=== PATIENT | male | born 1965 | race Caucasian/White ===

== ENCOUNTER 2018-11-15 14:32 | Emergency (ER) | payer SELFPAY ==
[2018-11-15 14:33] VITALS: BP 211/122; PULSE 80; RESP 16; TEMP 37.2; O2SAT 98; BMI 36.5
--- NOTE | 2018-11-15 14:44 | CT_ITS ---
STUDY: CT BRAIN WITHOUT CONTRAST REASON FOR EXAM: Male, 53 years old. Hypertension and confusion. RADIATION DOSAGE (If Supplied By Facility): CTDIvol = ( 44.99 ) mGy, DLP = ( 745.49 ) mGycm TECHNIQUE: Transaxial CT imaging of the brain was performed without administration of intravenous contrast material. Individualized dose optimization techniques were used for this CT. COMPARISON: None. FINDINGS: Normal soft tissue structures. Normal calvarium. Normal size ventricles and extra-axial spaces for the patient's age. Normal white matter tracts of the cerebral hemispheres. Normal basal ganglia and thalami. Normal brainstem. Normal cerebellum. There is no intracranial hemorrhage. There are no findings of an acute ischemic infarction. Normal visualized paranasal sinuses. CT/Brain/Head without Contrast IMPRESSION: Normal unenhanced CT scan of the brain. Electronically Signed: Puneet Alaniz MD at 15:21 EST Tel , Service support ,
--- NOTE | 2018-11-15 14:44 | RAD_ITS ---
STUDY: X-RAY CHEST REASON FOR EXAM: Male, 53 years old. Chest pain high blood pressure TECHNIQUE: Single AP portable view of the chest. COMPARISON: None. FINDINGS: The lungs are clear and expanded. There is no demonstrated pleural abnormality. There is mild cardiac enlargement. Normal mediastinum and hortencia. Normal visualized pulmonary arteries. Normal visualized aortic arch and descending thoracic aorta. Normal visualized thoracic spine. Normal visualized ribs, clavicles, and shoulders. There is no demonstrated abnormality of the visualized soft tissue structures of the upper abdomen. RAD/Chest 1 View (Portable) IMPRESSION: Mild cardiomegaly, no evidence of acute focal infiltrate. Electronically Signed: Lucy Andersen MD at 15:42 EST Tel , Service support ,
--- NOTE | 2018-11-15 14:44 | EKG12_ITS ---
Test Reason : HYPERTENSION Blood Pressure : / mmHG Vent. Rate : 079 BPM Atrial Rate : 079 BPM P-R Int : 168 ms QRS Dur : 088 ms QT Int : 378 ms P-R-T Axes : 026 003 -31 degrees QTc Int : 433 ms Normal sinus rhythm Moderate voltage criteria for LVH, may be normal variant Nonspecific T wave abnormality Abnormal ECG Confirmed by IVANNA WOODRUFF, RDAAMES ([id number]), make up editor CHAYO HOLLAND ([id number]) on 11/17/2018 8:58:28 AM Referred By: NEELA Confirmed By:RADAMES GONCALVES MD
--- NOTE | 2018-11-15 14:49 | ED.VISSUMM ---
- ER Visit Summary Date of Service: 11/15/18 Chief Complaint: Hypertension History of Present Illness: The patient is a 53 M who presents for elevated blood pressure. Yesterday he had a headache and had some mild confusion. His blood pressure was checked last evening and was noted to be elevated to approximately 200/100. Elevated blood pressure is persisted today, but he denies any current headache or confusion. He states his blood pressure was last checked approximately 6-12 months ago. Physical Examination: Blood pressure is 211/122, temperature 98.9, heart rate 80, respiratory rate 16, pulse ox 98% on room air. The time of my examination his blood pressure is 205/126. Patient is in no acute distress and is nontoxic appearing. Head and neck examination is normal. Heart is regular rate and rhythm. Palpable pulses are noted throughout. Lungs are clear with good air movement throughout. Abdomen is soft and nontender. Bowel sounds are noted. Extremity examination is unremarkable with full range of motion. Neurologic examination reveals no focal deficits. Test Results: EKG is sinus at 79 with no acute ischemia. Voltage criteria for LVH is present. Portable chest x-ray shows mild cardiomegaly. No focal infiltrate. Head CT is normal. CBC and chemistry studies are normal. Urinalysis is normal with no sign of proteinuria. Emergency Department Course and Treatment: Patient was given 10 mg of IV labetalol. Repeat blood pressures are 178/109 followed by 168/106. At this time patient be started on lisinopril 10 mg. He is to keep track of his blood pressures and follow-up with his primary care physician. He was advised that the medication would likely need to be titrated. Treatment Plan: [] Disposition: Discharge Impression: Hypertension This note was generated with [employer] dictation software. It may contain incorrect words, spelling, and punctuation that were not noted in review of the chart prior to signing ED Disposition - Plan for ED Patient: Chief Complaint: Hypertension Referrals: Zaki Noe MD [Primary Care Provider] -
--- NOTE | 2018-11-15 14:54 | ED.DCSUM_ITS ---
- ER Visit Summary Date of Service: 11/15/18 Chief Complaint: Hypertension History of Present Illness: The patient is a 53 M who presents for elevated blood pressure. Yesterday he had a headache and had some mild confusion. His blood pressure was checked last evening and was noted to be elevated to approx imately 200/100. Elevated blood pressure is persisted today, but he denies any current headache or confusion. He states his blood pressure was last checked approximately 6-12 months ago. Physical Examination: Blood pressure is 211/122, temperature 98.9, heart rate 80, respiratory rate 16, pulse ox 98% on room air. The time of my examination his blood pressure is 205/126. Patient is in no acute distress and is nontoxic appearing. Head and neck examination is normal. Heart is regular rate and rhythm. Palpable pulses are noted throughout. Lungs are clear with good air movement throughout. Abdomen is soft and nontender. Bowel sounds are noted. Extremity examination is unremarkable with full range of motion. Neurologic examination reveals no focal deficits. Test Results: EKG is sinus at 79 with no acute ischemia. Voltage criteria for LVH is present. Portable chest x-ray shows mild cardiomegaly. No focal infiltrate. Head CT is normal. CBC and chemistry studies are normal. Urinalysis is normal with no sign of proteinuria. Emergency Department Course and Treatment: Patient was given 10 mg of IV labetalol. Repeat blood pressures are 178/109 followed by 168/106. At this time patient be started on lisinopril 10 mg. He is to keep track of his blood pressures and follow-up with his primary care physician. He was advised that the medication would likely need to be titrated. Treatment Plan: [] Disposition: Discharge Impression: Hypertension This note was generated with [employer] dictation software. It may contain incorrect words, spelling, and punctuation that were not noted in review of the chart prior to signing ED Disposition - Plan for ED Patient: Chief Complaint: Hypertension Referrals: Zaki Noe MD [Primary Care Provider] -
[2018-11-15 15:00] LABS: Absolute Lymphocyte Count 1.45 X10^3/ul (0.83-4.51); Absolute Neutrophil Count 4.2 X10^3/uL (2.0-7.7); Basophil# 0.01 X10^3/uL; Basophil% 0.2 % (0-1); Eosinophil# 0.08 X10^3/uL; Eosinophils% 1.3 % (0-5); Hematocrit 41.1 % (40-54); Hemoglobin 13.8 g/dl (13.0-16.5); Lymphocyte # 1.45 X10^3/ul (4.0); Lymphocyte % 23.7 % (19-41); Mean Corp Hgb Conc 33.6 g/gl (32-36); Mean Corpuscular Hgb 30.4 pg (27.0-32.0); Mean Corpuscular Volume 90.5 fL (80-94); Mean Platelet Vol. 10.2 fl (6.2-12.0); Monocyte# 0.36 X10^3/uL; Monocyte% 5.9 % (0-10); Neutrophil % 68.6 % (47-70); Platelet Count 196 K/mm3 (150-450); RBC Distribution Width CV 13.6 % (11.6-14.6); RBC Distribution Width SD 44.5 fl (35.1-43.9); Red Blood Count 4.54 M/mm3 (4.6-6.2); White Blood Count 6.1 K/mm3 (4.4-11.0)
[2018-11-15 15:03] LABS: POSITIVE COUNT NO; POSITIVE DIFFERENTIAL NO; POSITIVE MORPHOLOGY NO
[2018-11-15 15:12] LABS: Anion Gap 10 (5-15); BUN 12 mg/dL (7-18); BUN/Creat Ratio 9.7 RATIO (10-20); Calcium,Total 8.5 mg/dL (8.5-10.1); Chloride 106 mmol/L (98-107); Creatinine, Serum 1.24 mg/dL (0.70-1.30); EST Glomerular Filtration Rate 65 mL/min (>60); Est Glom Filt Rate - Afr Amer 79 mL/min (>60); Estimated Creatinine Clearance 67.42 ml/min; Glucose 118 mg/dL (74-106); Potassium 3.6 mmol/L (3.5-5.1); Sodium Level 138 mmol/L (136-145)
[2018-11-15] MEDS: Labetalol 20 MG/4 ML Vial 10 MG IV (15:23)
[2018-11-15 15:37] VITALS: BP 178/109; PULSE 75
[2018-11-15 15:39] LABS: Bacteria 0 SEEN /hpf (None Seen); Mucous, Urine 0 SEEN /hpf (<or=2+); Red Blood Cells-Urine 0 SEEN /hpf (0-5); Squamous Epithelial Cells - UA 0 SEEN /hpf (0-5); White Blood Cells 0 SEEN /hpf (0-5)
[2018-11-15 15:46] LABS: Color, Urine Yellow (Yellow); Glucose, Dipstick Normal (Normal); Ketone-Dipstick Negative (Negative); Leukocyte Esterase-Dipstick Negative /ul (Negative); Nitrite-Dipstick Negative (Negative); Occult Blood-Urine Negative /ul (Negative); Protein-Dipstick Negative (Negative); Urine Bilirubin Dipstick Negative (Negative); Urine Clarity Clear (Clear); Urine Urobilinogen Normal (Normal)
--- NOTE | 2018-11-15 16:02 | ED.DEP ---
ED Disposition - Plan for ED Patient: Disposition: Home or Assisted Living Chief Complaint: Hypertension Instructions: ED Hypertension New Begin Tx Prescriptions: Lisinopril [Zestril] 10 mg PO DAILY #30 tablet Referrals: Zaki Noe MD [Primary Care Provider] - 1 Week
[2018-11-15 16:08] VITALS: BP 168/106; PULSE 79; RESP 18; O2SAT 95
[2018-11-15] MEDS: Lisinopril 10 MG Tablet PO (16:08)
--- OUTSIDE RECORDS SUMMARY | 2019-01-19 10:28 | XMS RPT_ITS ---
:1965 Author Organization [facility] Care Team Providers Name Role Phone Zaki Neo Primary Care Unavailable Alka Woo Attending Unavailable PROBLEMS PROBLEMS No Problem Records FoundPROCEDURES PROCEDURES No Procedure Records FoundRESULTS RESULTS 12 LEAD ELECTROCARDIOGRAM Observed: 11/17/2018 Status: F Source: [place] 8:58 AM [facility] REPOSITORY [facility] Cardiovascular Services [address] [place] [address] 12 Lead EKG 11/15/18 1455 MR#: [id number] Acct: [id number] Name: JONATHAN BARNETT Rep #: [id number] : 1965 53 From: Les Goncalves MD Attending Dr: Status: DEP ER Ordering Dr: Alka Woo MD Date: 11/15/18 Location: ED Sex: M C Admitted: Test Reason : HYPERTENSION Blood Pressure : / mmHG Vent. Rate : 079 BPM Atrial Rate : 079 BPM P-R Int : 168 ms QRS Dur : 088 ms QT Int : 378 ms P-R-T Axes : 026 003 -31 degrees QTc Int : 433 ms Normal sinus rhythm Moderate voltage criteria for LVH, may be normal variant Nonspecific T wave abnormality Abnormal ECG Confirmed by LES GONCALVES MD ([id number]), non linear editor CHAYO HOLLAND ([id number]) on 11/17/2018 8:58:28 AM Referred By: NEELA Confirmed By:LES GONCALVES MD 11/17/18 0858 Date Les Goncalves MD CC: Alka Woo MD; Zaki Noe MD Signed EMERGENCY DEPARTMENT Observed: 11/15/2018 Status: F Source: [place] SUMMARY 6:28 PM [facility] REPOSITORY [facility] Medical Records Department [address] [place] [address] Emergency Department Summary 11/15/18 1449 MR#: [id number] Acct: [id number] Name: JONATHAN BARNETT Rep #: [id number] : 1965 53 From: Alka Woo MD PCP: Zaki Noe MD Status: DEP ER - ER Visit Summary Date of Service: 11/15/18 Chief Complaint: Hypertension History of Present Illness: The patient is a 53 M who presents for elevated blood pressure. Yesterday he had a headache and had some mild confusion. His blood pressure was checked last evening and was noted to be elevated to approximately 200/100. Elevated blood pressure is persisted today, but he denies any current headache or confusion. He states his blood pressure was last checked approximately 6-12 months ago. Physical Examination: Blood pressure is 211/122, temperature 98.9, heart rate 80, respiratory rate 16, pulse ox 98% on room air. The time of my examination his blood pressure is 205/126. Patient is in no acute distress and is nontoxic appearing. Head and neck examination is normal. Heart is regular rate and rhythm. Palpable pulses are noted throughout. Lungs are clear with good air movement throughout. Abdomen is soft and nontender. Bowel sounds are noted. Extremity examination is unremarkable with full range of motion. Neurologic examination reveals no focal deficits. Test Results: EKG is sinus at 79 with no acute ischemia. Voltage criteria for LVH is present. Portable chest x-ray shows mild cardiomegaly. No focal infiltrate. Head CT is normal. CBC and chemistry studies are normal. Urinalysis is normal with no sign of proteinuria. Emergency Department Course and Treatment: Patient was given 10 mg of IV labetalol. Repeat blood pressures are 178/109 followed by 168/106. At this time patient be started on lisinopril 10 mg. He is to keep track of his blood pressures and follow- up with his primary care physician. He was advised that the medication would likely need to be titrated. Treatment Plan: [] Disposition: Discharge Impression: Hypertension This note was generated with [employer] software. It may contain incorrect words, spelling, and punctuation that were not noted in review of the chart prior to signing ED Disposition - Plan for ED Patient: Chief Complaint: Hypertension Referrals: Zaki Noe MD [Primary Care Provider] - What to do if you have Problems For any increased pain, shortness of breath, bleeding, nausea or vomiting, chest pain, or any unexpected problems, contact your Primary Care Provider. Call [facility] ([phone]) or report to the closest Emergency Room. Call 911 if necessary. 11/15/18 1828 <Electronically signed by Alka Woo MD> Date Alka Woo MD Cosigner Signature (If Indicated): Date CC: Zaki Noe MD DISCHARGE INSTRUCTION Observed: 11/15/2018 Status: F Source: [place] 4:03 PM [facility] REPOSITORY [facility] Medical Records Department [address] [place] [address] Discharge Instruction 11/15/18 160 MR#: [id number] Acct: [id number] Name: JONATHAN BARNETT Rep #: [id number] : 1965 53 From: Alka Woo MD PCP: Zaki Noe MD Status: REG ER ED Disposition - Plan for ED Patient: Disposition: Home or Assisted Living Chief Complaint: Hypertension Instructions: ED Hypertension New Begin Tx Prescriptions: Lisinopril [Zestril] 10 mg PO DAILY #30 tablet Referrals: Zaki Noe MD [Primary Care Provider] - 1 Week What to do if you have Problems For any increased pain, shortness of breath, bleeding, nausea or vomiting, chest pain, or any unexpected problems, contact your Primary Care Provider. Call [facility] ([phone]) or report to the closest Emergency Room. Call 911 if necessary. 11/15/18 1603 <Electronically signed by Alka Woo MD> Date Alka Woo MD Cosignbraden Signature (If Indicated): Date CC: Zaki Noe MD URINALYSIS, COMPLETE Collected: 11/15/2018 Status: F Source: [place] 3:30 PM [facility] REPOSITORY Order Comment: How was Urine Obtained? TRANSFORMER MOLDER TO SPECIFY TYPE CODE TESTS RESULT OUT OF RANGE REFERENCE UNITS LAB L400.3000 Yellow COLOR Normal Yellow LAB L400.3050 Clear Normal CLARITY Clear LAB L400.3200 Normal mg/dl Normal GLUCOSE, UR Normal LAB L400.3300 Negative mg/dL Normal BILIRUBIN URINE Negative LAB L400.3400 Negative mg/dl Normal KETONE UR Negative LAB L400.3465 1.002-1.030 Normal SP.GR. DIPSTX 1.010 LAB L400.3550 5.0 - 8.0 pH UR Normal 6.0 LAB L400.3600 Negative mg/dl PROT Normal DIPSTX Negative LAB L400.3700 Normal mg/dl Normal UROBILI Normal LAB L400.3750 Negative Normal NITRITE UR Negative LAB L400.3780 Negative /ul Normal OCCULT BLOOD-UR Negative LAB L400.3800 Negative /ul LEUK Normal ESTERASE Negative LAB L400.4050 0-5 /hpf WBC 0 Normal SEEN LAB L400.4100 0-5 /hpf 0 Normal RBC-UA SEEN LAB L400.4150 0-5 /hpf SQUAM 0 Normal EPI SEEN LAB L400.4300 None Seen /hpf 0 Normal BACTERIA SEEN LAB L400.4350 <or=2+ /hpf 0 Normal MUCUS, URINE SEEN Performed By: #### L400.0001 #### [facility] [address] [place], [address] CBC W/DIFF, AUTOMATED Collected: 11/15/2018 Status: F Source: [place] 2:50 PM [facility] REPOSITORY TYPE CODE TESTS RESULT OUT OF RANGE REFERENCE UNITS LAB L100.1000 4.4-11.0 K/mm3 Normal WBC 6.1 LAB L100.1200 4.6-6.2 M/mm3 Low RBC 4.54 LAB L100.1300 13.0-16.5 g/dl Normal HGB 13.8 LAB L100.1400 40-54 % Normal HCT 41.1 LAB L100.1500 80-94 fL Normal MCV 90.5 LAB L100.1600 27.0-32.0 pg Normal MCH 30.4 LAB L100.1700 32-36 g/gl Normal MCHC 33.6 LAB L100.1810 11.6-14.6 % Normal RDW CV 13.6 LAB L100.1820 35.1-43.9 fl High RDW SD 44.5 LAB L100.1900 150-450 K/mm3 Normal PLT 196 LAB L100.2000 6.2-12.0 fl Normal MPV 10.2 LAB L100.2100 47-70 % Normal NEUT% 68.6 LAB L100.2200 19-41 % Normal LY% 23.7 LAB L100.2300 0-10 % Normal MONO% 5.9 LAB L100.2400 0-5 % Normal EO% 1.3 LAB L100.2500 0-1 % Normal BASO% 0.2 LAB L100.2550 0.0-0.9 % Normal IM GRAN % 0.300 Result Comment: IG% - Immature Granulocytes (promyelocytes, myelocytes and metamyelocytes) > 1% indicates that a LEFT SHIFT is Present. LAB L100.2620 2.0-7.7 X10 3/uL Normal Absolute Neut 4.2 LAB L100.2720 0.83-4.51 X10 3/ul Normal Absolute Lymph 1.45 Performed By: #### L100.0100 #### [facility] [address] [place], [address] BASIC METABOLIC Collected: 11/15/2018 Status: F Source: [place] PROFILE (BMP) 2:50 PM [facility] REPOSITORY TYPE CODE TESTS RESULT OUT OF RANGE REFERENCE UNITS LAB L501.0100 74-106 mg/dL High GLU 118 Result Comment: Fasting Glucose result from 100 to 125 mg/dL suggests IMPAIRED HOMEOSTASIS per A.D.A. criteria. Please note revised GLUCOSE reference range effective 2017. LAB L501.1000 7-18 mg/dL Normal BUN 12 LAB L501.1100 0.70-1.30 mg/dL Normal CREAT,SERUM 1.24 Result Comment: The validity of the calculated GFR AND GFRAA in patients over 70 years has not been determined. Clinical correlation is essential. LAB L501.1110 >60 mL/min Normal EST GFR 65 Result Comment: Non- GFR Calc LAB L501.1115 >60 mL/min Normal EST GFR - AA 79 Result Comment: GFR Calc LAB L501.1255 ml/min Normal Estimated CRCL 67.42 LAB L501.1300 10-20 RATIO Low BUN/CRE 9.7 LAB L501.2200 8.5-10 mg/dL Normal .1 CA 8.5 LAB L501.5300 136-14 mmol/L Normal 5 NA 138 LAB L501.5600 3.5-5. mmol/L Normal 1 K 3.6 LAB L501.5900 98-107 mmol/L Normal CL 106 LAB L501.6100 21.0-3 mmol/L Normal 2.0 CO2 22.0 LAB L501.6200 5-15 Normal GAP 10 Performed By: #### L500.2500 #### [facility] [address] [facility] [place], [address] BRAIN/HEAD WITHOUT Observed: 11/15/2018 Status: F Source: [place] CONTRAST 2:45 PM [facility] REPOSITORY [facility] Imaging Services [address] [place] [address] Brain/Head without Contrast MR#: [id number] Acct: [id number] Name: JETJONATHAN Corbett Pat Rep #: [id number] : 1965 M 53 From: Puneet Alaniz MD PCP: Zaki Noe MD Status: REG ER Study: Brain/Head without Contrast Date of Exam: 11/15/18 Exam# [id number] Ordering Dr: Alka Woo MD STUDY: CT BRAIN WITHOUT CONTRAST REASON FOR EXAM: Male, 53 years old. Hypertension and confusion. RADIATION DOSAGE (If Supplied By Facility): CTDIvol = ( 44.99 ) mGy, DLP = ( 745.49 ) mGycm TECHNIQUE: Transaxial CT imaging of the brain was performed without administration of intravenous contrast material. Individualized dose optimization techniques were used for this CT. COMPARISON: None. FINDINGS: Normal soft tissue structures. Normal calvarium. Normal size ventricles and extra-axial spaces for the patient's age. Normal white matter tracts of the cerebral hemispheres. Normal basal ganglia and thalami. Normal brainstem. Normal cerebellum. There is no intracranial hemorrhage. There are no findings of an acute ischemic infarction. Normal visualized paranasal sinuses. CT/Brain/Head without Contrast IMPRESSION: Normal unenhanced CT scan of the brain. Electronically Signed: Puneet Alaniz MD at 15:21 EST Tel , Service support , CC: Alka Woo MD; Zaki Noe MD Dental Patient Coordinator: Signed CHEST 1 VIEW Observed: 11/15/2018 Status: F Source: [place] (PORTABLE) 2:45 PM [facility] REPOSITORY [facility] Imaging Services [address] [place] [id number] Chest 1 View (Portable) MR#: [id number] Acct: [id number] Name: JONATHAN BARNETT Rep #: [id number] : 1965 53 From: Lucy Andersen MD PCP: Zaki Noe MD Status: REG ER Study: Chest 1 View (Portable) Date of Exam: 11/15/18 Exam# [id number] Ordering Dr: Alka Woo MD STUDY: X-RAY CHEST REASON FOR EXAM: Male, 53 years old. Chest pain high blood pressure TECHNIQUE: Single AP portable view of the chest. COMPARISON: None. FINDINGS: The lungs are clear and expanded. There is no demonstrated pleural abnormality. There is mild cardiac enlargement. Normal mediastinum and hortencia. Normal visualized pulmonary arteries. Normal visualized aortic arch and descending thoracic aorta. Normal visualized thoracic spine. Normal visualized ribs, clavicles, and shoulders. There is no demonstrated abnormality of the visualized soft tissue structures of the upper abdomen. RAD/Chest 1 View (Portable) IMPRESSION: Mild cardiomegaly, no evidence of acute focal infiltrate. Electronically Signed: Lucy Andersen MD at 15:42 EST Tel , Service support , CC: Alka Woo MD; Zaki Noe MD Dental Patient Coordinator: Signed ALLERGIES ALLERGIES DATE TYPE / CODE NAME / CODE REACTION SEVERITY SOURCE 11/15/2018 Drug No Known Unknown [facility] Allergy/4160 Allergies/F00 Hospital 79622(SNOMED [id number](RXNOR Repository CT) M) ENCOUNTERS ENCOUNTERS ADMIT/DISCHARGE ACCOUNT ADMITTING ENCOUNTER LOCATION SOURCE NUMBER CLASS 11/15/2018/ [id number] Emergency Josh Josh 9 [facility] ing:ED Repository PAYERS PAYERS ENCOUNTER GUARANTOR PAYER SUBSCRIBER SOURCE 11/15/2018 JONATHAN Stewart Primary NOT GIVENUNK Josh [id number] HERI Insurance:SELF PAY [facility] [address]Ngc: (330) Number: Effective Repository [phone] () Date:2018-11-15
== END 2018-11-15 16:14 | disposition home or self-care (01) ==
PROVIDERS: Emergency Provider Emergency Medicine; Family Provider Family Medicine; PCP Family Medicine
DX: I10 Essential (primary) hypertension (principal)
CPT/HCPCS: 70450; 71045; 80048; 81001; 85025; 93005; 96374; 99285; A4216

== ENCOUNTER 2022-01-17 10:26 | Outpatient (CLI) | payer OTHER, SELFPAY ==
[2022-01-17 13:12] LABS: Anion Gap 9 (5-15); BUN 15 mg/dL (7-18); BUN/Creat Ratio 13.9 RATIO (10-20); Calcium,Total 8.5 mg/dL (8.5-10.1); Chloride 104 mmol/L (98-107); Cholesterol 195 mg/dL (200); Creatinine, Serum 1.08 mg/dL (0.70-1.30); EST Glomerular Filtration Rate 75 mL/min (>60); Est Glom Filt Rate - Afr Amer 91 mL/min (>60); Glucose 102 mg/dL (74-106); High Density Lipoprotein 40 mg/dL; Potassium 4.2 mmol/L (3.5-5.1); Sodium Level 137 mmol/L (136-145); Triglycerides 203 mg/dL; Very Low Density Lipoprotein 41 mg/dL (5-40)
== END 2022-01-17 23:59 | disposition home or self-care (01) ==
LOC: MFPLAB 10:29
PROVIDERS: PCP Family Medicine; Referring Provider Family Medicine; Visit Provider Family Medicine
DX: I10 Essential (primary) hypertension (principal)
CPT/HCPCS: 36415; 80048; 80061

== ENCOUNTER → 2023-08-26 | Outpatient (CLI) | payer OTHER, SELFPAY ==
[2023-08-26 13:05] LABS: Anion Gap 6 (5-15); BUN 16 mg/dL (7-18); Calcium,Total 9.1 mg/dL (8.5-10.1); Chloride 106 mmol/L (98-107); Cholesterol 189 mg/dL (200); Creatinine, Serum 1.14 mg/dL (0.70-1.30); EST Glomerular Filtration Rate 70 mL/min (>60); Est Glom Filt Rate - Afr Amer 85 mL/min (>60); Glucose 96 mg/dL (74-106); High Density Lipoprotein 41 mg/dL; Potassium 3.6 mmol/L (3.5-5.1); Sodium Level 135 mmol/L (136-145); Triglycerides 289 mg/dL; Very Low Density Lipoprotein 58 mg/dL (5-40)
== END | disposition home or self-care (01) ==
LOC: MFPLAB 10:40
PROVIDERS: PCP Family Medicine; Visit Provider Family Medicine
DX: I10 Essential (primary) hypertension (principal)
CPT/HCPCS: 36415; 80048; 80061

== ENCOUNTER 2024-01-12 23:22 | Inpatient (IN) | payer OTHER, SELFPAY ==
--- NOTE | 2024-01-12 00:30 | RAD_ITS ---
EXAM: XR CHEST, 1 VIEW CLINICAL INDICATION: Intubation TECHNIQUE: Frontal view of the chest performed at 00:41. COMPARISON: Portable exam from same date FINDINGS: LUNGS AND PLEURAL SPACES: Small right pneumothorax, less than 10%. Left basilar consolidation. No effusion. HEART: Unremarkable. Cardiac silhouette not enlarged. MEDIASTINUM: Pneumomediastinum. BONES/JOINTS: Unremarkable. No acute fracture. SOFT TISSUES: Unremarkable. TUBES, LINES AND DEVICES: Endotracheal tube with tip in the right mainstem bronchus. RAD/Chest 1 View (Portable) IMPRESSION: 1. Endotracheal tube with tip in the right mainstem bronchus. A follow-up examination has already been performed. 2. Pneumomediastinum. 3. Small right pneumothorax, less than 10%. Electronically Signed: Pedro Delgadillo MD at 4:07 EDT ,
--- NOTE | 2024-01-12 23:23 | EKG12_ITS ---
Test Reason : edema Blood Pressure : / mmHG Vent. Rate : 107 BPM Atrial Rate : 107 BPM P-R Int : 182 ms QRS Dur : 082 ms QT Int : 336 ms P-R-T Axes : 056 018 139 degrees QTc Int : 448 ms Sinus tachycardia Nonspecific ST and T wave abnormality Abnormal ECG Confirmed by IVANNA WOODRUFF, RADAMES ([id number]), legal editor KIM WALLER ([id number]) on 01/14/2024 10:45:02 AM Referred By: Adiel Confirmed By:RADAMES GONCALVES MD
[2024-01-12 23:24] VITALS: BP 188/165; PULSE 108; RESP 22; TEMP 36.2; O2SAT 96; BMI 43.9
[2024-01-12] MEDS: Etomidate 20 MG/10 ML Vial IV (23:30)
[2024-01-12] MEDS: 0.9% Normal Saline (1000mL) 1,000 ML 150 ML IV (23:30)
[2024-01-12] MEDS: Rocuronium Bromide 50 MG/5 ML Vial 75 MG IV (23:31)
--- NOTE | 2024-01-12 23:40 | ED.RN ---
2330 dr crowder attempted to intubated pt with much difficulty. 7.5 ett inserted and not in the right palce,pulse ox in the 60's. 2331 placed a LMA, bagging up to [address] Crowder open the pt's neck--not in right place. Continue to bagged the pt with ambu bag,pulse ox in the 90's. Dr Crowder attempting to insert trach. 2340 unsuccessful trach. continue to bag pt vi ambu bag and LMA in place.
--- NOTE | 2024-01-12 23:51 | ED.RN ---
2346 using the glidescope and bronch tube to attempt to place ETT with Dr Jean-Baptiste and Dr Kurtz. Ambu bagging with great difficulty. 2355 ETT tested negative by capnograph via the neck,contine to ambu bag pt via LMA. 2356 ETT size 5 inserted in neck, positive color changed via cric.pulse ox starting to drop into the teens.Ambu bagging LMA, pulse ox now trending up to 80's. 2400 ETT 6.5 placed,positive capnography. pulse ox now [address] Kurtz at the bedside attempting to suture the ETT in place in the neck.
[2024-01-12 23:53] VITALS: BP 261/127; PULSE 108; O2SAT 91
[2024-01-13] VITALS (51 sets, daily range): BP systolic 82–237; BP diastolic 58–144; PULSE 67–114; RESP 12–25; TEMP 35.9–37.2; O2SAT 85–100; BMI 43.8; BMI 43.9
--- NOTE | 2024-01-13 00:17 | EDS_ITS ---
HPI History of Present Illness Chief Complaint: Edema Detail of Chief Complaint: Angioedema Informant: patient and spouse/S.O. Onset/Context/Timing Onset: Hours (1 hour prior to presentation) Context: Sudden Onset Timing: Continuous Quality: Trouble speaking and trouble swallowing Location: Oropharynx Current Severity: Severe Maximum Severity: Severe Worsened by: Lisinopril Relieved by: Nothing Narrative Narrative: Patient is a 58-year-old male who presents with swelling of his tongue that started 1 hour prior to presentation. Upon arrival he has garbled speech and difficulty swallowing. He has expiratory stridor noted. There is significant swelling in the submental and larynx region. There is no trismus. Patient has a Mallampati score of 4. Prior similar symptoms: No Recent Illness/Hospitalization: No PFSH PFSH Medical History unable to obtain unable to obtain Home Medications lisinopril 10 mg tablet 10 mg PO DAILY #30 tabs 11/15/18 [Rx Last Taken Unknown] Allergy/AdvReac Type Severity Reaction Status Date / Time HAO Inhibitors AdvReac Severe Angioedema Verified 01/13/24 00:37 Surgical History unable to obtain unable to obtain Social History household members: spouse Smoking Status: Never smoker ROS ROS ED Review of Systems ROS Unobtainable: due to mental status EXAM Physical Exam Const Vital Signs: 01/12/24 23:24 01/12/24 23:53 01/13/24 00:23 Temperature 97.1 F L Temperature Source Temporal Pulse Rate 108 H 108 H 110 H Respiratory Rate 22 H 15 Blood Pressure 188/165 H 261/127 H 213/122 H Blood Pressure Mean 172 171 152 Pulse Ox 96 91 90 Oxygen Delivery Method Ambu-Bag Ambu-Bag Oxygen Flow Rate (L/min) 15 15 01/13/24 00:07 01/13/24 00:10 01/13/24 00:15 Temperature Temperature Source Pulse Rate 108 H 114 H 100 Respiratory Rate 12 20 H 24 H Blood Pressure 237/144 H Blood Pressure Mean 171 Pulse Ox 96 87 92 Oxygen Delivery Method Oxygen Flow Rate (L/min) 01/13/24 00:20 01/13/24 00:26 01/13/24 00:30 Temperature Temperature Source Pulse Rate 109 H 108 H 111 H Respiratory Rate 12 24 H 19 H Blood Pressure 213/122 H 173/112 H Blood Pressure Mean 147 128 Pulse Ox 94 85 86 Oxygen Delivery Method Oxygen Flow Rate (L/min) 01/13/24 00:40 01/13/24 00:45 01/13/24 00:50 Temperature Temperature Source Pulse Rate 107 H 112 H 114 H Respiratory Rate 25 H 18 24 H Blood Pressure 174/127 H 166/110 H Blood Pressure Mean 136 125 Pulse Ox 86 85 98 Oxygen Delivery Method Oxygen Flow Rate (L/min) 01/13/24 00:58 01/13/24 01:00 Temperature Temperature Source Pulse Rate 110 H 110 H Respiratory Rate 19 H 17 Blood Pressure 218/123 H Blood Pressure Mean 148 Pulse Ox 91 94 Oxygen Delivery Method Oxygen Flow Rate (L/min) Positive well nourished, well developed and obese General Appearance ED: well developed; Negative for pallor Nutritional Appearance: obese HEENT HEENT Narrative: Angioedema with significant submental swelling dysphonia and difficulty swallowing normocephalic and atraumatic Eyes PERRL and EOMs intact bilaterally Neck full ROM, no lymphadenopathy, supple and no JVD Neck Narrative: Trachea is at midline. There is stridor. Resp Resp Narrative: He is in no respiratory distress. Lungs are clear to auscultation with symmetric breath sounds. Cardio regular rate, regular rhythm, S1 normal heart sound, S2 normal heart sound and no murmurs GI non-tender, non-distended and no masses Back/Spine no CVA tenderness Thoracic Spine / Upper Back: Negative for thoracic spinal tenderness Lumbar Spine / Lower Back: Negative for lumbar spinal tenderness Neuro oriented x3, CN's II-XII intact bilaterally and no sensory deficits noted Sensorium / Orientation: alert Psych mental status grossly normal Skin General Skin Exam: Negative for jaundice or pallor MDM MDM MDM Narrative Medical decision making narrative: Patient was seen immediately per request of charge nurse. Respiratory was called stat since patient has airway compromise due to angioedema. Patient was placed on high percent nonrebreather. Once everyone in the room was ready. Patient received etomidate 20 mg. His teeth were clenched and unable to open his mouth to intubate. In light of this he received 75 mg of rocuronium. Attempt to orotracheally but was unsuccessful because of the amount of swelling and difficulty passing the tube past the back of his tongue. LMA was placed. Patient was ventilated/oxygenated with the LMA. Cricothyrotomy was undertaken by me. Initial attempt at placing the tracheostomy tube was unsuccessful. With assistance by Dr. Kurtz a 6.5 [place] endotracheal tube was placed because we were unable to pass the tracheostomy tube because of swelling and angle. The endotracheal tube position was confirmed using bronchoscopy. Patient was medicated with bolus of propofol and propofol drip as well as bolus of fentanyl and fentanyl drip. Since we were unable to place a tracheostomy tube will have c-collar placed to prevent any movement of the endotracheal tube. Dr. Miguel Kurtz is presently suturing the incision closed and attempt to sick cure the airway/endotracheal tube. Patient desaturates when he attempts to breathe. He received additional propofol. He is present on a propofol fentanyl drip. He did receive a dose of rocuronium so that he would not move when we move him to obtain chest x-rays to confirm endotracheal tube placement. It apparently moved when sutured in place by Dr. Kurtz. Patient has desaturated. Concerned he aspirated. He was treated with 3.0 g of Unasyn since he has no allergies to antibiotics. History & Record Review Discussion w/independent historian: Patient, Family and Significant other Lab Data Attestation: I reviewed the patient's lab results. Lab results narrative: CBC is unremarkable. Comprehensive metabolic panel reveals elevated AST and ALT of 62 and 126 respectively. CPK is elevated 510. Glucose is 147 with normal CO2 anion gap. Labs: Laboratory Results - last 24 hr 01/12/24 01/12/24 23:29 23:55 WBC 6.9 RBC 4.60 Hgb 14.0 Hct 42.5 MCV 92.4 MCH 30.4 MCHC 32.9 RDW Std Deviation 48.0 H RDW Coeff of Ya 14.2 Plt Count 231 MPV 10.5 Immature Gran % (Auto) 1.000 H Neut % (Auto) 51.1 Lymph % (Auto) 34.3 [place] % (Auto) 11.2 H Eos % (Auto) 2.0 Baso % (Auto) 0.4 Absolute Neuts (auto) 3.5 Absolute Lymphs (auto) 2.35 Nucleated RBC % 0 PT 13.0 INR 1.0 APTT 27.0 Sodium 138 Potassium 3.4 L Chloride 103 Carbon Dioxide 27.0 Anion Gap 8 BUN 17 Creatinine 1.15 Estim Creat Clear Calc 93.75 Est GFR (MDRD) Af Amer 84 Est GFR (MDRD) Non-Af 70 BUN/Creatinine Ratio 14.8 Glucose 147 H Calcium 9.1 Total Bilirubin 0.40 AST 62 H ALT 126 H Alkaline Phosphatase 88 Total Creatine Kinase 510 H Total Protein 7.6 Albumin 3.9 Globulin 3.7 Albumin/Globulin Ratio 1.1 Triglycerides 385 H POC Glucose 182 H Radiography Chest X-Ray - ED: Read by ED Physician (Chest x-ray #1 reveals the endotracheal tube to be in the right main bronchus. Will need to be pulled back approximately 3 cm. Chest x-ray #2 reveals it to be just right of the [place]. Chest x-ray #3 reveals the endotracheal tube above the [place]. This would explain his white out on the left. T) Rhythm Strip Rhythm Strip: Sinus Tach Rate: 102 Management Discussion w/another healthcare provider: Hospitalist and Field Service Technician Critical Care Time Critical Care Time: Yes Critical care time (excluding procedures): 30-74 minutes (37), Including time spent: (History, physical, documentation,), Discussing w/Patient &/or Family/Contract Administration Manager ( was told need of an emergent airway. She was told that an oral airway was unsuccessful and he required a surgical airway.), Discussing w/Consultants (Dr. 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
[2024-01-13] MEDS: Propofol 200 MG/20 ML Vial 60 MG IV BOLUS ×3 (00:18→00:43)
[2024-01-13] MEDS: Propofol 10MG/Ml 1,000 MG/100 ML Bottle 7.9 MG CONT INF (00:18)
--- NOTE | 2024-01-13 00:18 | ED.RN ---
Dr Kurtz remains at bedside suturing the ETT in the neck. Diprivan 60mg IVP given.
[2024-01-13 00:23] LABS: CPK Total, Creatine Kinase 510 U/L (39-308); Triglycerides 385 mg/dL
--- NOTE | 2024-01-13 00:29 | PCM.HP.STD ---
[facility] - General General Date of Admission: 01/13/24 Date of Service: 01/13/24 Chief Complaint: Angioedema. HPI Narrative JONATHAN OROZCO, is a 58 M with a past medical history of essential hypertension; on Lisinopril and morbid obesity; with BMI of 44 this admission who presents to [facility] complaining of angioedema. Mr. Orozco is underwent emergent bedside cricothyrotomy in the ER therefore he cannot give a history so information was gathered from chart, medical staff and computer. According to the records his symptoms began approximately 1 hour prior to arrival with the abrupt onset of tongue swelling that quickly worsened causing him to have garbled speech and difficulty swallowing. Unfortunately, then he was noted to have expiratory stridor which devolved into respiratory distress. In the ER he could not be intubated due to severe swelling of his submental and laryngeal regions in addition to patient clenching his teeth and unable to completely open his mouth so a bedside cricothyrotomy was performed by the ER physician with subsequent placement of a 6.5 [place] endotracheal tube after the tracheostomy tube could not be passed due to swelling and severity of angle. He was also noted to have a hypertensive emergency with a blood pressure of 261/127 mmHg shortly after admission. He was then admitted to the ICU for ongoing care for stay that is expected to be greater than 48 hours. [facility] Medical History unable to obtain Home Medications lisinopril 10 mg tablet 10 mg PO DAILY #30 tabs 11/15/18 [Rx Last Taken Unknown] Allergy/AdvReac Type Severity Reaction Status Date / Time HAO Inhibitors AdvReac Severe Angioedema Verified 01/13/24 00:37 Surgical History unable to obtain Social History household members: spouse Smoking Status: Never smoker ROS ROS Narrative Review of systems cannot be completed due to patient having underwent emergent bedside cricothyrotomy with patient on ventilator and sedation in place. Review of Systems ROS Unobtainable: due to encephalopathy Vital Signs Vital Signs Vital Signs: 01/12/24 23:24 01/12/24 23:53 Temperature 97.1 F L Temperature Source Temporal Pulse Rate 108 H 108 H Respiratory Rate 22 H Blood Pressure 188/165 H 261/127 H Blood Pressure Mean 172 171 Pulse Ox 96 91 Oxygen Delivery Method Ambu-Bag Oxygen Flow Rate (L/min) 15 Weight Weight: 289 lb 3.944 oz Body Mass Index (BMI) 43.9 Physical Exam Const Constitutional Narrative: Patient is sedated on ventilator with evidence of recent bedside cricothyrotomy. HEENT normocephalic and head/scalp atraumatic Eyes PERRL Neck Neck Narrative: Patient has evidence of recent bedside cricothyrotomy with endotracheal tube in place. Resp normal respiratory effort, no retractions, no use of accessory muscles and clear to auscultation bilaterally Cardio regular rate and regular rhythm GI normal to inspection, nondistended, normoactive bowel sounds, soft to palpation, non-tender and non-distended GI Narrative: Morbidly obese. Extremity normal to inspection and full ROM Skin Skin Narrative: Patient has no evidence of rash at this time. Neuro Neuro Narrative: Patient is sedated after bedside cricothyrotomy with endotracheal tube in place on ventilator. Results Medical Records Data Attestation: I reviewed the patient's medical records Lab / Micro Data Attestation: I reviewed the patient's lab results. 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 Angioedema causing acute respiratory failure requiring bedside cricothyrotomy - Admit to ICU. Wean ventilator support as tolerated. Treat with IV steroids, IV antihistamines and epinephrine. Finally, patient was treated with empiric IV Unasyn after bedside procedure and propofol will be used to maintain sedation. 2. Adverse drug reaction to lisinopril causing #1 - Lisinopril has been added to patient's list of allergies. 3. Morbid obesity; with BMI of 44 this admission - Weight loss will eventually recommended. Check TSH. 4. DVT prophylaxis - Lovenox 40 mg SQ twice daily. Total time: Approximately 55 minutes. Charges/Coding Visit Charges Inpatient E&M: 60588 Init Hosp L2
--- NOTE | 2024-01-13 00:30 | RAD_ITS ---
We are attempting to reach an attending provider to discuss findings. An addendum with communication details will be sent when the communication is complete. EXAM: XR CHEST, 1 VIEW CLINICAL INDICATION: Respiratory failure TECHNIQUE: Frontal view of the chest performed at 0048. COMPARISON: Portable chest exams from same date FINDINGS: LUNGS AND PLEURAL SPACES: Small right pneumothorax, less than 10%. Left nasal air atelectasis/consolidation. No effusion. HEART: Unremarkable. Cardiac silhouette not enlarged. MEDIASTINUM: Significant pneumomediastinum and pneumopericardium. BONES/JOINTS: Unremarkable. No acute fracture. SOFT TISSUES: Unremarkable. TUBES, LINES AND DEVICES: Endotracheal tube with tip 1.7 cm above the [place]. RAD/Chest 1 View (Portable) IMPRESSION: 1. Significant pneumomediastinum and pneumopericardium. 2. Small right pneumothorax, less than 10%. 3. Endotracheal tube with tip 1.7 cm above the d[place]. Electronically Signed: Pedro Delgadillo MD at 2:10 EDT ,
--- NOTE | 2024-01-13 00:30 | RAD_ITS ---
EXAM: XR CHEST, 1 VIEW CLINICAL INDICATION: Respiratory failure TECHNIQUE: Frontal view of the chest performed at 00:43. COMPARISON: Single view chest from same date FINDINGS: LUNGS AND PLEURAL SPACES: Small right pneumothorax, less than 5%. Left basilar consolidation. No effusion. HEART: Unremarkable. Cardiac silhouette not enlarged. MEDIASTINUM: Pneumomediastinum. BONES/JOINTS: Unremarkable. No acute fracture. SOFT TISSUES: Unremarkable. TUBES, LINES AND DEVICES: Endotracheal tube with tip in the right mainstem bronchus. RAD/Chest 1 View (Portable) IMPRESSION: 1. Endotracheal tube with tip in the right mainstem bronchus. A follow-up examination has already been performed after repositioning. 2. Pneumomediastinum. 3. Small right pneumothorax, less than 5%. 4. Left basilar consolidation. Electronically Signed: Pedro Delgadillo MD at 4:05 EDT ,
[2024-01-13] MEDS: fentaNYL drip 100 ML 2.5 MCG CONT INF (00:35)
[2024-01-13 00:36] LABS: Absolute Lymphocyte Count 2.35 X10^3/uL (0.83-4.51); Absolute Neutrophil Count 3.5 X10^3/uL (2.0-7.7); Basophil# 0.03 X10^3/uL; Basophil% 0.4 % (0-1); Eosinophil# 0.14 X10^3/uL; Hematocrit 42.5 % (40-54); Lymphocyte # 2.35 X10^3/ul (0.83-4.51); Lymphocyte % 34.3 % (19-41); Mean Corp Hgb Conc 32.9 g/dL (32-36); Mean Corpuscular Hgb 30.4 pg (27.0-32.0); Mean Corpuscular Volume 92.4 fL (80-94); Mean Platelet Vol. 10.5 fl (6.2-12.0); Monocyte# 0.77 X10^3/uL; Monocyte% 11.2 % (0-10); NRBC Flagged by Analyzer 0 % (0-5); Neutrophil # 3.49 X10^3/uL (2.7-7.7); Neutrophil % 51.1 % (47-70); Platelet Count 231 K/mm3 (150-450); RBC Distribution Width CV 14.2 % (11.6-14.6); White Blood Count 6.9 K/mm3 (4.4-11.0)
[2024-01-13 00:41] LABS: ALB/GLOB Ratio 1.1 RATIO (0.9-2.4); AST(SGOT) 62 U/L (15-37); Alanine Aminotransfer ALT/SGPT 126 U/L (16-61); Albumin, Serum 3.9 g/dL (3.2-5.0); Alkaline Phosphatase 88 U/L (45-117); Anion Gap 8 (5-15); BUN 17 mg/dL (7-18); BUN/Creat Ratio 14.8 RATIO (10-20); Calcium,Total 9.1 mg/dL (8.5-10.1); Chloride 103 mmol/L (98-107); Creatinine, Serum 1.15 mg/dL (0.70-1.30); EST Glomerular Filtration Rate 70 mL/min (>60); Est Glom Filt Rate - Afr Amer 84 mL/min (>60); Estimated Creatinine Clearance 93.75 ml/min; Globulin 3.7 g/dL (2.2-4.2); Glucose 147 mg/dL (74-106); Potassium 3.4 mmol/L (3.5-5.1); Protein, Total 7.6 g/dL (6.4-8.2); Sodium Level 138 mmol/L (136-145)
[2024-01-13] MEDS: Rocuronium Bromide 50 MG/5 ML Vial IV (00:42)
[2024-01-13] MEDS: Ampicillin/Sulbactam 3 GM in 0.9% Normal Saline (100mL MB+) 100 ML IV ×4 (00:53→20:04)
[2024-01-13 01:04] LABS: Bedside Glucose 182 mg/dL (74-106)
--- NOTE | 2024-01-13 01:08 | PCM.PN.BLA ---
Progress Note I was caring for another patient in the emergency room when a NOLAN MERINO was called overhead and I presented at bedside to see if I could be of assistance to Dr. Jean-Baptiste who had just proceeded with cricothyroidotomy for a patient with angioedema and failed endotracheal intubation. Upon arriving to the room there was uncertainty as to whether or not he was able to intubate the trachea with his tracheostomy appliance. Upon my suggestion we obtained a bedside bronchoscope and attempted to confirm visually, however, this exam was precluded by bloody drainage and we removed this airway and attempt to seat it properly. In the interim respiratory therapy was called upon to back the patient via an LMA. I then suggested that we extend the incision longitudinally and inferiorly to provide better exposure. We initially tried to place a 5 endotracheal tube via patient's cricothyroidotomy, however respiratory therapy reported that they had difficulty ventilating and it did not appear that the tube cuff was occlusive enough to ventilate the patient. It was roughly at this time that the patient experienced an acute desaturation and was unable to be ventilated through bagging at his previously placed LMA. Thus I cut the end off of a Cook catheter, withdrew the #5 endotracheal tube, intubated the trachea and then passed a 6-1/2 endotracheal tube over the Cook catheter into the trachea. Upon doing so we confirmed endotracheal placement with color change capnography and the patient was reported by respiratory therapy has easier to ventilate. Indeed his SpO2 responded appropriately and we were able to achieve saturations of the high 80s low 90s. I then secured the airway bilaterally using 0 silk suture in a Nicholas sandal fashion. The skin incision was packed with Surgicel and gauze to obtain hemostasis. A chest x-ray was then obtained to confirm to positioning. This found that we had extended the tip of the endotracheal tube into the right mainstem bronchus by 2-1/2 cm. Thus I then withdrew the endotracheal tube until it sat just above the [place]. This did translate into improved ventilation and we were able to achieve normal oxygen saturations. In the meantime I made phone calls to ENT and left a message with the ENT on-call to the hospital and an interest of trying to update them on the situation and potentially arrange for a conversion of the cricothyroidotomy to a formal tracheostomy given the tenuous position of the airway at present and my concerns about losing the airway overnight.
[2024-01-13] MEDS: Propofol 200 MG/20 ML Vial 50 MG IV BOLUS (01:34)
--- NOTE | 2024-01-13 01:35 | ED.RN ---
report was called to Radha CHARLES
[2024-01-13] MEDS: 0.9% Normal Saline (1000mL) 1,000 ML 150 ML IV ×3 (01:50→16:29)
--- NOTE | 2024-01-13 02:00 | NURSING ---
pt transferred from ed to room icu 4, d/t how positional the trach/ cric is the pt was not moved from ed stretcher this was discussed with dr mclaughlin and resp, who are at bedside, pt has LMA in place, tongue swollen, pupils equal and reactive to light, pt moving head and legs, dr mclaughlin want sedation increased and then pt paralized to make sure trach stays in place. trach is sutured in place. 0230 dr rivera at bedside to place rt chest tube, xray called to bedside to verify placement of ct and verify et placement, dr rivera repositioned tube. dr rivera also said to hold off on FFP and talk to ICU doc when they get here in the am 0350 tele icu doc called stating he thought et tube needed to be pulled back a couple cm, dr rivera notified and he wants to leave tube in place because pt is oxygenating well. [address] Barrett at bedside, told him about et tube placement and he said to leave it, he also took LMA out
[2024-01-13] MEDS: DiphenhydrAMINE 50 MG/ML Syringe IV (02:14)
[2024-01-13] MEDS: MethylPREDNISolone 125 MG/2 ML Vial IV (02:14)
--- NOTE | 2024-01-13 02:14 | CPS ---
Several attempts made with intubation by doc. Stat airway team called. Once airway was officially established, patient had size 6.5 EET at tracheostomy site. Tube placement confirmed with ez cap, breath sounds, and chest x ray. I gel in as well and left in patient's mouth, per Dr. Jean-Baptiste. EET secured with tape and sutures applied by Dr. Kurtz. EET size 6.5 at 17 right at base of neck.
[2024-01-13 02:26] LABS: Allen Test Positive; Base Excess -2 mmol/L (-2 to +2); Bicarbonate 25.2 mmol/L (22-26); Blood Gas Specimen Type ART; Mode AC; O2 Delivery Device Adult Vent; PEEP 5; PO2 66 mmHG (75-100); RR 14; SITE L Radial; SO2 89 % (95-99); Total Carbon Dioxide 27 mmol/L; pCO2 56.7 mmHg (35-45); pH 7.26 (7.35-7.45)
[2024-01-13] MEDS: dexMEDEtomidine 400 MCG in 0.9% Normal Saline (100mL Bag) 96 ML 49.2 MCG CONT INF ×2 (02:30→03:30)
[2024-01-13] MEDS: Cisatracurium *PARALYTIC 100 MG in 0.9% Normal Saline (250mL Bag) 200 ML 39.4 MG CONT INF ×4 (02:50→22:00)
[2024-01-13] MEDS: Propofol 10MG/Ml 1,000 MG/100 ML Bottle 39.4 MG CONT INF (03:00)
--- NOTE | 2024-01-13 03:08 | PCMCONS.TICU ---
HPI Consult Data Date of Consult: 01/13/24 HPI Narrative Reason for Consultation: Angioedema, Difficult airway, Acute respiratory failure, Rt Pneumothorax HPI Narrative: JONATHAN BARNETT, is a 58 M with HTN on lisinopril, Morbid obesity who presented for tongue swelling. Swelling started 1hr prior to arrival to ER. Patient currently intubated and sedated and no family member at bedside therefore most of the history was obtained from patient's nurse at bedside and reviewing patient's chart. Patient's swelling quickly progressed requiring emergent airway. Initially tried to place ET tube but was unsuccessfull therefore Cricothyroidotomy was attempted by Dr. Jean-Baptiste, subsequently Dr. Kurtz, Surgeon successfully placed ET tube through Cricothyroidotomy. Subsequent CXR revealed Rt pneumothorax and pneumomediastinum, chest tube placement is planned. ENT will need to convert to Tracheostomy. PFSH Medical History unable to obtain Home Medications lisinopril 10 mg tablet 10 mg PO DAILY #30 tabs 11/15/18 [Rx Last Taken Unknown] Allergy/AdvReac Type Severity Reaction Status Date / Time HAO Inhibitors AdvReac Severe Angioedema Verified 01/13/24 00:37 Surgical History unable to obtain Social History household members: spouse Smoking Status: Never smoker ROS Review of Systems ROS Unobtainable: due to endotracheal tube Objective Data Objective Data Vital Signs: Vital Signs Last response Temperature 36.6 C 01/13/24 01:24 Temperature Source Temporal 01/12/24 23:24 Pulse Rate 114 H 01/13/24 02:15 Respiratory Rate 14 01/13/24 02:15 Respiratory Pattern Normal 01/13/24 02:15 Blood Pressure 202/116 H 01/13/24 01:30 Blood Pressure Mean 144 01/13/24 01:30 Pulse Ox 96 01/13/24 02:15 Oxygen Delivery Method Mechanical Ventilator 01/13/24 01:30 Oxygen Flow Rate (L/min) 100 01/13/24 01:30 Fraction of Inspired Oxygen (FIO2) 100 01/13/24 02:15 I&O: I&O Last 24 Hours 01/12/24 01/12/24 01/13/24 11:59 23:59 11:59 Intake Total 116.45 / 116.45 Balance 116.45 / 116.45 I&O: Total Stay 01/12/24 23:22 thru 01/13/24 01:27 Intake Total 116.45 Balance 116.45 Current Meds Ordered / Administered: Current meds ordered / Administered Generic Name Dose Route Start Last Admin Trade Name Freq PRN Reason Stop Dose Admin Diphenhydramine HCl 25 mg 01/13/24 01:57 Diphenhydramine 50 Mg/Ml Syringe IV Q4H PRN PRN ALLERGIES Enoxaparin Sodium 40 mg 01/13/24 10:00 Enoxaparin 40 Mg/0.4 Ml Syringe SC BID MARIA ESTHER Sodium Chloride 1,000 mls @ 150 mls/hr 01/12/24 23:25 01/12/24 23:30 IV 150 mls/hr .Q6H40M MARIA ESTHER Administration Fentanyl 100 mls @ 2.5 mls/hr 01/12/24 23:25 01/13/24 00:35 CONT INF 25 mcg/hr UD MARIA ESTHER 2.5 mls/hr Administration Protocol 25 MCG/HR Propofol 1,000 mg in 100 mls @ 7.872 mls/hr 01/12/24 23:25 01/13/24 00:39 Diprivan CONT INF 30 mcg/kg/min .Q12H MARIA ESTHER 23.6 mls/hr Titration Protocol 10 MCG/KG/MIN Famotidine 20 mg/ Sodium 10 mls @ 300 mls/hr 01/13/24 10:00 Chloride IV Q12 MARIA ESTHER Dexmedetomidine HCl 400 mcg/ 100 mls @ 16.4 mls/hr 01/13/24 02:15 Sodium Chloride CONT INF .Q6H6M MARIA ESTHER Protocol 0.5 MCG/KG/HR Cisatracurium Besylate 100 mg/ 250 mls @ 39.36 mls/hr 01/13/24 02:30 Sodium Chloride CONT INF .Q6H22M MARIA ESTHER Protocol 2 MCG/KG/MIN Methylprednisolone 40 mg 01/13/24 14:00 Methylprednisolone 40 Mg/Ml Vial IV Q8 MARIA ESTHER Ondansetron HCl 4 mg 01/13/24 01:57 Ondansetron 4 Mg/2 Ml Vial IV Q8H PRN PRN NAUSEA/VOMITING Physical Exam Narrative General: Intubated and sedated HEENT: Anicteric Sclera; No thyromegaly, JVD, Lymphadenopathy Cardiovascular: Regular Rate and Rhythm; No murmurs, rubs, gallops; no displaced PMI Respiratory: Decreased breath sounds bilaterally, no crackles, wheezes, or rhonchi Abdominal: Morbidly obese, Non-tender; Non-distended; Active BS x 4; No Hepatosplenomegaly Extremities: Warm, well perfused; No clubbing, cyanosis, edema; capillary refill < 2sec Neurological: Unable to perform Lab / Micro Data 01/12/24 23:55 01/12/24 23:55 Labs: Laboratory Results - last 24 hr 01/12/24 23:29: POC Glucose 182 H 01/12/24 23:55: WBC 6.9, RBC 4.60, Hgb 14.0, Hct 42.5, MCV 92.4, MCH 30.4, MCHC 32.9, RDW Std Deviation 48.0 H, RDW Coeff of Ya 14.2, Plt Count 231, MPV 10.5, Immature Gran % (Auto) 1.000 H, Neut % (Auto) 51.1, Lymph % (Auto) 34.3, Wil[place]ger % (Auto) 11.2 H, Eos % (Auto) 2.0, Baso % (Auto) 0.4, Absolute Neuts (auto) 3.5, Absolute Lymphs (auto) 2.35, Nucleated RBC % 0, PT 13.0, INR 1.0, APTT 27.0, Sodium 138, Potassium 3.4 L, Chloride 103, Carbon Dioxide 27.0, Anion Gap 8, BUN 17, Creatinine 1.15, Estim Creat Clear Calc 93.75, Est GFR (MDRD) Af Amer 84, Est GFR (MDRD) Non-Af 70, BUN/Creatinine Ratio 14.8, Glucose 147 H, Calcium 9.1, Total Bilirubin 0.40, AST 62 H, ALT 126 H, Alkaline Phosphatase 88, Total Creatine Kinase 510 H, Total Protein 7.6, Albumin 3.9, Globulin 3.7, Albumin/Globulin Ratio 1.1, Triglycerides 385 H ABG Data ABG results: ABG 01/13/24 02:22 Specimen Type ART Sample Site L Radial pH 7.26 L Bicarbonate Actual 25.2 Total CO2 27 Base Excess -2 O2 Saturation 89 L O2 % 100.0 ABG pCO2 56.7 H ABG pO2 66 L Oh Test Positive Respiration Rate 14 O2 Delivery Device Adult Vent Vent Mode AC Tidal Volume 500.0 POC PEEP 5 Rhythm Strip Rhythm Strip: Sinus Tach Rate: 102 Imaging Radiology Impression Chest X-Ray 01/13/24 00:30 IMPRESSION: 1. Significant pneumomediastinum and pneumopericardium. 2. Small right pneumothorax, less than 10%. 3. Endotracheal tube with tip 1.7 cm above the [place]. Electronically Signed: Pedro Delgadillo MD at 2:10 EDT , ADDENDUM: 01/13/24 0227 IMPRESSION: 1. Significant pneumomediastinum and pneumopericardium. 2. Small right pneumothorax, less than 10%. 3. Endotracheal tube with tip 1.7 cm above the [place]. N.B. : The above Results were Read Back by Pedro Delgadillo MD to Pravin Jean-Baptiste MD, and understanding confirmed on 01/13/2024 02:20:23 (ET). Electronically Signed: Pedro Delgadillo MD at 2:10 EDT , Assessment and Plan . Assessment and plan: #Angioedema #Difficult airway S/P Cricothyroidotomy #Acute respiratory failure #Rt Pneumothorax #Pneumomediastinum #HTN #Morbid obesity Plan -Continue Mechanical ventilation -Lung protective ventilation. Focus will be to keep the tidal volume at 6 mL/kg ideal body weight. Attempt will be made to keep the driving pressure less than 15 and the PEEP will be adjusted accordingly. -Plateau pressures, auto peeping will be monitored. -Keep plat pressure 30 and less -Target plateau < 30 and driving pressure < 15 if able to -Tidal volume at 6-8 mL/kg ideal body weight -Currently patient on VT of 500, PEEP of 5, RR of 14, and 100%. Advised to change VT to 450 and increase RR to 25. Repeat ABG in 1 hr. -Daily ABG and CXR -Ventilatory changes depending on ABG and Ventilatory pressures -Will target RASS of -2 sedation -Wean FiO2 first to 60% then wean PEEP as applicable -SAT and SBT when applicable -Duonebs q6hrs -Check C4 levels -Check C1 esterase and inhibitor levels -Start on steroids, Benadryl, Pepcid -2 units FFP's, may repeat if no improvement -If no response consider C1 inhibitor or bradykinin receptor antagonist -Discontinue HAO inhibitor's and marked them as allergies -Monitor blood sugars -Monitor electrolytes and replace and recheck -Continue home medications except for HAO inhibitor's/ARB -DVT prophylaxis with Lovenox -Surgery consulted for Chest tube placement -ENT was consulted for Tracheostomy -Consider Abx for pneumomediastinum Critical Care Time:75mins The entirety of this encounter was done via Telemedicine
--- NOTE | 2024-01-13 03:45 | PCM.OP.PRO ---
Procedure Report Date of Procedure: 01/13/24 Procedure name: Insertion of right tube thoracostomy (20 Fr) Procedure in detail : After obtaining consent from patient's family, the procedure was begun following a brief timeout confirming both the patient and the procedure. The insertion site was selected by identifying the intercostal space in the midaxillary line along the inframammary crease. The chest wall was then locally anesthetized with 10 mL Xylocaine. A scalpel was used to incise the skin with an approximately 3 cm transverse incision. Blunt dissection was used to spread the subcutaneous tissue and underlying intercostal muscle fibers. Then through controlled pressure a Maggie clamp was used to access the pleural cavity. This tract was bluntly spread open and the clamp was exchanged for the chest tube. Chest tube was inserted to a depth of 10 centimeters on the chest tube marking at the skin. There was immediate return of air and some thin bloody fluid after the tube was connected to the Pleur-evac collection device. The Pleur-evac was connected to wall suction with a chest tube suction of -20 cmH2O. There [was/was no] air leak. Chest tube was then tied in with 0 silk suture. The site was dressed with petroleum gauze and regular gauze to pad the skin against the chest tube and this dressing was taped in place with a mesentery at the distal portion of the chest tube to allow for limited movement. A post-procedure chest x-ray was obtained to confirm tube position. Complications: None EBL: 5 mL Procedures Cardiovascular CF Procedures [id number]: [id number] Insertion of chest tube
[2024-01-13] MEDS: TITRATION PARAMETER CHANGE 1 EACH IV (03:56)
[2024-01-13] MEDS: 0.9% Saline Lock 10 ML Syringe IV ×3 (03:56→20:03)
[2024-01-13 04:06] LABS: Absolute Neutrophil Count 8.1 X10^3/uL (2.0-7.7); Basophil# 0.02 X10^3/uL; Basophil% 0.2 % (0-1); Eosinophil# 0.03 X10^3/uL; Eosinophils% 0.3 % (0-5); Hematocrit 38.6 % (40-54); Hemoglobin 12.6 g/dL (13.0-16.5); Lymphocyte % 6.6 % (19-41); Mean Corp Hgb Conc 32.6 g/dL (32-36); Mean Corpuscular Hgb 30.2 pg (27.0-32.0); Mean Corpuscular Volume 92.6 fL (80-94); Mean Platelet Vol. 10.4 fl (6.2-12.0); Monocyte# 0.32 X10^3/uL; Monocyte% 3.5 % (0-10); NRBC Flagged by Analyzer 0 % (0-5); Neutrophil # 8.12 X10^3/uL (2.7-7.7); POSITIVE DIFFERENTIAL YES; Platelet Count 192 K/mm3 (150-450); RBC Distribution Width CV 14.1 % (11.6-14.6); RBC Distribution Width SD 47.8 fl (35.1-43.9); Red Blood Count 4.17 M/mm3 (4.6-6.2); White Blood Count 9.1 K/mm3 (4.4-11.0)
--- NOTE | 2024-01-13 04:07 | RAD_ITS ---
EXAM: XR CHEST, 1 VIEW CLINICAL INDICATION: chest tube/ETT TECHNIQUE: Frontal view of the chest performed at 03:30. COMPARISON: Portable exam from same date. FINDINGS: LUNGS AND PLEURAL SPACES: Previous right pneumothorax no longer identified. Left basilar airspace disease which may indicate atelectasis or infection. No effusion. HEART: Unremarkable. Cardiac silhouette not enlarged. MEDIASTINUM: Pneumomediastinum again noted. BONES/JOINTS: Unremarkable. No acute fracture. SOFT TISSUES: Unremarkable. TUBES, LINES AND DEVICES: Tracheostomy tube with tip extending into the right mainstem bronchus. Right chest tube in place. RAD/Chest 1 View (Portable) IMPRESSION: 1. Tracheostomy tube with tip extending into the right mainstem bronchus. 2. Previous right pneumothorax no longer identified. 3. Pneumomediastinum again noted. 4. Left basilar airspace disease which may indicate atelectasis or infection. 5. Right chest tube in place. Electronically Signed: Pedro Delgadillo MD at 4:36 EDT ,
--- NOTE | 2024-01-13 04:07 | RAD_ITS ---
EXAM: XR CHEST, 1 VIEW CLINICAL INDICATION: chest tube/ETT TECHNIQUE: Frontal view of the chest performed at 03:24. COMPARISON: Portable exam from same date. FINDINGS: LUNGS AND PLEURAL SPACES: Previous right pneumothorax no longer identified. Left basilar airspace disease which may indicate atelectasis or infection. No effusion. HEART: Unremarkable. Cardiac silhouette not enlarged. MEDIASTINUM: Pneumomediastinum again noted. BONES/JOINTS: Unremarkable. No acute fracture. SOFT TISSUES: Unremarkable. TUBES, LINES AND DEVICES: Tracheostomy tube with tip extending into the right mainstem bronchus. Right chest tube in place. RAD/Chest 1 View (Portable) IMPRESSION: 1. Tracheostomy tube with tip extending into the right mainstem bronchus. 2. Previous right pneumothorax no longer identified. 3. Pneumomediastinum again noted. 4. Left basilar airspace disease which may indicate atelectasis or infection. 5. Right chest tube in place. Electronically Signed: Pedro Delgadillo MD at 4:33 EDT ,
--- NOTE | 2024-01-13 04:07 | RAD_ITS ---
EXAM: XR CHEST, 1 VIEW CLINICAL INDICATION: chest tube/ETT TECHNIQUE: Frontal view of the chest performed at 03:37. COMPARISON: Portable exam from same date. FINDINGS: LUNGS AND PLEURAL SPACES: Previous right pneumothorax no longer identified. Left basilar airspace disease which may indicate atelectasis or infection. No effusion. HEART: Unremarkable. Cardiac silhouette not enlarged. MEDIASTINUM: Pneumomediastinum again noted. BONES/JOINTS: Unremarkable. No acute fracture. SOFT TISSUES: Unremarkable. TUBES, LINES AND DEVICES: Tracheostomy tube with tip at the level of the dak[place], extending towards the right mainstem bronchus. Right chest tube in place. RAD/Chest 1 View (Portable) IMPRESSION: 1. Tracheostomy tube with tip at the level of the [place], extending towards the right mainstem bronchus. 2. Previous right pneumothorax no longer identified. 3. Pneumomediastinum again noted. 4. Left basilar airspace disease which may indicate atelectasis or infection. 5. Right chest tube in place. Electronically Signed: Pedro Delgadillo MD at 4:35 EDT ,
--- NOTE | 2024-01-13 04:07 | RAD_ITS ---
EXAM: XR CHEST, 1 VIEW CLINICAL INDICATION: chest tube/ETT TECHNIQUE: Frontal view of the chest performed at 03:21. COMPARISON: Portable exam from same date. FINDINGS: LUNGS AND PLEURAL SPACES: Previous right pneumothorax no longer identified. Left basilar airspace disease which may indicate atelectasis or infection. No effusion. HEART: Unremarkable. Cardiac silhouette not enlarged. MEDIASTINUM: Pneumomediastinum again noted. BONES/JOINTS: Unremarkable. No acute fracture. SOFT TISSUES: Unremarkable. TUBES, LINES AND DEVICES: Tracheostomy tube with tip extending into the right mainstem bronchus. Right chest tube in place. RAD/Chest 1 View (Portable) IMPRESSION: 1. Tracheostomy tube with tip extending into the right mainstem bronchus. 2. Previous right pneumothorax no longer identified. 3. Pneumomediastinum again noted. 4. Left basilar airspace disease which may indicate atelectasis or infection. 5. Right chest tube in place. Electronically Signed: Pedro Delgadillo MD at 4:33 EDT ,
--- NOTE | 2024-01-13 04:07 | RAD_ITS ---
EXAM: XR CHEST, 1 VIEW CLINICAL INDICATION: chest tube/ETT TECHNIQUE: Frontal view of the chest performed at 03:38. COMPARISON: Portable exam from same date. FINDINGS: LUNGS AND PLEURAL SPACES: Previous right pneumothorax no longer identified. Left basilar airspace disease which may indicate atelectasis or infection. No effusion. HEART: Unremarkable. Cardiac silhouette not enlarged. MEDIASTINUM: Pneumomediastinum again noted. BONES/JOINTS: Unremarkable. No acute fracture. SOFT TISSUES: Unremarkable. TUBES, LINES AND DEVICES: Tracheostomy tube with tip extending into the right mainstem bronchus. Right chest tube in place. RAD/Chest 1 View (Portable) IMPRESSION: 1. Tracheostomy tube with tip extending into the right mainstem bronchus. 2. Previous right pneumothorax no longer identified. 3. Pneumomediastinum again noted. 4. Left basilar airspace disease which may indicate atelectasis or infection. 5. Right chest tube in place. Electronically Signed: Pedro Delgadillo MD at 4:34 EDT ,
--- NOTE | 2024-01-13 04:07 | RAD_ITS ---
EXAM: XR CHEST, 1 VIEW CLINICAL INDICATION: chest tube/ETT TECHNIQUE: Frontal view of the chest performed at 03:28. COMPARISON: Portable exam from same date. FINDINGS: LUNGS AND PLEURAL SPACES: Previous right pneumothorax no longer identified. Left basilar airspace disease which may indicate atelectasis or infection. No effusion. HEART: Unremarkable. Cardiac silhouette not enlarged. MEDIASTINUM: Pneumomediastinum again noted. BONES/JOINTS: Unremarkable. No acute fracture. SOFT TISSUES: Unremarkable. TUBES, LINES AND DEVICES: Tracheostomy tube with tip extending into the right mainstem bronchus. Right chest tube in place. RAD/Chest 1 View (Portable) IMPRESSION: 1. Tracheostomy tube with tip extending into the right mainstem bronchus. 2. Previous right pneumothorax no longer identified. 3. Pneumomediastinum again noted. 4. Left basilar airspace disease which may indicate atelectasis or infection. 5. Right chest tube in place. Electronically Signed: Pedro Delgadillo MD at 4:37 EDT ,
--- NOTE | 2024-01-13 04:07 | RAD_ITS ---
EXAM: XR CHEST, 1 VIEW CLINICAL INDICATION: chest tube/ETT TECHNIQUE: Frontal view of the chest performed at 03:21. COMPARISON: Portable exam from same date. FINDINGS: LUNGS AND PLEURAL SPACES: Previous right pneumothorax no longer identified. Left basilar airspace disease which may indicate atelectasis or infection. No effusion. HEART: Unremarkable. Cardiac silhouette not enlarged. MEDIASTINUM: Pneumomediastinum again noted. BONES/JOINTS: Unremarkable. No acute fracture. SOFT TISSUES: Unremarkable. TUBES, LINES AND DEVICES: Tracheostomy tube with tip extending into the right mainstem bronchus. Right chest tube in place. RAD/Chest 1 View (Portable) IMPRESSION: 1. Tracheostomy tube with tip extending into the right mainstem bronchus. 2. Previous right pneumothorax no longer identified. 3. Pneumomediastinum again noted. 4. Left basilar airspace disease which may indicate atelectasis or infection. 5. Right chest tube in place. Electronically Signed: Pedro Delgadillo MD at 4:38 EDT ,
[2024-01-13] MEDS: Dexmedetomidine 1,000 mcg in 0.9% NS 240 mL 49.2 MCG CONT INF ×4 (04:33→18:59)
[2024-01-13 04:49] LABS: Allen Test Positive; Base Excess -3 mmol/L (-2 to +2); Bicarbonate 22.4 mmol/L (22-26); Blood Gas Specimen Type ART; Mode AC; O2 Delivery Device Adult Vent; PEEP 5; PO2 114 mmHG (75-100); RR 25; SITE L Radial; SO2 98 % (95-99); Total Carbon Dioxide 24 mmol/L; pCO2 40.4 mmHg (35-45); pH 7.35 (7.35-7.45)
[2024-01-13 05:00] LABS: AST(SGOT) 53 U/L (15-37); Alanine Aminotransfer ALT/SGPT 109 U/L (16-61); Albumin, Serum 3.2 g/dL (3.2-5.0); Alkaline Phosphatase 69 U/L (45-117); Anion Gap 8 (5-15); BUN 18 mg/dL (7-18); BUN/Creat Ratio 14.5 RATIO (10-20); Calcium,Total 7.9 mg/dL (8.5-10.1); Chloride 105 mmol/L (98-107); Creatinine, Serum 1.24 mg/dL (0.70-1.30); EST Glomerular Filtration Rate 64 mL/min (>60); Est Glom Filt Rate - Afr Amer 77 mL/min (>60); Estimated Creatinine Clearance 86.94 ml/min; Globulin 3.3 g/dL (2.2-4.2); Glucose 188 mg/dL (74-106); Magnesium 1.5 mg/dL (1.6-2.6); Phosphorus 4.1 mg/dL (2.5-4.9); Potassium 4.5 mmol/L (3.5-5.1); Protein, Total 6.5 g/dL (6.4-8.2); Sodium Level 138 mmol/L (136-145); Thyroid Stim Hormone (TSH) 2.99 uIU/mL (0.358-3.74)
--- NOTE | 2024-01-13 05:08 | CON.PCM_ITS ---
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 stable with ETT in place, pharmacologically paralyzed. no recent desaturations or cardiac events. given habitus, conversion to formal tracheostomy will have to be carefully planned. HPI Consult Data Date of Consult: 01/13/24 HPI Narrative Reason for Consultation: angioedema HPI Narrative: JONATHAN BARNETT, is a 58 M who presents with acute angioedema. Per record, presented with airway edema, voice changes to the ED. endotracheal intubation / LMA ventilation was attempted and ultimately a cricothyrotomy was performed with a 6.5 endotracheal tube. he is currently stable in the ICU under sedation / paralysis. [facility] Medical History unable to obtain Home Medications lisinopril 10 mg tablet 10 mg PO DAILY #30 tabs 11/15/18 [Rx Last Taken Unknown] Allergy/AdvReac Type Severity Reaction Status Date / Time HAO Inhibitors AdvReac Severe Angioedema Verified 01/13/24 00:37 Surgical History unable to obtain Social History household members: spouse Smoking Status: Never smoker ROS ROS Narrative intubated/sedated Physical Exam Const Constitutional Narrative: sedated HEENT HEENT Narrative: 6.5 endotracheal tube sutured into place Lab / Micro Data 01/13/24 03:55 01/13/24 03:55 Labs: Laboratory Results - last 24 hr 01/12/24 23:29: POC Glucose 182 H 01/12/24 23:55: WBC 6.9, RBC 4.60, Hgb 14.0, Hct 42.5, MCV 92.4, MCH 30.4, MCHC 32.9, RDW Std Deviation 48.0 H, RDW Coeff of Ya 14.2, Plt Count 231, MPV 10.5, Immature Gran % (Auto) 1.000 H, Neut % (Auto) 51.1, Lymph % (Auto) 34.3, [place] % (Auto) 11.2 H, Eos % (Auto) 2.0, Baso % (Auto) 0.4, Absolute Neuts (auto) 3.5, Absolute Lymphs (auto) 2.35, Nucleated RBC % 0, PT 13.0, INR 1.0, APTT 27.0, Sodium 138, Potassium 3.4 L, Chloride 103, Carbon Dioxide 27.0, Anion Gap 8, BUN 17, Creatinine 1.15, Estim Creat Clear Calc 93.75, Est GFR (MDRD) Af Amer 84, Est GFR (MDRD) Non-Af 70, BUN/Creatinine Ratio 14.8, Glucose 147 H, Calcium 9.1, Total Bilirubin 0.40, AST 62 H, ALT 126 H, Alkaline Phosphatase 88, Total Creatine Kinase 510 H, Total Protein 7.6, Albumin 3.9, Globulin 3.7, Albumin/Globulin Ratio 1.1, Triglycerides 385 H 01/13/24 03:55: WBC 9.1, RBC 4.17 L, Hgb 12.6 L, Hct 38.6 L, MCV 92.6, MCH 30.2, MCHC 32.6, RDW Std Deviation 47.8 H, RDW Coeff of Ya 14.1, Plt Count 192, MPV 10.4, Immature Gran % (Auto) 0.400, Neut % (Auto) 89.0 H, Lymph % (Auto) 6.6 L, [place] % (Auto) 3.5, Eos % (Auto) 0.3, Baso % (Auto) 0.2, Absolute Neuts (auto) 8.1 H, Absolute Lymphs (auto) 0.60 L, Nucleated RBC % 0, Sodium 138, Potassium 4.5, Chloride 105, Carbon Dioxide 25.0, Anion Gap 8, BUN 18, Creatinine 1.24, Estim Creat Clear Calc 86.94, Est GFR (MDRD) Af Amer 77, Est GFR (MDRD) Non-Af 64, BUN/Creatinine Ratio 14.5, Glucose 188 H, Calcium 7.9 L, Phosphorus 4.1, Magnesium 1.5 L, Total Bilirubin 0.50, AST 53 H, ALT 109 H, Alkaline Phosphatase 69, Total Protein 6.5, Albumin 3.2, Globulin 3.3, Albumin/Globulin Ratio 1.0, TSH 2.99 ABG Data ABG results: ABG 01/13/24 01/13/24 02:22 04:44 Specimen Type ART ART Sample Site L Radial L Radial pH 7.26 L 7.35 Bicarbonate Actual 25.2 22.4 Total CO2 27 24 Base Excess -2 -3 L O2 Saturation 89 L 98 O2 % 100.0 100.0 ABG pCO2 56.7 H 40.4 ABG pO2 66 L 114 H Oh Test Positive Positive Respiration Rate 14 25 O2 Delivery Device Adult Vent Adult Vent Vent Mode AC AC Tidal Volume 500.0 450.0 POC PEEP 5 5 Rhythm Strip Rhythm Strip: Sinus Tach Rate: 102 Imaging Radiology Impression Chest X-Ray 01/12/24 00:30 IMPRESSION: 1. Endotracheal tube with tip in the right mainstem bronchus. A follow-up examination has already been performed. 2. Pneumomediastinum. 3. Small right pneumothorax, less than 10%. Electronically Signed: Pedro Delgadillo MD at 4:07 EDT , Chest X-Ray 01/13/24 00:30 IMPRESSION: 1. Endotracheal tube with tip in the right mainstem bronchus. A follow-up examination has already been performed after repositioning. 2. Pneumomediastinum. 3. Small right pneumothorax, less than 5%. 4. Left basilar consolidation. Electronically Signed: Pedro Delgadillo MD at 4:05 EDT Reading Location ID and State: [facility] / [place] Tel , Service support , Chest X-Ray 01/13/24 00:30 IMPRESSION: 1. Significant pneumomediastinum and pneumopericardium. 2. Small right pneumothorax, less than 10%. 3. Endotracheal tube with tip 1.7 cm above the [place]. Electronically Signed: Pedro Delgadillo MD at 2:10 EDT , ADDENDUM: 01/13/24226 IMPRESSION: 1. Significant pneumomediastinum and pneumopericardium. 2. Small right pneumothorax, less than 10%. 3. Endotracheal tube with tip 1.7 cm above the dakota. N.B. : The above Results were Read Back by Pedro Delgadillo MD to Pravin Jean-Baptiste MD, and understanding confirmed on 01/13/2024 02:20:23 (ET). Electronically Signed: Pedro Delgadillo MD at 2:10 EDT Reading Location ID and State: [facility] / [place] Tel , Service support , Chest X-Ray 01/13/24 04:07 IMPRESSION: 1. Tracheostomy tube with tip extending into the right mainstem bronchus. 2. Previous right pneumothorax no longer identified. 3. Pneumomediastinum again noted. 4. Left basilar airspace disease which may indicate atelectasis or infection. 5. Right chest tube in place. Electronically Signed: Pedro Delgadillo MD at 4:38 EDT Reading Location ID and State: [facility] / [place] Tel , Service support , Chest X-Ray 01/13/24 04:07 IMPRESSION: 1. Tracheostomy tube with tip extending into the right mainstem bronchus. 2. Previous right pneumothorax no longer identified. 3. Pneumomediastinum again noted. 4. Left basilar airspace disease which may indicate atelectasis or infection. 5. Right chest tube in place. Electronically Signed: Pedro Delgadillo MD at 4:33 EDT , Chest X-Ray 01/13/24 04:07 IMPRESSION: 1. Tracheostomy tube with tip extending into the right mainstem bronchus. 2. Previous right pneumothorax no longer identified. 3. Pneumomediastinum again noted. 4. Left basilar airspace disease which may indicate atelectasis or infection. 5. Right chest tube in place. Electronically Signed: Pedro Delgadillo MD at 4:33 EDT Reading Location ID and State: [facility] / [place] Tel , Service support , Chest X-Ray 01/13/24 04:07 IMPRESSION: 1. Tracheostomy tube with tip extending into the right mainstem bronchus. 2. Previous right pneumothorax no longer identified. 3. Pneumomediastinum again noted. 4. Left basilar airspace disease which may indicate atelectasis or infection. 5. Right chest tube in place. Electronically Signed: Pedro Delgadillo MD at 4:37 EDT Reading Location ID and State: [facility] / [place] Tel , Service support , Chest X-Ray 01/13/24 04:07 IMPRESSION: 1. Tracheostomy tube with tip extending into the right mainstem bronchus. 2. Previous right pneumothorax no longer identified. 3. Pneumomediastinum again noted. 4. Left basilar airspace disease which may indicate atelectasis or infection. 5. Right chest tube in place. Electronically Signed: Pedro Delgadillo MD at 4:36 EDT Reading Location ID and State: [facility] / [place] Tel , Service support , Chest X-Ray 01/13/24 04:07 IMPRESSION: 1. Tracheostomy tube with tip at the level of the dak[place], extending towards the right mainstem bronchus. 2. Previous right pneumothorax no longer identified. 3. Pneumomediastinum again noted. 4. Left basilar airspace disease which may indicate atelectasis or infection. 5. Right chest tube in place. Electronically Signed: Pedro Delgadillo MD at 4:35 EDT Reading Location ID and State: [facility] / [place] Tel , Service support , Chest X-Ray 01/13/24 04:07 IMPRESSION: 1. Tracheostomy tube with tip extending into the right mainstem bronchus. 2. Previous right pneumothorax no longer identified. 3. Pneumomediastinum again noted. 4. Left basilar airspace disease which may indicate atelectasis or infection. 5. Right chest tube in place. Electronically Signed: Pedro Delgadillo MD at 4:34 EDT ,
--- NOTE | 2024-01-13 06:27 | NURSING ---
talked to dr lincoln about pros and cons about leaving pt in the ed stretcher, dr lincoln concerned about fresh ct tube placement and instability of trach tube, he does not want to move him off the cot, he is ok with removing cut off pants and attempting to remove soiled sheets. family at bedside and dr talked to them about surgery plans.
[2024-01-13] MEDS: fentaNYL drip 100 ML 20 MCG CONT INF ×4 (06:48→22:00)
--- NOTE | 2024-01-13 07:11 | PCM.PN.INT ---
Assessment & Plan Assessment/Plan (1) Pneumothorax on right: (2) 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): PLAN: Plan RECOMMENDATIONS: 1. Continue assist-control mode mechanical ventilation. 2. Okay to wean FiO2 to maintain saturations at or above 90%. 3. Continue current sedation regimen along with cis atracurium. 4. Await definitive tracheostomy per ENT. 5. Continue antimicrobials and steroids. 6. Continue chest tube to wall suction. 7. Continue appropriate ICU prophylaxis. IMPRESSIONS: 1. Acute hypoxemic and hypercapnic respiratory failure Appears to be secondary to angioedema in the setting of HAO inhibitor exposure. The patient's airway was compromised upon arrival to the emergency department. An emergent cricothyroidotomy was performed. Ultimately, the patient required placement of a small bore endotracheal tube through the cricothyroidotomy to achieve appropriate ventilatory support. ENT is currently following with tentative plans for conversion to tracheostomy tomorrow. In the interim, we will continue supportive measures including antimicrobials, steroids, paralytics and sedatives. 2. Pneumothorax Potentially related to barotrauma in the setting of the patient's airway compromise. The patient underwent tube thoracotomy with resolution of the pneumothorax. At this time, given the patient's tenuous clinical status, I recommend that we continue the chest tube to wall suction until more definitive airway can be established and the patient weaned from invasive mechanical ventilatory support. 3. Angioedema related to lisinopril Supportive measures as noted above. 4. Morbid obesity/history of hypertension Complicates care, management, recovery and prognosis. HAO inhibitor's have been added to the patient's medication allergy list. The patient will require an alternative antihypertensive in the future. TIME: 34 minutes of critical care time, independent of procedures, was spent addressing the patient's acute hypoxemic and hypercapnic respiratory failure, HAO inhibitor induced angioedema, pneumothorax, review of all data and collaboration with the care team. Subjective Subjective The patient was seen and examined at the bedside this morning. Events from the last 24 hours have been reviewed. The patient is currently afebrile, hemodynamically stable and maintaining appropriate oxygen saturations on assist-control mode mechanical ventilation with an FiO2 requirement of 70%. The patient remains paralyzed on Nimbex with Precedex and fentanyl for sedation. The patient remains on antimicrobials and corticosteroids. There are tentative plans for tracheostomy tomorrow. Objective Data Objective Data The patient's most recent lab work, culture data and imaging studies have all been personally reviewed. Vital Signs: Vital Signs Temp Pulse Resp BP Pulse Ox O2 Del Method O2 Flow Rate 96.8 F L 77 25 H 145/92 H 100 Mechanical Ventilator 100 01/13/24 05:30 01/13/24 07:00 01/13/24 07:00 01/13/24 07:00 01/13/24 07:00 01/13/24 07:00 01/13/24 01:30 FiO2 70 01/13/24 07:00 Oxygen Flow Rate (L/min) 100 Oxygen Delivery Method Mechanical Ventilator Weight: 289 lb 3.944 oz Body Mass Index (BMI) 43.9 Intake & Output: Intake and Output for Last 24 Hours 01/11/24 01/12/24 01/13/24 23:59 23:59 23:59 Intake Total 1039.77 / 1039.77 Output Total 650 / 650 Balance 389.77 / 389.77 Lab / Micro Data Attestation: I reviewed the patient's lab results. 01/13/24 03:55 01/13/24 03:55 Labs: Laboratory Results - last 24 hr 01/12/24 23:29: POC Glucose 182 H 01/12/24 23:55: WBC 6.9, RBC 4.60, Hgb 14.0, Hct 42.5, MCV 92.4, MCH 30.4, MCHC 32.9, RDW Std Deviation 48.0 H, RDW Coeff of Ya 14.2, Plt Count 231, MPV 10.5, Immature Gran % (Auto) 1.000 H, Neut % (Auto) 51.1, Lymph % (Auto) 34.3, [place] % (Auto) 11.2 H, Eos % (Auto) 2.0, Baso % (Auto) 0.4, Absolute Neuts (auto) 3.5, Absolute Lymphs (auto) 2.35, Nucleated RBC % 0, PT 13.0, INR 1.0, APTT 27.0, Sodium 138, Potassium 3.4 L, Chloride 103, Carbon Dioxide 27.0, Anion Gap 8, BUN 17, Creatinine 1.15, Estim Creat Clear Calc 93.75, Est GFR (MDRD) Af Amer 84, Est GFR (MDRD) Non-Af 70, BUN/Creatinine Ratio 14.8, Glucose 147 H, Calcium 9.1, Total Bilirubin 0.40, AST 62 H, ALT 126 H, Alkaline Phosphatase 88, Total Creatine Kinase 510 H, Total Protein 7.6, Albumin 3.9, Globulin 3.7, Albumin/Globulin Ratio 1.1, Triglycerides 385 H 01/13/24 03:55: WBC 9.1, RBC 4.17 L, Hgb 12.6 L, Hct 38.6 L, MCV 92.6, MCH 30.2, MCHC 32.6, RDW Std Deviation 47.8 H, RDW Coeff of Ya 14.1, Plt Count 192, MPV 10.4, Immature Gran % (Auto) 0.400, Neut % (Auto) 89.0 H, Lymph % (Auto) 6.6 L, [place] % (Auto) 3.5, Eos % (Auto) 0.3, Baso % (Auto) 0.2, Absolute Neuts (auto) 8.1 H, Absolute Lymphs (auto) 0.60 L, Nucleated RBC % 0, Sodium 138, Potassium 4.5, Chloride 105, Carbon Dioxide 25.0, Anion Gap 8, BUN 18, Creatinine 1.24, Estim Creat Clear Calc 86.94, Est GFR (MDRD) Af Amer 77, Est GFR (MDRD) Non-Af 64, BUN/Creatinine Ratio 14.5, Glucose 188 H, Calcium 7.9 L, Phosphorus 4.1, Magnesium 1.5 L, Total Bilirubin 0.50, AST 53 H, ALT 109 H, Alkaline Phosphatase 69, Total Protein 6.5, Albumin 3.2, Globulin 3.3, Albumin/Globulin Ratio 1.0, TSH 2.99, Blood Type Cancelled, A1 Antigen Typing Cancelled, Rho(D) Type Cancelled 01/13/24 04:02: Blood Type O POSITIVE, Antibody Screen NEGATIVE ABG Data ABG results: ABG 01/13/24 01/13/24 02:22 04:44 Specimen Type ART ART Sample Site L Radial L Radial pH 7.26 L 7.35 Bicarbonate Actual 25.2 22.4 Total CO2 27 24 Base Excess -2 -3 L O2 Saturation 89 L 98 O2 % 100.0 100.0 ABG pCO2 56.7 H 40.4 ABG pO2 66 L 114 H Oh Test Positive Positive Respiration Rate 14 25 O2 Delivery Device Adult Vent Adult Vent Vent Mode AC AC Tidal Volume 500.0 450.0 POC PEEP 5 5 Radiography Diagnostic Testing: Radiology Impression Chest X-Ray 01/12/24 00:30 IMPRESSION: 1. Endotracheal tube with tip in the right mainstem bronchus. A follow-up examination has already been performed. 2. Pneumomediastinum. 3. Small right pneumothorax, less than 10%. Electronically Signed: Pedro Delgadillo MD at 4:07 EDT Reading Location ID and State: [facility] / [place] Tel , Service support , Chest X-Ray 01/13/24 00:30 IMPRESSION: 1. Endotracheal tube with tip in the right mainstem bronchus. A follow-up examination has already been performed after repositioning. 2. Pneumomediastinum. 3. Small right pneumothorax, less than 5%. 4. Left basilar consolidation. Electronically Signed: Pedro Delgadillo MD at 4:05 EDT Reading Location ID and State: [facility] / [place] Tel , Service support , Chest X-Ray 01/13/24 00:30 IMPRESSION: 1. Significant pneumomediastinum and pneumopericardium. 2. Small right pneumothorax, less than 10%. 3. Endotracheal tube with tip 1.7 cm above the [place]. Electronically Signed: Pedro Delgadillo MD at 2:10 EDT Reading Location ID and State: [facility] / [place] Tel , Service support , ADDENDUM: 01/13/24226 IMPRESSION: 1. Significant pneumomediastinum and pneumopericardium. 2. Small right pneumothorax, less than 10%. 3. Endotracheal tube with tip 1.7 cm above the [place]. N.B. : The above Results were Read Back by Pedro Delgadillo MD to Pravin Jean-Baptiste MD, and understanding confirmed on 01/13/2024 02:20:23 (ET). Electronically Signed: Pedro Delgadillo MD at 2:10 EDT Reading Location ID and State: [facility] / [place] Tel , Service support , Chest X-Ray 01/13/24 04:07 IMPRESSION: 1. Tracheostomy tube with tip extending into the right mainstem bronchus. 2. Previous right pneumothorax no longer identified. 3. Pneumomediastinum again noted. 4. Left basilar airspace disease which may indicate atelectasis or infection. 5. Right chest tube in place. Electronically Signed: Pedro Delgadillo MD at 4:38 EDT Reading Location ID and State: [address] [place] [address] Tel , Service support , Chest X-Ray 01/13/24 04:07 IMPRESSION: 1. Tracheostomy tube with tip extending into the right mainstem bronchus. 2. Previous right pneumothorax no longer identified. 3. Pneumomediastinum again noted. 4. Left basilar airspace disease which may indicate atelectasis or infection. 5. Right chest tube in place. Electronically Signed: Pedro Delgadillo MD at 4:33 EDT Reading Location ID and State: [address] [place] [address] Tel , Service support , Chest X-Ray 01/13/24 04:07 IMPRESSION: 1. Tracheostomy tube with tip extending into the right mainstem bronchus. 2. Previous right pneumothorax no longer identified. 3. Pneumomediastinum again noted. 4. Left basilar airspace disease which may indicate atelectasis or infection. 5. Right chest tube in place. Electronically Signed: Pedro Delgadillo MD at 4:33 EDT Reading Location ID and State: [facility] / [place] Tel , Service support , Chest X-Ray 01/13/24 04:07 IMPRESSION: 1. Tracheostomy tube with tip extending into the right mainstem bronchus. 2. Previous right pneumothorax no longer identified. 3. Pneumomediastinum again noted. 4. Left basilar airspace disease which may indicate atelectasis or infection. 5. Right chest tube in place. Electronically Signed: Pedro Delgadillo MD at 4:37 EDT Reading Location ID and State: [facility] / [place] Tel , Service support , Chest X-Ray 01/13/24 04:07 IMPRESSION: 1. Tracheostomy tube with tip extending into the right mainstem bronchus. 2. Previous right pneumothorax no longer identified. 3. Pneumomediastinum again noted. 4. Left basilar airspace disease which may indicate atelectasis or infection. 5. Right chest tube in place. Electronically Signed: Pedro Delgadillo MD at 4:36 EDT Reading Location ID and State: [facility] / [place] Tel , Service support , Chest X-Ray 01/13/24 04:07 IMPRESSION: 1. Tracheostomy tube with tip at the level of the [place], extending towards the right mainstem bronchus. 2. Previous right pneumothorax no longer identified. 3. Pneumomediastinum again noted. 4. Left basilar airspace disease which may indicate atelectasis or infection. 5. Right chest tube in place. Electronically Signed: Pedro Delgadillo MD at 4:35 EDT , Chest X-Ray 01/13/24 04:07 IMPRESSION: 1. Tracheostomy tube with tip extending into the right mainstem bronchus. 2. Previous right pneumothorax no longer identified. 3. Pneumomediastinum again noted. 4. Left basilar airspace disease which may indicate atelectasis or infection. 5. Right chest tube in place. Electronically Signed: Pedro Delgadillo MD at 4:34 EDT , Rhythm Strip Rhythm Strip: Sinus Tach Rate: 102 Physical Exam Const Constitutional Narrative: Stable appearing 6.5 endotracheal tube via cricothyroidotomy. The patient remains appropriately sedated and paralyzed. HEENT normocephalic and moist oral mucous membranes Eyes conjunctivae normal and no scleral icterus Neck supple Chest inspection of chest normal Resp Resp Narrative: Mechanical breath sounds. Stable right-sided chest tube without discernible air leak. Cardio regular rate and regular rhythm GI soft to palpation Extremity no clubbing, cyanosis or edema Skin no rashes or lesions noted Neuro Sensorium / Orientation: sedated on vent Charges/Coding Procedures Hospitalists Procedures: [id number] Critical Care 1st Hr
--- NOTE | 2024-01-13 08:07 | NURSING ---
In regards to fall: mental status nursing interventions to prevent falls, patient remains on ED cott, both side rails up, no bed exit on cotts, pt on paralytic medication. Unable to perform CAM d/t paralytic medication also.
--- NOTE | 2024-01-13 08:41 | PN.SURG_ITS ---
Subjective Subjective Patient seen on a.m. rounds. He remains intubated, sedated, and paralyzed. Nursing reports that he has been clinically stable. ENT reportedly visited earlier this morning and plans to formalize patient's cricothyroidotomy to a tracheostomy tomorrow to allow for swelling to decrease. Objective Data Objective Data Vital Signs: Vital Signs Temp Pulse Resp BP Pulse Ox O2 Del Method O2 Flow Rate 96.8 F L 77 25 H 145/92 H 100 Mechanical Ventilator 100 01/13/24 05:30 01/13/24 07:00 01/13/24 07:00 01/13/24 07:00 01/13/24 07:00 01/13/24 07:00 01/13/24 01:30 FiO2 70 01/13/24 07:00 Oxygen Flow Rate (L/min) 100 Oxygen Delivery Method Mechanical Ventilator Weight: 289 lb 3.944 oz Body Mass Index (BMI) 43.9 Intake & Output: Intake and Output for Last 24 Hours 01/11/24 01/12/24 01/13/24 23:59 23:59 23:59 Intake Total 2159.08 / 2159.08 Output Total 650 / 650 Balance 1509.08 / 1509.08 Lab / Micro Data 01/13/24 03:55 01/13/24 03:55 Labs: Laboratory Results - last 24 hr 01/12/24 23:29: POC Glucose 182 H 01/12/24 23:55: WBC 6.9, RBC 4.60, Hgb 14.0, Hct 42.5, MCV 92.4, MCH 30.4, MCHC 32.9, RDW Std Deviation 48.0 H, RDW Coeff of Ya 14.2, Plt Count 231, MPV 10.5, Immature Gran % (Auto) 1.000 H, Neut % (Auto) 51.1, Lymph % (Auto) 34.3, [place] % (Auto) 11.2 H, Eos % (Auto) 2.0, Baso % (Auto) 0.4, Absolute Neuts (auto) 3.5, Absolute Lymphs (auto) 2.35, Nucleated RBC % 0, PT 13.0, INR 1.0, APTT 27.0, Sodium 138, Potassium 3.4 L, Chloride 103, Carbon Dioxide 27.0, Anion Gap 8, BUN 17, Creatinine 1.15, Estim Creat Clear Calc 93.75, Est GFR (MDRD) Af Amer 84, Est GFR (MDRD) Non-Af 70, BUN/Creatinine Ratio 14.8, Glucose 147 H, Calcium 9.1, Total Bilirubin 0.40, AST 62 H, ALT 126 H, Alkaline Phosphatase 88, Total Creatine Kinase 510 H, Total Protein 7.6, Albumin 3.9, Globulin 3.7, Albumin/Globulin Ratio 1.1, Triglycerides 385 H 01/13/24 03:55: WBC 9.1, RBC 4.17 L, Hgb 12.6 L, Hct 38.6 L, MCV 92.6, MCH 30.2, MCHC 32.6, RDW Std Deviation 47.8 H, RDW Coeff of Ya 14.1, Plt Count 192, MPV 10.4, Immature Gran % (Auto) 0.400, Neut % (Auto) 89.0 H, Lymph % (Auto) 6.6 L, [place] % (Auto) 3.5, Eos % (Auto) 0.3, Baso % (Auto) 0.2, Absolute Neuts (auto) 8.1 H, Absolute Lymphs (auto) 0.60 L, Nucleated RBC % 0, Sodium 138, Potassium 4.5, Chloride 105, Carbon Dioxide 25.0, Anion Gap 8, BUN 18, Creatinine 1.24, Estim Creat Clear Calc 86.94, Est GFR (MDRD) Af Amer 77, Est GFR (MDRD) Non-Af 64, BUN/Creatinine Ratio 14.5, Glucose 188 H, Calcium 7.9 L, Phosphorus 4.1, Magnesium 1.5 L, Total Bilirubin 0.50, AST 53 H, ALT 109 H, Alkaline Phosphatase 69, Total Protein 6.5, Albumin 3.2, Globulin 3.3, Albumin/Globulin Ratio 1.0, TSH 2.99, Blood Type Cancelled, A1 Antigen Typing Cancelled, Rho(D) Type Cancelled 01/13/24 04:02: Blood Type O POSITIVE, Antibody Screen NEGATIVE ABG Data ABG results: ABG 01/13/24 01/13/24 02:22 04:44 Specimen Type ART ART Sample Site L Radial L Radial pH 7.26 L 7.35 Bicarbonate Actual 25.2 22.4 Total CO2 27 24 Base Excess -2 -3 L O2 Saturation 89 L 98 O2 % 100.0 100.0 ABG pCO2 56.7 H 40.4 ABG pO2 66 L 114 H Oh Test Positive Positive Respiration Rate 14 25 O2 Delivery Device Adult Vent Adult Vent Vent Mode AC AC Tidal Volume 500.0 450.0 POC PEEP 5 5 Radiography Diagnostic Testing: Radiology Impression Chest X-Ray 01/12/24 00:30 IMPRESSION: 1. Endotracheal tube with tip in the right mainstem bronchus. A follow-up examination has already been performed. 2. Pneumomediastinum. 3. Small right pneumothorax, less than 10%. Electronically Signed: Pedro Delgadillo MD at 4:07 EDT , Chest X-Ray 01/13/24 00:30 IMPRESSION: 1. Endotracheal tube with tip in the right mainstem bronchus. A follow-up examination has already been performed after repositioning. 2. Pneumomediastinum. 3. Small right pneumothorax, less than 5%. 4. Left basilar consolidation. Electronically Signed: Pedro Delgadillo MD at 4:05 EDT , Chest X-Ray 01/13/24 00:30 IMPRESSION: 1. Significant pneumomediastinum and pneumopericardium. 2. Small right pneumothorax, less than 10%. 3. Endotracheal tube with tip 1.7 cm above the dakota. Electronically Signed: Pedro Delgadillo MD at 2:10 EDT , ADDENDUM: 01/13/24226 IMPRESSION: 1. Significant pneumomediastinum and pneumopericardium. 2. Small right pneumothorax, less than 10%. 3. Endotracheal tube with tip 1.7 cm above the dakota. N.B. : The above Results were Read Back by Pedro Delgadillo MD to Pravin Jean-Baptiste MD, and understanding confirmed on 01/13/2024 02:20:23 (ET). Electronically Signed: Pedro Delgadillo MD at 2:10 EDT Reading Location ID and State: [facility] / [place] Tel , Service support , Chest X-Ray 01/13/24 04:07 IMPRESSION: 1. Tracheostomy tube with tip extending into the right mainstem bronchus. 2. Previous right pneumothorax no longer identified. 3. Pneumomediastinum again noted. 4. Left basilar airspace disease which may indicate atelectasis or infection. 5. Right chest tube in place. Electronically Signed: Pedro Delgadillo MD at 4:38 EDT Reading Location ID and State: [facility] / [place] Tel , Service support , Chest X-Ray 01/13/24 04:07 IMPRESSION: 1. Tracheostomy tube with tip extending into the right mainstem bronchus. 2. Previous right pneumothorax no longer identified. 3. Pneumomediastinum again noted. 4. Left basilar airspace disease which may indicate atelectasis or infection. 5. Right chest tube in place. Electronically Signed: Pedro Delgadillo MD at 4:33 EDT Reading Location ID and State: [facility] / [place] Tel , Service support , Chest X-Ray 01/13/24 04:07 IMPRESSION: 1. Tracheostomy tube with tip extending into the right mainstem bronchus. 2. Previous right pneumothorax no longer identified. 3. Pneumomediastinum again noted. 4. Left basilar airspace disease which may indicate atelectasis or infection. 5. Right chest tube in place. Electronically Signed: Pedro Delgadillo MD at 4:33 EDT Reading Location ID and State: [facility] / [place] Tel , Service support , Chest X-Ray 01/13/24 04:07 IMPRESSION: 1. Tracheostomy tube with tip extending into the right mainstem bronchus. 2. Previous right pneumothorax no longer identified. 3. Pneumomediastinum again noted. 4. Left basilar airspace disease which may indicate atelectasis or infection. 5. Right chest tube in place. Electronically Signed: Pedro Delgadillo MD at 4:37 EDT Reading Location ID and State: [address] [place] [address] Tel , Service support , Chest X-Ray 01/13/24 04:07 IMPRESSION: 1. Tracheostomy tube with tip extending into the right mainstem bronchus. 2. Previous right pneumothorax no longer identified. 3. Pneumomediastinum again noted. 4. Left basilar airspace disease which may indicate atelectasis or infection. 5. Right chest tube in place. Electronically Signed: Pedro Delgadillo MD at 4:36 EDT Reading Location ID and State: [address] [place] [address] Tel , Service support , Chest X-Ray 01/13/24 04:07 IMPRESSION: 1. Tracheostomy tube with tip at the level of the dakota, extending towards the right mainstem bronchus. 2. Previous right pneumothorax no longer identified. 3. Pneumomediastinum again noted. 4. Left basilar airspace disease which may indicate atelectasis or infection. 5. Right chest tube in place. Electronically Signed: Pedro Delgadillo MD at 4:35 EDT Reading Location ID and State: [facility] / [place] Tel , Service support , Chest X-Ray 01/13/24 04:07 IMPRESSION: 1. Tracheostomy tube with tip extending into the right mainstem bronchus. 2. Previous right pneumothorax no longer identified. 3. Pneumomediastinum again noted. 4. Left basilar airspace disease which may indicate atelectasis or infection. 5. Right chest tube in place. Electronically Signed: Pedro Delgadillo MD at 4:34 EDT , Rhythm Strip Rhythm Strip: Sinus Tach Rate: 102 Physical Exam Const Constitutional Narrative: Patient is sedated Resp Resp Narrative: No airleak noted on patient's chest tube Pleur-evac system. All connections are intact. There is scant serosanguineous drainage. There is no crepitus at the chest wall. Assessment & Plan Assessment/Plan (1) Pneumothorax on right: PLAN: Patient is a 58-year-old male who is status post right thoracostomy tube placement for iatrogenic pneumothorax on the right likely secondary to barotrauma. There does not appear to be any ongoing air leak and patient's chest x-ray shows resolution of the pneumothorax. Still, I have recommended maintaining chest tube as long as patient is facing positive pressure ventilation and according to ENT they are planning to hold off on converting patient's airway to a formal tracheostomy until tomorrow. Thus, recommend continue to monitor chest tube for any kinking and continue the chest tube on suction at -20 cm water, continuously. Charges/Coding Visit Charges Inpatient E&M: 45339 Subs Hosp L2
--- NOTE | 2024-01-13 08:54 | EX.PCM.CON.S ---
Assessment & Plan Assessment/Plan (1) Pneumothorax on right: PLAN: Patient is a 58-year-old male with iatrogenic pneumothorax likely secondary to barotrauma. I presented emergently to bedside and consented patient's spouse for emergency thoracostomy. This was undertaken in uncomplicated fashion and full details are recapitulated in my procedures note. There is minimal egress of air and no ongoing air leak per interrogation of the Pleur-evac system. There is also only scant drainage of serosanguineous fluid. Postprocedure chest x-ray showed the chest tube to be within the right hemithorax and there was no sign of residual pneumothorax. Chest tube was left to -20 cm water. Will continue to follow for management. HPI Consult Data Date of Consult: 01/13/24 HPI Narrative Reason for Consultation: Right pneumothorax HPI Narrative: JONATHAN BARNETT, is a 58 M who presented to [facility] on 01/12/2024 in respiratory distress with evidence of angioedema. Emergency medicine attempted intubation, however, this was unsuccessful and they proceeded with performing a cricothyroidotomy. Unfortunately they were unable to clearly establish an airway through this opening and I presented to bedside to assist. Together we were ultimately successful in placing a 6-1/2 Sinhala endotracheal tube via patient's cricothyroidotomy. This was secured and patient was ventilated via this access. At 1 point it was evident that patient had migration of the tube below the level of the dakota into the right mainstem bronchus and the tube was withdrawn to a position above the dakota and resecured. I then left patient's bedside, but shortly after leaving the hospital was notified by emergent telephone call that patient had evidence of a small pneumothorax on the right. Given the patient was now undergoing positive pressure ventilation emergent thoracostomy was deemed necessary. [facility] Medical History unable to obtain Home Medications lisinopril 10 mg tablet 10 mg PO DAILY #30 tabs 11/15/18 [Rx Last Taken Unknown] Allergy/AdvReac Type Severity Reaction Status Date / Time HAO Inhibitors Allergy Severe Angioedema Verified 01/13/24 06:36 Surgical History unable to obtain Social History household members: spouse Smoking Status: Never smoker Physical Exam Const Constitutional Narrative: Patient is sedated and moving minimally initially but then later paralyzed Chest Chest Narrative: Thick chest wall without evidence of crepitus Resp Resp Narrative: In synchrony with the ventilator Lab / Micro Data 01/13/24 03:55 01/13/24 03:55 Labs: Laboratory Results - last 24 hr 01/12/24 23:29: POC Glucose 182 H 01/12/24 23:55: WBC 6.9, RBC 4.60, Hgb 14.0, Hct 42.5, MCV 92.4, MCH 30.4, MCHC 32.9, RDW Std Deviation 48.0 H, RDW Coeff of Ya 14.2, Plt Count 231, MPV 10.5, Immature Gran % (Auto) 1.000 H, Neut % (Auto) 51.1, Lymph % (Auto) 34.3, [place] % (Auto) 11.2 H, Eos % (Auto) 2.0, Baso % (Auto) 0.4, Absolute Neuts (auto) 3.5, Absolute Lymphs (auto) 2.35, Nucleated RBC % 0, PT 13.0, INR 1.0, APTT 27.0, Sodium 138, Potassium 3.4 L, Chloride 103, Carbon Dioxide 27.0, Anion Gap 8, BUN 17, Creatinine 1.15, Estim Creat Clear Calc 93.75, Est GFR (MDRD) Af Amer 84, Est GFR (MDRD) Non-Af 70, BUN/Creatinine Ratio 14.8, Glucose 147 H, Calcium 9.1, Total Bilirubin 0.40, AST 62 H, ALT 126 H, Alkaline Phosphatase 88, Total Creatine Kinase 510 H, Total Protein 7.6, Albumin 3.9, Globulin 3.7, Albumin/Globulin Ratio 1.1, Triglycerides 385 H 01/13/24 03:55: WBC 9.1, RBC 4.17 L, Hgb 12.6 L, Hct 38.6 L, MCV 92.6, MCH 30.2, MCHC 32.6, RDW Std Deviation 47.8 H, RDW Coeff of Ay 14.1, Plt Count 192, MPV 10.4, Immature Gran % (Auto) 0.400, Neut % (Auto) 89.0 H, Lymph % (Auto) 6.6 L, [place] % (Auto) 3.5, Eos % (Auto) 0.3, Baso % (Auto) 0.2, Absolute Neuts (auto) 8.1 H, Absolute Lymphs (auto) 0.60 L, Nucleated RBC % 0, Sodium 138, Potassium 4.5, Chloride 105, Carbon Dioxide 25.0, Anion Gap 8, BUN 18, Creatinine 1.24, Estim Creat Clear Calc 86.94, Est GFR (MDRD) Af Amer 77, Est GFR (MDRD) Non-Af 64, BUN/Creatinine Ratio 14.5, Glucose 188 H, Calcium 7.9 L, Phosphorus 4.1, Magnesium 1.5 L, Total Bilirubin 0.50, AST 53 H, ALT 109 H, Alkaline Phosphatase 69, Total Protein 6.5, Albumin 3.2, Globulin 3.3, Albumin/Globulin Ratio 1.0, TSH 2.99, Blood Type Cancelled, A1 Antigen Typing Cancelled, Rho(D) Type Cancelled 01/13/24 04:02: Blood Type O POSITIVE, Antibody Screen NEGATIVE ABG Data ABG results: ABG 01/13/24 01/13/24 02:22 04:44 Specimen Type ART ART Sample Site L Radial L Radial pH 7.26 L 7.35 Bicarbonate Actual 25.2 22.4 Total CO2 27 24 Base Excess -2 -3 L O2 Saturation 89 L 98 O2 % 100.0 100.0 ABG pCO2 56.7 H 40.4 ABG pO2 66 L 114 H Oh Test Positive Positive Respiration Rate 14 25 O2 Delivery Device Adult Vent Adult Vent Vent Mode AC AC Tidal Volume 500.0 450.0 POC PEEP 5 5 Rhythm Strip Rhythm Strip: Sinus Tach Rate: 102 Imaging Radiology Impression Chest X-Ray 01/12/24 00:30 IMPRESSION: 1. Endotracheal tube with tip in the right mainstem bronchus. A follow-up examination has already been performed. 2. Pneumomediastinum. 3. Small right pneumothorax, less than 10%. Electronically Signed: Pedro Delgadillo MD at 4:07 EDT , Chest X-Ray 01/13/24 00:30 IMPRESSION: 1. Endotracheal tube with tip in the right mainstem bronchus. A follow-up examination has already been performed after repositioning. 2. Pneumomediastinum. 3. Small right pneumothorax, less than 5%. 4. Left basilar consolidation. Electronically Signed: Pedro Delgadillo MD at 4:05 EDT Reading Location ID and State: [facility] / [place] Tel , Service support , Chest X-Ray 01/13/24 00:30 IMPRESSION: 1. Significant pneumomediastinum and pneumopericardium. 2. Small right pneumothorax, less than 10%. 3. Endotracheal tube with tip 1.7 cm above the dakota. Electronically Signed: Pedro Delgadillo MD at 2:10 EDT Reading Location ID and State: [facility] / [place] Tel , Service support , ADDENDUM: 01/13/24 0227 IMPRESSION: 1. Significant pneumomediastinum and pneumopericardium. 2. Small right pneumothorax, less than 10%. 3. Endotracheal tube with tip 1.7 cm above the dakota. N.B. : The above Results were Read Back by Pedro Delgadillo MD to Pravin Jean-Baptiste MD, and understanding confirmed on 01/13/2024 02:20:23 (ET). Electronically Signed: Pedro Delgadillo MD at 2:10 EDT Reading Location ID and State: [facility] / [place] Tel , Service support , Chest X-Ray 01/13/24 04:07 IMPRESSION: 1. Tracheostomy tube with tip extending into the right mainstem bronchus. 2. Previous right pneumothorax no longer identified. 3. Pneumomediastinum again noted. 4. Left basilar airspace disease which may indicate atelectasis or infection. 5. Right chest tube in place. Electronically Signed: Pedro Delgadillo MD at 4:38 EDT Reading Location ID and State: [facility] / [place] Tel , Service support , Chest X-Ray 01/13/24 04:07 IMPRESSION: 1. Tracheostomy tube with tip extending into the right mainstem bronchus. 2. Previous right pneumothorax no longer identified. 3. Pneumomediastinum again noted. 4. Left basilar airspace disease which may indicate atelectasis or infection. 5. Right chest tube in place. Electronically Signed: Pedro Delgadillo MD at 4:33 EDT , Chest X-Ray 01/13/24 04:07 IMPRESSION: 1. Tracheostomy tube with tip extending into the right mainstem bronchus. 2. Previous right pneumothorax no longer identified. 3. Pneumomediastinum again noted. 4. Left basilar airspace disease which may indicate atelectasis or infection. 5. Right chest tube in place. Electronically Signed: Pedro Delgadillo MD at 4:33 EDT , Chest X-Ray 01/13/24 04:07 IMPRESSION: 1. Tracheostomy tube with tip extending into the right mainstem bronchus. 2. Previous right pneumothorax no longer identified. 3. Pneumomediastinum again noted. 4. Left basilar airspace disease which may indicate atelectasis or infection. 5. Right chest tube in place. Electronically Signed: Pedro Delgadillo MD at 4:37 EDT , Chest X-Ray 01/13/24 04:07 IMPRESSION: 1. Tracheostomy tube with tip extending into the right mainstem bronchus. 2. Previous right pneumothorax no longer identified. 3. Pneumomediastinum again noted. 4. Left basilar airspace disease which may indicate atelectasis or infection. 5. Right chest tube in place. Electronically Signed: Pedro Delgadillo MD at 4:36 EDT , Chest X-Ray 01/13/24 04:07 IMPRESSION: 1. Tracheostomy tube with tip at the level of the dakota, extending towards the right mainstem bronchus. 2. Previous right pneumothorax no longer identified. 3. Pneumomediastinum again noted. 4. Left basilar airspace disease which may indicate atelectasis or infection. 5. Right chest tube in place. Electronically Signed: Pedro Delgadillo MD at 4:35 EDT , Chest X-Ray 01/13/24 04:07 IMPRESSION: 1. Tracheostomy tube with tip extending into the right mainstem bronchus. 2. Previous right pneumothorax no longer identified. 3. Pneumomediastinum again noted. 4. Left basilar airspace disease which may indicate atelectasis or infection. 5. Right chest tube in place. Electronically Signed: Pedro Delgadillo MD at 4:34 EDT , Charges/Coding Visit Charges Inpatient E&M: 44695 Init Hosp L2
[2024-01-13] MEDS: Famotidine 200 MG/20 ML MDV 20 MG in 0.9% Normal Saline (Pres. free 8 ML 300 MG IV ×2 (09:16→20:04)
--- NOTE | 2024-01-13 09:16 | CASEMGMT ---
ARACELI LANDRY Assessment Face to Face with patient for initial transition planning/care coordination assessment. Pt is currently sedated and is unable to answer this ARACELI LANDRY questions now. Pt father is the next of kin on file. TC to the pt father (Paul Orozco) at this time. ARACELI LANDRY introduced self and role at [facility]. Paul states that he is agreeable to answering this ARACELI LANDRY questions. Care providers, pharmacy, and demographics verified. Admitting dx: Angioedema requiring Bedside Cricothyrotomy LACE Strata: 1 PCP: [facility] Specialists: Denies Preferred Pharmacy: [facility] During this stay Insurance: MMO Prescription Benefit: Yes LNOK: Paul Orozco (Father) Living Arrangements: Pt lives with a SO and the SO 19 y/o son in a 2 story home with a BM with HR throughout with a flat entrance. ADLs/IADLs: Pt father states the pt is normally ind Transportation: Pt, pt father, pt SO DME: Pt father states that he has a cane, walker, and crutches for the pt if the pt needs. Pt father states that the pt wears a CPAP at night with no additional oxygen. Pt is currently on the mechanical ventilator. Follow for potential home O2 needs. HHC/SNF: Denies history Plan: TBD. During rounds, Dr. Knott states that the plan is to keep the pt stable today and plan for OR tomorrow. CM/SW to follow pt progression in the hospital and therapy to see what the pt qualifies for in regards to safe DC from [facility]. Adela Serna RN, CM
[2024-01-13] MEDS: Chlorhexidine 15 ML PO ×2 (09:40→20:03)
[2024-01-13] MEDS: CHLORHEXIDINE GLUC 2% CLOTH 1 EACH TOWELETTE TOPICAL (09:41)
--- NOTE | 2024-01-13 11:32 | NURSING ---
Notified blood bank of cancelling FFP
--- NOTE | 2024-01-13 17:00 | RAD_ITS ---
INDICATION: ETT placement EXAMINATION/TECHNIQUE: X-RAY - XR Chest 1 View COMPARISON: Chest radiograph same date. FINDINGS: Slight improvement in aeration of the lungs. The cardiomediastinal silhouette is stable. Unchanged position of tracheostomy tube with tip in the right mainstem bronchus. Stable small left pleural effusion. Stable pneumomediastinum. No pneumothorax. Unchanged position of right-sided chest tube. The osseous structures are unchanged. RAD/Chest 1 View (Portable) IMPRESSION: Slight improvement in aeration of the lungs. Unchanged position of tracheostomy tube with tip in the right mainstem bronchus. Otherwise, no change from prior study. Electronically Signed: Rolan Rainey MD at 18:33 EDT ,
--- NOTE | 2024-01-13 17:54 | PCM.HOSP.N ---
Hospitalist Note Patient was seen and examined today, he is sedated, paralyzed, and he remains on the ventilator. I had a long conversation with his family members in the room at the time my examination today, they had many questions to ask concerning his angioedema, I answered several questions for them to the best of my ability, I told them that they needed to talk with ENT if they had any additional questions, I also told them that critical care was participating in his care.
[2024-01-13] MEDS: Propofol 10MG/Ml 1,000 MG/100 ML Bottle 3.9 MG CONT INF (20:00)
[2024-01-14] VITALS (32 sets, daily range): BP systolic 145–181; BP diastolic 78–104; PULSE 61–92; RESP 14–29; TEMP 36.8–37.5; O2SAT 90–99; BMI 46.4
[2024-01-14] MEDS: Dexmedetomidine 1,000 mcg in 0.9% NS 240 mL 49.2 MCG CONT INF ×2 (00:21→06:00)
[2024-01-14] MEDS: 0.9% Normal Saline (1000mL) 1,000 ML 150 ML IV ×4 (00:23→22:20)
[2024-01-14 03:33] LABS: Absolute Lymphocyte Count 0.64 X10^3/uL (0.83-4.51); Absolute Neutrophil Count 7.7 X10^3/uL (2.0-7.7); Basophil# 0.01 X10^3/uL; Basophil% 0.1 % (0-1); Hematocrit 36.3 % (40-54); Hemoglobin 12.1 g/dL (13.0-16.5); Lymphocyte # 0.64 X10^3/ul (0.83-4.51); Lymphocyte % 7.3 % (19-41); Mean Corp Hgb Conc 33.3 g/dL (32-36); Mean Corpuscular Hgb 30.3 pg (27.0-32.0); Mean Corpuscular Volume 90.8 fL (80-94); Mean Platelet Vol. 10.3 fl (6.2-12.0); Monocyte# 0.36 X10^3/uL; Monocyte% 4.1 % (0-10); NRBC Flagged by Analyzer 0 % (0-5); Neutrophil # 7.68 X10^3/uL (2.7-7.7); Neutrophil % 88.2 % (47-70); Platelet Count 167 K/mm3 (150-450); RBC Distribution Width CV 13.9 % (11.6-14.6); RBC Distribution Width SD 46.5 fl (35.1-43.9); White Blood Count 8.7 K/mm3 (4.4-11.0)
[2024-01-14] MEDS: fentaNYL drip 100 ML 20 MCG CONT INF ×2 (03:44→10:01)
[2024-01-14] MEDS: Cisatracurium *PARALYTIC 100 MG in 0.9% Normal Saline (250mL Bag) 200 ML 39.4 MG CONT INF (03:44)
[2024-01-14 04:06] LABS: ALB/GLOB Ratio 0.9 RATIO (0.9-2.4); AST(SGOT) 24 U/L (15-37); Alanine Aminotransfer ALT/SGPT 79 U/L (16-61); Albumin, Serum 2.9 g/dL (3.2-5.0); Alkaline Phosphatase 54 U/L (45-117); Anion Gap 8 (5-15); BUN 26 mg/dL (7-18); BUN/Creat Ratio 21.3 RATIO (10-20); Calcium,Total 7.9 mg/dL (8.5-10.1); Chloride 109 mmol/L (98-107); Creatinine, Serum 1.22 mg/dL (0.70-1.30); EST Glomerular Filtration Rate 65 mL/min (>60); Est Glom Filt Rate - Afr Amer 79 mL/min (>60); Estimated Creatinine Clearance 88.37 ml/min; Globulin 3.4 g/dL (2.2-4.2); Glucose 192 mg/dL (74-106); Potassium 4.1 mmol/L (3.5-5.1); Protein, Total 6.3 g/dL (6.4-8.2); Sodium Level 140 mmol/L (136-145)
[2024-01-14] MEDS: Ampicillin/Sulbactam 3 GM in 0.9% Normal Saline (100mL MB+) 100 ML IV ×3 (05:22→20:50)
[2024-01-14] MEDS: TITRATION PARAMETER CHANGE 1 EACH IV (06:34)
--- NOTE | 2024-01-14 07:07 | PN.CC_ITS ---
Assessment & Plan Assessment/Plan (1) Pneumothorax on right: (2) Angioedema: PLAN: Plan RECOMMENDATIONS: 1. Continue assist-control mode mechanical ventilation. 2. Plan for more aggressive weaning from mechanical ventilation once tracheostomy placed. 3. Continue current sedation regimen. 4. Continue antimicrobials and steroids. 5. Continue chest tube to wall suction. 6. Continue appropriate ICU prophylaxis. IMPRESSIONS: 1. Acute hypoxemic and hypercapnic respiratory failure The exact etiology for the patient's angioedema is not entirely clear. According to the patient's PCP, he was not prescribed an HAO inhibitor, but was rather on Cozaar. The patient's airway was compromised upon arrival to the emergency department. An emergent cricothyroidotomy was performed. Ultimately, the patient required placement of a small bore endotracheal tube through the cricothyroidotomy to achieve appropriate ventilatory support. ENT is planning to take the patient to the OR this morning for conversion to tracheostomy. Supp ortive measures will be continued in the interim. Aggressive weaning from mechanical ventilation will be undertaken once tracheostomy is in place. 2. Pneumothorax Potentially related to barotrauma in the setting of the patient's airway compromise. The patient underwent tube thoracotomy with resolution of the pneumothorax. At this time, plan to continue chest tube to wall suction. Once the patient has been weaned from invasive mechanical ventilatory support, more a ggressive means to remove the chest tube will be undertaken. 3. Morbid obesity/history of hypertension Complicates care, management, recovery and prognosis. Continue supportive measures as noted above. TIME: 31 minutes of critical care time, independent of procedures, was spent addressing the patient's acute hypoxemic and hypercapnic respiratory failure, angioedema, pneumothorax, review of all data and collaboration with the care team. Subjective Subjective The patient was seen and examined at the bedside this morning. Events from the last 24 hours have been reviewed. The patient is currently afebrile, hemodynamically stable and maintaining appropriate oxygen saturations on assist- control mode of mechanical ventilation. The patient is being prepared to be taken to the OR this morning for formal tracheostomy. I did speak personally with the patient's PCP this morning, who confirmed that the patient was not on lisinopril, but rather Cozaar as an outpatient. Morning laboratory values are stable. Objective Data Objective Data The patient's most recent lab work, culture data and imaging studies have all been personally reviewed. Sputum culture is pending. Vital Signs: Vital Signs Temp Pulse Resp BP Pulse Ox O2 Del Method O2 Flow Rate 99.2 F H 64 25 H 181/104 H 94 Mechanical Ventilator 100 01/14/24 05:00 01/14/24 07:00 01/14/24 07:00 01/14/24 07:00 01/14/24 07:00 01/14/24 07:00 01/13/24 01:30 FiO2 70 01/14/24 07:00 Oxygen Flow Rate (L/min) 100 Oxygen Delivery Method Mechanical Ventilator Weight: 305 lb 5.443 oz Body Mass Index (BMI) 46.4 Intake & Output: Intake and Output for Last 24 Hours 01/12/24 01/13/24 01/14/24 23:59 23:59 23:59 Intake Total 5088.73 / 5201.23 2810.83 / 2810.83 Output Total 1400 / 1850 900 / 900 Balance 3688.73 / 3351.23 1910.83 / 1910.83 Lab / Micro Data Attestation: I reviewed the patient's lab results. 01/14/24 03:25 01/14/24 03:25 Labs: Laboratory Results - last 24 hr 01/14/24 03:25: WBC 8.7, RBC 4.00 L, Hgb 12.1 L, Hct 36.3 L, MCV 90.8, MCH 30.3, MCHC 33.3, RDW Std Deviation 46.5 H, RDW Coeff of Ya 13.9, Plt Count 167, MPV 10.3, Immature Gran % (Auto) 0.300, Neut % (Auto) 88.2 H, Lymph % (Auto) 7.3 L, [place] % (Auto) 4.1, Eos % (Auto) 0.0, Baso % (Auto) 0.1, Absolute Neuts (auto) 7.7, Absolute Lymphs (auto) 0.64 L, Nucleated RBC % 0, Sodium 140, Potassium 4.1, Chloride 109 H, Carbon Dioxide 23.0, Anion Gap 8, BUN 26 H, Creatinine 1.22, Estim Creat Clear Calc 88.37, Est GFR (MDRD) Af Amer 79, Est GFR (MDRD) Non-Af 65, BUN/Creatinine Ratio 21.3 H, Glucose 192 H, Calcium 7.9 L, Total Bilirubin 0.50, AST 24, ALT 79 H, Alkaline Phosphatase 54, Total Protein 6.3 L, Albumin 2.9 L, Globulin 3.4, Albumin/Globulin Ratio 0.9 Micro: Microbiology 01/13/24 04:35 Sputum, Induced/Lukens Gram Stain - Final Radiography Diagnostic Testing: Radiology Impression Chest X-Ray 01/13/24 17:00 IMPRESSION: Slight improvement in aeration of the lungs. Unchanged position of tracheostomy tube with tip in the right mainstem bronchus. Otherwise, no change from prior study. Electronically Signed: Rolan Rainey MD at 18:33 EDT , Rhythm Strip Rhythm Strip: Sinus Tach Rate: 102 Physical Exam Const Constitutional Narrative: Stable appearing 6.5 endotracheal tube via cricothyroidotomy. The patient remains appropriately sedated and paralyzed. Family is present at the bedside. HEENT normocephalic and moist oral mucous membranes Eyes conjunctivae normal and no scleral icterus Neck supple Chest inspection of chest normal Resp Resp Narrative: Mechanical breath sounds. Stable right-sided chest tube without discernible air leak. Cardio regular rate and regular rhythm GI soft to palpation Extremity no clubbing, cyanosis or edema Skin no rashes or lesions noted Neuro Sensorium / Orientation: sedated on vent Charges/Coding Procedures Hospitalists Procedures: 22366 Critical Care 1st Hr
--- NOTE | 2024-01-14 07:37 | PCM.PN.SRG ---
Subjective Subjective Patient seen and examined during AM rounds. Nursing notes no overnight events. Yesterday afternoon I had obtained a chest x-ray due to suspicion that patient's endotracheal tube tip had migrated in the right mainstem bronchus and this was confirmed by radiology, however, they state that due to the precarious tethering of the tube no other intervention was undertaken. Patient due for OR with ENT later this morning to formalize tracheostomy. Objective Data Objective Data Vital Signs: Vital Signs Temp Pulse Resp BP Pulse Ox O2 Del Method O2 Flow Rate 99.2 F H 64 25 H 181/104 H 94 Mechanical Ventilator 100 01/14/24 05:00 01/14/24 07:00 01/14/24 07:00 01/14/24 07:00 01/14/24 07:00 01/14/24 07:00 01/13/24 01:30 FiO2 70 01/14/24 07:00 Oxygen Flow Rate (L/min) 100 Oxygen Delivery Method Mechanical Ventilator Weight: 305 lb 5.443 oz Body Mass Index (BMI) 46.4 Intake & Output: Intake and Output for Last 24 Hours 01/12/24 01/13/24 01/14/24 23:59 23:59 23:59 Intake Total 5088.73 / 5201.23 2810.83 / 2810.83 Output Total 1400 / 1850 900 / 900 Balance 3688.73 / 3351.23 1910.83 / 1910.83 Lab / Micro Data 01/14/24 03:25 01/14/24 03:25 Labs: Laboratory Results - last 24 hr 01/14/24 03:25: WBC 8.7, RBC 4.00 L, Hgb 12.1 L, Hct 36.3 L, MCV 90.8, MCH 30.3, MCHC 33.3, RDW Std Deviation 46.5 H, RDW Coeff of Ya 13.9, Plt Count 167, MPV 10.3, Immature Gran % (Auto) 0.300, Neut % (Auto) 88.2 H, Lymph % (Auto) 7.3 L, [place] % (Auto) 4.1, Eos % (Auto) 0.0, Baso % (Auto) 0.1, Absolute Neuts (auto) 7.7, Absolute Lymphs (auto) 0.64 L, Nucleated RBC % 0, Sodium 140, Potassium 4.1, Chloride 109 H, Carbon Dioxide 23.0, Anion Gap 8, BUN 26 H, Creatinine 1.22, Estim Creat Clear Calc 88.37, Est GFR (MDRD) Af Amer 79, Est GFR (MDRD) Non-Af 65, BUN/Creatinine Ratio 21.3 H, Glucose 192 H, Calcium 7.9 L, Total Bilirubin 0.50, AST 24, ALT 79 H, Alkaline Phosphatase 54, Total Protein 6.3 L, Albumin 2.9 L, Globulin 3.4, Albumin/Globulin Ratio 0.9 Micro: Microbiology 01/13/24 04:35 Sputum, Induced/Lukens Gram Stain - Final Radiography Diagnostic Testing: Radiology Impression Chest X-Ray 01/13/24 17:00 IMPRESSION: Slight improvement in aeration of the lungs. Unchanged position of tracheostomy tube with tip in the right mainstem bronchus. Otherwise, no change from prior study. Electronically Signed: Rolan aRiney MD at 18:33 EDT , Rhythm Strip Rhythm Strip: Sinus Tach Rate: 102 Physical Exam Const Constitutional Narrative: Sedated and paralyzed Resp Resp Narrative: Once again no airleak noted on patient's chest tube Pleur-evac system. All connections are intact. Chest tube remains at -20 cmH2O suction. There is scant serosanguineous drainage. There is no crepitus at the chest wall. Assessment & Plan Assessment/Plan (1) Pneumothorax on right: PLAN: Patient is a 58-year-old male who is status post right thoracostomy tube placement for iatrogenic pneumothorax on the right likely secondary to barotrauma. Repeat chest x-ray yesterday did not show any evidence of a pneumothorax and once again I do not see an air leak on patient's Pleur-evac system. Patient is pending OR with ENT and I recommend maintaining chest tube as long as patient is facing positive pressure ventilation. Will consider converting to waterseal once patient is more stable postoperatively. Charges/Coding Visit Charges Inpatient E&M: 36099 Subs Hosp L2
[2024-01-14] MEDS: Lidocaine 1% /Epi 1:100 (20ml) 20 ML Vial (07:58)
[2024-01-14 09:06] LABS: Erythrocyte Sedimentation Rate 16 mm/hr (0-20)
--- NOTE | 2024-01-14 09:32 | OP.PCM_ITS ---
Problems Associated Problem List Diagnoses (1) Respiratory failure: Report of Operation Date of Procedure: 01/14/24 Pre-Operative Diagnosis: respiratory failure Post-Operative Diagnosis: respiratory failure Surgery/Procedure Performed:: tracheostomy with melia flap Surgeon: Rolan Barrett poly area supervisor: Ady Ortiz Type of Anesthesia: General Description of Procedure: on the day of the procedure, after appropriate informed consent was obtained, the patient was brought to the operating room and placed in supine position on the operating table. he arrived with an endotracheal tube through a cricothyrotomy. his neck was prepped and draped in sterile fashion; a transverse incision line was injected with lidocaine/epinephrine. a 3cm incision was made inferior to the existing superior incision, and the existing 6.5 endotracheal tube was left in place. a lipectomy was performed with the bovie. the midline strap muscles were found along the midline raphe and divided laterally. it was discovered that the tube entered the neck through a high incision, traversed subcutaneously inferior to the cricoid and entered the trachea. the trachea was exposed and a melia flap was created around the existing tube. a 2-0 ethibond was used to suture the melia flap to the overlying skin, bringing the trachea to the surface. the two incisions were connected with a 15 blade. the existing endotracheal tube was removed and 60XLT tracheostomy tube was placed. the trachea was suctioned and end tidal CO2 was s een. the trach was sutured at 6 points with 3-0 silk and secured with an umbilical tie. the superior incision was closed with 3-0 vicryl and 5-0 fast gut. he was transferred to the ICU with 600ml tidal volumes and 93% O2 sat. ady ortiz was scrubbed for the entirety of the case and was essential to its completion.
--- NOTE | 2024-01-14 09:50 | NURSING ---
Patient arrived from OR with propofol running at 50 mcg/kg/min
--- NOTE | 2024-01-14 10:20 | NURSING ---
Restraints applied at 1000 for safety, paralytic off at 1015, will wean sedation for RASS -2
[2024-01-14] MEDS: CHLORHEXIDINE GLUC 2% CLOTH 1 EACH TOWELETTE TOPICAL (10:21)
[2024-01-14] MEDS: Chlorhexidine 15 ML PO ×2 (10:21→20:40)
[2024-01-14] MEDS: Propofol 10MG/Ml 1,000 MG/100 ML Bottle 41.6 MG CONT INF (10:44)
[2024-01-14] MEDS: Dexmedetomidine 1,000 mcg in 0.9% NS 240 mL 51.9 MCG CONT INF ×2 (10:45→20:49)
[2024-01-14] MEDS: Famotidine 200 MG/20 ML MDV 20 MG in 0.9% Normal Saline (Pres. free 8 ML 300 MG IV (10:46)
--- NOTE | 2024-01-14 12:05 | RAD_ITS ---
STUDY: X-RAY CHEST REASON FOR EXAM: Male, 58 years old. Trach placed TECHNIQUE: Single AP portable view of the chest. COMPARISON: Comparison is made with prior study dated January 13, 2024. FINDINGS: A tracheostomy tube is seen and is unchanged. EKG electrodes are present. Poor inspiratory effort. Vascular congestion and mild degree of CHF with bibasilar atelectasis. Blunting of both costophrenic angles. There is mild cardiac enlargement. Normal mediastinum and hortencia. Normal visualized pulmonary arteries. Normal visualized aortic arch and descending thoracic aorta. Normal visualized thoracic spine. Normal visualized ribs, clavicles, and shoulders. There is no demonstrated abnormality of the visualized soft tissue structures of the upper abdomen. RAD/Chest 1 View (Portable) IMPRESSION: Essentially stable examination with evidence of vascular congestion and mild degree of CHF. A tracheostomy tube is seen with the tip at 4.6 cm proximal to the [place]. Electronically Signed: Zackary Moody MD at 13:55 EDT ,
[2024-01-14] MEDS: Propofol 10MG/Ml 1,000 MG/100 ML Bottle 20.8 MG CONT INF (13:15)
[2024-01-14] MEDS: Dexmedetomidine 1,000 mcg in 0.9% NS 240 mL 48.5 MCG CONT INF (15:38)
[2024-01-14] MEDS: fentaNYL drip 100 ML 15 MCG CONT INF ×2 (15:38→22:19)
--- NOTE | 2024-01-14 16:46 | PN.HOSP_ITS ---
Reason for Visit Reason for Visit: Diagnoses Essential (primary) hypertension (01/13/24) Pneumothorax, unspecified (01/13/24) Respiratory failure, unspecified, unspecified whether with hypoxia or hypercapnia (01/13/24) Adverse effect of rhjwhpyznqh-nmnkdchcqe-kswmkx inhibitors, initial encounter (01/13/24) Angioneurotic edema, initial encounter (01/13/24) Subjective Subjective Patient was seen and examined today, the time my examination he was still sedated and paralyzed, the plan was to reverse the paralysis today according to nursing. Patient had a tracheostomy performed today that went well without complications Objective Data Objective Data Vital Signs: Vital Signs Temp Pulse Resp BP Pulse Ox O2 Del Method O2 Flow Rate 98.7 F 64 14 153/86 H 97 Mechanical Ventilator 100 01/14/24 12:00 01/14/24 15:00 01/14/24 15:00 01/14/24 15:00 01/14/24 15:00 01/14/24 15:00 01/13/24 01:30 FiO2 60 01/14/24 15:00 Oxygen Flow Rate (L/min) 100 Oxygen Delivery Method Mechanical Ventilator Weight: 138.5 kg Body Mass Index (BMI) 46.4 Intake & Output: Intake and Output for Last 24 Hours 01/12/24 01/13/24 01/14/24 23:59 23:59 23:59 Intake Total 5088.73 / 5201.23 4798.88 / 4798.88 Output Total 1400 / 1850 2250 / 2250 Balance 3688.73 / 3351.23 2548.88 / 2548.88 Lab / Micro Data 01/14/24 03:25 01/14/24 03:25 Labs: Laboratory Results - last 24 hr 01/14/24 03:25: WBC 8.7, RBC 4.00 L, Hgb 12.1 L, Hct 36.3 L, MCV 90.8, MCH 30.3, MCHC 33.3, RDW Std Deviation 46.5 H, RDW Coeff of Ya 13.9, Plt Count 167, MPV 10.3, Immature Gran % (Auto) 0.300, Neut % (Auto) 88.2 H, Lymph % (Auto) 7.3 L, [place] % (Auto) 4.1, Eos % (Auto) 0.0, Baso % (Auto) 0.1, Absolute Neuts (auto) 7.7, Absolute Lymphs (auto) 0.64 L, Nucleated RBC % 0, Sodium 140, Potassium 4.1, Chloride 109 H, Carbon Dioxide 23.0, Anion Gap 8, BUN 26 H, Creatinine 1. 22, Estim Creat Clear Calc 88.37, Est GFR (MDRD) Af Amer 79, Est GFR (MDRD) Non- Af 65, BUN/Creatinine Ratio 21.3 H, Glucose 192 H, Calcium 7.9 L, Total Bilirubin 0.50, AST 24, ALT 79 H, Alkaline Phosphatase 54, Total Protein 6.3 L, Albumin 2.9 L, Globulin 3.4, Albumin/Globulin Ratio 0.9 01/14/24 06:25: ESR 16, C-React Prot Ext Range 68.30 H Micro: Microbiology 01/13/24 04:35 Sputum, Induced/Lukens Gram Stain - Final 01/13/24 04:35 Sputum, Induced/Lukens Respiratory Culture - Preliminary Appears to be normal respiratory madyson. Further studies to follow. Radiography Diagnostic Testing: Radiology Impression Chest X-Ray 01/13/24 17:00 IMPRESSION: Slight improvement in aeration of the lungs. Unchanged position of tracheostomy tube with tip in the right mainstem bronchus. Otherwise, no change from prior study. Electronically Signed: Rolan Rainey MD at 18:33 EDT , Chest X-Ray 01/14/24 12:05 IMPRESSION: Essentially stable examination with evidence of vascular congestion and mild degree of CHF. A tracheostomy tube is seen with the tip at 4.6 cm proximal to the [place]. Electronically Signed: Zackary Moody MD at 13:55 EDT , Rhythm Strip Rhythm Strip: Sinus Tach Rate: 102 Physical Exam Const Constitutional Narrative: Patient is sedated and paralyzed and on the ventilator General Appearance: well developed HEENT normocephalic, head/scalp atraumatic and moist oral mucous membranes Eyes PERRL, EOMs intact bilaterally and conjunctivae normal Neck supple, no JVD, thyroid normal and no carotid bruits General: trachea midline Resp clear to auscultation bilaterally Resp Narrative: Patient is currently on the ventilator Auscultation: Negative for rales, rhonchi or wheezes Cardio regular rate, regular rhythm, S1 normal heart sound, S2 normal heart sound, no murmurs, no rub and no gallops GI normal to inspection, nondistended, normoactive bowel sounds, soft to palpation and non-distended Extremity no clubbing, cyanosis or edema Skin no rashes or lesions noted General Skin Exam: no breakdown Neuro Neuro Narrative: Patient is paralyzed on the ventilator at this time Psych Psych Narrative: Patient is paralyzed on ventilator at this time Assessment & Plan Assessment/Plan (1) Respiratory failure: PLAN: Plan 1. Acute combined respiratory failure secondary to angioedema with upper airway embarrassment-patient is now trached, he remains on the vent, again paralysis will be stopped today. #2 hypertension-patient's blood pressure will be monitored, patient may require IV hypertensive medications Total clinical time spent by myself addressing the patient's medical issues, reviewing all of the data, and collaborating with patient's care team: 25- minutes Charges/Coding Visit Charges Inpatient E&M: 06133 [facility] Hosp L1
[2024-01-14] MEDS: hydrALAZINE 20 MG/ML Vial 10 MG IV (18:19)
[2024-01-14] MEDS: Propofol 10MG/Ml 1,000 MG/100 ML Bottle 16.6 MG CONT INF (18:19)
[2024-01-14] MEDS: 0.9% Saline Lock 10 ML Syringe IV ×2 (18:20→20:52)
[2024-01-14] MEDS: Famotidine 200 MG/20 ML MDV 20 MG in 0.9% Normal Saline (Pres. free 8 ML 330 MG IV (20:52)
[2024-01-14] MEDS: Propofol 10MG/Ml 1,000 MG/100 ML Bottle 33.2 MG CONT INF (22:00)
[2024-01-15] VITALS (30 sets, daily range): BP systolic 140–174; BP diastolic 80–109; PULSE 75–104; RESP 12–21; TEMP 36.1–37.6; O2SAT 94–100; BMI 45.5
[2024-01-15] MEDS: Propofol 10MG/Ml 1,000 MG/100 ML Bottle 33.2 MG CONT INF ×2 (00:53→04:00)
[2024-01-15] MEDS: Dexmedetomidine 1,000 mcg in 0.9% NS 240 mL 51.9 MCG CONT INF ×2 (02:00→06:50)
[2024-01-15 03:19] LABS: Absolute Lymphocyte Count 0.67 X10^3/uL (0.83-4.51); Absolute Neutrophil Count 8.6 X10^3/uL (2.0-7.7); Basophil# 0.01 X10^3/uL; Basophil% 0.1 % (0-1); Eosinophil# 0.01 X10^3/uL; Eosinophils% 0.1 % (0-5); Hematocrit 34.8 % (40-54); Hemoglobin 11.2 g/dL (13.0-16.5); Lymphocyte # 0.67 X10^3/ul (0.83-4.51); Lymphocyte % 6.6 % (19-41); Mean Corp Hgb Conc 32.2 g/dL (32-36); Mean Corpuscular Hgb 30.3 pg (27.0-32.0); Mean Corpuscular Volume 94.1 fL (80-94); Mean Platelet Vol. 10.6 fl (6.2-12.0); Monocyte# 0.73 X10^3/uL; Monocyte% 7.2 % (0-10); NRBC Flagged by Analyzer 0 % (0-5); Neutrophil # 8.61 X10^3/uL (2.7-7.7); Neutrophil % 84.9 % (47-70); Platelet Count 157 K/mm3 (150-450); RBC Distribution Width CV 14.6 % (11.6-14.6); RBC Distribution Width SD 49.9 fl (35.1-43.9); White Blood Count 10.1 K/mm3 (4.4-11.0)
[2024-01-15 03:36] LABS: ALB/GLOB Ratio 0.8 RATIO (0.9-2.4); AST(SGOT) 17 U/L (15-37); Alanine Aminotransfer ALT/SGPT 59 U/L (16-61); Albumin, Serum 2.7 g/dL (3.2-5.0); Alkaline Phosphatase 50 U/L (45-117); Anion Gap 9 (5-15); BUN 21 mg/dL (7-18); BUN/Creat Ratio 18.9 RATIO (10-20); Calcium,Total 7.4 mg/dL (8.5-10.1); Chloride 109 mmol/L (98-107); Creatinine, Serum 1.11 mg/dL (0.70-1.30); EST Glomerular Filtration Rate 72 mL/min (>60); Est Glom Filt Rate - Afr Amer 88 mL/min (>60); Estimated Creatinine Clearance 100.16 ml/min; Globulin 3.5 g/dL (2.2-4.2); Glucose 171 mg/dL (74-106); Potassium 4.4 mmol/L (3.5-5.1); Protein, Total 6.2 g/dL (6.4-8.2); Sodium Level 142 mmol/L (136-145)
[2024-01-15] MEDS: fentaNYL drip 100 ML 5 MCG CONT INF (04:26)
[2024-01-15] MEDS: 0.9% Saline Lock 10 ML Syringe IV ×4 (05:12→23:33)
[2024-01-15] MEDS: Ampicillin/Sulbactam 3 GM in 0.9% Normal Saline (100mL MB+) 100 ML IV (05:12)
--- NOTE | 2024-01-15 05:55 | RAD_ITS ---
EXAM: XR CHEST, 1 VIEW CLINICAL INDICATION: chest tube TECHNIQUE: Frontal view of the chest. COMPARISON: No relevant prior studies available. FINDINGS: LUNGS AND PLEURAL SPACES: Small right apical pneumothorax that is new compared with the previous exam. The superior aspect of the right lung is about 1.2 cm below the superior sulcus and air is seen with in the pleural space laterally down to the level of the right fifth rib laterally. No effusion. HEART: Unremarkable. Cardiac silhouette not enlarged. MEDIASTINUM: Central airways and mediastinal contour are unremarkable. BONES/JOINTS: Unremarkable. No acute fracture. SOFT TISSUES: Unremarkable. TUBES, LINES AND DEVICES: Tracheostomy tube remains in good position. Small caliber right-sided chest tube overlying the right upper lobe unchanged. RAD/Chest 1 View (Portable) IMPRESSION: 1. Small right apical pneumothorax that is new compared with the previous exam. The superior aspect of the right lung is about 1.2 cm below the superior sulcus and air is seen with in the pleural space laterally down to the level of the right fifth rib laterally. 2. Tracheostomy tube remains in good position. 3. Small caliber right-sided chest tube overlying the right upper lobe unchanged. N.B. : The above Results were Read Back by Miguel Ballesteros MD to PALACIOS MD, and understanding confirmed on 01/15/2024 06:05:41 (ET). Electronically Signed: Miguel Ballesteros MD at 5:51 EDT ,
--- NOTE | 2024-01-15 07:30 | PCM.PN.INT ---
Assessment & Plan Assessment/Plan (1) Pneumothorax on right: (2) Angioedema: PLAN: Plan RECOMMENDATIONS: 1. Transition from CPAP trial to trach collar supplemental O2. Wean FiO2 to maintain oxygen saturations at or above 90%. 2. Speech therapy evaluation. 3. Resume chest tube to wall suction. 4. Discontinue sedating medications. 5. Decrease methylprednisone to 40 mg daily. 6. PT/OT evaluations. 7. Given negative culture results, will discontinue antimicrobials. IMPRESSIONS: 1. Acute hypoxemic and hypercapnic respiratory failure The exact etiology for the patient's angioedema is not entirely clear. According to the patient's PCP, he was not prescribed an HAO inhibitor, but was rather on Cozaar. The patient's airway was compromised upon arrival to the emergency department. An emergent cricothyroidotomy was performed. Ultimately, the patient required placement of a small bore endotracheal tube through the cricothyroidotomy to achieve appropriate ventilatory support. The patient was evaluated by ENT and then taken for formal tracheostomy on January 13. The patient is doing well from a respiratory perspective. He can be transition to trach collar supplemental O2 this morning. Speech therapy consultation will be obtained. The patient's IV steroid dosing will be decreased to once daily. 2. Pneumothorax Potentially related to barotrauma in the setting of the patient's airway compromise. The patient underwent tube thoracotomy with resolution of the pneumothorax. Unfortunately, the patient developed a new right apical pneumothorax this morning on chest imaging with a 2-3 chamber air leak noted in the Pleur-evac. Accordingly, he was transitioned back to wall suction from waterseal. 3. Morbid obesity/history of hypertension Complicates care, management, recovery and prognosis. Continue supportive measures as noted above. PT/OT to work with the patient. TIME: 34 minutes of critical care time, independent of procedures, was spent addressing the patient's acute hypoxemic and hypercapnic respiratory failure, angioedema, pneumothorax, review of all data and collaboration with the care team. Subjective Subjective The patient was seen and examined at the bedside this morning. Events from the last 24 hours have been reviewed. The patient is currently afebrile, hemodynamically stable and maintaining appropriate oxygen saturations on spontaneous mode of mechanical ventilation. The patient has done well this morning on his CPAP trial. He is alert and appropriately interactive. Following my initial evaluation of the patient, he was transition from mechanical ventilation to trach collar supplemental O2. In addition, the patient was noted to have a 2-3 chamber air leak in his Pleur-evac. Chest imaging demonstrated a new right apical pneumothorax. Therefore, the patient was transitioned from waterseal back to wall suction. The patient is currently documented to be overall net +8.8 L for the hospitalization. Morning laboratory values are stable. The patient did confirm to me this morning that he does have a history of obstructive sleep apnea. Objective Data Objective Data The patient's most recent lab work, culture data and imaging studies have all been personally reviewed. Sputum culture has not demonstrated any growth to date. Vital Signs: Vital Signs Temp Pulse Resp BP Pulse Ox O2 Del Method O2 Flow Rate 99.6 F H 84 15 156/92 H 95 Mechanical Ventilator 100 01/15/24 05:00 01/15/24 07:00 01/15/24 07:00 01/15/24 07:00 01/15/24 07:00 01/15/24 07:00 01/13/24 01:30 FiO2 40 01/15/24 07:00 Oxygen Flow Rate (L/min) 100 Oxygen Delivery Method Mechanical Ventilator Weight: 300 lb 4.313 oz Body Mass Index (BMI) 45.5 Intake & Output: Intake and Output for Last 24 Hours 01/13/24 01/14/24 01/15/24 23:59 23:59 23:59 Intake Total 5088.73 / 5201.23 6556.00 / 6656.10 1760.42 / 1760.42 Output Total 1400 / 1850 2600 / 3050 550 / 550 Balance 3688.73 / 3351.23 3956.00 / 3606.10 1210.42 / 1210.42 Lab / Micro Data Attestation: I reviewed the patient's lab results. 01/15/24 03:10 01/15/24 03:10 Labs: Laboratory Results - last 24 hr 01/14/24 06:25: ESR 16, C-React Prot Ext Range 68.30 H 01/15/24 03:10: WBC 10.1, RBC 3.70 L, Hgb 11.2 L, Hct 34.8 L, MCV 94.1 H, MCH 30.3, MCHC 32.2, RDW Std Deviation 49.9 H, RDW Coeff of Ya 14.6, Plt Count 157, MPV 10.6, Immature Gran % (Auto) 1.100 H, Neut % (Auto) 84.9 H, Lymph % (Auto) 6.6 L, [place] % (Auto) 7.2, Eos % (Auto) 0.1, Baso % (Auto) 0.1, Absolute Neuts (auto) 8.6 H, Absolute Lymphs (auto) 0.67 L, Nucleated RBC % 0, Sodium 142, Potassium 4.4, Chloride 109 H, Carbon Dioxide 24.0, Anion Gap 9, BUN 21 H, Creatinine 1.11, Estim Creat Clear Calc 100.16, Est GFR (MDRD) Af Amer 88, Est GFR (MDRD) Non-Af 72, BUN/Creatinine Ratio 18.9, Glucose 171 H, Calcium 7.4 L, Total Bilirubin 0.40, AST 17, ALT 59, Alkaline Phosphatase 50, Total Protein 6.2 L, Albumin 2.7 L, Globulin 3.5, Albumin/Globulin Ratio 0.8 L Micro: Microbiology 01/13/24 04:35 Sputum, Induced/Lukens Gram Stain - Final 01/13/24 04:35 Sputum, Induced/Lukens Respiratory Culture - Preliminary Appears to be normal respiratory madyson. Further studies to follow. Radiography Diagnostic Testing: Radiology Impression Chest X-Ray 01/14/24 12:05 IMPRESSION: Essentially stable examination with evidence of vascular congestion and mild degree of CHF. A tracheostomy tube is seen with the tip at 4.6 cm proximal to the dakota. Electronically Signed: Zackary Moody MD at 13:55 EDT , Chest X-Ray 01/15/24 05:55 IMPRESSION: 1. Small right apical pneumothorax that is new compared with the previous exam. The superior aspect of the right lung is about 1.2 cm below the superior sulcus and air is seen with in the pleural space laterally down to the level of the right fifth rib laterally. 2. Tracheostomy tube remains in good position. 3. Small caliber right-sided chest tube overlying the right upper lobe unchanged. N.B. : The above Results were Read Back by Miguel Ballesteros MD to PALACIOS MD, and understanding confirmed on 01/15/2024 06:05:41 (ET). Electronically Signed: Miguel Ballesteros MD at 5:51 EDT , Rhythm Strip Rhythm Strip: Sinus Tach Rate: 102 Physical Exam Const alert and no apparent distress General Appearance: cooperative HEENT normocephalic, head/scalp atraumatic and moist oral mucous membranes Eyes PERRL, conjunctivae normal and no scleral icterus Neck supple Neck Narrative: Stable appearing XLT tracheostomy tube in place. General: trachea midline Chest inspection of chest normal Resp normal respiratory effort and no use of accessory muscles Resp Narrative: Chest tube in place with 2-3 chamber air leak present Auscultation: diminished lung sounds Cardio regular rate and regular rhythm GI normal to inspection, nondistended, normoactive bowel sounds Extremity no clubbing, cyanosis or edema Skin no rashes or lesions noted Neuro CN's II-XII intact bilaterally and no focal motor deficits Neuro Narrative: Alert and appropriately interactive. Psych cooperative Charges/Coding Procedures Hospitalists Procedures: 21600 Critical Care 1st Hr
--- NOTE | 2024-01-15 08:15 | CPS ---
Per Dr Knott, pt is placed on ATC at this time, trach cuff is deflated
--- NOTE | 2024-01-15 08:18 | CPS ---
Pt placed on ATC, vent is turned off at this time
--- NOTE | 2024-01-15 08:49 | PCM.PN.SRG ---
Subjective Subjective Patient seen and examined during AM rounds. He is presently on trach collar. He is now attempting to communicate despite his tracheostomy limitations. Objective Data Objective Data Vital Signs: Vital Signs Temp Pulse Resp BP Pulse Ox O2 Del Method O2 Flow Rate 99.6 F H 84 15 156/92 H 95 Trach Collar 12 01/15/24 05:00 01/15/24 07:00 01/15/24 07:00 01/15/24 07:00 01/15/24 07:08 01/15/24 07:08 01/15/24 07:08 FiO2 40 01/15/24 07:08 Oxygen Flow Rate (L/min) 12 Oxygen Delivery Method Trach Collar Weight: 300 lb 4.313 oz Body Mass Index (BMI) 45.5 Intake & Output: Intake and Output for Last 24 Hours 01/13/24 01/14/24 01/15/24 23:59 23:59 23:59 Intake Total 5088.73 / 5201.23 6556.00 / 6656.10 1760.42 / 1760.42 Output Total 1400 / 1850 2600 / 3050 550 / 550 Balance 3688.73 / 3351.23 3956.00 / 3606.10 1210.42 / 1210.42 Lab / Micro Data 01/15/24 03:10 01/15/24 03:10 Labs: Laboratory Results - last 24 hr 01/14/24 06:25: ESR 16 01/15/24 03:10: WBC 10.1, RBC 3.70 L, Hgb 11.2 L, Hct 34.8 L, MCV 94.1 H, MCH 30.3, MCHC 32.2, RDW Std Deviation 49.9 H, RDW Coeff of Ya 14.6, Plt Count 157, MPV 10.6, Immature Gran % (Auto) 1.100 H, Neut % (Auto) 84.9 H, Lymph % (Auto) 6.6 L, [place] % (Auto) 7.2, Eos % (Auto) 0.1, Baso % (Auto) 0.1, Absolute Neuts (auto) 8.6 H, Absolute Lymphs (auto) 0.67 L, Nucleated RBC % 0, Sodium 142, Potassium 4.4, Chloride 109 H, Carbon Dioxide 24.0, Anion Gap 9, BUN 21 H, Creatinine 1.11, Estim Creat Clear Calc 100.16, Est GFR (MDRD) Af Amer 88, Est GFR (MDRD) Non-Af 72, BUN/Creatinine Ratio 18.9, Glucose 171 H, Calcium 7.4 L, Total Bilirubin 0.40, AST 17, ALT 59, Alkaline Phosphatase 50, Total Protein 6.2 L, Albumin 2.7 L, Globulin 3.5, Albumin/Globulin Ratio 0.8 L Micro: Microbiology 01/13/24 04:35 Sputum, Induced/Lukens Gram Stain - Final 01/13/24 04:35 Sputum, Induced/Lukens Respiratory Culture - Preliminary Appears to be normal respiratory madyson. Further studies to follow. Radiography Diagnostic Testing: Radiology Impression Chest X-Ray 01/14/24 12:05 IMPRESSION: Essentially stable examination with evidence of vascular congestion and mild degree of CHF. A tracheostomy tube is seen with the tip at 4.6 cm proximal to the dakota. Electronically Signed: Zackary Moody MD at 13:55 EDT , Chest X-Ray 01/15/24 05:55 IMPRESSION: 1. Small right apical pneumothorax that is new compared with the previous exam. The superior aspect of the right lung is about 1.2 cm below the superior sulcus and air is seen with in the pleural space laterally down to the level of the right fifth rib laterally. 2. Tracheostomy tube remains in good position. 3. Small caliber right-sided chest tube overlying the right upper lobe unchanged. N.B. : The above Results were Read Back by Miguel Ballesteros MD to PALACIOS MD, and understanding confirmed on 01/15/2024 06:05:41 (ET). Electronically Signed: Miguel Ballesteros MD at 5:51 EDT , Rhythm Strip Rhythm Strip: Sinus Tach Rate: 102 Physical Exam Const Constitutional Narrative: Patient is alert and communicates nonverbally/appropriately Resp Resp Narrative: Patient exhibiting a normal respiratory rate. Today and intermittent airleak is noted on patient's chest tube Pleur-evac system. All connections are intact. Chest tube was early return to -20 cmH2O suction. There is scant serosanguineous drainage that does not appear to have accumulated from yesterday. There is no crepitus at the chest wall. Assessment & Plan Assessment/Plan (1) Pneumothorax on right: PLAN: Patient is a 58-year-old male who is status post right thoracostomy tube placement for iatrogenic pneumothorax on the right likely secondary to barotrauma. Repeat chest x-ray today showed development of a apical pneumothorax and patient is now showing evidence of a intermittent air leak on his Pleur-evac system. 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 Patient is currently otherwise comfortable from respiratory standpoint on trach collar. He is pending a speech evaluation. Given patient's concurrent pneumomediastinum a contrast esophagram may be reasonable to assure no injury occurred to the deeper anatomy. Will continue to follow for chest tube. Please obtain a.m. chest x-ray. Miguel Kurtz MD General Surgery Endocrine Surgery Pager: [facility] [address] [place] [address], [facility], [address] [place] [address] Office: [phone] Charges/Coding Visit Charges Inpatient E&M: 17538 Subs Hosp L2
[2024-01-15] MEDS: Famotidine 200 MG/20 ML MDV 20 MG in 0.9% Normal Saline (Pres. free 8 ML 330 MG IV ×2 (09:53→20:04)
[2024-01-15] MEDS: Enoxaparin 40 MG/0.4 ML Syringe SC ×2 (09:54→20:04)
[2024-01-15] MEDS: CHLORHEXIDINE GLUC 2% CLOTH 1 EACH TOWELETTE TOPICAL (11:11)
[2024-01-15 16:10] LABS: C1 Esterase Inhibitor, Quant 35 mg/dL (21-39)
--- NOTE | 2024-01-15 16:30 | PCM.PN.HOSP ---
Reason for Visit Reason for Visit: Diagnoses Essential (primary) hypertension (01/13/24) Pneumothorax, unspecified (01/13/24) Respiratory failure, unspecified, unspecified whether with hypoxia or hypercapnia (01/13/24) Adverse effect of phtdvwojmid-wnigmpiznj-tpwlkx inhibitors, initial encounter (01/13/24) Angioneurotic edema, initial encounter (01/13/24) Subjective Subjective Patient was seen and examined today, he is sitting up in a chair he is able to talk, he is alert and oriented x 3 and appears in no distress. Patient is on trach collar Objective Data Objective Data Vital Signs: Vital Signs Temp Pulse Resp BP Pulse Ox O2 Del Method O2 Flow Rate 98.9 F 95 20 H 167/88 H 94 Trach Collar 12 01/15/24 12:00 01/15/24 15:00 01/15/24 15:00 01/15/24 15:00 01/15/24 15:32 01/15/24 15:00 01/15/24 07:08 FiO2 35 01/15/24 15:00 Oxygen Flow Rate (L/min) 12 Oxygen Delivery Method Trach Collar Weight: 136.2 kg Body Mass Index (BMI) 45.5 Intake & Output: Intake and Output for Last 24 Hours 01/13/24 01/14/24 01/15/24 23:59 23:59 23:59 Intake Total 5088.73 / 5201.23 6556.00 / 6656.10 1770.42 / 1770.42 Output Total 1400 / 1850 2600 / 3050 1999 / 1999 Balance 3688.73 / 3351.23 3956.00 / 3606.10 -229.58 / -229.58 Lab / Micro Data 01/15/24 03:10 01/15/24 03:10 Labs: Laboratory Results - last 24 hr 01/13/24 04:15: C1 Esterase Inhibitor 35, Complement C4 27 01/15/24 03:10: WBC 10.1, RBC 3.70 L, Hgb 11.2 L, Hct 34.8 L, MCV 94.1 H, MCH 30.3, MCHC 32.2, RDW Std Deviation 49.9 H, RDW Coeff of Ya 14.6, Plt Count 157, MPV 10.6, Immature Gran % (Auto) 1.100 H, Neut % (Auto) 84.9 H, Lymph % (Auto) 6.6 L, [place] % (Auto) 7.2, Eos % (Auto) 0.1, Baso % (Auto) 0.1, Absolute Neuts (auto) 8.6 H, Absolute Lymphs (auto) 0.67 L, Nucleated RBC % 0, Sodium 142, Potassium 4.4, Chloride 109 H, Carbon Dioxide 24.0, Anion Gap 9, BUN 21 H, Creatinine 1.11, Estim Creat Clear Calc 100.16, Est GFR (MDRD) Af Amer 88, Est GFR (MDRD) Non-Af 72, BUN/Creatinine Ratio 18.9, Glucose 171 H, Calcium 7.4 L, Total Bilirubin 0.40, AST 17, ALT 59, Alkaline Phosphatase 50, Total Protein 6.2 L, Albumin 2.7 L, Globulin 3.5, Albumin/Globulin Ratio 0.8 L Micro: Microbiology 01/13/24 04:35 Sputum, Induced/Lukens Gram Stain - Final 01/13/24 04:35 Sputum, Induced/Lukens Respiratory Culture - Preliminary Beta streptococcus Radiography Diagnostic Testing: Radiology Impression Chest X-Ray 01/15/24 05:55 IMPRESSION: 1. Small right apical pneumothorax that is new compared with the previous exam. The superior aspect of the right lung is about 1.2 cm below the superior sulcus and air is seen with in the pleural space laterally down to the level of the right fifth rib laterally. 2. Tracheostomy tube remains in good position. 3. Small caliber right-sided chest tube overlying the right upper lobe unchanged. N.B. : The above Results were Read Back by Miguel Ballesteros MD to PALACIOS MD, and understanding confirmed on 01/15/2024 06:05:41 (ET). Electronically Signed: Miguel Ballesteros MD at 5:51 EDT , Rhythm Strip Rhythm Strip: Sinus Tach Rate: 102 Physical Exam Const alert, oriented x3 and no apparent distress Constitutional Narrative: Paper patient is morbidly obese General Appearance: cooperative, well kempt and well developed Orientation / Consciousness: awake, oriented to person, oriented to place and oriented to time HEENT normocephalic and moist oral mucous membranes HEENT Narrative: Patient has a tracheostomy in place Eyes PERRL, EOMs intact bilaterally and conjunctivae normal Neck supple, no JVD, thyroid normal and no carotid bruits General: trachea midline Resp normal respiratory effort, no retractions, no use of accessory muscles and clear to auscultation bilaterally Auscultation: Negative for rales, rhonchi or wheezes Cardio regular rate, regular rhythm, S1 normal heart sound, S2 normal heart sound, no murmurs, no rub and no gallops GI normal to inspection, nondistended, normoactive bowel sounds, soft to palpation, non-tender and non-distended Extremity no clubbing, cyanosis or edema Skin no rashes or lesions noted General Skin Exam: no breakdown Neuro oriented x3, CN's II-XII intact bilaterally, moves all extremities, no focal motor deficits and no sensory deficits noted Sensorium / Orientation: awake and alert Speech: speech normal Psych affect normal Assessment & Plan Assessment/Plan (1) Respiratory failure: PLAN: Plan 1. Acute combined respiratory failure secondary to angioedema with upper airway embarrassment-patient is now trached, he remains on the vent, again paralysis will be stopped today. #2 hypertension-patient's blood pressure will be monitored, patient may require IV hypertensive medications Total clinical time spent by myself addressing the patient's medical issues, reviewing all of the data, and collaborating with patient's care team: 25-minutes Charges/Coding Visit Charges Inpatient E&M: 49424 [facility] L1
[2024-01-15] MEDS: Chlorhexidine 15 ML PO (20:04)
--- NOTE | 2024-01-15 21:09 | CPS ---
Pt. requested to go back on ventilator because he was starting to tire out and was afraid he was going to stop breathing. Placed on CPAP/PS for the night. Will attempt to place patient back on CATM in the AM.
[2024-01-15] MEDS: Ondansetron 4 MG/2 ML Vial IV (23:33)
[2024-01-16] VITALS (34 sets, daily range): BP systolic 133–196; BP diastolic 71–100; PULSE 60–115; RESP 12–21; TEMP 36.1–37.5; O2SAT 95–100; BMI 44.1
[2024-01-16 03:25] LABS: Absolute Lymphocyte Count 1.47 X10^3/uL (0.83-4.51); Basophil# 0.01 X10^3/uL; Basophil% 0.1 % (0-1); Eosinophil# 0.02 X10^3/uL; Eosinophils% 0.2 % (0-5); Hematocrit 34.8 % (40-54); Hemoglobin 11.7 g/dL (13.0-16.5); Lymphocyte # 1.47 X10^3/ul (0.83-4.51); Lymphocyte % 17.4 % (19-41); Mean Corp Hgb Conc 33.6 g/dL (32-36); Mean Corpuscular Hgb 30.8 pg (27.0-32.0); Mean Corpuscular Volume 91.6 fL (80-94); Mean Platelet Vol. 10.3 fl (6.2-12.0); Monocyte# 0.91 X10^3/uL; Monocyte% 10.8 % (0-10); NRBC Flagged by Analyzer 0 % (0-5); Neutrophil # 5.97 X10^3/uL (2.7-7.7); Neutrophil % 70.8 % (47-70); Platelet Count 150 K/mm3 (150-450); RBC Distribution Width SD 49.9 fl (35.1-43.9); White Blood Count 8.4 K/mm3 (4.4-11.0)
[2024-01-16 03:45] LABS: Anion Gap 6 (5-15); BUN 24 mg/dL (7-18); BUN/Creat Ratio 26.5 RATIO (10-20); Calcium,Total 7.9 mg/dL (8.5-10.1); Chloride 108 mmol/L (98-107); EST Glomerular Filtration Rate 92 mL/min (>60); Est Glom Filt Rate - Afr Amer 111 mL/min (>60); Estimated Creatinine Clearance 122.35 ml/min; Glucose 131 mg/dL (74-106); Magnesium 2.3 mg/dL (1.6-2.6); Phosphorus 2.5 mg/dL (2.5-4.9); Potassium 3.3 mmol/L (3.5-5.1); Sodium Level 142 mmol/L (136-145)
[2024-01-16] MEDS: proCHLORPERazine 10 MG/2 ML Vial IM ×2 (05:17→10:49)
[2024-01-16] MEDS: 0.9% Saline Lock 10 ML Syringe IV ×5 (05:17→15:37)
--- NOTE | 2024-01-16 07:31 | PCM.PN.INT ---
Assessment & Plan Assessment/Plan (1) Pneumothorax on right: (2) Angioedema: PLAN: Plan RECOMMENDATIONS: 1. Continue PAP therapy nightly with trach collar supplemental O2 throughout the day. 2. Perform esophagram and FEES study tomorrow. 3. Continue methylprednisone 40 mg daily for now. 4. PT/OT to work with the patient. 5. Maintain chest tube to wall suction for now. IMPRESSIONS: 1. Acute hypoxemic and hypercapnic respiratory failure The exact etiology for the patient's angioedema is not entirely clear. According to the patient's PCP, he was not prescribed an HAO inhibitor, but was rather on Cozaar. The patient's airway was compromised upon arrival to the emergency department. An emergent cricothyroidotomy was performed. Ultimately, the patient required placement of a small bore endotracheal tube through the cricothyroidotomy to achieve appropriate ventilatory support. The patient was evaluated by ENT and then taken for formal tracheostomy on January 13. The patient is doing well from a respiratory perspective. The patient will be continued on PAP therapy nightly and trach collar supplemental O2 throughout the day. Speech therapy is currently following with tentative plans for a FEES examination. Continue IV steroids 40 mg daily for now as ordered. 2. Pneumothorax/pneumomediastinum Potentially related to barotrauma in the setting of the patient's airway compromise. The patient underwent tube thoracotomy with resolution of the pneumothorax. In light of the patient's presenting symptoms, traumatic airway and pneumomediastinum noted on initial chest imaging, plan to obtain esophagram tomorrow. 3. Morbid obesity/history of hypertension Complicates care, management, recovery and prognosis. Continue supportive measures as noted above. PT/OT to work with the patient. This note was generated with [employer] dictation software. It may contain incorrect words, spelling, and punctuation that were not noted in checking the note before signing. Subjective Subjective The patient was seen and examined at the bedside this morning. Events from the last 24 hours have been reviewed. The patient did well yesterday on trach collar supplemental O2 and was then transition back to CPAP for overnight support. He was evaluated by speech therapy and tolerated approximately 5 minutes of a Passy-Gabi valve trial. The patient is currently documented to be overall net +6 L for the hospitalization. Morning chest x-ray is pending. The patient is comfortable this morning without any specific complaints. Objective Data Objective Data The patient's most recent lab work, culture data and imaging studies have all been personally reviewed. Sputum culture has not demonstrated any growth to date. Vital Signs: Vital Signs Temp Pulse Resp BP Pulse Ox O2 Del Method O2 Flow Rate 99.4 F H 90 15 162/76 H 96 Mechanical Ventilator 12 01/16/24 05:00 01/16/24 07:00 01/16/24 07:00 01/16/24 07:00 01/16/24 07:00 01/16/24 07:00 01/15/24 07:08 FiO2 40 01/16/24 07:00 Oxygen Flow Rate (L/min) 12 Oxygen Delivery Method Mechanical Ventilator Weight: 290 lb 2.053 oz Body Mass Index (BMI) 44.1 Intake & Output: Intake and Output for Last 24 Hours 01/14/24 01/15/24 01/16/24 23:59 23:59 23:59 Intake Total 6556.00 / 6656.10 1780.42 / 1780.42 Output Total 2600 / 3050 2905 / 2905 450 / 450 Balance 3956.00 / 3606.10 -1124.58 / -1124.58 -450 / -450 Lab / Micro Data Attestation: I reviewed the patient's lab results. 01/16/24 03:13 01/16/24 03:13 Labs: Laboratory Results - last 24 hr 01/13/24 04:15: C1 Esterase Inhibitor 35, Complement C4 27 01/16/24 03:13: WBC 8.4, RBC 3.80 L, Hgb 11.7 L, Hct 34.8 L, MCV 91.6, MCH 30.8, MCHC 33.6, RDW Std Deviation 49.9 H, RDW Coeff of Ya 15.0 H, Plt Count 150, MPV 10.3, Immature Gran % (Auto) 0.700, Neut % (Auto) 70.8 H, Lymph % (Auto) 17.4 L, [place] % (Auto) 10.8 H, Eos % (Auto) 0.2, Baso % (Auto) 0.1, Absolute Neuts (auto) 6.0, Absolute Lymphs (auto) 1.47, Nucleated RBC % 0, Sodium 142, Potassium 3.3 L, Chloride 108 H, Carbon Dioxide 28.0, Anion Gap 6, BUN 24 H, Creatinine 0.90, Estim Creat Clear Calc 122.35, Est GFR (MDRD) Af Amer 111, Est GFR (MDRD) Non-Af 92, BUN/Creatinine Ratio 26.5 H, Glucose 131 H, Calcium 7.9 L, Phosphorus 2.5, Magnesium 2.3 Micro: Microbiology 01/13/24 04:35 Sputum, Induced/Lukens Gram Stain - Final 01/13/24 04:35 Sputum, Induced/Lukens Respiratory Culture - Preliminary Beta streptococcus Radiography Diagnostic Testing: Radiology Impression Chest X-Ray 01/14/24 12:05 IMPRESSION: Essentially stable examination with evidence of vascular congestion and mild degree of CHF. A tracheostomy tube is seen with the tip at 4.6 cm proximal to the dakota. Electronically Signed: Zackary Moody MD at 13:55 EDT , Chest X-Ray 01/15/24 05:55 IMPRESSION: 1. Small right apical pneumothorax that is new compared with the previous exam. The superior aspect of the right lung is about 1.2 cm below the superior sulcus and air is seen with in the pleural space laterally down to the level of the right fifth rib laterally. 2. Tracheostomy tube remains in good position. 3. Small caliber right-sided chest tube overlying the right upper lobe unchanged. N.B. : The above Results were Read Back by Miguel Ballesteros MD to PALACIOS MD, and understanding confirmed on 01/15/2024 06:05:41 (ET). Electronically Signed: Miguel Ballesteros MD at 5:51 EDT , Rhythm Strip Rhythm Strip: Sinus Tach Rate: 102 Physical Exam Const alert and no apparent distress General Appearance: cooperative HEENT normocephalic, head/scalp atraumatic and moist oral mucous membranes Eyes PERRL, conjunctivae normal and no scleral icterus Neck supple Neck Narrative: Stable appearing XLT tracheostomy tube in place. General: trachea midline Chest inspection of chest normal Resp normal respiratory effort and no use of accessory muscles Resp Narrative: No airleak noted in the Pleur-evac this morning. Auscultation: diminished lung sounds Cardio regular rate and regular rhythm GI normal to inspection, nondistended, normoactive bowel sounds Extremity no clubbing, cyanosis or edema Skin no rashes or lesions noted Neuro CN's II-XII intact bilaterally, moves all extremities and no focal motor deficits Psych cooperative and affect normal Charges/Coding Visit Charges Inpatient E&M: 74676 Subs Hosp L3
--- NOTE | 2024-01-16 07:35 | RAD_ITS ---
INDICATION: Follow-up pneumothorax EXAMINATION/TECHNIQUE: X-RAY - XR Chest 1 View COMPARISON: January 15, 2024 FINDINGS: LINES/DEVICES: There is stable tracheostomy tube in place. There is a chest tube with its tip projecting over the right upper/midlung. LUNGS: There is a small right-sided pneumothorax that is less apparent than the prior examination and barely appreciable. There are ill-defined opacities within the right mid and left lower lung that are less pronounced than the prior examination as well. MEDIASTINUM AND CARDIOVASCULAR STRUCTURES: There is stable cardiomegaly. Central airways and mediastinal contour are unremarkable. BONES AND SOFT TISSUES: Unremarkable. RAD/Chest 1 View (Portable) IMPRESSION: Interval decrease in size of right pneumothorax. Partial resolution of bilateral nonspecific opacities may reflect edema, pneumonia and/or atelectasis. Stable cardiomegaly. Electronically Signed: Elvira Almaraz MD at 8:20 EDT ,
--- NOTE | 2024-01-16 08:14 | PCM.PN.SRG ---
Subjective Subjective Patient seen and examined during AM rounds. He is found resting in bed. He remains on trach collar. Objective Data Objective Data Vital Signs: Vital Signs Temp Pulse Resp BP Pulse Ox O2 Del Method O2 Flow Rate 97.5 F L 60 20 H 133/73 H 95 Room Air 12 01/16/24 08:00 01/16/24 08:00 01/16/24 08:00 01/16/24 08:00 01/16/24 08:00 01/16/24 08:00 01/15/24 07:08 FiO2 40 01/16/24 07:00 Oxygen Flow Rate (L/min) 12 Oxygen Delivery Method Room Air Weight: 290 lb 2.053 oz Body Mass Index (BMI) 44.1 Intake & Output: Intake and Output for Last 24 Hours 01/14/24 01/15/24 01/16/24 23:59 23:59 23:59 Intake Total 6556.00 / 6656.10 1780.42 / 1780.42 Output Total 2600 / 3050 2905 / 2905 625 / 625 Balance 3956.00 / 3606.10 -1124.58 / -1124.58 -625 / -625 Lab / Micro Data 01/16/24 03:13 01/16/24 03:13 Labs: Laboratory Results - last 24 hr 01/13/24 04:15: C1 Esterase Inhibitor 35, Complement C4 27 01/16/24 03:13: WBC 8.4, RBC 3.80 L, Hgb 11.7 L, Hct 34.8 L, MCV 91.6, MCH 30.8, MCHC 33.6, RDW Std Deviation 49.9 H, RDW Coeff of Ya 15.0 H, Plt Count 150, MPV 10.3, Immature Gran % (Auto) 0.700, Neut % (Auto) 70.8 H, Lymph % (Auto) 17.4 L, [place] % (Auto) 10.8 H, Eos % (Auto) 0.2, Baso % (Auto) 0.1, Absolute Neuts (auto) 6.0, Absolute Lymphs (auto) 1.47, Nucleated RBC % 0, Sodium 142, Potassium 3.3 L, Chloride 108 H, Carbon Dioxide 28.0, Anion Gap 6, BUN 24 H, Creatinine 0.90, Estim Creat Clear Calc 122.35, Est GFR (MDRD) Af Amer 111, Est GFR (MDRD) Non-Af 92, BUN/Creatinine Ratio 26.5 H, Glucose 131 H, Calcium 7.9 L, Phosphorus 2.5, Magnesium 2.3 Micro: Microbiology 01/13/24 04:35 Sputum, Induced/Lukens Gram Stain - Final 01/13/24 04:35 Sputum, Induced/Lukens Respiratory Culture - Preliminary Beta streptococcus Rhythm Strip Rhythm Strip: Sinus Tach Rate: 102 Physical Exam Const Constitutional Narrative: Patient is alert and communicates nonverbally/appropriately Resp Resp Narrative: Patient exhibiting a normal respiratory rate. No airleak is noted on patient's chest tube Pleur-evac system. All connections are intact. Chest tube remains -20 cmH2O suction. There is scant serosanguineous drainage that does not appear to have accumulated from yesterday. There is no crepitus at the chest wall. Assessment & Plan Assessment/Plan (1) Pneumothorax on right: PLAN: Patient is a 58-year-old male who is status post right thoracostomy tube placement for iatrogenic pneumothorax on the right likely secondary to barotrauma. Repeat chest x-ray today showed a trace pneumothorax per radiology (I am unable to see this on my review of patient's x-ray) and patient no longer exhibits an air leak on his Pleur-evac system. Patient remains comfortable from respiratory standpoint on trach collar. Will tentatively plan to waterseal tomorrow if patient shows resolution of this minuscule pneumothorax on repeat x-ray tomorrow. He is pending a speech evaluation. Given patient's concurrent pneumomediastinum a contrast esophagram is planned for tomorrow prior to the speech evaluation. If both of these are negative would recommend initiating a diet. Miguel Kurtz MD General Surgery Endocrine Surgery Pager: [facility] [address] [place] [address], [facility], [address] [place] [address] Office: [phone] Charges/Coding Visit Charges Inpatient E&M: 85164 Subs Hosp L2
--- NOTE | 2024-01-16 08:40 | HP.SPFEES ---
FEES Patient Information Staff Providing this Care/Treatment:: MWELCH Penetration-Aspiration Scale Penetration-Aspiration Scale Swallowing Trials: Swallowing Trials Results Below:
[2024-01-16] MEDS: CHLORHEXIDINE GLUC 2% CLOTH 1 EACH TOWELETTE TOPICAL (08:41)
[2024-01-16] MEDS: Chlorhexidine 15 ML PO ×2 (08:43→21:06)
[2024-01-16] MEDS: Enoxaparin 40 MG/0.4 ML Syringe SC ×2 (08:43→21:06)
[2024-01-16] MEDS: hydrALAZINE 20 MG/ML Vial 10 MG IV (09:39)
[2024-01-16] MEDS: Famotidine 200 MG/20 ML MDV 20 MG in 0.9% Normal Saline (Pres. free 8 ML 300 MG IV ×2 (10:30→21:06)
[2024-01-16] MEDS: Potassium Chloride IVPB 40 MEQ 100 MEQ IV BOLUS ×4 (10:30→14:01)
--- NOTE | 2024-01-16 11:52 | CASEMGMT ---
ARACELI LANDRY to pt room at this time in regard to DC planning. Pt SO at bedside. Per PT, PT anticipates the pt being independent by time of DC. Pt questioned on what he would like to do at time of DC and the pt responds with it being too early to tell. Pt did not deny SNF or HHC at this time. Pt and pt SO educated on the options the pt has at time of DC. This may include home with HHC or transfer to a skilled facility short term. Pt educated that HH may not accept but we can try to get an accepting agency. This would include SN and ST. Possibly add PT, OT as well (TBD). Pt educated about short term SNF placement and about the TCU here and the potentiality of TCU accepting this pt. RICHIE Velasquez updated and will start a conversation with Carlotta about this case. Pt and pt display understanding of the situation. CM/SW to follow pt progression during stay here for safe DC from [facility]. Pt also educated that if the pt goes home he may require additional oxygen through his trach and also additional supplies for cleaning/maintenance. A verbal list of local in-network DME companies provided to the pt and the pt SO. Pt chooses [employer] for potential home going DME needs. TC to Alivia from [employer] at this time. Alivia states that [employer] would be able to deliver a Face mask, Suction machine, and Yankauer to pt room prior to DC. Alivia states that they could also deliver a nebulizer or 50 PSI kit to pt home. Alivia states that she does not know further details about a cleaning kit. TC to Radha from [employer] at this time in regard to cleaning supplies and Radha states that she does not know much about this either and that she will get this ARACELI LANDRY connected with someone who can help with this. Awaiting email/ TC back.
[2024-01-16] MEDS: hydrALAZINE 20 MG/ML Vial IV (14:21)
[2024-01-16] MEDS: LORazepam 2 MG/ML Syringe 1 MG IV ×2 (15:37→20:14)
--- NOTE | 2024-01-16 17:16 | PN.HOSP_ITS ---
Reason for Visit Reason for Visit: Diagnoses Essential (primary) hypertension (01/13/24) Pneumothorax, unspecified (01/13/24) Respiratory failure, unspecified, unspecified whether with hypoxia or hypercapnia (01/13/24) Adverse effect of zizastzdgvh-cdrjwhhjrs-hrjepb inhibitors, initial encounter (01/13/24) Angioneurotic edema, initial encounter (01/13/24) Subjective Subjective Patient was seen and examined today, he is alert and appropriate, I talked briefly with his family members. Patient's blood pressure was little bit elevated this afternoon but nursing felt that it was related to nervousness and anxiety, I wrote for Trandate to be used in case his Apresoline did not work. Objective Data Objective Data Vital Signs: Vital Signs Temp Pulse Resp BP Pulse Ox O2 Del Method O2 Flow Rate 97.5 F L 109 H 18 149/82 H 96 Trach Collar 12 01/16/24 17:00 01/16/24 17:00 01/16/24 17:00 01/16/24 17:00 01/16/24 17:00 01/16/24 17:00 01/15/24 07:08 FiO2 40 01/16/24 17:00 Oxygen Flow Rate (L/min) 12 Oxygen Delivery Method Trach Collar Weight: 131.6 kg Body Mass Index (BMI) 44.1 Intake & Output: Intake and Output for Last 24 Hours 01/14/24 01/15/24 01/16/24 23:59 23:59 23:59 Intake Total 6556.00 / 6656.10 1780.42 / 1780.42 410 / 410 Output Total 2600 / 3050 2905 / 2905 1105 / 1105 Balance 3956.00 / 3606.10 -1124.58 / -1124.58 -695 / -695 Lab / Micro Data 01/16/24 03:13 01/16/24 03:13 Labs: Laboratory Results - last 24 hr 01/16/24 03:13: WBC 8.4, RBC 3.80 L, Hgb 11.7 L, Hct 34.8 L, MCV 91.6, MCH 30.8, MCHC 33.6, RDW Std Deviation 49.9 H, RDW Coeff of Ya 15.0 H, Plt Count 150, MPV 10.3, Immature Gran % (Auto) 0.700, Neut % (Auto) 70.8 H, Lymph % (Auto) 17.4 L, [place] % (Auto) 10.8 H, Eos % (Auto) 0.2, Baso % (Auto) 0.1, Absolute Neuts (auto) 6.0, Absolute Lymphs (auto) 1.47, Nucleated RBC % 0, Sodium 142, Potassium 3.3 L , Chloride 108 H, Carbon Dioxide 28.0, Anion Gap 6, BUN 24 H, Creatinine 0.90, Estim Creat Clear Calc 122.35, Est GFR (MDRD) Af Amer 111, Est GFR (MDRD) Non-Af 92, BUN/Creatinine Ratio 26.5 H, Glucose 131 H, Calcium 7.9 L, Phosphorus 2.5, Magnesium 2.3 Micro: Microbiology 01/13/24 04:35 Sputum, Induced/Lukens Gram Stain - Final 01/13/24 04:35 Sputum, Induced/Lukens Respiratory Culture - Preliminary Beta streptococcus Radiography Diagnostic Testing: Radiology Impression Chest X-Ray 01/16/24 07:35 IMPRESSION: Interval decrease in size of right pneumothorax. Partial resolution of bilateral nonspecific opacities may reflect edema, pneumonia and/or atelectasis. Stable cardiomegaly. Electronically Signed: Elvira Almaraz MD at 8:20 EDT , Rhythm Strip Rhythm Strip: Sinus Tach Rate: 102 Physical Exam Narrative alert, oriented x3 and no apparent distress Constitutional Narrative: Paper patient is morbidly obese General Appearance: cooperative, well kempt and well developed Orientation / Consciousness: awake, oriented to person, oriented to place and oriented to time HEENT normocephalic and moist oral mucous membranes HEENT Narrative: Patient has a tracheostomy in place Eyes PERRL, EOMs intact bilaterally and conjunctivae normal Neck supple, no JVD, thyroid normal and no carotid bruits General: trachea midline Resp normal respiratory effort, no retractions, no use of accessory muscles and clear to auscultation bilaterally Auscultation: Negative for rales, rhonchi or wheezes Cardio regular rate, regular rhythm, S1 normal heart sound, S2 normal heart sound, no murmurs, no rub and no gallops GI normal to inspection, nondistended, normoactive bowel sounds, soft to palpation, non-tender and non-distended Extremity no clubbing, cyanosis or edema Skin no rashes or lesions noted General Skin Exam: no breakdown Neuro oriented x3, CN's II-XII intact bilaterally, moves all extremities, no focal motor deficits and no sensory deficits noted Sensorium / Orientation: awake and alert Speech: speech normal Psych affect normal Assessment & Plan Assessment/Plan (1) Angioedema: (2) Respiratory failure: PLAN: Plan 1. Acute combined respiratory failure secondary to angioedema with upper airway embarrassment-patient is now trached, he remains on the vent, again paralysis will be stopped today. #2 Essential hypertension-patient's blood pressure will be monitored, patient patient is on Trandate and Apresoline Total clinical time spent by myself addressing the patient's medical issues, reviewing all of the data, and collaborating with patient's care team: 25- minutes Charges/Coding Visit Charges Inpatient E&M: 74602 Subs Hosp L1
[2024-01-17] VITALS (30 sets, daily range): BP systolic 125–197; BP diastolic 72–104; PULSE 85–112; RESP 13–24; TEMP 36.2–36.7; O2SAT 92–100; BMI 43.5
[2024-01-17] MEDS: LORazepam 2 MG/ML Syringe 1 MG IV ×4 (02:32→23:05)
--- NOTE | 2024-01-17 07:33 | PN.CC_ITS ---
Assessment & Plan Assessment/Plan (1) Pneumothorax on right: (2) Angioedema: PLAN: Plan RECOMMENDATIONS: 1. Continue PAP therapy nightly with trach collar supplemental O2 throughout the day. 2. Swallow evaluation today. 3. Continue methylprednisone 40 mg daily for now. 4. PT/OT to work with the patient. 5. Okay to transition from wall suction to waterseal on Pleur-evac. Obtain follow-up chest x-ray in the morning. 6. Gentle diuresis as tolerated by hemodynamics and renal function. IMPRESSIONS: 1. Acute hypoxemic and hypercapnic respiratory failure The exact etiology for the patient's angioedema is not entirely clear. According to the patient's PCP, he was not prescribed an HAO inhibitor, but was rather on Cozaar. The patient's airway was compromised upon arrival to the emergency department. An emergent cricothyroidotomy was performed. Ultimately, the patient required placement of a small bore endotracheal tube through the cricothyroidotomy to achieve appropriate ventilatory support. The patient was evaluated by ENT and then taken for formal tracheostomy on January 13. The patient is doing well from a respiratory perspective. The patient will be continued on PAP therapy nightly and trach collar supplemental O2 throughout the day. Speech therapy is currently following with tentative plans for a swallow evaluation today. Continue IV steroids 40 mg daily for now as ordered. 2. Pneumothorax/pneumomediastinum Potentially related to barotrauma in the setting of the patient's airway compromise. The patient underwent tube thoracotomy with resolution of the pneumothorax. Plan to transition the patient from wall suction to water seal this morning. 3. Morbid obesity/history of hypertension Complicates care, management, recovery and prognosis. Continue supportive measures as noted above. PT/OT to work with the patient. This note was generated with [employer] dictation software. It may contain incorrect words, spelling, and punctuation that were not noted in checking the note before signing. Subjective Subjective The patient was seen and examined at the bedside this morning. Events from the last 24 hours have been reviewed. The patient is currently afebrile, hemodynamically stable and maintaining appropriate oxygen saturations on CPAP. The patient was tolerant of hematologic collar supplemental O2 yesterday. There are tentative plans for formal swallow evaluation this morning. The patient is currently documented to be overall net +4.7 L for the hospitalization. I did speak with ENT yesterday, who indicated that they have plans to leave his current tracheostomy tube in place, without plans to downsize while admitted to the hospital. The patient did experience some anxiety yesterday, which was medically managed with Ativan. The patient's repeat chest x-ray from this morning showed no discernible pneumothorax. The chest x-ray was of poor inspiratory quality with what appeared to be basilar atelectasis as well. Objective Data Objective Data The patient's most recent lab work, culture data and imaging studies have all been personally reviewed. Sputum culture has not demonstrated any growth to date. Vital Signs: Vital Signs Temp Pulse Resp BP Pulse Ox O2 Del Method O2 Flow Rate 98.0 F 91 14 153/84 H 95 Mechanical Ventilator 12 01/17/24 07:00 01/17/24 07:00 01/17/24 07:00 01/17/24 07:00 01/17/24 07:00 01/17/24 07:00 01/16/24 19:10 FiO2 40 01/17/24 07:00 Oxygen Flow Rate (L/min) 12 Oxygen Delivery Method Mechanical Ventilator Weight: 286 lb 9.615 oz Body Mass Index (BMI) 43.5 Intake & Output: Intake and Output for Last 24 Hours 01/15/24 01/16/24 01/17/24 23:59 23:59 23:59 Intake Total 1780.42 / 1780.42 420 / 420 Output Total 2905 / 2905 1905 / 1905 250 / 250 Balance -1124.58 / -1124.58 -1485 / -1485 -250 / -250 Lab / Micro Data Attestation: I reviewed the patient's lab results. 01/16/24 03:13 01/17/24 08:20 Labs: Laboratory Results - last 24 hr 01/13/24 04:15: C1 Esterase Inhibitor 35, Complement C4 27 01/16/24 03:13: WBC 8.4, RBC 3.80 L, Hgb 11.7 L, Hct 34.8 L, MCV 91.6, MCH 30.8, MCHC 33.6, RDW Std Deviation 49.9 H, RDW Coeff of Ya 15.0 H, Plt Count 150, MPV 10.3, Immature Gran % (Auto) 0.700, Neut % (Auto) 70.8 H, Lymph % (Auto) 17.4 L, [place] % (Auto) 10.8 H, Eos % (Auto) 0.2, Baso % (Auto) 0.1, Absolute Neuts (auto) 6.0, Absolute Lymphs (auto) 1.47, Nucleated RBC % 0, Sodium 142, Potassium 3.3 L , Chloride 108 H, Carbon Dioxide 28.0, Anion Gap 6, BUN 24 H, Creatinine 0.90, Estim Creat Clear Calc 122.35, Est GFR (MDRD) Af Amer 111, Est GFR (MDRD) Non-Af 92, BUN/Creatinine Ratio 26.5 H, Glucose 131 H, Calcium 7.9 L, Phosphorus 2.5, Magnesium 2.3 Micro: Microbiology 01/13/24 04:35 Sputum, Induced/Lukens Gram Stain - Final 01/13/24 04:35 Sputum, Induced/Lukens Respiratory Culture - Preliminary Beta streptococcus Radiography Diagnostic Testing: Radiology Impression Chest X-Ray 01/16/24 07:35 IMPRESSION: Interval decrease in size of right pneumothorax. Partial resolution of bilateral nonspecific opacities may reflect edema, pneumonia and/or atelectasis. Stable cardiomegaly. Electronically Signed: Elvira Almaraz MD at 8:20 EDT , Rhythm Strip Rhythm Strip: Sinus Tach Rate: 102 Physical Exam Const alert and no apparent distress Constitutional Narrative: Currently tolerating trach collar supplemental O2. General Appearance: cooperative HEENT normocephalic, head/scalp atraumatic and moist oral mucous membranes Eyes PERRL, conjunctivae normal and no scleral icterus Neck supple Neck Narrative: Stable appearing XLT tracheostomy tube in place. General: trachea midline Chest inspection of chest normal Resp normal respiratory effort Resp Narrative: No airleak noted in the Pleur-evac this morning. Auscultation: rhonchi and diminished lung sounds Cardio regular rate and regular rhythm GI normal to inspection, nondistended, normoactive bowel sounds Extremity no clubbing, cyanosis or edema Skin no rashes or lesions noted Neuro CN's II-XII intact bilaterally, moves all extremities and no focal motor deficits Psych cooperative and affect normal Charges/Coding Visit Charges Inpatient E&M: 52231 Subs Hosp L3
--- NOTE | 2024-01-17 07:37 | PN.SURG_ITS ---
Subjective Subjective Patient seen and examined during AM rounds. He is resting in bed. Nursing denies any events overnight and further denies any observation of an air leak on patient's Pleur-evac. He is due for swallow evaluation and esophagram this morning. Objective Data Objective Data Vital Signs: Vital Signs Temp Pulse Resp BP Pulse Ox O2 Del Method O2 Flow Rate 98.0 F 91 14 153/84 H 95 Mechanical Ventilator 12 01/17/24 07:00 01/17/24 07:00 01/17/24 07:00 01/17/24 07:00 01/17/24 07:00 01/17/24 07:00 01/16/24 19:10 FiO2 40 01/17/24 07:00 Oxygen Flow Rate (L/min) 12 Oxygen Delivery Method Mechanical Ventilator Weight: 286 lb 9.615 oz Body Mass Index (BMI) 43.5 Intake & Output: Intake and Output for Last 24 Hours 01/15/24 01/16/24 01/17/24 23:59 23:59 23:59 Intake Total 1780.42 / 1780.42 420 / 420 Output Total 2905 / 2905 1905 / 1905 250 / 250 Balance -1124.58 / -1124.58 -1485 / -1485 -250 / -250 Lab / Micro Data 01/16/24 03:13 01/17/24 08:20 Micro: Microbiology 01/13/24 04:35 Sputum, Induced/Lukens Gram Stain - Final 01/13/24 04:35 Sputum, Induced/Lukens Respiratory Culture - Preliminary Beta streptococcus Radiography Diagnostic Testing: Radiology Impression Chest X-Ray 01/16/24 07:35 IMPRESSION: Interval decrease in size of right pneumothorax. Partial resolution of bilateral nonspecific opacities may reflect edema, pneumonia and/or atelectasis. Stable cardiomegaly. Electronically Signed: Elvira Almaraz MD at 8:20 EDT , Rhythm Strip Rhythm Strip: Sinus Tach Rate: 102 Physical Exam Const Constitutional Narrative: Patient appears oriented and responds appropriately but nonverbally given his trach Resp normal respiratory effort Resp Narrative: Audible secretions in airway today. Chest tube remains secure to the chest wall without crepitus. Chest tube connections are intact. Patient's chest tube remains to suction at -20 cm of water. I did not visualize any evidence of air leak in the waterseal chamber. There is been no accumulation of drainage. Assessment & Plan Assessment/Plan (1) Pneumothorax on right: PLAN: Patient is a 58-year-old male who is status post right thoracostomy tube placement for iatrogenic pneumothorax on the right likely secondary to barotrauma. Repeat chest x-ray today was of poor quality as there was not a complete inspiration and there is suggestion of perhaps some vascular congestion, however, radiology does not read any pneumothorax. Again, today I did not visualize any evidence of air leak when interrogating patient's Pleur- evac system. Patient remains comfortable from respiratory standpoint on trach collar. Will tentatively plan to waterseal later today and then follow-up chest x-ray tomorrow. Dr. Garcia will be covering over the weekend. Miguel Kurtz MD General Surgery Endocrine Surgery Pager: [facility] [address] [place] [address], [address] [place] [address] Office: [phone] Charges/Coding Visit Charges Inpatient E&M: 05020 Init Hosp L2
--- NOTE | 2024-01-17 07:40 | RAD_ITS ---
INDICATION: PTX follow up EXAMINATION/TECHNIQUE: X-RAY - XR Chest 1 View COMPARISON: Prior study dated: 01/16/2024 FINDINGS: LINES/DEVICES: Tracheostomy tube in stable position. Right-sided chest tube in stable position in the right upper chest. LUNGS: Hypoventilatory changes in the lung bases. No appreciable pneumothorax at this time. Atelectatic changes in the lung bases. No evidence of pleural effusions. MEDIASTINUM AND CARDIOVASCULAR STRUCTURES: Stable cardiomediastinal silhouette. BONES AND SOFT TISSUES: Unremarkable. RAD/Chest 1 View (Portable) IMPRESSION: 1. No definite pneumothorax. 2. Hypoventilatory and atelectatic changes in the lung bases. Electronically Signed: Puneet Alaniz MD at 8:11 EDT ,
[2024-01-17] MEDS: Chlorhexidine 15 ML PO ×2 (08:28→20:20)
[2024-01-17] MEDS: Enoxaparin 40 MG/0.4 ML Syringe SC ×2 (08:29→20:20)
[2024-01-17] MEDS: Famotidine 200 MG/20 ML MDV 20 MG in 0.9% Normal Saline (Pres. free 8 ML 300 MG IV ×2 (08:29→20:20)
[2024-01-17] MEDS: 0.9% Saline Lock 10 ML Syringe IV ×6 (08:29→18:08)
[2024-01-17 09:42] LABS: Anion Gap 8 (5-15); BUN 31 mg/dL (7-18); BUN/Creat Ratio 32.7 RATIO (10-20); Calcium,Total 8.5 mg/dL (8.5-10.1); Chloride 109 mmol/L (98-107); Creatinine, Serum 0.95 mg/dL (0.70-1.30); EST Glomerular Filtration Rate 87 mL/min (>60); Est Glom Filt Rate - Afr Amer 105 mL/min (>60); Glucose 132 mg/dL (74-106); Potassium 3.3 mmol/L (3.5-5.1); Sodium Level 143 mmol/L (136-145)
--- NOTE | 2024-01-17 09:43 | CASEMGMT ---
Social Work RICHIE and FRANTZ Benavidez met w/pt's significant other and two sons in room to educate them about discharge options. Pt is off the floor for a swallow evaluation at present. RICHIE and FRANTZ Benavidez reviewed the options of home w/home health, SNF and acute rehab. CM reviewed what going home w/hhc would look like, including the DME that would be ordered and delivered. RICHIE explained to family the SNF and rehab levels of care and that pt may or may not qualify, as pt does not need PT/OT. RICHIE did explain to family however that if pt and family would like to explore either of these options, we can still make referrals. RICHIE explained it will be also up to insurance, as to whether or not the insurance would authorize pt to go to SNF or rehab. Family states understanding. Son stating pt will want to go home but it may depend on the results of the swallow evaluation today. SW/CM will continue to follow, are available to check in again after pt completes his testing to speak w/family and pt together about plan. RICHIE did provide to significant other lists of both senior living facilities and rehab units via [employer] in network w/pt's insurance, in preferred geographic area, and complete w/quality and resource use data, in the event a higher level of care is the plan. SW/CM will continue to follow. WOLFGANG Wren
[2024-01-17] MEDS: proCHLORPERazine 10 MG/2 ML Vial IM (10:13)
--- NOTE | 2024-01-17 10:21 | ST.MBS ---
Modified Barium Swallow Patient Information Study Date: 01/17/24 Study Time: 09:00 Direct Billable Minutes: 110 Total Minutes procedure & reportin Diagnosis: Angioedema T78.3XXA, Respiratory failure J96.90 Referring Physician: Pedor Knott Reason for Referral: Objectively assess swallow function, assess risk for aspiration, and determine recommendations for least restrictive diet textures and compensatory strategies to improve safety of swallow. Medical History: Pt presented to [facility] ED 01/13/24 with angioedema requiring emergent cricothyrotomy. Pt had abrupt onset of tongue swelling ~1 hour prior to ED presentation, which quickly progressed to impacting his ability to speak, swallow, and breath. Of note, he also had hypertensive emergency. The patient required placement of a small-bore endotracheal tube through the cricothyroidotomy to achieve appropriate ventilatory support. He was sent to ICU for subsequent management. 01/15/24 He was taken off the ventilator and referred for ST consult to assess swallow function.? Dr. Knott cleared patient for trials of PMSV with MANAGER OF COMPENSATION for swallowing evaluation. With PMSV in place for 3-4 minutes, he tolerated ice chips trials with no immediate s/s of aspiration. Intermittent coughing throughout session as he cleared secretions through trach. MANAGER OF COMPENSATION recommended NPO with ice chips supervised and plan for FEES 01/16/24; however, Dr. Knott recommended ensuring the patient has had no esophageal trauma prior to proceeding with assessment of po trials. MANAGER OF COMPENSATION to complete MBSS with radiologist, Dr. Moody,? present for esophageal screens at the start of the exam to ensure the patient has sustained no esophageal trauma prior to further assessment of oropharyngeal swallow function and aspiration risk. Current Diet Ordered: NPO with ice chips Dentition: WNL Mental Status: WNL Respiratory Status: Oxygenating on 4L/M nasal cannula (6L/M) Penetration-Aspiration Scale Penetration-Aspiration Scale: OBJECTIVE ASSESSMENT OF SWALLOW FUNCTION (QUANTITATIVE ? PER TRIAL): PENETRATION / ASPIRATION SCALE (BRENNAN): 1 = does not enter airway 2 = enters airway/above vocal folds/ejected 3 = enters airway/above vocal folds/not ejected 4 = enters airway/contacts vocal folds/ejected 5 = enters airway/contacts vocal folds/not ejected 6 = enters airway/below vocal folds/ejected 7 = enters airway/below vocal folds/not ejected despite effort 8 = enters airway/below vocal folds/no effort VIDEOFLOROSCOPIC SCALE SCORE (BRENNAN): Grade I = aspiration of material that has penetrated into the laryngeal vestibule, intact cough reflex Grade II = aspiration < 10 % of the bolus, intact cough reflex Grade III = aspiration of < 10 % of the bolus, reduced cough reflex or aspiration of > 10 % of the bolus, intact cough reflex Grade IV = aspiration of > 10 % of the bolus, reduced cough reflex Penetration-Aspiration Scale Score Thin Liquid via teaspoon: Result: 1= does not enter airway Comment: Esophageal screen Thin Liquid via teaspoon Trial 2: Result: 2= enter airway/above vocal folds/ejected Comment: Esophageal screen Thin Liquid via small single sip: cup: Comment: Unable to score trial as it was a complete esophageal screen. Complete clearance of barium through the esophagus. Dr. Moody cleared MANAGER OF COMPENSATION to continue study with remaining diet textures to assess swallow function. Of note, there was a delayed cough after the trial. Thin Liquid via small single sip: cup Trial 2: Result: 2= enter airway/above vocal folds/ejected [place] Thick Liquid via small single sip: cup: Result: 2= enter airway/above vocal folds/ejected Pudding via teaspoon: Result: 1= does not enter airway 1/2 Cookie : Result: 1= does not enter airway Thin Liquid via single sip: straw: Result: 1= does not enter airway Oral Phase Labial Seal: Escape progressing to mid-chin Tongue Control During Bolus Hold: Posterior escape of less than half of bolus Bolus Preparation/Mastication: Slow prolonged chewing/mashing with complete recollection Bolus Transport/Lingual Motion: Brisk tongue motion Oral Residue: Majority of bolus remaining (piecemeal) Pharyngeal Phase Initiation of Pharyngeal Swallow: Bolus head in valleculae Soft Palate Elevation: Trace column of contrast/air between soft palate and pharyngeal wall Laryngeal Elevation: Comp. Superior move thyroid cart w/comp. apprx arytenoid cart-epig pet Anterior Hyoid Excursion: Partial anterior movement Epiglottic Movement: Complete inversion Laryngeal Vestibule Closure at Height of Swallow: Incomplete; narrow column of air/contrast in laryngeal vestibule Pharyngeal Stripping Wave: Present - complete Pharyngoesophageal Segment Opening: Parital distension and partial duration; parital obstruction of flow Tongue Base Retraction: Narrow column of contrast between tongue base & post. pharyngeal wall Pharyngeal Residue: Collection of residue within or on pharyngeal structures Esophageal Phase Esophageal Clearance: Complete clearance Diagnosis/Impression Diagnosis: Mild oropharyngeal dysphagia R13.12 Impression: C-arm required for the study due to patient's body habitus and need for esophageal screens. The oral phase is primarily marked by... -Piecemeal deglutition of large sips and of pudding and cookie requiring extended time and multiple swallows to clear the oral cavity of residues. -Slowed, but complete mastication of cookie. The pharyngeal phase is primarily marked by... -Decreased tongue base retraction and UES opening/duration resulting in mild pharyngeal residues after the swallow, which cleared with additional swallows independently initiated as needed. -Poor anterior hyoid excursion; however, the patient demonstrated appeared to demonstrate good airway closure during the swallow.? -Trace laryngeal penetration with complete ejection with thin liquids via cup. No aspiration observed; however, MANAGER OF COMPENSATION cannot definitively rule out aspiration due to patient's body habitus. No abnormal findings of esophageal phase per radiologist, Dr. Moody. Recommendations Diet: Regular Textures (Easy to Chew - IDDSI level 7) and Thin Liquids Compensatory Strategies: Small Bites, Small Sips, Slow Rate and Sitting upright Supervision: 1:1 Close Supervision (By staff - Tomer Ashley Speaking and Swallowing Valve in place) Recommend Repeat Modified Barium Swallow: TBD Need for Skilled Speech Therapy Services: Yes Comment: -Train the patient in use of strategies to decrease risk for aspiration. -Ongoing assessment of diet tolerance of recommended textures. Advance to regular textures with trials with MANAGER OF COMPENSATION as tolerated at bedside. -Train the patient oropharyngeal exercise program to improve anterior hyoid excursion and tongue base retraction (John Crowley). -Voice evaluation for continued trials of PMSV with ST. Education Completed: 1. Described result of evaluation. and 2. Pt understands evaluation & agrees with goals and treatment plan. Status Active ST Patient: Active Contact Information [facility] Speech Therapy:: Luz Mesa M.A. [facility]-MANAGER OF COMPENSATION? Speech-Language Pathologist?? [facility] [address]?? [place] [address]?? [email or web address]?? [phone]
[2024-01-17] MEDS: Potassium Chloride 10mEq/100mL 10 MEQ/100 ML IV.SOLN. 100 MEQ IV BOLUS ×4 (10:43→14:06)
[2024-01-17] MEDS: Furosemide 40 MG/4 ML Vial IV (10:43)
--- NOTE | 2024-01-17 14:43 | CASEMGMT ---
Addendum entered by Ector Serna 01/17/24 16:08: Pt and pt SO reviewed list of C Agencies. Pt and pt SO state that they do not have a preference as they just want to avoid [facility]. Pt states that he is fine with all of the other 5 options on the list. MARISA Adams dental front office assistant notified and to start making referrals to see if we can get an accepting HHC agency. Green sheet updated and placed on pt chart. Addendum entered by Ector Serna 01/17/24 15:40: [facility] (Rosa and Jaimie) return TC. Rosa states that [facility] cannot accept the pt at this time. Rosa states concern d/t the pt having a new trach and also states that her staff does not have enough experience with trach care. Rosa also states that the skilled nurses have a very busy schedule next week. MARISA Adams dental front office assistant notified and is making a list of C agencies for the pt to review. Original Note: This RN CM to pt bedside at this time to discuss DC planning. Pt SO at bedside. At this time, pt states that he is wanting to DC home once medically ready. Pt states that he would be interested in HHC. Pt denied wanting to see a list and states that he would like [facility]. TC to [facility] for referral for SN and ST. [facility] state that they will look into seeing if they can accept the pt or not. This RN CM stated that the pt projected DC date is TBD. Awaiting return call.
[2024-01-17] MEDS: hydrALAZINE 20 MG/ML Vial 10 MG IV ×2 (15:17→23:06)
--- NOTE | 2024-01-17 15:46 | PN.HOSP_ITS ---
Reason for Visit Reason for Visit: Diagnoses Essential (primary) hypertension (01/13/24) Pneumothorax, unspecified (01/13/24) Respiratory failure, unspecified, unspecified whether with hypoxia or hypercapnia (01/13/24) Adverse effect of updmviqqxhc-wqlrjhxbpb-rhhujw inhibitors, initial encounter (01/13/24) Angioneurotic edema, initial encounter (01/13/24) Subjective Subjective She was seen and examined today, he was seen by speech therapy this morning and placed on a regular diet. Elected to start him on oral blood pressure medications. Objective Data Objective Data Vital Signs: Vital Signs Temp Pulse Resp BP Pulse Ox O2 Del Method O2 Flow Rate 97.6 F L 100 24 H 161/101 H 97 Trach Collar 12 01/17/24 14:00 01/17/24 15:17 01/17/24 15:00 01/17/24 15:17 01/17/24 15:00 01/17/24 15:40 01/16/24 19:10 FiO2 40 01/17/24 15:40 Oxygen Flow Rate (L/min) 12 Oxygen Delivery Method Trach Collar Weight: 130 kg Body Mass Index (BMI) 43.5 Intake & Output: Intake and Output for Last 24 Hours 01/15/24 01/16/24 01/17/24 23:59 23:59 23:59 Intake Total 1780.42 / 1780.42 420 / 420 330 / 330 Output Total 2905 / 2905 1905 / 1905 2600 / 2600 Balance -1124.58 / -1124.58 -1485 / -1485 -2270 / -2270 Lab / Micro Data 01/16/24 03:13 01/17/24 08:20 Labs: Laboratory Results - last 24 hr 01/17/24 08:20: Sodium 143, Potassium 3.3 L, Chloride 109 H, Carbon Dioxide 26.0, Anion Gap 8, BUN 31 H, Creatinine 0.95, Estim Creat Clear Calc 112.90, Est GFR (MDRD) Af Amer 105, Est GFR (MDRD) Non-Af 87, BUN/Creatinine Ratio 32.7 H, Glucose 132 H, Calcium 8.5 Micro: Microbiology 01/13/24 04:35 Sputum, Induced/Lukens Gram Stain - Final 01/13/24 04:35 Sputum, Induced/Lukens Respiratory Culture - Final Mixed normal respiratory madyson. No Streptococcus pneumoniae, beta-hemolytic Streptococcus or Staphylococcus aureus isolated. Radiography Diagnostic Testing: Radiology Impression Chest X-Ray 01/17/24 07:40 IMPRESSION: 1. No definite pneumothorax. 2. Hypoventilatory and atelectatic changes in the lung bases. Electronically Signed: Puneet Alaniz MD at 8:11 EDT , Rhythm Strip Rhythm Strip: Sinus Tach Rate: 102 Physical Exam Narrative alert, oriented x3 and no apparent distress Constitutional Narrative: Paper patient is morbidly obese General Appearance: cooperative, well kempt and well developed Orientation / Consciousness: awake, oriented to person, oriented to place and oriented to time HEENT normocephalic and moist oral mucous membranes HEENT Narrative: Patient has a tracheostomy in place Eyes PERRL, EOMs intact bilaterally and conjunctivae normal Neck supple, no JVD, thyroid normal and no carotid bruits General: trachea midline Resp normal respiratory effort, no retractions, no use of accessory muscles and clear to auscultation bilaterally Auscultation: Negative for rales, rhonchi or wheezes Cardio regular rate, regular rhythm, S1 normal heart sound, S2 normal heart sound, no murmurs, no rub and no gallops GI normal to inspection, nondistended, normoactive bowel sounds, soft to palpation, non-tender and non-distended Extremity no clubbing, cyanosis or edema Skin no rashes or lesions noted General Skin Exam: no breakdown Neuro oriented x3, CN's II-XII intact bilaterally, moves all extremities, no focal motor deficits and no sensory deficits noted Sensorium / Orientation: awake and alert Speech: speech normal Psych affect normal Assessment & Plan Assessment/Plan (1) Angioedema: PLAN: Plan 1. Acute combined respiratory failure secondary to angioedema with upper airway embarrassment-patient is now trached, he is on a trach collar at this time, speech has cleared him for oral intake #2 Essential hypertension-patient's blood pressure will be monitored, I placed the patient on amlodipine and Maxide today, he still has IV Trandate and Apresoline ordered if necessary. Total clinical time spent by myself addressing the patient's medical issues, reviewing all of the data, and collaborating with patient's care team: 25- minutes Charges/Coding Visit Charges Inpatient E&M: 38629 [facility] Hosp L1
--- NOTE | 2024-01-17 15:47 | CASEMGMT ---
Discharge Planning A list of?HH providers including quality and resource use data and consistent with the patient's preferred geographic region, medical needs, and insurance network was created in [employer] Guide.? This list was provided to the RN FRANTZ. Angie Small, Discharge Planning Asst.
--- NOTE | 2024-01-17 16:09 | CASEMGMT ---
Discharge Planning HH referral sent to [facility], [facility], [facility], and [facility] via [facility]. Angie Small, Discharge Planning Asst.
[2024-01-17] MEDS: amLODIPine 5 MG Tablet PO (16:36)
[2024-01-17] MEDS: Triamterene 75MG/Hctz 50MG Tablet 1 TABLET PO (16:36)
[2024-01-17] MEDS: Labetalol (Prefilled) 20 MG/4 ML IV (18:07)
[2024-01-18] VITALS (32 sets, daily range): BP systolic 123–183; BP diastolic 69–106; PULSE 86–113; RESP 13–23; TEMP 36.1–37.2; O2SAT 90–96; BMI 42.0
--- NOTE | 2024-01-18 05:38 | RAD_ITS ---
INDICATION: PTX follow up EXAMINATION/TECHNIQUE: X-RAY - XR Chest 1 View COMPARISON: Prior study dated: 01/17/2024 FINDINGS: LINES/DEVICES: Tracheostomy tube in stable position. LUNGS: Atelectatic changes in lung bases unchanged. No evidence of pleural effusions. MEDIASTINUM AND CARDIOVASCULAR STRUCTURES: Stable cardiomediastinal silhouette. BONES AND SOFT TISSUES: Unchanged. RAD/Chest 1 View (Portable) IMPRESSION: No significant change. Electronically Signed: Puneet Alaniz MD at 8:19 EDT ,
[2024-01-18] MEDS: Labetalol (Prefilled) 20 MG/4 ML IV (06:14)
--- NOTE | 2024-01-18 07:31 | PN.CC_ITS ---
Objective Data Objective Data Vital Signs: Vital Signs Last response Temperature 36.6 C 01/18/24 06:00 Temperature Source Temporal 01/18/24 06:00 Pulse Rate 86 01/18/24 07:19 Pulse Strength Weak (1+) 01/17/24 21:15 Respiratory Rate 18 01/18/24 07:19 Respiratory Effort Normal, Non-Labored 01/18/24 04:00 Respiratory Depth Normal 01/18/24 04:00 Respiratory Pattern Normal 01/18/24 07:19 Blood Pressure 149/86 H 01/18/24 07:00 Blood Pressure Mean 107 01/18/24 07:00 Blood Pressure Source Monitor 01/18/24 07:00 Blood Pressure Position Semi-Fowlers 01/18/24 07:00 Blood Pressure Location Left Forearm 01/18/24 07:00 Pulse Ox 93 01/18/24 07:19 Oxygen Delivery Method Mechanical Ventilator 01/18/24 07:00 Oxygen Flow Rate (L/min) 12 01/16/24 19:10 Fraction of Inspired Oxygen (FIO2) 35 01/18/24 07:00 I&O: I&O Last 24 Hours 01/17/24 01/17/24 01/18/24 11:59 23:59 11:59 Intake Total 130 / 720 590 / 720 0 / 0 Output Total 1700 / 3800 2100 / 3800 800 / 800 Balance -1570 / -3080 -1510 / -3080 -800 / -800 I&O: Total Stay 01/12/24 23:22 thru 01/18/24 04:48 Intake Total 26391.15 Output Total 41962 Balance 1155.15 Current Meds Ordered / Administered: Current meds ordered / Administered Generic Name Dose Route Start Last Admin Trade Name Freq PRN Reason Stop Dose Admin Amlodipine Besylate 5 mg 01/18/24 10:00 Amlodipine 5 Mg Tablet PO DAILY [facility] Protocol Chlorhexidine Gluconate 1 each 01/13/24 10:00 01/17/24 08:23 Chlorhexidine Gluc 2% Cloth 1 Each [place] TOPICAL Not Given DAILY [facility] Chlorhexidine Gluconate 15 ml 01/13/24 10:00 01/17/24 20:20 Chlorhexidine 15 Ml PO 15 ml BID MARIA ESTHER Administration Diphenhydramine HCl 25 mg 01/13/24 01:57 Diphenhydramine 50 Mg/Ml Syringe IV Q4H PRN PRN ALLERGIES Enoxaparin Sodium 40 mg 01/13/24 10:00 01/17/24 20:20 Enoxaparin 40 Mg/0.4 Ml Syringe SC 40 mg BID MARIA ESTHER Administration Hydralazine HCl 10 mg 01/14/24 17:32 01/17/24 23:06 Hydralazine 20 Mg/Ml Vial IV 10 mg Q6H PRN PRN Administration BLOOD PRESSURE ELEVATION Protocol Famotidine 20 mg/ Sodium 10 mls @ 300 mls/hr 01/13/24 10:00 01/17/24 21:31 Chloride IV Infused Q12 MARIA ESTHER Infusion Sodium Chloride 250 mls @ 15 mls/hr 01/13/24 03:25 IV .[id number] PRN Additional IVPB Infusion Sodium Chloride 250 mls @ 15 mls/hr 01/13/24 03:25 IV .[id number] PRN Saline Flush Ketorolac Tromethamine 30 mg 01/15/24 14:39 Ketorolac 30 Mg/Ml Syringe IV 01/20/24 14:39 Q6H PRN PRN Pain Score 1-10 Labetalol HCl 20 mg 01/16/24 16:20 01/18/24 06:14 Labetalol (Prefilled) 20 Mg/4 Ml IV 20 mg Q6H PRN PRN Administration BLOOD PRESSURE ELEVATION Protocol Lorazepam 1 mg 01/16/24 20:06 01/17/24 23:05 Lorazepam 2 Mg/Ml Syringe IV 1 mg Q4H PRN PRN Administration Severe anxiety/agitation Methylprednisolone 40 mg 01/16/24 10:00 01/17/24 08:29 Methylprednisolone 40 Mg/Ml Vial IV 40 mg DAILY MARIA ESTHER Administration Ondansetron HCl 4 mg 01/13/24 01:57 01/15/24 23:33 Ondansetron 4 Mg/2 Ml Vial IV 4 mg Q8H PRN PRN Administration NAUSEA/VOMITING Prochlorperazine Edisylate 10 mg 01/16/24 05:05 01/17/24 10:13 Prochlorperazine 10 Mg/2 Ml Vial IM 10 mg Q4H PRN PRN Administration NAUSEA/VOMITING Sodium Chloride 10 - 40 ml 01/13/24 03:25 01/17/24 18:08 0.9% Saline Lock 10 Ml Syringe IV 10 ml UD PRN Administration SALINE FLUSH Triamterene/Hydrochlorothiazide 1 tablet 01/18/24 10:00 Triamterene 75mg/Hctz 50mg Tablet PO DAILY MARIA ESTHER Protocol Lab / Micro Data 01/16/24 03:13 01/17/24 08:20 Labs: Laboratory Results - last 24 hr 01/17/24 08:20: Sodium 143, Potassium 3.3 L, Chloride 109 H, Carbon Dioxide 26.0, Anion Gap 8, BUN 31 H, Creatinine 0.95, Estim Creat Clear Calc 112.90, Est GFR (MDRD) Af Amer 105, Est GFR (MDRD) Non-Af 87, BUN/Creatinine Ratio 32.7 H, Glucose 132 H, Calcium 8.5 Micro: Microbiology 01/13/24 04:35 Sputum, Induced/Lukens Gram Stain - Final 01/13/24 04:35 Sputum, Induced/Lukens Respiratory Culture - Final Mixed normal respiratory madyson. No Streptococcus pneumoniae, beta-hemolytic Streptococcus or Staphylococcus aureus isolated. Rhythm Strip Rhythm Strip: Sinus Tach Rate: 102 Imaging Radiology Impression Chest X-Ray 01/17/24 07:40 IMPRESSION: 1. No definite pneumothorax. 2. Hypoventilatory and atelectatic changes in the lung bases. Electronically Signed: Puneet Alaniz MD at 8:11 EDT , Assessment and Plan . Assessment and plan: Pt seen and examined. No acute events over night. Feels well with no new complaints. On NIV 5/5, 35% over night and currently up in chair on trach collar. Chest tube to water seal. PE: General: Well developed morbidly obese male in no distress HEENT: anicteric Sclera, nl nose; + trach midline to trach collar Cardiovascular: S1/S2; No rubs, gallops; no displaced PM Respiratory: diminished; no crackles, wheezes, or rhonchi; + chest tube to water seal Abdominal: Non-tender; Non distended; hypoBS x 4; No Hepatosplenomegaly Extremities: Warm, well perfused; No clubbing, cyanosis; capillary refill < 2 sec Skin: intact, no rashes Neurological: A&Ox3; no gross deficits appreciated A/P: #Acute hypoxemic and hypercapnic respiratory failure: 2* to life-threatening angioedema requiring emergent cricothyroidotomy with subsequent tracheostomy by ENT on 01/13; no on-going resp issues present and maintained on PAP therapy nightly and trach collar supplemental O2 throughout the day --> will leave on nightly PAP support over the weekend; continue IV steroids 40 mg daily for now and reasonable to complete 5-7d course; cleared for diet by ST #Angioedema: unclear etiology and per documentation pt was not Rx ACEi but was on Cozaar; send C4/CRP/ESR level to try to identify if underlying C1 inhibitory deficiency vs suggestion of other inflammatory/malignancy-related causes present #Pneumothorax/pneumomediastinum: likely related to barotrauma in the setting of the patient's airway compromise; sp chest tube with resolution and transitioned to water seal 02/16; surgery on board and managing --> discussed this AM and plan to leave chest tube in place while he remains on PAP #Morbid obesity/history of hypertension: continue supportive measures as noted above & BP meds; PT/OT PO diet LMWH, famotidine Guarded prognosis Critical Care Time: 50 min The entirety of this encounter was done via Telemedicine
[2024-01-18] MEDS: CHLORHEXIDINE GLUC 2% CLOTH 1 EACH TOWELETTE TOPICAL (08:20)
[2024-01-18] MEDS: Enoxaparin 40 MG/0.4 ML Syringe SC ×2 (08:20→21:12)
[2024-01-18] MEDS: Famotidine 200 MG/20 ML MDV 20 MG in 0.9% Normal Saline (Pres. free 8 ML 300 MG IV ×2 (08:23→21:12)
[2024-01-18] MEDS: Chlorhexidine 15 ML PO ×2 (08:25→21:12)
--- NOTE | 2024-01-18 09:06 | PCM.PN.SRG ---
Subjective Subjective Patient has been on waterseal no obvious leak in the canister, patient did have CPAP overnight still. Chest x-ray does not appear to have a pneumothorax but is not the best x-ray. Objective Data Objective Data Vital Signs: Vital Signs Temp Pulse Resp BP Pulse Ox O2 Del Method O2 Flow Rate 97.9 F 97 13 183/100 H 95 Trach Collar 12 01/18/24 06:00 01/18/24 09:00 01/18/24 09:00 01/18/24 09:00 01/18/24 09:00 01/18/24 09:00 01/16/24 19:10 FiO2 35 01/18/24 09:00 Oxygen Flow Rate (L/min) 12 Oxygen Delivery Method Trach Collar Weight: 276 lb 3.827 oz Body Mass Index (BMI) 42.0 Intake & Output: Intake and Output for Last 24 Hours 01/16/24 01/17/24 01/18/24 23:59 23:59 23:59 Intake Total 420 / 420 720 / 720 10 / 10 Output Total 1905 / 1905 3800 / 3800 1005 / 1005 Balance -1485 / -1485 -3080 / -3080 -995 / -995 Lab / Micro Data 01/16/24 03:13 01/17/24 08:20 Labs: Laboratory Results - last 24 hr 01/17/24 08:20: Sodium 143, Potassium 3.3 L, Chloride 109 H, Carbon Dioxide 26.0, Anion Gap 8, BUN 31 H, Creatinine 0.95, Estim Creat Clear Calc 112.90, Est GFR (MDRD) Af Amer 105, Est GFR (MDRD) Non-Af 87, BUN/Creatinine Ratio 32.7 H, Glucose 132 H, Calcium 8.5 Micro: Microbiology 01/13/24 04:35 Sputum, Induced/Lukens Gram Stain - Final 01/13/24 04:35 Sputum, Induced/Lukens Respiratory Culture - Final Mixed normal respiratory madyson. No Streptococcus pneumoniae, beta-hemolytic Streptococcus or Staphylococcus aureus isolated. Radiography Diagnostic Testing: Radiology Impression Chest X-Ray 01/18/24 05:38 IMPRESSION: No significant change. Electronically Signed: Puneet Alaniz MD at 8:19 EDT , Rhythm Strip Rhythm Strip: Sinus Tach Rate: 102 Physical Exam Const Constitutional Narrative: Patient appears oriented and responds appropriately but nonverbally given his trach Resp normal respiratory effort Resp Narrative: Chest tube remains secure to the chest wall without crepitus. Chest tube connections are intact. Patient's chest tube remains to suction at -20 cm of water. I did not visualize any evidence of air leak in the waterseal chamber. Assessment & Plan Assessment/Plan (1) Pneumothorax on right: PLAN: Patient is a 58-year-old male who is status post right thoracostomy tube placement for iatrogenic pneumothorax on the right likely secondary to barotrauma. Repeat chest x-ray today was of poor quality still with slightly better inspiration than yesterday. No obvious pneumothorax seen. No airleak in Pleur-evac. Due to patient still going on CPAP occasionally will keep on waterseal today. Prior to removing would like a 2 view downstairs in radiology for better quality x-ray but that may not even be tomorrow. Fide Garcia M.D. Pager: [phone] [facility] [address] [place] [address], Outpatient Pavilion, [address] [place] [address] Office: [phone] Charges/Coding Visit Charges Inpatient E&M: 12024 Subs Hosp L2
[2024-01-18] MEDS: amLODIPine 5 MG Tablet PO (09:09)
[2024-01-18] MEDS: Triamterene 75MG/Hctz 50MG Tablet 1 TABLET PO (09:09)
--- NOTE | 2024-01-18 09:51 | PN.HOSP_ITS ---
Reason for Visit Reason for Visit: Diagnoses Essential (primary) hypertension (01/13/24) Pneumothorax, unspecified (01/13/24) Respiratory failure, unspecified, unspecified whether with hypoxia or hypercapnia (01/13/24) Adverse effect of hfsfyeamnbk-whmhiwsrez-lbgjvq inhibitors, initial encounter (01/13/24) Angioneurotic edema, initial encounter (01/13/24) Subjective Subjective Patient was seen and examined today, he remains on a trach collar, he voices no complaints of talked with his who is at the bedside today also. Blood pressures running a little bit on the high side, I will reevaluate him today later on and I may increase his Norvasc to 10 mg daily. Objective Data Objective Data Vital Signs: Vital Signs Temp Pulse Resp BP Pulse Ox O2 Del Method O2 Flow Rate 97.9 F 97 13 183/100 H 90 Trach Collar 12 01/18/24 06:00 01/18/24 09:00 01/18/24 09:00 01/18/24 09:00 01/18/24 09:00 01/18/24 09:00 01/16/24 19:10 FiO2 35 01/18/24 09:00 Oxygen Flow Rate (L/min) 12 Oxygen Delivery Method Trach Collar Weight: 125.3 kg Body Mass Index (BMI) 42.0 Intake & Output: Intake and Output for Last 24 Hours 01/16/24 01/17/24 01/18/24 23:59 23:59 23:59 Intake Total 420 / 420 720 / 720 10 / 10 Output Total 1905 / 1905 3800 / 3800 1005 / 1005 Balance -1485 / -1485 -3080 / -3080 -995 / -995 Lab / Micro Data 01/16/24 03:13 01/17/24 08:20 Micro: Microbiology 01/13/24 04:35 Sputum, Induced/Lukens Gram Stain - Final 01/13/24 04:35 Sputum, Induced/Lukens Respiratory Culture - Final Mixed normal respiratory madyson. No Streptococcus pneumoniae, beta-hemolytic Streptococcus or Staphylococcus aureus isolated. Radiography Diagnostic Testing: Radiology Impression Chest X-Ray 01/18/24 05:38 IMPRESSION: No significant change. Electronically Signed: Puneet Alaniz MD at 8:19 EDT , Rhythm Strip Rhythm Strip: Sinus Tach Rate: 102 Physical Exam Narrative alert, oriented x3 and no apparent distress Constitutional Narrative: Paper patient is morbidly obese General Appearance: cooperative, well kempt and well developed Orientation / Consciousness: awake, oriented to person, oriented to place and oriented to time HEENT normocephalic and moist oral mucous membranes HEENT Narrative: Patient has a tracheostomy in place Eyes PERRL, EOMs intact bilaterally and conjunctivae normal Neck supple, no JVD, thyroid normal and no carotid bruits General: trachea midline Resp normal respiratory effort, no retractions, no use of accessory muscles and clear to auscultation bilaterally Auscultation: Negative for rales, rhonchi or wheezes Cardio regular rate, regular rhythm, S1 normal heart sound, S2 normal heart sound, no murmurs, no rub and no gallops GI normal to inspection, nondistended, normoactive bowel sounds, soft to palpation, non-tender and non-distended Extremity no clubbing, cyanosis or edema Skin no rashes or lesions noted General Skin Exam: no breakdown Neuro oriented x3, CN's II-XII intact bilaterally, moves all extremities, no focal motor deficits and no sensory deficits noted Sensorium / Orientation: awake and alert Speech: speech normal Psych affect normal Assessment & Plan Assessment/Plan (1) Respiratory failure: (2) Angioedema: PLAN: Plan 1. Acute combined respiratory failure secondary to angioedema with upper airway embarrassment-patient is now trached, he is on a trach collar at this time, speech has cleared him for oral intake yesterday, I have elected to discontinue his Pandya catheter today, I talked briefly with general surgery about his care, chest tube remains at this time. #2 Essential hypertension-patient's blood pressure will be monitored, I placed the patient on amlodipine and Maxide , he still has IV Trandate and Apresoline ordered if necessary. It may be necessary to increase the patient's amlodipine today Total clinical time spent by myself addressing the patient's medical issues, reviewing all of the data, and collaborating with patient's care team: 25- minutes Charges/Coding Visit Charges Inpatient E&M: 88649 Subs Hosp L1
[2024-01-18] MEDS: LORazepam 2 MG/ML Syringe 1 MG IV ×2 (11:28→21:12)
[2024-01-18] MEDS: 0.9% Saline Lock 10 ML Syringe IV ×3 (11:28→21:12)
[2024-01-18] MEDS: hydrALAZINE 20 MG/ML Vial 10 MG IV (14:54)
[2024-01-19] VITALS (25 sets, daily range): BP systolic 130–189; BP diastolic 76–123; PULSE 94–108; RESP 13–25; TEMP 36.6–37; O2SAT 90–97; BMI 40.8
--- NOTE | 2024-01-19 08:38 | PCM.PN.TICU ---
Objective Data Objective Data Vital Signs: Vital Signs Last response Temperature 36.9 C 01/19/24 08:00 Temperature Source Temporal 01/19/24 08:00 Pulse Rate 98 01/19/24 08:00 Pulse Strength Normal (2+) 01/19/24 08:04 Respiratory Rate 20 H 01/19/24 08:00 Respiratory Effort Normal, Non-Labored 01/19/24 04:00 Respiratory Depth Normal 01/19/24 04:00 Respiratory Pattern Normal 01/19/24 04:00 Blood Pressure 143/87 H 01/19/24 08:00 Blood Pressure Mean 105 01/19/24 08:00 Blood Pressure Source Monitor 01/19/24 08:00 Blood Pressure Position Sitting 01/19/24 08:00 Blood Pressure Location Left Arm 01/19/24 08:00 Pulse Ox 91 01/19/24 08:00 Oxygen Delivery Method Trach Collar 01/19/24 08:00 Oxygen Flow Rate (L/min) 6 01/19/24 08:00 Fraction of Inspired Oxygen (FIO2) 28 01/19/24 08:00 I&O: I&O Last 24 Hours 01/18/24 01/18/24 01/19/24 11:59 23:59 11:59 Intake Total 230 / 240 10 / 240 Output Total 1455 / 2155 700 / 2155 350 / 350 Balance -1225 / -1915 -690 / -1915 -350 / -350 I&O: Total Stay 01/12/24 23:22 thru 01/19/24 05:03 Intake Total 00420.15 Output Total 23895 Balance -309.85 Current Meds Ordered / Administered: Current meds ordered / Administered Generic Name Dose Route Start Last Admin Trade Name Freq PRN Reason Stop Dose Admin Amlodipine Besylate 5 mg 01/18/24 10:00 01/18/24 09:09 Amlodipine 5 Mg Tablet PO 5 mg DAILY MARIA ESTHER Administration Protocol Chlorhexidine Gluconate 1 each 01/13/24 10:00 01/18/24 08:20 Chlorhexidine Gluc 2% Cloth 1 Each [place]lette TOPICAL 1 each DAILY MARIA ESTHER Administration Chlorhexidine Gluconate 15 ml 01/13/24 10:00 01/18/24 21:12 Chlorhexidine 15 Ml PO 15 ml BID MARIA ESTHER Administration Diphenhydramine HCl 25 mg 01/13/24 01:57 Diphenhydramine 50 Mg/Ml Syringe IV Q4H PRN PRN ALLERGIES Enoxaparin Sodium 40 mg 01/13/24 10:00 01/18/24 21:12 Enoxaparin 40 Mg/0.4 Ml Syringe SC 40 mg BID MARIA ESTHER Administration Hydralazine HCl 10 mg 01/14/24 17:32 01/18/24 14:54 Hydralazine 20 Mg/Ml Vial IV 10 mg Q6H PRN PRN Administration BLOOD PRESSURE ELEVATION Protocol Famotidine 20 mg/ Sodium 10 mls @ 300 mls/hr 01/13/24 10:00 01/18/24 21:14 Chloride IV Infused Q12 MARIA ESTHER Infusion Sodium Chloride 250 mls @ 15 mls/hr 01/13/24 03:25 IV .[id number] PRN Additional IVPB Infusion Sodium Chloride 250 mls @ 15 mls/hr 01/13/24 03:25 IV .[id number] PRN Saline Flush Ketorolac Tromethamine 30 mg 01/15/24 14:39 Ketorolac 30 Mg/Ml Syringe IV 01/20/24 14:39 Q6H PRN PRN Pain Score 1-10 Lorazepam 1 mg 01/16/24 20:06 01/18/24 21:12 Lorazepam 2 Mg/Ml Syringe IV 1 mg Q4H PRN PRN Administration Severe anxiety/agitation Methylprednisolone 40 mg 01/16/24 10:00 01/18/24 08:20 Methylprednisolone 40 Mg/Ml Vial IV 40 mg DAILY MARIA ESTHER Administration Ondansetron HCl 4 mg 01/13/24 01:57 01/15/24 23:33 Ondansetron 4 Mg/2 Ml Vial IV 4 mg Q8H PRN PRN Administration NAUSEA/VOMITING Prochlorperazine Edisylate 10 mg 01/16/24 05:05 01/17/24 10:13 Prochlorperazine 10 Mg/2 Ml Vial IM 10 mg Q4H PRN PRN Administration NAUSEA/VOMITING Sodium Chloride 10 - 40 ml 01/13/24 03:25 01/18/24 21:12 0.9% Saline Lock 10 Ml Syringe IV 40 ml UD PRN Administration SALINE FLUSH Triamterene/Hydrochlorothiazide 1 tablet 01/18/24 10:00 01/18/24 09:09 Triamterene 75mg/Hctz 50mg Tablet PO 1 tablet DAILY MARIA ESTHER Administration Protocol Lab / Micro Data 01/19/24 09:20 01/19/24 09:20 Rhythm Strip Rhythm Strip: Sinus Tach Rate: 102 Assessment and Plan . Assessment and plan: Pt seen and examined. No acute events over night. Feels well with no new complaints. Chest tube to water seal but AM CXR shows apical PTX with CT drainage hole outside chest. PE: General: Well developed morbidly obese male in no distress HEENT: anicteric Sclera, nl nose; + trach midline to trach collar Cardiovascular: S1/S2; No rubs, gallops; no displaced PM Respiratory: diminished; no crackles, wheezes, or rhonchi; + chest tube to water seal Abdominal: Non-tender; Non distended; hypoBS x 4; No Hepatosplenomegaly Extremities: Warm, well perfused; No clubbing, cyanosis; capillary refill < 2 sec Skin: intact, no rashes Neurological: A&Ox3; no gross deficits appreciated A/P: #Acute hypoxemic and hypercapnic respiratory failure: 2* to life-threatening angioedema requiring emergent cricothyroidotomy with subsequent tracheostomy by ENT on 01/13; no on-going resp issues present and maintained on PAP therapy nightly and trach collar supplemental O2 throughout the day --> PRN PAP support; continue IV steroids 40 mg daily for now and reasonable to complete 5-7d course; cleared for diet by ST #Angioedema: unclear etiology and per documentation pt was not Rx ACEi but was on Cozaar; sent C4/CRP/ESR level to try to identify if underlying C1 inhibitory deficiency vs suggestion of other inflammatory/malignancy-related causes present #Pneumothorax/pneumomediastinum: likely related to barotrauma in the setting of the patient's airway compromise; sp chest tube with resolution and transitioned to water seal 02/16; surgery on board and managing --> chest tube became dislodged and needs replacement, surgery on board and managing #Morbid obesity/history of hypertension: continue supportive measures as noted above & BP meds; PT/OT PO diet LMWH, famotidine Guarded prognosis Critical Care Time: 50 min The entirety of this encounter was done via Telemedicine
--- NOTE | 2024-01-19 08:57 | PN.HOSP_ITS ---
Reason for Visit Reason for Visit: Diagnoses Essential (primary) hypertension (01/13/24) Pneumothorax, unspecified (01/13/24) Respiratory failure, unspecified, unspecified whether with hypoxia or hypercapnia (01/13/24) Adverse effect of fiupruvmjqu-morzzzoowl-ndwwps inhibitors, initial encounter (01/13/24) Angioneurotic edema, initial encounter (01/13/24) Subjective Subjective Patient was seen and examined today, he is still on the trach mask and is comfortable, I talked with nursing about his blood pressure, it may be necessary to increase his Norvasc today depending on how his blood pressure runs. Patient voices no specific complaints to this examiner. Objective Data Objective Data Vital Signs: Vital Signs Temp Pulse Resp BP Pulse Ox O2 Del Method O2 Flow Rate 98.4 F 98 20 H 143/87 H 91 Trach Collar 6 01/19/24 08:00 01/19/24 08:00 01/19/24 08:00 01/19/24 08:00 01/19/24 08:00 01/19/24 08:00 01/19/24 08:00 FiO2 28 01/19/24 08:00 Oxygen Flow Rate (L/min) 6 Oxygen Delivery Method Trach Collar Weight: 121.9 kg Body Mass Index (BMI) 40.8 Intake & Output: Intake and Output for Last 24 Hours 01/17/24 01/18/24 01/19/24 23:59 23:59 23:59 Intake Total 720 / 720 240 / 240 Output Total 3800 / 3800 2155 / 2155 350 / 350 Balance -3080 / -3080 -1915 / -1915 -350 / -350 Lab / Micro Data 01/16/24 03:13 01/17/24 08:20 Micro: Microbiology 01/13/24 04:35 Sputum, Induced/Lukens Gram Stain - Final 01/13/24 04:35 Sputum, Induced/Lukens Respiratory Culture - Final Mixed normal respiratory madyson. No Streptococcus pneumoniae, beta-hemolytic Streptococcus or Staphylococcus aureus isolated. Rhythm Strip Rhythm Strip: Sinus Tach Rate: 102 Physical Exam Const alert and no apparent distress Constitutional Narrative: Patient is morbidly obese General Appearance: cooperative, well kempt and well developed Orientation / Consciousness: awake, oriented to person, oriented to place and oriented to time HEENT normocephalic, head/scalp atraumatic and moist oral mucous membranes HEENT Narrative: A trach is in place Eyes PERRL, EOMs intact bilaterally and conjunctivae normal Neck supple and no JVD Neck Narrative: Trach is in place Resp normal respiratory effort, no retractions, no use of accessory muscles and clear to auscultation bilaterally Auscultation: Negative for rales, rhonchi or wheezes Cardio regular rate, regular rhythm, S1 normal heart sound, S2 normal heart sound, no murmurs, no rub and no gallops GI normal to inspection, nondistended, normoactive bowel sounds, soft to palpation, non-tender and non-distended Extremity no clubbing, cyanosis or edema Skin no rashes or lesions noted General Skin Exam: no breakdown Neuro CN's II-XII intact bilaterally, moves all extremities, no focal motor deficits and no sensory deficits noted Sensorium / Orientation: awake, alert, oriented to person and oriented to place Speech: speech normal Psych affect normal Assessment & Plan Assessment/Plan (1) Respiratory failure: (2) Angioedema: PLAN: Plan 1. Acute combined respiratory failure secondary to angioedema with upper airway embarrassment-patient is now trached, he is on a trach collar at this time, speech has cleared him for oral intake yesterday, I have elected to discontinue his Pandya catheter today, #2 Essential hypertension-patient's blood pressure will be monitored, I placed the patient on amlodipine and Maxide , he still has IV Trandate and Apresoline ordered if necessary. It may be necessary to increase the patient's amlodipine today Total clinical time spent by myself addressing the patient's medical issues, reviewing all of the data, and collaborating with patient's care team: 25- minutes Charges/Coding Visit Charges Inpatient E&M: 40531 Subs Hosp L1
--- NOTE | 2024-01-19 09:02 | PCM.PN.SRG ---
Subjective Subjective Patient did not have to go back on CPAP all night. Patient's chest tube still in place, no leak to waterseal Objective Data Objective Data Vital Signs: Vital Signs Temp Pulse Resp BP Pulse Ox O2 Del Method O2 Flow Rate 98.4 F 98 20 H 143/87 H 91 Trach Collar 6 01/19/24 08:00 01/19/24 08:00 01/19/24 08:00 01/19/24 08:00 01/19/24 08:00 01/19/24 08:00 01/19/24 08:00 FiO2 28 01/19/24 08:00 Oxygen Flow Rate (L/min) 6 Oxygen Delivery Method Trach Collar Weight: 268 lb 11.896 oz Body Mass Index (BMI) 40.8 Intake & Output: Intake and Output for Last 24 Hours 01/17/24 01/18/24 01/19/24 23:59 23:59 23:59 Intake Total 720 / 720 240 / 240 Output Total 3800 / 3800 2155 / 2155 350 / 350 Balance -3080 / -3080 -1915 / -1915 -350 / -350 Lab / Micro Data 01/19/24 09:20 01/17/24 08:20 Micro: Microbiology 01/13/24 04:35 Sputum, Induced/Lukens Gram Stain - Final 01/13/24 04:35 Sputum, Induced/Lukens Respiratory Culture - Final Mixed normal respiratory madyson. No Streptococcus pneumoniae, beta-hemolytic Streptococcus or Staphylococcus aureus isolated. Rhythm Strip Rhythm Strip: Sinus Tach Rate: 102 Physical Exam Const Constitutional Narrative: Oriented, alert Resp normal respiratory effort Resp Narrative: Chest tube remains secure to the chest wall without crepitus. Chest tube connections are intact. Patient's chest tube remains to suction at -20 cm of water. No air leak in the waterseal chamber. Assessment & Plan Assessment/Plan (1) Pneumothorax on right: PLAN: Patient is a 58-year-old male who is status post right thoracostomy tube placement for iatrogenic pneumothorax on the right likely secondary to barotrauma. Will check chest x-ray this morning?ordered. Patient does have another good night tonight?not needing CPAP?I think it be reasonable to get 2 view tomorrow morning and likely remove chest tube. Fide Garcia M.D. Pager: [phone] [facility] [address] [place] [address], [facility], [address] [place] [address] Office: [phone] Charges/Coding Visit Charges Inpatient E&M: 13909 Subs Hosp L2
--- NOTE | 2024-01-19 09:31 | RAD_ITS ---
We are attempting to reach an attending provider to discuss findings. An addendum with communication details will be sent when the communication is complete. STUDY: X-RAY CHEST REASON FOR EXAM: Male, 58 years old. Chest pain TECHNIQUE: Frontal view of the chest COMPARISON: 01/18/2024 FINDINGS: Again noted is a tracheostomy tube. There is a right-sided chest tube in place. There is a small right pneumothorax (approximately 10%) which is new when compared with the prior exam. There are stable atelectasis in the lung bases. There are no pulmonary infiltrates or pleural effusions. The heart is normal in size. The visualized osseous structures are within normal limits. RAD/Chest 1 View (Portable) IMPRESSION: Right-sided chest tube in place. Small right pneumothorax which is new when compared with the prior exam. Electronically Signed: Houston Huff MD at 11:08 EDT ,
[2024-01-19] MEDS: amLODIPine 5 MG Tablet PO (09:33)
[2024-01-19] MEDS: Famotidine 200 MG/20 ML MDV 20 MG in 0.9% Normal Saline (Pres. free 8 ML 300 MG IV ×2 (09:33→20:54)
[2024-01-19] MEDS: CHLORHEXIDINE GLUC 2% CLOTH 1 EACH TOWELETTE TOPICAL (09:33)
[2024-01-19] MEDS: Chlorhexidine 15 ML PO ×2 (09:33→20:55)
[2024-01-19] MEDS: Triamterene 75MG/Hctz 50MG Tablet 1 TABLET PO (09:34)
[2024-01-19] MEDS: 0.9% Saline Lock 10 ML Syringe IV ×2 (09:34→20:54)
[2024-01-19] MEDS: Enoxaparin 40 MG/0.4 ML Syringe SC ×2 (09:34→20:54)
[2024-01-19 09:38] LABS: Absolute Neutrophil Count 8.8 X10^3/uL (2.0-7.7); Basophil# 0.01 X10^3/uL; Basophil% 0.1 % (0-1); Eosinophils% 0.8 % (0-5); Hematocrit 39.9 % (40-54); Hemoglobin 13.8 g/dL (13.0-16.5); Lymphocyte % 16.4 % (19-41); Mean Corp Hgb Conc 34.6 g/dL (32-36); Mean Corpuscular Hgb 30.7 pg (27.0-32.0); Mean Corpuscular Volume 88.7 fL (80-94); Mean Platelet Vol. 10.1 fl (6.2-12.0); Monocyte# 1.17 X10^3/uL; Monocyte% 9.6 % (0-10); NRBC Flagged by Analyzer 0 % (0-5); Neutrophil % 72.1 % (47-70); Platelet Count 243 K/mm3 (150-450); RBC Distribution Width SD 45.8 fl (35.1-43.9); White Blood Count 12.2 K/mm3 (4.4-11.0)
[2024-01-19 09:49] LABS: Anion Gap 8 (5-15); BUN 31 mg/dL (7-18); BUN/Creat Ratio 29.8 RATIO (10-20); Calcium,Total 8.8 mg/dL (8.5-10.1); Chloride 101 mmol/L (98-107); Creatinine, Serum 1.04 mg/dL (0.70-1.30); EST Glomerular Filtration Rate 78 mL/min (>60); Est Glom Filt Rate - Afr Amer 94 mL/min (>60); Estimated Creatinine Clearance 99.54 ml/min; Glucose 148 mg/dL (74-106); Potassium 3.3 mmol/L (3.5-5.1); Sodium Level 133 mmol/L (136-145)
[2024-01-19 09:55] LABS: Erythrocyte Sedimentation Rate 42 mm/hr (0-20)
--- NOTE | 2024-01-19 11:00 | NURSING ---
Dr. Garcia at bedside for chest tube re-placement
[2024-01-19] MEDS: Morphine 2 MG/ML Syringe IV ×4 (11:09→12:32)
--- NOTE | 2024-01-19 11:48 | RAD_ITS ---
STUDY: X-RAY CHEST REASON FOR EXAM: Male, 58 years old. Chest tube placement. TECHNIQUE: Frontal view of the chest COMPARISON: 01/19/2024 FINDINGS: There is a right-sided chest tube in place. There is a small right apical pneumothorax which is decreased in size when compared with the prior exam. The remainder the examination is unchanged. RAD/Chest 1 View (Portable) IMPRESSION: Small right apical pneumothorax which is decreased in size when compared with the prior exam. Electronically Signed: Houston Huff MD at 13:55 EDT ,
[2024-01-19] MEDS: HYDROmorphone 0.5 MG/0.5 ML SYRINGE IV (12:40)
--- NOTE | 2024-01-19 12:45 | RAD_ITS ---
STUDY: X-RAY CHEST REASON FOR EXAM: Male, 58 years old. Chest tube placement. TECHNIQUE: Frontal view of the chest COMPARISON: 01/19/2024 FINDINGS: There is a right-sided chest tube in place. The previously seen right apical pneumothorax is no longer visualized. The remainder the examination is unchanged RAD/Chest 1 View (Portable) IMPRESSION: Resolution of the previously seen right apical pneumothorax. Electronically Signed: Houston Huff MD at 14:08 EDT ,
--- NOTE | 2024-01-19 13:23 | OP.PCM_ITS ---
Report of Operation Date of Procedure: 01/19/24 Pre-Operative Diagnosis: Right PTX Post-Operative Diagnosis: same Surgery/Procedure Performed:: Exchange of right chest tube?28 [place] Description of Surgical Findings:: Initially attempted to place a 20 [place] but it kept going into the patient reports 28 was able to get up to go to the apex. Surgeon: Fide Garcia Type of Anesthesia: Local and Supplemental Specimen's removed: none Estimated Blood Loss (mL): 10 cc Description of Procedure: Informed consent was obtained. Patient's right anterior axillary line was prepped draped usual sterile fashion with Betadine. Previous dislodged chest tube was removed. Local anesthesia of 1% lidocaine total 40 cc were used. Tonsils used to go over the rib into the pleura. Initially placed a 20 [place] chest tube however it continued to go into fissure and not go towards the apex. Did change to 28 [place] chest tube was able to get that directed at the apex. Got some initial air bubbles but no air leak after the initial. Chest tube placed to -20 suction. Chest tube was secured with 0 Vicryl suture as well as a vertical mattress suture at the incision site and a separate interrupted suture. Vaseline gauze and drain sponges and tape were placed. Patient tolerated procedure well. Complications none
[2024-01-19] MEDS: Potassium Chloride Oral Tablet 20 MEQ 40 MEQ PO (18:08)
[2024-01-19] MEDS: LORazepam 2 MG/ML Syringe 1 MG IV (20:54)
[2024-01-20] VITALS (30 sets, daily range): BP systolic 101–172; BP diastolic 82–103; PULSE 89–105; RESP 14–22; TEMP 36–37.1; O2SAT 91–99; BMI 40.4
[2024-01-20 03:28] LABS: Absolute Lymphocyte Count 2.33 X10^3/uL (0.83-4.51); Absolute Neutrophil Count 10.7 X10^3/uL (2.0-7.7); Basophil# 0.03 X10^3/uL; Basophil% 0.2 % (0-1); Eosinophil# 0.08 X10^3/uL; Eosinophils% 0.5 % (0-5); Hemoglobin 13.7 g/dL (13.0-16.5); Lymphocyte # 2.33 X10^3/ul (0.83-4.51); Lymphocyte % 15.8 % (19-41); Mean Corp Hgb Conc 34.3 g/dL (32-36); Mean Corpuscular Hgb 30.4 pg (27.0-32.0); Mean Corpuscular Volume 88.7 fL (80-94); Mean Platelet Vol. 10.4 fl (6.2-12.0); Monocyte# 1.48 X10^3/uL; NRBC Flagged by Analyzer 0 % (0-5); Neutrophil # 10.68 X10^3/uL (2.7-7.7); Neutrophil % 72.3 % (47-70); Platelet Count 270 K/mm3 (150-450); RBC Distribution Width CV 13.9 % (11.6-14.6); Red Blood Count 4.51 M/mm3 (4.6-6.2); White Blood Count 14.8 K/mm3 (4.4-11.0)
[2024-01-20 03:44] LABS: Anion Gap 9 (5-15); BUN 29 mg/dL (7-18); BUN/Creat Ratio 24.6 RATIO (10-20); Calcium,Total 8.7 mg/dL (8.5-10.1); Chloride 98 mmol/L (98-107); Creatinine, Serum 1.18 mg/dL (0.70-1.30); EST Glomerular Filtration Rate 67 mL/min (>60); Est Glom Filt Rate - Afr Amer 82 mL/min (>60); Estimated Creatinine Clearance 87.14 ml/min; Glucose 159 mg/dL (74-106); Potassium 3.7 mmol/L (3.5-5.1); Sodium Level 133 mmol/L (136-145)
--- NOTE | 2024-01-20 06:39 | RAD_ITS ---
EXAM: XR CHEST, 1 VIEW CLINICAL INDICATION: f/u CT and prior PTX TECHNIQUE: Frontal view of the chest. COMPARISON: 01/19/2024. FINDINGS: LUNGS AND PLEURAL SPACES: Subsegmental atelectasis in the lung bases bilaterally. HEART: Unremarkable. Cardiac silhouette not enlarged. MEDIASTINUM: Central airways and mediastinal contour are unremarkable. BONES/JOINTS: Unremarkable. No acute fracture. SOFT TISSUES: Unremarkable. TUBES, LINES AND DEVICES: Tracheostomy tube remains in good position. Right-sided chest tube is in good position. Trace residual right apical pneumothorax that is decreased compared to the previous exam. RAD/Chest 1 View (Portable) IMPRESSION: 1. Tracheostomy tube remains in good position. 2. Right-sided chest tube is in good position. Trace residual right apical pneumothorax that is decreased compared to the previous exam. 3. Subsegmental atelectasis in the lung bases bilaterally. Electronically Signed: Miguel Ballesteros MD at 7:08 EDT ,
--- NOTE | 2024-01-20 06:39 | PN.SURG_ITS ---
Subjective Subjective Patient seen and examined during AM rounds. He is found resting in bed. He arouses with light stimulation. He denies any acute events overnight. He reports that he is eating well without any choking. Objective Data Objective Data Vital Signs: Vital Signs Temp Pulse Resp BP Pulse Ox O2 Del Method O2 Flow Rate 98.1 F 97 20 H 140/92 H 92 Trach Collar 8 01/20/24 05:00 01/20/24 06:00 01/20/24 06:00 01/20/24 06:00 01/20/24 06:00 01/20/24 06:00 01/19/24 19:25 FiO2 28 01/20/24 06:00 Oxygen Flow Rate (L/min) 8 Oxygen Delivery Method Trach Collar Weight: 265 lb 6.985 oz Body Mass Index (BMI) 40.4 Intake & Output: Intake and Output for Last 24 Hours 01/18/24 01/19/24 01/20/24 23:59 23:59 23:59 Intake Total 240 / 240 260 / 260 Output Total 2155 / 2155 1315 / 1315 350 / 350 Balance -1915 / -1915 -1055 / -1055 -350 / -350 Lab / Micro Data 01/20/24 03:10 01/20/24 03:10 Labs: Laboratory Results - last 24 hr 01/19/24 09:20: WBC 12.2 H, RBC 4.50 L, Hgb 13.8, Hct 39.9 L, MCV 88.7, MCH 30.7, MCHC 34.6, RDW Std Deviation 45.8 H, RDW Coeff of Ya 14.0, Plt Count 243, MPV 10.1, Immature Gran % (Auto) 1.000 H, Neut % (Auto) 72.1 H, Lymph % (Auto) 16.4 L, Hutchinson % (Auto) 9.6, Eos % (Auto) 0.8, Baso % (Auto) 0.1, Absolute Neuts (auto) 8.8 H, Absolute Lymphs (auto) 2.00, Nucleated RBC % 0, ESR 42 H, Sodium 133 L, Potassium 3.3 L, Chloride 101, Carbon Dioxide 24.0, Anion Gap 8, BUN 31 H , Creatinine 1.04, Estim Creat Clear Calc 99.54, Est GFR (MDRD) Af Amer 94, Est GFR (MDRD) Non-Af 78, BUN/Creatinine Ratio 29.8 H, Glucose 148 H, Calcium 8.8, C-React Prot Ext Range 24.10 H 01/20/24 03:10: WBC 14.8 H, RBC 4.51 L, Hgb 13.7, Hct 40.0, MCV 88.7, MCH 30.4, MCHC 34.3, RDW Std Deviation 45.0 H, RDW Coeff of Ya 13.9, Plt Count 270, MPV 10.4, Immature Gran % (Auto) 1.200 H, Neut % (Auto) 72.3 H, Lymph % (Auto) 15.8 L, Hutchinson % (Auto) 10.0, Eos % (Auto) 0.5, Baso % (Auto) 0.2, Absolute Neuts (auto) 10.7 H, Absolute Lymphs (auto) 2.33, Nucleated RBC % 0, Sodium 133 L, Potassium 3.7, Chloride 98, Carbon Dioxide 26.0, Anion Gap 9, BUN 29 H, Creatinine 1.18, Estim Creat Clear Calc 87.14, Est GFR (MDRD) Af Amer 82, Est GFR (MDRD) Non-Af 67, BUN/Creatinine Ratio 24.6 H, Glucose 159 H, Calcium 8.7 Micro: Microbiology 01/13/24 04:35 Sputum, Induced/Lukens Gram Stain - Final 01/13/24 04:35 Sputum, Induced/Lukens Respiratory Culture - Final Mixed normal respiratory madyson. No Streptococcus pneumoniae, beta-hemolytic Streptococcus or Staphylococcus aureus isolated. Radiography Diagnostic Testing: Radiology Impression Chest X-Ray 01/19/24 09:31 IMPRESSION: Right-sided chest tube in place. Small right pneumothorax which is new when compared with the prior exam. Electronically Signed: Houston Huff MD at 11:08 EDT , ADDENDUM: 01/19/24 8625 IMPRESSION: Right-sided chest tube in place. Small right pneumothorax which is new when compared with the prior exam. N.B. : The above Results were Read Back by Houston Huff MD to Chiquis Maza RN, and understanding confirmed on 01/19/2024 11:18:44 (ET). Electronically Signed: Houston Huff MD at 11:08 EDT , Chest X-Ray 01/19/24 11:48 IMPRESSION: Small right apical pneumothorax which is decreased in size when compared with the prior exam. Electronically Signed: Houston Huff MD at 13:55 EDT , Chest X-Ray 01/19/24 12:45 IMPRESSION: Resolution of the previously seen right apical pneumothorax. Electronically Signed: Houston Huff MD at 14:08 EDT , Rhythm Strip Rhythm Strip: Sinus Tach Rate: 102 Physical Exam Const oriented x3 and no apparent distress Resp normal respiratory effort Resp Narrative: Chest tube remains intact at the chest wall with Elastoplast dressing. There is some bloody drainage in the Pleur-evac amounting to 65 mL. There is no visualized air leak in the chest tube remains to suction at -20 cm of water. Assessment & Plan Assessment/Plan (1) Pneumothorax on right: PLAN: Patient is a 58-year-old male who is status post right thoracostomy tube placement for iatrogenic pneumothorax on the right likely secondary to barotrauma. Repeat chest x-ray today showed persistence of an apical pneumothorax but significantly improved over yesterday following chest tube replacement. I did not see an air leak today. It would be most optimal to have patient radiographically resolve his pneumothorax before waterseal. Thus we will plan to keep chest tube to suction today and reassess tomorrow. Miguel Kurtz MD General Surgery Endocrine Surgery Pager: [facility] [address] [place] [address], [facility], [address] [place] [address] Office: [phone] Charges/Coding Visit Charges Inpatient E&M: 16242 Subs Hosp L2
--- NOTE | 2024-01-20 07:48 | PN.CC_ITS ---
Assessment & Plan Assessment/Plan (1) Pneumothorax on right: (2) Angioedema: PLAN: Plan RECOMMENDATIONS: 1. Continue trach mask 2. Add Mucinex to help with secretions/pulmonary toileting 3. Continue methylprednisone 40 mg daily for now. 4. PT/OT to work with the patient. 5. Okay to transition from wall suction to waterseal on Pleur-evac. Obtain follow-up chest x-ray in the morning. 6. Gentle diuresis as tolerated by hemodynamics and renal function. IMPRESSIONS: 1. Acute hypoxemic and hypercapnic respiratory failure The exact etiology for the patient's angioedema is not entirely clear. According to the patient's PCP, he was not prescribed an HAO inhibitor, but was rather on Cozaar. The patient's airway was compromised upon arrival to the emergency department. An emergent cricothyroidotomy was performed. Ultimately, the patient required placement of a small bore endotracheal tube through the cricothyroidotomy to achieve appropriate ventilatory support. The patient was evaluated by ENT and then taken for formal tracheostomy on January 13. The patient is doing well from a respiratory perspective. The patient will be continued on trach mask. Likely discontinue steroids in the next 24 to 48 ho urs. Defer to ENT on timing for removal of trach 2. Pneumothorax/pneumomediastinum Potentially related to barotrauma in the setting of the patient's airway compromise. The patient underwent tube thoracotomy with resolution of the pneumothorax. Surgery is currently following. Defer to them on removal of chest tube. 3. Morbid obesity/history of hypertension Complicates care, management, recovery and prognosis. Continue supportive measures as noted above. PT/OT to work with the patient. This note was generated with [employer] dictation software. It may contain incorrect words, spelling, and punctuation that were not noted in checking the note before signing. Subjective Subjective Patient did well overnight. Patient has been tolerating trach mask well. Nursing is reported moderate secretions with occasional need for suctioning. Patient reportedly dislodged his chest tube yesterday and required repositioning with larger chest tube to resolve pneumothorax.. Patient is reporting pain. Objective Data Objective Data Vital Signs: Vital Signs Temp Pulse Resp BP Pulse Ox O2 Del Method O2 Flow Rate 36.7 C 99 16 153/94 H 92 Trach Collar 8 01/20/24 05:00 01/20/24 07:00 01/20/24 07:00 01/20/24 07:00 01/20/24 07:00 01/20/24 07:00 01/19/24 19:25 FiO2 28 01/20/24 07:00 Oxygen Flow Rate (L/min) 8 Oxygen Delivery Method Christian Grimes Weight: 120.4 kg Body Mass Index (BMI) 40.4 Intake & Output: Intake and Output for Last 24 Hours 01/18/24 01/19/24 01/20/24 23:59 23:59 23:59 Intake Total 240 / 240 260 / 260 Output Total 2155 / 2155 1315 / 1315 350 / 350 Balance -1915 / -1915 -1055 / -1055 -350 / -350 Lab / Micro Data Attestation: I reviewed the patient's lab results. 01/20/24 03:10 01/20/24 03:10 Labs: Laboratory Results - last 24 hr 01/19/24 09:20: WBC 12.2 H, RBC 4.50 L, Hgb 13.8, Hct 39.9 L, MCV 88.7, MCH 30.7, MCHC 34.6, RDW Std Deviation 45.8 H, RDW Coeff of Ya 14.0, Plt Count 243, MPV 10.1, Immature Gran % (Auto) 1.000 H, Neut % (Auto) 72.1 H, Lymph % (Auto) 16.4 L, [place]leigh % (Auto) 9.6, Eos % (Auto) 0.8, Baso % (Auto) 0.1, Absolute Neuts (auto) 8.8 H, Absolute Lymphs (auto) 2.00, Nucleated RBC % 0, ESR 42 H, Sodium 133 L, Potassium 3.3 L, Chloride 101, Carbon Dioxide 24.0, Anion Gap 8, BUN 31 H , Creatinine 1.04, Estim Creat Clear Calc 99.54, Est GFR (MDRD) Af Amer 94, Est GFR (MDRD) Non-Af 78, BUN/Creatinine Ratio 29.8 H, Glucose 148 H, Calcium 8.8, C-React Prot Ext Range 24.10 H 01/20/24 03:10: WBC 14.8 H, RBC 4.51 L, Hgb 13.7, Hct 40.0, MCV 88.7, MCH 30.4, MCHC 34.3, RDW Std Deviation 45.0 H, RDW Coeff of Ya 13.9, Plt Count 270, MPV 10.4, Immature Gran % (Auto) 1.200 H, Neut % (Auto) 72.3 H, Lymph % (Auto) 15.8 L, [place] % (Auto) 10.0, Eos % (Auto) 0.5, Baso % (Auto) 0.2, Absolute Neuts (auto) 10.7 H, Absolute Lymphs (auto) 2.33, Nucleated RBC % 0, Sodium 133 L, Potassium 3.7, Chloride 98, Carbon Dioxide 26.0, Anion Gap 9, BUN 29 H, Creatinine 1.18, Estim Creat Clear Calc 87.14, Est GFR (MDRD) Af Amer 82, Est GFR (MDRD) Non-Af 67, BUN/Creatinine Ratio 24.6 H, Glucose 159 H, Calcium 8.7 Micro: Microbiology 01/13/24 04:35 Sputum, Induced/Lukens Gram Stain - Final 01/13/24 04:35 Sputum, Induced/Lukens Respiratory Culture - Final Mixed normal respiratory madyson. No Streptococcus pneumoniae, beta-hemolytic Streptococcus or Staphylococcus aureus isolated. Radiography Diagnostic Testing: Radiology Impression Chest X-Ray 01/19/24 09:31 IMPRESSION: Right-sided chest tube in place. Small right pneumothorax which is new when compared with the prior exam. Electronically Signed: Houston Huff MD at 11:08 EDT , ADDENDUM: 01/19/24 1125 IMPRESSION: Right-sided chest tube in place. Small right pneumothorax which is new when compared with the prior exam. N.B. : The above Results were Read Back by Houston Huff MD to Chiquis Maza RN, and understanding confirmed on 01/19/2024 11:18:44 (ET). Electronically Signed: Houston Huff MD at 11:08 EDT , Chest X-Ray 01/19/24 11:48 IMPRESSION: Small right apical pneumothorax which is decreased in size when compared with the prior exam. Electronically Signed: Houston Huff MD at 13:55 EDT , Chest X-Ray 01/19/24 12:45 IMPRESSION: Resolution of the previously seen right apical pneumothorax. Electronically Signed: Houston Huff MD at 14:08 EDT , Chest X-Ray 01/20/24 06:39 IMPRESSION: 1. Tracheostomy tube remains in good position. 2. Right-sided chest tube is in good position. Trace residual right apical pneumothorax that is decreased compared to the previous exam. 3. Subsegmental atelectasis in the lung bases bilaterally. Electronically Signed: Miguel Ballesteros MD at 7:08 EDT , Rhythm Strip Rhythm Strip: Sinus Tach Rate: 105 Physical Exam Const alert and no apparent distress Constitutional Narrative: Currently tolerating trach collar supplemental O2. General Appearance: cooperative HEENT normocephalic, head/scalp atraumatic and moist oral mucous membranes Eyes PERRL, conjunctivae normal and no scleral icterus Neck supple Neck Narrative: Stable appearing XLT tracheostomy tube in place. General: trachea midline Chest inspection of chest normal Resp normal respiratory effort and no use of accessory muscles Resp Narrative: No airleak noted in the Pleur-evac this morning. Auscultation: rhonchi throughout (improves with coughing) and diminished lung sounds Cardio regular rhythm, S1 normal heart sound and S2 normal heart sound Rate: tachycardic GI normal to inspection, nondistended, normoactive bowel sounds and soft to palpation Extremity no clubbing, cyanosis or edema Skin no rashes or lesions noted Neuro CN's II-XII intact bilaterally, moves all extremities and no focal motor deficits Neuro Narrative: Alert and appropriately interactive. Psych cooperative and affect normal Charges/Coding Visit Charges Inpatient E&M: 31337 Subs Hosp L3
[2024-01-20] MEDS: Chlorhexidine 15 ML PO (08:56)
[2024-01-20] MEDS: amLODIPine 10 MG Tablet PO (08:56)
[2024-01-20] MEDS: Metoprolol Tartrate 25 MG Tablet 12.5 MG PO (08:56)
[2024-01-20] MEDS: Enoxaparin 40 MG/0.4 ML Syringe SC ×2 (08:57→20:45)
[2024-01-20] MEDS: guaiFENesin 1,200 MG Tablet 1200 MG PO (08:57)
[2024-01-20] MEDS: Triamterene 75MG/Hctz 50MG Tablet 1 TABLET PO (08:57)
[2024-01-20] MEDS: Ketorolac 30 MG/ML Syringe IV (09:00)
[2024-01-20] MEDS: Famotidine 200 MG/20 ML MDV 20 MG in 0.9% Normal Saline (Pres. free 8 ML 300 MG IV (09:01)
[2024-01-20] MEDS: 0.9% Saline Lock 10 ML Syringe IV (09:05)
--- NOTE | 2024-01-20 09:14 | PCM.PN.HOSP ---
Reason for Visit Reason for Visit: Tongue/lip swelling Subjective Subjective Mr. Orozco is a 58-year-old white male who presented to the emergency department on 01/13/2024 due to tongue and lip swelling that started about an hour prior to presentation. It quickly worsened which caused him to have garbled speech and difficulty swallowing. He was noted to have an expiratory stridor and developed respiratory distress in the emergency department. Intubation was attempted but unsuccessful due to severe swelling of his submental and laryngeal regions in addition to the patient clenching his teeth. Cricothyrotomy was performed the emergency department by the ER physician with placement of a 6.5 Turkmen endotracheal tube after tracheostomy tube could not be passed. He had been on Cozaar at baseline and has morbid obesity. General surgery was in the emergency department and assisted with this emergent procedure. Postprocedure imaging showed subsequent right pneumothorax and pneumomediastinum. Chest tube was placed at that time. He was admitted to the ICU. ENT was consulted and he was taken to the OR on 01/14/2024 for transition to tracheostomy with Jeremiah flap. Shortly thereafter he was able to be transition to a trach collar and was attempting to interact via verbal communication. He remained on steroids and swallow evaluation was performed with recommended general diet with direct supervision of staff and Passy-Gabi valve in place during eating. By 01/18/2024 his chest tube was on waterseal with no obvious leak and he utilize CPAP at night. His chest tube became dislodged on 01/19/2024 and imaging showed recurrence of his pneumothorax so chest tube had to be replaced on that day by general surgery. Patient is able to talk around his trach which is a 6 Shiley proximal XLT. Speech is improved with Passy-Gabi valve in place and he has no respiratory distress with Passy-Gabi valve in place. Chest tube still in place but to waterseal. Patient is aware that the chest tube is his current rate limiting step to discharge. He has no significant complaints at this time. I did address with him that we are trying to better control his blood pressure because without the losartan the blood pressure has been elevated so we are adjusting his medications. He voiced understanding. Objective Data Objective Data Vital Signs: Vital Signs Temp Pulse Resp BP Pulse Ox O2 Del Method O2 Flow Rate 96.8 F L 104 H 20 H 135/88 H 97 Trach Collar 8 01/20/24 08:00 01/20/24 08:56 01/20/24 08:00 01/20/24 08:56 01/20/24 08:00 01/20/24 08:00 01/20/24 07:02 FiO2 30 01/20/24 07:02 Oxygen Flow Rate (L/min) 8 Oxygen Delivery Method Christian Grimes Weight: 120.4 kg Body Mass Index (BMI) 40.4 Intake & Output: Intake and Output for Last 24 Hours 01/18/24 01/19/24 01/20/24 23:59 23:59 23:59 Intake Total 240 / 240 260 / 260 Output Total 2155 / 2155 1315 / 1315 350 / 350 Balance -1915 / -1915 -1055 / -1055 -350 / -350 Lab / Micro Data 01/20/24 03:10 01/20/24 03:10 Labs: Laboratory Results - last 24 hr 01/19/24 09:20: WBC 12.2 H, RBC 4.50 L, Hgb 13.8, Hct 39.9 L, MCV 88.7, MCH 30.7, MCHC 34.6, RDW Std Deviation 45.8 H, RDW Coeff of Ya 14.0, Plt Count 243, MPV 10.1, Immature Gran % (Auto) 1.000 H, Neut % (Auto) 72.1 H, Lymph % (Auto) 16.4 L, [place] % (Auto) 9.6, Eos % (Auto) 0.8, Baso % (Auto) 0.1, Absolute Neuts (auto) 8.8 H, Absolute Lymphs (auto) 2.00, Nucleated RBC % 0, ESR 42 H, Sodium 133 L, Potassium 3.3 L, Chloride 101, Carbon Dioxide 24.0, Anion Gap 8, BUN 31 H, Creatinine 1.04, Estim Creat Clear Calc 99.54, Est GFR (MDRD) Af Amer 94, Est GFR (MDRD) Non-Af 78, BUN/Creatinine Ratio 29.8 H, Glucose 148 H, Calcium 8.8, C-React Prot Ext Range 24.10 H 01/20/24 03:10: WBC 14.8 H, RBC 4.51 L, Hgb 13.7, Hct 40.0, MCV 88.7, MCH 30.4, MCHC 34.3, RDW Std Deviation 45.0 H, RDW Coeff of Ya 13.9, Plt Count 270, MPV 10.4, Immature Gran % (Auto) 1.200 H, Neut % (Auto) 72.3 H, Lymph % (Auto) 15.8 L, [place] % (Auto) 10.0, Eos % (Auto) 0.5, Baso % (Auto) 0.2, Absolute Neuts (auto) 10.7 H, Absolute Lymphs (auto) 2.33, Nucleated RBC % 0, Sodium 133 L, Potassium 3.7, Chloride 98, Carbon Dioxide 26.0, Anion Gap 9, BUN 29 H, Creatinine 1.18, Estim Creat Clear Calc 87.14, Est GFR (MDRD) Af Amer 82, Est GFR (MDRD) Non-Af 67, BUN/Creatinine Ratio 24.6 H, Glucose 159 H, Calcium 8.7 Micro: Microbiology 01/13/24 04:35 Sputum, Induced/Lukens Gram Stain - Final 01/13/24 04:35 Sputum, Induced/Lukens Respiratory Culture - Final Mixed normal respiratory madyson. No Streptococcus pneumoniae, beta-hemolytic Streptococcus or Staphylococcus aureus isolated. Radiography Diagnostic Testing: Radiology Impression Chest X-Ray 01/19/24 09:31 IMPRESSION: Right-sided chest tube in place. Small right pneumothorax which is new when compared with the prior exam. Electronically Signed: Houston Huff MD at 11:08 EDT , ADDENDUM: 01/19/24 1125 IMPRESSION: Right-sided chest tube in place. Small right pneumothorax which is new when compared with the prior exam. N.B. : The above Results were Read Back by Houston Huff MD to Chiquis Maza RN, and understanding confirmed on 01/19/2024 11:18:44 (ET). Electronically Signed: Houston Huff MD at 11:08 EDT , Chest X-Ray 01/19/24 11:48 IMPRESSION: Small right apical pneumothorax which is decreased in size when compared with the prior exam. Electronically Signed: Houston Huff MD at 13:55 EDT , Chest X-Ray 01/19/24 12:45 IMPRESSION: Resolution of the previously seen right apical pneumothorax. Electronically Signed: Houston Huff MD at 14:08 EDT , Chest X-Ray 01/20/24 06:39 IMPRESSION: 1. Tracheostomy tube remains in good position. 2. Right-sided chest tube is in good position. Trace residual right apical pneumothorax that is decreased compared to the previous exam. 3. Subsegmental atelectasis in the lung bases bilaterally. Electronically Signed: Miguel Ballesteros MD at 7:08 EDT , Rhythm Strip Rhythm Strip: Sinus Tach Rate: 105 Physical Exam Const alert, oriented x3, no apparent distress and well nourished; Negative for average body habitus or healthy appearing Constitutional Narrative: Morbidly obese, white male, sitting up in bed, significant other at bedside, patient appears comfortable and nontoxic HEENT head/scalp atraumatic and moist oral mucous membranes HEENT Narrative: Mallampati is 3-4, no thrush, angioedema has resolved Head and Scalp: normocephalic Eyes PERRL, EOMs intact bilaterally and conjunctivae normal Neck no lymphadenopathy and supple Neck Narrative: Trachea midline with 6 Shiley proximal XLT in place, patient is able to phonate around his trach, no signs of infection, patient does have sputum from trach site but color is pale yellow Resp normal respiratory effort, no retractions, no use of accessory muscles and clear to auscultation bilaterally Resp Narrative: Few scattered rhonchi that seem to be upper airway Auscultation: rhonchi; Negative for rales or wheezes Cardio regular rate, regular rhythm, S1 normal heart sound, S2 normal heart sound, no murmurs, no rub, no gallops and no clicks GI normal to inspection, nondistended, normoactive bowel sounds, soft to palpation and non-tender Extremity no clubbing, cyanosis or edema Extremity Narrative: Pedal pulses are 2+ Neuro oriented x3, moves all extremities and no focal motor deficits Speech: speech normal Psych affect normal Psych Narrative: Interacts appropriately, very pleasant Assessment & Plan Assessment/Plan (1) Respiratory failure: (2) Angioedema: (3) Pneumothorax on right: (4) Hypertension: QUALIFIERS: Hypertension type: unspecified Qualified Code(s): I10 - Essential (primary) hypertension (5) Leukocytosis: (6) Hyponatremia: PLAN: Plan Acute hypoxic and hypercapnic respiratory failure secondary to angioedema -Emergent cardiac done in the emergency department which since has been converted to tracheostomy by ENT on 01/14/2024 -Trach removal as an outpatient by ENT when appropriate -Patient tolerating regular diet without difficulty -Nocturnal CPAP for ZACKARY -Continue steroids as recommended by pulmonary/critical care medicine--> with likely discontinuation in the next 24 to 48 hours -Avoid HAO inhibitors/ARB's -Mucinex added -Pulm/critical care medicine following-appreciate input Pneumothorax/pneumomediastinum -Chest tube had to be replaced on 01/19/2024 due to recurrence of pneumothorax after dislodgment of chest tube -Management per general surgery Hypertension -Avoid HAO inhibitors/ARB -Discontinue Maxide due to hyponatremia -Continue Norvasc -Add carvedilol 12.5 mg p.o. twice daily -Add hydralazine -Continue to monitor Leukocytosis -Appears to be reactive and due to demargination with steroids however will continue to monitor closely -Repeat CBC in a.m. Hyponatremia -Suspect related to thiazide diuretic -Discontinue HCTZ for now may consider restarting at lower dose as he was on 25 mg daily at admission however with Maxide he was on 50 mg daily which may have disrupted his electrolytes significantly -Repeat lab in a.m. Hyperglycemia -Acutely likely related to steroid elevation however was elevated on presentation which may be stress response reaction however will check hemoglobin A1c with body habitus and hyperglycemia Erectile dysfunction -Hold Cialis Morbid obesity with suspected sleep apnea -Continue nocturnal CPAP -Recommend outpatient pulmonary medicine follow-up for PSG evaluation DVT prophylaxis -Continue enoxaparin twice daily CODE STATUS -Full code Charges/Coding Visit Charges Inpatient E&M: 08854 Init Hosp L3
--- NOTE | 2024-01-20 09:37 | CASEMGMT ---
During pt rounds this morning, the pt and pt SO updated that all [facility] agencies have declined thus far. Pt and pt SO state that they are OK with this and the SO states that she would be willing to learn whatever I need for the pt to go home. Pt and pt SO are stating that they are still not wanting to look into going to a SNF, LTACH, etc. Dr. Davis stated during rounds that the plan is to eventually take out the pt Chest Tube and consult ENT in regard to possibly taking out the Tracheostomy. CM to follow to ensure safe DC home.
[2024-01-20 12:15] LABS: Hemoglobin A1c 5.7 % (3.8-5.6)
[2024-01-20] MEDS: hydrALAZINE 50 MG Tablet PO ×2 (13:11→20:44)
--- NOTE | 2024-01-20 14:46 | CASEMGMT ---
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 SW met with patient. Introduced self and role at [facility]. SW confirmed he would like do complete document. Patient's brother and sister in law were present. Patient wanted to do documents and he was okay with family being present. SW completed papers with patient. Copies were made and given to patient along with original. SW also placed a copy in patient's chart. Patient made his significant other Abiola his HCPOA. Ailyn DIALLO
--- NOTE | 2024-01-20 15:26 | CPS ---
This RT decreased pt to 28% and 6L ATC
[2024-01-20] MEDS: Carvedilol 12.5 MG Tablet PO (16:15)
[2024-01-20] MEDS: LORazepam 1 MG Tablet PO (20:45)
--- NOTE | 2024-01-20 20:55 | NURSING ---
Pt states that he has difficulty taking guaifenesin tablet and asked for it to be broken up; informed pt that the tablet is an extended releases and should not be broken, but will change the med to liquid form for ease of taking.
[2024-01-20] MEDS: guaiFENesin 10 ML UDC (200MG/10ML) PO (22:41)
[2024-01-21] VITALS (33 sets, daily range): BP systolic 121–157; BP diastolic 72–103; PULSE 82–106; RESP 14–28; TEMP 36.3–36.8; O2SAT 93–98; BMI 39.9
[2024-01-21] MEDS: hydrALAZINE 50 MG Tablet PO ×3 (04:47→20:57)
[2024-01-21] MEDS: guaiFENesin 10 ML UDC (200MG/10ML) PO ×4 (04:47→20:57)
[2024-01-21] MEDS: oxyCODONE 5 MG Tablet PO ×3 (04:47→17:52)
[2024-01-21] MEDS: 0.9% Saline Lock 10 ML Syringe IV ×2 (04:53→11:43)
[2024-01-21 05:02] LABS: Absolute Lymphocyte Count 2.24 X10^3/uL (0.83-4.51); Absolute Neutrophil Count 11.5 X10^3/uL (2.0-7.7); Basophil# 0.04 X10^3/uL; Basophil% 0.3 % (0-1); Eosinophil# 0.14 X10^3/uL; Eosinophils% 0.9 % (0-5); Hematocrit 36.5 % (40-54); Hemoglobin 12.5 g/dL (13.0-16.5); Lymphocyte # 2.24 X10^3/ul (0.83-4.51); Lymphocyte % 14.2 % (19-41); Mean Corp Hgb Conc 34.2 g/dL (32-36); Mean Corpuscular Volume 87.5 fL (80-94); Mean Platelet Vol. 10.7 fl (6.2-12.0); Monocyte# 1.63 X10^3/uL; Monocyte% 10.4 % (0-10); NRBC Flagged by Analyzer 0 % (0-5); Neutrophil # 11.51 X10^3/uL (2.7-7.7); Neutrophil % 73.1 % (47-70); POSITIVE DIFFERENTIAL YES; Platelet Count 240 K/mm3 (150-450); RBC Distribution Width CV 13.5 % (11.6-14.6); RBC Distribution Width SD 43.4 fl (35.1-43.9); Red Blood Count 4.17 M/mm3 (4.6-6.2); White Blood Count 15.7 K/mm3 (4.4-11.0)
[2024-01-21 05:20] LABS: Anion Gap 10 (5-15); BUN 31 mg/dL (7-18); BUN/Creat Ratio 24.6 RATIO (10-20); Calcium,Total 8.3 mg/dL (8.5-10.1); Chloride 96 mmol/L (98-107); Creatinine, Serum 1.26 mg/dL (0.70-1.30); EST Glomerular Filtration Rate 63 mL/min (>60); Est Glom Filt Rate - Afr Amer 76 mL/min (>60); Glucose 164 mg/dL (74-106); Potassium 3.2 mmol/L (3.5-5.1); Sodium Level 132 mmol/L (136-145)
[2024-01-21 05:22] LABS: Differential Indicated SCAN CRITERIA MET
--- NOTE | 2024-01-21 06:56 | PN.CC_ITS ---
Assessment & Plan Assessment/Plan (1) Pneumothorax on right: (2) Angioedema: PLAN: Plan RECOMMENDATIONS: 1. Continue trach mask 2. Continue guaifenesin to help with secretions/pulmonary toileting 3. Discontinue IV steroids 4. PT/OT to work with the patient. 5. Okay to transition from wall suction to waterseal on Pleur-evac in my opinion. Defer to surgery. 6. Potential transfer from the intensive care unit later today IMPRESSIONS: 1. Acute hypoxemic and hypercapnic respiratory failure The exact etiology for the patient's angioedema is not entirely clear. According to the patient's PCP, he was not prescribed an HAO inhibitor, but was rather on Cozaar. The patient's airway was compromised upon arrival to the emergency department. An emergent cricothyroidotomy was performed. Ultimately, the patient required placement of a small bore endotracheal tube through the cricothyroidotomy to achieve appropriate ventilatory support. The patient was evaluated by ENT and then taken for formal tracheostomy on January 13. The patient is doing well from a respiratory perspective. The patient will be continued on trach mask. Will discontinue IV steroids. Defer to ENT on timing for removal of trach 2. Pneumothorax/pneumomediastinum Potentially related to barotrauma in the setting of the patient's airway compromise. The patient underwent tube thoracotomy with resolution of the pneumothorax. Surgery is currently following. Defer to them on removal of chest tube. No leak noted. Possible waterseal later today. 3. Morbid obesity/history of hypertension new diagnosis diabetes mellitus Complicates care, management, recovery and prognosis. Continue supportive measures as noted above. PT/OT to work with the patient. Patient with elevated hemoglobin A1c, but blood sugars appear to be appropriate at this time. This note was generated with [employer] dictation software. It may contain incorrect words, spelling, and punctuation that were not noted in checking the note before signing. Subjective Subjective Patient did well overnight. No acute issues were reported. Patient has done better with pulmonary toileting following initiation of guaifenesin. Patient states his chest pain is tolerable at this time. Patient has been cleared for regular diet. Objective Data Objective Data Swallow study results were reviewed Vital Signs: Vital Signs Temp Pulse Resp BP Pulse Ox O2 Del Method O2 Flow Rate 36.8 C 90 15 143/92 H 96 Trach Collar 6 01/21/24 05:00 01/21/24 06:00 01/21/24 06:00 01/21/24 06:00 01/21/24 06:00 01/21/24 06:00 01/21/24 04:33 FiO2 28 01/21/24 06:00 Oxygen Flow Rate (L/min) 6 Oxygen Delivery Method Trach Collar Weight: 119 kg Body Mass Index (BMI) 39.9 Intake & Output: Intake and Output for Last 24 Hours 01/19/24 01/20/24 01/21/24 23:59 23:59 23:59 Intake Total 260 / 260 630 / 630 400 / 400 Output Total 1315 / 1315 1385 / 1385 500 / 500 Balance -1055 / -1055 -755 / -755 -100 / -100 Medical Nutrition Assessment Dietitian: Malnutrition Criteria Met Start: 01/20/24 10:15 Freq: Status: Active Protocol: Document 01/20/24 10:15 AG (Rec: 01/20/24 10:15 AG Desktop) Nutrition Malnutrition Evidence of Malnutrition Exists Yes Malnutrition (severe): Acute Illness/Injury Evidenced By Suboptimal Energy Intake ( Severe),Weight Loss (Severe) Intake Problem Inadequate Oral Intake Etiology related to inability to consume sufficient energy Signs/Symptoms as evidenced by NPO status x 5 days Status Resolved Problem Clinical Problem Acute Disease or Injury Related Malnutrition Etiology severe, acute malnutrition related to inadequate energy intake Signs/Symptoms as evidenced by unintentional 14.6#/5.2% wt loss < 1 week, estimated PO intake meeting < 50% of estimated energy needs x 5 days Status Active Problem Recommendation Dietitian Recommendations/Changes continue regular diet- texture /consistency per FAST FOOD SHIFT SUPERVISOR Lab / Micro Data Attestation: I reviewed the patient's lab results. 01/21/24 04:55 01/21/24 04:55 Labs: Laboratory Results - last 24 hr 01/19/24 09:20: Complement C4 38 01/20/24 03:10: Hemoglobin A1c 5.7 H 01/21/24 04:55: WBC 15.7 H, RBC 4.17 L, Hgb 12.5 L, Hct 36.5 L, MCV 87.5, MCH 30.0, MCHC 34.2, RDW Std Deviation 43.4, RDW Coeff of Ya 13.5, Plt Count 240, MPV 10.7, Immature Gran % (Auto) 1.100 H, Neut % (Auto) 73.1 H, Lymph % (Auto) 14.2 L, [place] % (Auto) 10.4 H, Eos % (Auto) 0.9, Baso % (Auto) 0.3, Absolute Neuts (auto) 11.5 H, Absolute Lymphs (auto) 2.24, Nucleated RBC % 0, Diff Path Review February, Sodium 132 L, Potassium 3.2 L, Chloride 96 L, Carbon Dioxide 26.0, Anion Gap 10, BUN 31 H, Creatinine 1.26, Estim Creat Clear Calc 81.10, Est GFR (MDRD) Af Amer 76, Est GFR (MDRD) Non-Af 63, BUN/Creatinine Ratio 24.6 H, Glucose 164 H, Calcium 8.3 L Micro: Microbiology 01/13/24 04:35 Sputum, Induced/Lukens Gram Stain - Final 01/13/24 04:35 Sputum, Induced/Lukens Respiratory Culture - Final Mixed normal respiratory madyson. No Streptococcus pneumoniae, beta-hemolytic Streptococcus or Staphylococcus aureus isolated. Radiography Diagnostic Testing: Radiology Impression Chest X-Ray 01/20/24 06:39 IMPRESSION: 1. Tracheostomy tube remains in good position. 2. Right-sided chest tube is in good position. Trace residual right apical pneumothorax that is decreased compared to the previous exam. 3. Subsegmental atelectasis in the lung bases bilaterally. Electronically Signed: Miguel Ballesteros MD at 7:08 EDT , Rhythm Strip Rhythm Strip: Sinus Rhythm Rate: 94 Physical Exam Const alert, oriented x3 and no apparent distress Constitutional Narrative: Currently tolerating trach collar supplemental O2. Some vocalization with effort. General Appearance: cooperative HEENT normocephalic, head/scalp atraumatic and moist oral mucous membranes Eyes PERRL, conjunctivae normal and no scleral icterus Neck supple Neck Narrative: Stable appearing XLT tracheostomy tube in place. General: trachea midline Chest inspection of chest normal Resp normal respiratory effort and no use of accessory muscles Resp Narrative: No airleak noted in the Pleur-evac this morning. Auscultation: diminished lung sounds; Negative for rales, rhonchi or wheezes Cardio regular rate, regular rhythm, S1 normal heart sound and S2 normal heart sound GI normal to inspection, nondistended, normoactive bowel sounds and soft to palpation Extremity no clubbing, cyanosis or edema Skin no rashes or lesions noted Neuro CN's II-XII intact bilaterally, moves all extremities and no focal motor deficits Neuro Narrative: Alert and appropriately interactive. Psych cooperative and affect normal Charges/Coding Visit Charges Inpatient E&M: 18124 Subs Hosp L3
--- NOTE | 2024-01-21 07:45 | RAD_ITS ---
STUDY: X-RAY CHEST REASON FOR EXAM: Male, 58 years old. Leukocytosis TECHNIQUE: Single AP portable view of the chest. COMPARISON: Comparison is made with prior study dated January 20, 2024. FINDINGS: EKG electrodes are seen. A tracheostomy tube is seen. The tip is at 5.4 cm proximal to the [place]. A large caliber chest tube is once again seen in the upper lateral aspect of the right hemithorax. Stable mild increased markings at the lung bases slightly more prominent in the right infrahilar region. Stable tiny right apical pneumothorax. There is mild cardiac enlargement. Normal mediastinum and hortencia. Normal visualized pulmonary arteries. There is atherosclerotic tortuosity of the aortic arch and descending thoracic aorta. Normal visualized thoracic spine. Normal visualized ribs, clavicles, and shoulders. There is no demonstrated abnormality of the visualized soft tissue structures of the upper abdomen. RAD/Chest 1 View (Portable) IMPRESSION: Stable mild increased markings at the lung bases slightly more prominent in the right lower lobe. Stable minimal right apical pneumothorax. Electronically Signed: Zackary Moody MD at 8:36 EDT ,
[2024-01-21] MEDS: Piperacil/Tazobactam 3.375 GM in 0.9% Normal Saline (50mL MB+) 50 ML IV ×3 (08:27→20:57)
[2024-01-21] MEDS: Potassium Chloride Oral Soln 20 MEQ/15 ML UDC 40 MEQ PO (08:27)
[2024-01-21] MEDS: Carvedilol 12.5 MG Tablet PO ×2 (08:28→17:52)
[2024-01-21] MEDS: Enoxaparin 40 MG/0.4 ML Syringe SC ×2 (08:28→20:57)
[2024-01-21] MEDS: amLODIPine 10 MG Tablet PO (08:29)
--- NOTE | 2024-01-21 08:37 | PCM.PN.HOSP ---
Reason for Visit Reason for Visit: Severe tongue and lip swelling Subjective Subjective Patient with no significant complaints. Waiting for x-ray to be reviewed by surgery to see if we can place his chest tube to waterseal. [place] with the patient once we get his chest tube out we can start looking at discharge home. Blood pressure is better with changes we made yesterday. Objective Data Objective Data Vital Signs: Vital Signs Temp Pulse Resp BP Pulse Ox O2 Del Method O2 Flow Rate 97.8 F 92 18 122/76 H 95 Trach Collar 6 01/21/24 08:00 01/21/24 08:00 01/21/24 08:00 01/21/24 08:00 01/21/24 08:00 01/21/24 08:00 01/21/24 04:33 FiO2 28 01/21/24 08:00 Oxygen Flow Rate (L/min) 6 Oxygen Delivery Method Trach Collar Weight: 119 kg Body Mass Index (BMI) 39.9 Intake & Output: Intake and Output for Last 24 Hours 01/19/24 01/20/24 01/21/24 23:59 23:59 23:59 Intake Total 260 / 260 630 / 630 400 / 400 Output Total 1315 / 1315 1385 / 1385 500 / 500 Balance -1055 / -1055 -755 / -755 -100 / -100 Medical Nutrition Assessment Dietitian: Malnutrition Criteria Met Start: 01/20/24 10:15 Freq: Status: Active Protocol: Document 01/20/24 10:15 AG (Rec: 01/20/24 10:15 AG Desktop) Nutrition Malnutrition Evidence of Malnutrition Exists Yes Malnutrition (severe): Acute Illness/Injury Evidenced By Suboptimal Energy Intake ( Severe),Weight Loss (Severe) Intake Problem Inadequate Oral Intake Etiology related to inability to consume sufficient energy Signs/Symptoms as evidenced by NPO status x 5 days Status Resolved Problem Clinical Problem Acute Disease or Injury Related Malnutrition Etiology severe, acute malnutrition related to inadequate energy intake Signs/Symptoms as evidenced by unintentional 14.6#/5.2% wt loss < 1 week, estimated PO intake meeting < 50% of estimated energy needs x 5 days Status Active Problem Recommendation Dietitian Recommendations/Changes continue regular diet- texture /consistency per VETERINARY 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 Lab / Micro Data 01/21/24 04:55 01/21/24 04:55 Labs: Laboratory Results - last 24 hr 01/19/24 09:20: Complement C4 38 01/20/24 03:10: Hemoglobin A1c 5.7 H 01/21/24 04:55: WBC 15.7 H, RBC 4.17 L, Hgb 12.5 L, Hct 36.5 L, MCV 87.5, MCH 30.0, MCHC 34.2, RDW Std Deviation 43.4, RDW Coeff of Ya 13.5, Plt Count 240, MPV 10.7, Immature Gran % (Auto) 1.100 H, Neut % (Auto) 73.1 H, Lymph % (Auto) 14.2 L, [place] % (Auto) 10.4 H, Eos % (Auto) 0.9, Baso % (Auto) 0.3, Absolute Neuts (auto) 11.5 H, Absolute Lymphs (auto) 2.24, Nucleated RBC % 0, Diff Path Review February, Sodium 132 L, Potassium 3.2 L, Chloride 96 L, Carbon Dioxide 26.0, Anion Gap 10, BUN 31 H, Creatinine 1.26, Estim Creat Clear Calc 81.10, Est GFR (MDRD) Af Amer 76, Est GFR (MDRD) Non-Af 63, BUN/Creatinine Ratio 24.6 H, Glucose 164 H, Calcium 8.3 L Micro: Microbiology 01/13/24 04:35 Sputum, Induced/Lukens Gram Stain - Final 01/13/24 04:35 Sputum, Induced/Lukens Respiratory Culture - Final Mixed normal respiratory madyson. No Streptococcus pneumoniae, beta-hemolytic Streptococcus or Staphylococcus aureus isolated. Radiography Diagnostic Testing: Radiology Impression Chest X-Ray 01/21/24 07:45 IMPRESSION: Stable mild increased markings at the lung bases slightly more prominent in the right lower lobe. Stable minimal right apical pneumothorax. Electronically Signed: Zackary Moody MD at 8:36 EDT , Rhythm Strip Rhythm Strip: Sinus Rhythm Rate: 94 Physical Exam Const alert, oriented x3, no apparent distress and well nourished; Negative for average body habitus or healthy appearing Constitutional Narrative: Morbidly obese, white male, sitting up in bed, watching television, patient appears comfortable and nontoxic General Appearance: cooperative HEENT normocephalic, head/scalp atraumatic and moist oral mucous membranes HEENT Narrative: Mallampati 3, no thrush, no swelling Neck supple Neck Narrative: Trachea midline with 6 Shiley proximal XLT in place, patient is able to phonate around his trach, no signs of infection, patient does have sputum from trach site and color is slightly darker yellow Resp normal respiratory effort, no retractions, no use of accessory muscles and clear to auscultation bilaterally Resp Narrative: Diminished at bases bilaterally Auscultation: Negative for rales, rhonchi or wheezes Cardio regular rate, regular rhythm, S1 normal heart sound, S2 normal heart sound, no murmurs, no rub, no gallops and no clicks GI normal to inspection, nondistended, normoactive bowel sounds, soft to palpation and non-tender Extremity no clubbing, cyanosis or edema Extremity Narrative: Pedal pulses are 2+ Neuro oriented x3, moves all extremities and no focal motor deficits Neuro Narrative: Speech is normal with his trach capped/Passy-Gabi valve Psych affect normal Psych Narrative: Interacts appropriately, very pleasant Assessment & Plan Assessment/Plan (1) Respiratory failure: (2) Angioedema: (3) Pneumothorax on right: (4) Hypertension: QUALIFIERS: Hypertension type: unspecified Qualified Code(s): I10 - Essential (primary) hypertension (5) Leukocytosis: (6) Hyponatremia: PLAN: Plan Acute hypoxic and hypercapnic respiratory failure secondary to angioedema -Emergent cardiac done in the emergency department which since has been converted to tracheostomy by ENT on 01/14/2024 -Trach removal as an outpatient by ENT when appropriate -Patient tolerating regular diet without difficulty -Doing well on minimal oxygen with trach mask at 28% -Nocturnal CPAP for ZACKARY -Steroids were discontinued by pulmonary/critical care medicine this morning -Avoid HAO inhibitors/ARB's -Continue Mucinex -Pulm/critical care medicine following-appreciate input Pneumothorax/pneumomediastinum -Chest tube had to be replaced on 01/19/2024 due to recurrence of pneumothorax after dislodgment of chest tube -Management per general surgery -Awaiting general surgery input today to see if we can put chest tube to waterseal and considering discontinuation soon Hypertension -Avoid HAO inhibitors/ARB -Discontinue Maxide due to hyponatremia -Continue Norvasc -Add carvedilol 12.5 mg p.o. twice daily -Add hydralazine -Continue to monitor Leukocytosis -Trending up in the last couple days and steroids were started on the so I suspect this is not steroid-induced -Check sputum culture -Check UA -Check chest x-ray -Check MRSA PCR -Start Zosyn and if MRSA PCR is positive will start vancomycin Hypokalemia -Oral potassium replacement and repeat in a.m. Hyponatremia -Relatively stable today -Suspect related to thiazide diuretic -Discontinue HCTZ for now may consider restarting at lower dose as he was on 25 mg daily at admission however with Maxide he was on 50 mg daily which may have disrupted his electrolytes significantly -Repeat lab in a.m. Hyperglycemia -A1c was 5.7 indicating some insulin resistance but not true diabetes Erectile dysfunction -Hold Cialis Morbid obesity with suspected sleep apnea -Continue nocturnal CPAP -Recommend outpatient pulmonary medicine follow-up for PSG evaluation DVT prophylaxis -Continue enoxaparin twice daily CODE STATUS -Full code Charges/Coding Visit Charges Inpatient E&M: 96641 Subs Hosp L2
[2024-01-21] MEDS: CHLORHEXIDINE GLUC 2% CLOTH 1 EACH TOWELETTE TOPICAL (09:47)
[2024-01-21 10:00] LABS: M R Staph aureus DNA By PCR Negative (Negative); Probe Check PASS; Specimen Processing Control PASS
[2024-01-21 10:05] LABS: Mucous, Urine 0 SEEN /hpf (<or=2+); Squamous Epithelial Cells - UA 0 SEEN /hpf (0-5)
[2024-01-21 10:13] LABS: Color, Urine Yellow (Yellow); Glucose, Dipstick Normal (Normal); Ketone-Dipstick Negative (Negative); Leukocyte Esterase-Dipstick 25 /ul (Negative); Nitrite-Dipstick Negative (Negative); Occult Blood-Urine 150 /ul (Negative); Protein-Dipstick 15 mg/dl (Negative); Specific Gravity, Urine 1.015 (1.002-1.030); Urine Bilirubin Dipstick Negative (Negative); Urine Clarity Sl. Cloudy (Clear); Urine Urobilinogen Normal (Normal)
[2024-01-21 10:23] LABS: Bacteria 1+ /hpf (None Seen); Red Blood Cells-Urine 10-25 SEEN /hpf (0-5); White Blood Cells 0-5 SEEN /hpf (0-5)
[2024-01-21 14:03] LABS: Pathologist Review Reviewed
--- NOTE | 2024-01-21 15:50 | RAD_ITS ---
STUDY: X-RAY CHEST REASON FOR EXAM: Male, 58 years old. chest tube repositioning TECHNIQUE: AP portable COMPARISON: January 21, 2024 7:42 AM. FINDINGS: Nonspecific elevation of right hemidiaphragm and minor subsegmental atelectasis of the right upper lobe.. Or subsegmental atelectasis in left upper lobe Chest tube is noted at the right pulmonary apex. There is no evidence for pneumothorax.. Normal size heart. Normal mediastinum and hortencia. Normal visualized pulmonary arteries. Normal visualized aortic arch and descending thoracic aorta. Tracheostomy noted in the midline Normal visualized thoracic spine. Normal visualized ribs, clavicles, and shoulders. There is no demonstrated abnormality of the visualized soft tissue structures of the upper abdomen. RAD/Chest 1 View (Portable) IMPRESSION: No definitive evidence for pneumothorax status post repositioning of right chest tube. Other findings as above. Electronically Signed: Abrahan Miller MD at 16:10 EDT ,
--- NOTE | 2024-01-21 17:07 | PCM.PN.SRG ---
Subjective Subjective Patient seen and examined during AM rounds and again in the afternoon. Earlier in the day he denied any acute events overnight and reported that he is still eating well. Objective Data Objective Data Vital Signs: Vital Signs Temp Pulse Resp BP Pulse Ox O2 Del Method O2 Flow Rate 98.1 F 90 25 H 150/93 H 98 Trach Collar 7 01/21/24 16:00 01/21/24 16:00 01/21/24 16:00 01/21/24 16:00 01/21/24 16:00 01/21/24 16:29 01/21/24 09:51 FiO2 28 01/21/24 16:29 Oxygen Flow Rate (L/min) 7 Oxygen Delivery Method Trach Collar Weight: 262 lb 5.601 oz Body Mass Index (BMI) 39.9 Intake & Output: Intake and Output for Last 24 Hours 01/19/24 01/20/24 01/21/24 23:59 23:59 23:59 Intake Total 260 / 260 630 / 630 790 / 790 Output Total 1315 / 1315 1385 / 1385 1100 / 1100 Balance -1055 / -1055 -755 / -755 -310 / -310 Medical Nutrition Assessment Dietitian: Malnutrition Criteria Met Start: 01/20/24 10:15 Freq: Status: Active Protocol: Document 01/21/24 11:32 RMA (Rec: 01/21/24 11:33 RMA [id number]) Nutrition Malnutrition Evidence of Malnutrition Exists Yes Malnutrition (severe): Acute Illness/Injury Evidenced By Suboptimal Energy Intake ( Severe),Weight Loss (Severe) Intake Problem Inadequate Oral Intake Etiology related to inability to consume sufficient energy Signs/Symptoms as evidenced by NPO status x 5 days Status Resolved Problem Clinical Problem Acute Disease or Injury Related Malnutrition Etiology severe, acute malnutrition related to inadequate energy intake Signs/Symptoms as evidenced by unintentional 14.6#/5.2% wt loss < 1 week, estimated PO intake meeting < 50% of estimated energy needs x 5 days Status Active Problem Recommendation Dietitian Recommendations/Changes Will continue liberalized regular diet with texture/ consistency as per SUPPORT SPECIALIST. Will add ensure compact 3 times per day w/ meals for tolerance; adjust as indicated . Trend weight closely, weight loss since admit significant for malnutrition. Lab / Micro Data 01/21/24 04:55 01/21/24 04:55 Labs: Laboratory Results - last 24 hr 01/19/24 09:20: Complement C4 38 01/21/24 04:55: WBC 15.7 H, RBC 4.17 L, Hgb 12.5 L, Hct 36.5 L, MCV 87.5, MCH 30.0, MCHC 34.2, RDW Std Deviation 43.4, RDW Coeff of Ya 13.5, Plt Count 240, MPV 10.7, Immature Gran % (Auto) 1.100 H, Neut % (Auto) 73.1 H, Lymph % (Auto) 14.2 L, [place] % (Auto) 10.4 H, Eos % (Auto) 0.9, Baso % (Auto) 0.3, Absolute Neuts (auto) 11.5 H, Absolute Lymphs (auto) 2.24, Nucleated RBC % 0, Diff Path Review Reviewed, Sodium 132 L, Potassium 3.2 L, Chloride 96 L, Carbon Dioxide 26.0, Anion Gap 10, BUN 31 H, Creatinine 1.26, Estim Creat Clear Calc 81.10, Est GFR (MDRD) Af Amer 76, Est GFR (MDRD) Non-Af 63, BUN/Creatinine Ratio 24.6 H, Glucose 164 H, Calcium 8.3 L 01/21/24 08:20: MRSA (PCR) Negative 01/21/24 10:00: Urine Color Yellow, Urine Clarity Sl. Cloudy, Urine pH 6.0, Ur Specific [place] 1.015, Urine Protein 15 H, Urine Glucose (UA) Normal, Urine Ketones Negative, Urine Occult Blood 150 H, Urine Nitrite Negative, Urine Bilirubin Negative, Urine Urobilinogen Normal, Ur Leukocyte Esterase 25 H, Urine RBC 10-25 SEEN, Urine WBC 0-5 SEEN, Ur Squamous Epith Cells 0 SEEN, Urine Bacteria 1+, Urine Mucus 0 SEEN Micro: Microbiology 01/21/24 08:20 Sputum, Expectorated/Coughed Gram Stain - Final 01/13/24 04:35 Sputum, Induced/Lukens Gram Stain - Final 01/13/24 04:35 Sputum, Induced/Lukens Respiratory Culture - Final Mixed normal respiratory madyson. No Streptococcus pneumoniae, beta-hemolytic Streptococcus or Staphylococcus aureus isolated. Radiography Diagnostic Testing: Radiology Impression Chest X-Ray 01/21/24 07:45 IMPRESSION: Stable mild increased markings at the lung bases slightly more prominent in the right lower lobe. Stable minimal right apical pneumothorax. Electronically Signed: Zackary Moody MD at 8:36 EDT , Chest X-Ray 01/21/24 15:50 IMPRESSION: No definitive evidence for pneumothorax status post repositioning of right chest tube. Other findings as above. Electronically Signed: Abrahan Miller MD at 16:10 EDT , Rhythm Strip Rhythm Strip: Sinus Rhythm Rate: 94 Physical Exam Const oriented x3 and no apparent distress Resp normal respiratory effort Resp Narrative: Patient with thick secretions that he is coughing up via his tracheostomy. Chest tube is to -20 cm suction and all connections appear intact. There is no visible airleak on the Pleur-evac. There is no crepitus of the chest wall. Assessment & Plan Assessment/Plan (1) Pneumothorax on right: PLAN: Patient is a 58-year-old male who is status post right thoracostomy tube placement for iatrogenic pneumothorax on the right likely secondary to barotrauma. Repeat chest x-ray today showed persistence of an apical pneumothorax and chest tube appears retracted to the chest wall. In the absence of an air leak seen on Pleur-evac I am inclined to believe that this area is making its ingress through the sidehole of the chest tube. Based on this assumption I arranged to place the chest tube 4 cm deeper. Patient's dressing to the chest tube was taken down and it was untethered at the chest wall. Then the tubing was prepped with alcohol swabs and the surrounding skin was anesthetized with 17 mL of 1% lidocaine. After this preparation the chest tube was advanced 4 cm and resecured at the skin. Additionally, I placed a suture that would close down the thoracostomy site following chest tube removal. Patient tolerated the procedure without difficulty and minimal blood loss. Postprocedure chest x-ray shows the terminus of the chest tube at the apex of the lung and the sidehole well within the thoracic cavity. Provided this tube remained stable and there is no airleak or no pneumothorax tomorrow we will plan to waterseal and then discontinue chest tube. Miguel Kurtz MD General Surgery Endocrine Surgery Pager: [facility] [address] [place] [address], [address] [place] [address] Office: [phone] Charges/Coding Visit Charges Inpatient E&M: 24151 Subs Hosp L2
[2024-01-21] MEDS: LORazepam 1 MG Tablet PO (20:57)
[2024-01-22] VITALS (23 sets, daily range): BP systolic 124–162; BP diastolic 62–96; PULSE 74–97; RESP 12–26; TEMP 35.8–36.4; O2SAT 92–96; BMI 40.0
[2024-01-22] MEDS: guaiFENesin 10 ML UDC (200MG/10ML) PO ×4 (03:34→20:56)
[2024-01-22 03:52] LABS: Absolute Lymphocyte Count 1.54 X10^3/uL (0.83-4.51); Absolute Neutrophil Count 12.2 X10^3/uL (2.0-7.7); Basophil# 0.03 X10^3/uL; Basophil% 0.2 % (0-1); Eosinophil# 0.13 X10^3/uL; Eosinophils% 0.8 % (0-5); Hematocrit 35.9 % (40-54); Hemoglobin 12.2 g/dL (13.0-16.5); Lymphocyte # 1.54 X10^3/ul (0.83-4.51); Mean Corpuscular Hgb 30.3 pg (27.0-32.0); Mean Corpuscular Volume 89.1 fL (80-94); Mean Platelet Vol. 11.1 fl (6.2-12.0); Monocyte# 1.36 X10^3/uL; Monocyte% 8.8 % (0-10); NRBC Flagged by Analyzer 0 % (0-5); Neutrophil # 12.22 X10^3/uL (2.7-7.7); Neutrophil % 79.3 % (47-70); Platelet Count 233 K/mm3 (150-450); RBC Distribution Width CV 13.4 % (11.6-14.6); RBC Distribution Width SD 43.9 fl (35.1-43.9); Red Blood Count 4.03 M/mm3 (4.6-6.2); White Blood Count 15.4 K/mm3 (4.4-11.0)
[2024-01-22 06:00] LABS: Anion Gap 8 (5-15); BUN 27 mg/dL (7-18); BUN/Creat Ratio 21.1 RATIO (10-20); Calcium,Total 8.6 mg/dL (8.5-10.1); Chloride 98 mmol/L (98-107); Creatinine, Serum 1.28 mg/dL (0.70-1.30); EST Glomerular Filtration Rate 61 mL/min (>60); Est Glom Filt Rate - Afr Amer 74 mL/min (>60); Estimated Creatinine Clearance 80.01 ml/min; Glucose 155 mg/dL (74-106); Potassium 3.5 mmol/L (3.5-5.1); Sodium Level 131 mmol/L (136-145)
[2024-01-22] MEDS: oxyCODONE 5 MG Tablet PO ×4 (06:11→19:26)
[2024-01-22] MEDS: Piperacil/Tazobactam 3.375 GM in 0.9% Normal Saline (50mL MB+) 50 ML IV ×3 (06:11→20:54)
[2024-01-22] MEDS: 0.9% Saline Lock 10 ML Syringe IV (06:11)
[2024-01-22] MEDS: hydrALAZINE 50 MG Tablet PO ×3 (06:14→20:55)
--- NOTE | 2024-01-22 06:26 | RAD_ITS ---
INDICATION: Chest tube EXAMINATION/TECHNIQUE: X-RAY - XR Chest 1 View COMPARISON: Chest x-ray from one day prior FINDINGS: LINES/DEVICES: Right chest tube tip remains at apex. Tracheostomy tube in place. LUNGS: Persistent bibasilar atelectatic changes with mildly elevated right hemidiaphragm. Small right pleural effusion. No appreciable pneumothorax. MEDIASTINUM AND CARDIOVASCULAR STRUCTURES: Heart size within normal limits for imaging technique. Mediastinal contours unremarkable. BONES AND SOFT TISSUES: No acute findings. RAD/Chest 1 View (Portable) IMPRESSION: Right chest tube in place with small pleural effusion but no appreciable pneumothorax. Bibasilar atelectatic changes. Electronically Signed: Mik Jasmine MD at 7:48 EDT ,
--- NOTE | 2024-01-22 07:26 | PCM.PN.INT ---
Assessment & Plan Assessment/Plan (1) Pneumothorax on right: (2) Angioedema: PLAN: Plan RECOMMENDATIONS: 1. Continue trach mask 2. Continue guaifenesin to help with secretions/pulmonary toileting 3. Okay to make PCU status from my perspective 4. PT/OT to work with the patient. 5. Okay to transition from wall suction to waterseal on Pleur-evac in my opinion. Defer to surgery. 6. Decannulation timing per ENT IMPRESSIONS: 1. Acute hypoxemic and hypercapnic respiratory failure The exact etiology for the patient's angioedema is not entirely clear. According to the patient's PCP, he was not prescribed an HAO inhibitor, but was rather on Cozaar. The patient's airway was compromised upon arrival to the emergency department. An emergent cricothyroidotomy was performed. Ultimately, the patient required placement of a small bore endotracheal tube through the cricothyroidotomy to achieve appropriate ventilatory support. The patient was evaluated by ENT and then taken for formal tracheostomy on January 13. The patient is doing well from a respiratory perspective. The patient will be continued on trach mask. Patient tolerating discontinuation of IV steroids well. Defer to ENT on timing for removal of trach. Patient has been stable. Likely okay to transition to PCU status 2. Pneumothorax/pneumomediastinum Potentially related to barotrauma in the setting of the patient's airway compromise. The patient underwent tube thoracotomy with resolution of the pneumothorax. Surgery is currently following. Defer to them on removal of chest tube. No leak noted. Possible waterseal later today. 3. Morbid obesity/history of hypertension new diagnosis diabetes mellitus Complicates care, management, recovery and prognosis. Continue supportive measures as noted above. PT/OT to work with the patient. Patient with elevated hemoglobin A1c, but blood sugars appear to be appropriate at this time. This note was generated with [employer] dictation software. It may contain incorrect words, spelling, and punctuation that were not noted in checking the note before signing. Subjective Subjective Patient did well overnight. Patient did have to have a repositioning of his chest tube leading to greater discomfort overnight. Patient states that he has been able to cough out his secretions without the assistance of suctioning. Objective Data Objective Data Vital Signs: Vital Signs Temp Pulse Resp BP Pulse Ox O2 Del Method O2 Flow Rate 36.4 C L 89 19 H 134/80 H 95 Trach Collar 7 01/22/24 05:00 01/22/24 06:14 01/22/24 06:00 01/22/24 06:14 01/22/24 06:00 01/22/24 06:00 01/21/24 09:51 FiO2 28 01/22/24 06:00 Oxygen Flow Rate (L/min) 7 Oxygen Delivery Method Trach Collar Weight: 119.5 kg Body Mass Index (BMI) 40.0 Intake & Output: Intake and Output for Last 24 Hours 01/20/24 01/21/24 01/22/24 23:59 23:59 23:59 Intake Total 630 / 630 1220 / 1320 150 / 150 Output Total 1385 / 1385 1535 / 1935 400 / 400 Balance -755 / -755 -315 / -615 -250 / -250 Medical Nutrition Assessment Dietitian: Malnutrition Criteria Met Start: 01/20/24 10:15 Freq: Status: Active Protocol: Document 01/21/24 11:32 RMA (Rec: 01/21/24 11:33 RMA [id number]) Nutrition Malnutrition Evidence of Malnutrition Exists Yes Malnutrition (severe): Acute Illness/Injury Evidenced By Suboptimal Energy Intake ( Severe),Weight Loss (Severe) Intake Problem Inadequate Oral Intake Etiology related to inability to consume sufficient energy Signs/Symptoms as evidenced by NPO status x 5 days Status Resolved Problem Clinical Problem Acute Disease or Injury Related Malnutrition Etiology severe, acute malnutrition related to inadequate energy intake Signs/Symptoms as evidenced by unintentional 14.6#/5.2% wt loss < 1 week, estimated PO intake meeting < 50% of estimated energy needs x 5 days Status Active Problem Recommendation Dietitian Recommendations/Changes Will continue liberalized regular diet with texture/ consistency as per [employer]ES/MARKETING. Will add ensure compact 3 times per day w/ meals for tolerance; adjust as indicated . Trend weight closely, weight loss since admit significant for malnutrition. Lab / Micro Data Attestation: I reviewed the patient's lab results. 01/22/24 03:35 01/22/24 03:35 Labs: Laboratory Results - last 24 hr 01/21/24 04:55: Diff Path Review Reviewed 01/21/24 08:20: MRSA (PCR) Negative 01/21/24 10:00: Urine Color Yellow, Urine Clarity Sl. Cloudy, Urine pH 6.0, Ur Specific [place] 1.015, Urine Protein 15 H, Urine Glucose (UA) Normal, Urine Ketones Negative, Urine Occult Blood 150 H, Urine Nitrite Negative, Urine Bilirubin Negative, Urine Urobilinogen Normal, Ur Leukocyte Esterase 25 H, Urine RBC 10-25 SEEN, Urine WBC 0-5 SEEN, Ur Squamous Epith Cells 0 SEEN, Urine Bacteria 1+, Urine Mucus 0 SEEN 01/22/24 03:35: WBC 15.4 H, RBC 4.03 L, Hgb 12.2 L, Hct 35.9 L, MCV 89.1, MCH 30.3, MCHC 34.0, RDW Std Deviation 43.9, RDW Coeff of Ya 13.4, Plt Count 233, MPV 11.1, Immature Gran % (Auto) 0.900, Neut % (Auto) 79.3 H, Lymph % (Auto) 10.0 L, [place] % (Auto) 8.8, Eos % (Auto) 0.8, Baso % (Auto) 0.2, Absolute Neuts (auto) 12.2 H, Absolute Lymphs (auto) 1.54, Nucleated RBC % 0, Sodium 131 L, Potassium 3.5, Chloride 98, Carbon Dioxide 25.0, Anion Gap 8, BUN 27 H, Creatinine 1.28, Estim Creat Clear Calc 80.01, Est GFR (MDRD) Af Amer 74, Est GFR (MDRD) Non-Af 61, BUN/Creatinine Ratio 21.1 H, Glucose 155 H, Calcium 8.6, Magnesium 2.0 Micro: Microbiology 01/21/24 08:20 Sputum, Expectorated/Coughed Gram Stain - Final 01/13/24 04:35 Sputum, Induced/Lukens Gram Stain - Final 01/13/24 04:35 Sputum, Induced/Lukens Respiratory Culture - Final Mixed normal respiratory madyson. No Streptococcus pneumoniae, beta-hemolytic Streptococcus or Staphylococcus aureus isolated. Radiography Diagnostic Testing: Radiology Impression Chest X-Ray 01/21/24 07:45 IMPRESSION: Stable mild increased markings at the lung bases slightly more prominent in the right lower lobe. Stable minimal right apical pneumothorax. Electronically Signed: Zackary Moody MD at 8:36 EDT , Chest X-Ray 01/21/24 15:50 IMPRESSION: No definitive evidence for pneumothorax status post repositioning of right chest tube. Other findings as above. Electronically Signed: Abrahan Miller MD at 16:10 EDT Reading Location ID and State: [facility] / [place] Tel , Service support , Rhythm Strip Rhythm Strip: Sinus Rhythm Rate: 88 Physical Exam Const alert, oriented x3 and no apparent distress Constitutional Narrative: Currently tolerating trach collar supplemental O2. Some vocalization with effort. General Appearance: cooperative HEENT normocephalic, head/scalp atraumatic and moist oral mucous membranes Eyes PERRL, conjunctivae normal and no scleral icterus Neck supple Neck Narrative: Stable appearing XLT tracheostomy tube in place. General: trachea midline Chest inspection of chest normal Resp normal respiratory effort and no use of accessory muscles Resp Narrative: No airleak noted in the Pleur-evac this morning. Auscultation: diminished lung sounds; Negative for rales, rhonchi or wheezes Cardio regular rate, regular rhythm, S1 normal heart sound and S2 normal heart sound GI normal to inspection, nondistended, normoactive bowel sounds and soft to palpation Extremity no clubbing, cyanosis or edema Skin no rashes or lesions noted Neuro CN's II-XII intact bilaterally, moves all extremities and no focal motor deficits Neuro Narrative: Alert and appropriately interactive. Psych cooperative and affect normal Charges/Coding Visit Charges Inpatient E&M: 39452 Subs Hosp L2
[2024-01-22] MEDS: Enoxaparin 40 MG/0.4 ML Syringe SC ×2 (08:24→20:54)
[2024-01-22] MEDS: Carvedilol 12.5 MG Tablet PO ×2 (08:24→16:10)
[2024-01-22] MEDS: amLODIPine 10 MG Tablet PO (08:24)
[2024-01-22] MEDS: CHLORHEXIDINE GLUC 2% CLOTH 1 EACH TOWELETTE TOPICAL (08:27)
--- NOTE | 2024-01-22 08:28 | PN.HOSP_ITS ---
Reason for Visit Reason for Visit: Tongue and lip swelling Subjective Subjective No issues overnight. Patient has no complaints. General surgery note was revie wed and chest tube had to be advanced yesterday. No leak in chest tube today so hopefully we can place to waterseal and see if we can pull later today. Objective Data Objective Data Vital Signs: Vital Signs Temp Pulse Resp BP Pulse Ox O2 Del Method O2 Flow Rate 97.6 F L 89 19 H 134/80 H 95 Trach Collar 7 01/22/24 05:00 01/22/24 06:14 01/22/24 06:00 01/22/24 06:14 01/22/24 06:00 01/22/24 06:00 01/21/24 09:51 FiO2 28 01/22/24 06:00 Oxygen Flow Rate (L/min) 7 Oxygen Delivery Method Trach Collar Weight: 119.5 kg Body Mass Index (BMI) 40.0 Intake & Output: Intake and Output for Last 24 Hours 01/20/24 01/21/24 01/22/24 23:59 23:59 23:59 Intake Total 630 / 630 1220 / 1320 150 / 150 Output Total 1385 / 1385 1535 / 1935 400 / 400 Balance -755 / -755 -315 / -615 -250 / -250 Medical Nutrition Assessment Dietitian: Malnutrition Criteria Met Start: 01/20/24 10:15 Freq: Status: Active Protocol: Document 01/21/24 11:32 RMA (Rec: 01/21/24 11:33 RMA [id number]) Nutrition Malnutrition Evidence of Malnutrition Exists Yes Malnutrition (severe): Acute Illness/Injury Evidenced By Suboptimal Energy Intake ( Severe),Weight Loss (Severe) Intake Problem Inadequate Oral Intake Etiology related to inability to consume sufficient energy Signs/Symptoms as evidenced by NPO status x 5 days Status Resolved Problem Clinical Problem Acute Disease or Injury Related Malnutrition Etiology severe, acute malnutrition related to inadequate energy intake Signs/Symptoms as evidenced by unintentional 14.6#/5.2% wt loss < 1 week, estimated PO intake meeting < 50% of estimated energy needs x 5 days Status Active Problem Recommendation Dietitian Recommendations/Changes Will continue liberalized regular diet with texture/ consistency as per [employer]. Will add ensure compact 3 times per day w/ meals for tolerance; adjust as indicated . Trend weight closely, weight loss since admit significant for malnutrition. Lab / Micro Data 01/22/24 03:35 01/22/24 03:35 Labs: Laboratory Results - last 24 hr 01/21/24 04:55: Diff Path Review Reviewed 01/21/24 08:20: MRSA (PCR) Negative 01/21/24 10:00: Urine Color Yellow, Urine Clarity Sl. Cloudy, Urine pH 6.0, Ur Specific [place] 1.015, Urine Protein 15 H, Urine Glucose (UA) Normal, Urine Ketones Negative, Urine Occult Blood 150 H, Urine Nitrite Negative, Urine Bilirubin Negative, Urine Urobilinogen Normal, Ur Leukocyte Esterase 25 H, Urine RBC 10-25 SEEN, Urine WBC 0-5 SEEN, Ur Squamous Epith Cells 0 SEEN, Urine B acteria 1+, Urine Mucus 0 SEEN 01/22/24 03:35: WBC 15.4 H, RBC 4.03 L, Hgb 12.2 L, Hct 35.9 L, MCV 89.1, MCH 30.3, MCHC 34.0, RDW Std Deviation 43.9, RDW Coeff of Ya 13.4, Plt Count 233, MPV 11.1, Immature Gran % (Auto) 0.900, Neut % (Auto) 79.3 H, Lymph % (Auto) 10.0 L, [place] % (Auto) 8.8, Eos % (Auto) 0.8, Baso % (Auto) 0.2, Absolute Neuts (auto) 12.2 H, Absolute Lymphs (auto) 1.54, Nucleated RBC % 0, Sodium 131 L, Potassium 3.5, Chloride 98, Carbon Dioxide 25.0, Anion Gap 8, BUN 27 H, Creatinine 1.28, Estim Creat Clear Calc 80.01, Est GFR (MDRD) Af Amer 74, Est GFR (MDRD) Non-Af 61, BUN/Creatinine Ratio 21.1 H, Glucose 155 H, Calcium 8.6, Magnesium 2.0 Micro: Microbiology 01/21/24 08:20 Sputum, Expectorated/Coughed Gram Stain - Final 01/13/24 04:35 Sputum, Induced/Lukens Gram Stain - Final 01/13/24 04:35 Sputum, Induced/Lukens Respiratory Culture - Final Mixed normal respiratory madyson. No Streptococcus pneumoniae, beta-hemolytic Streptococcus or Staphylococcus aureus isolated. Radiography Diagnostic Testing: Radiology Impression Chest X-Ray 01/21/24 07:45 IMPRESSION: Stable mild increased markings at the lung bases slightly more prominent in the right lower lobe. Stable minimal right apical pneumothorax. Electronically Signed: Zackary Moody MD at 8:36 EDT , Chest X-Ray 01/21/24 15:50 IMPRESSION: No definitive evidence for pneumothorax status post repositioning of right chest tube. Other findings as above. Electronically Signed: Abrahan Miller MD at 16:10 EDT , Chest X-Ray 01/22/24 06:26 IMPRESSION: Right chest tube in place with small pleural effusion but no appreciable pneumothorax. Bibasilar atelectatic changes. Electronically Signed: Mik Jasmine MD at 7:48 EDT , Rhythm Strip Rhythm Strip: Sinus Rhythm Rate: 88 Physical Exam Const alert, oriented x3, no apparent distress and well nourished; Negative for average body habitus or healthy appearing Constitutional Narrative: Morbidly obese, white male, sitting up in bed, patient appears comfortable and nontoxic General Appearance: cooperative and well developed Neck supple Neck Narrative: Trachea midline with 6 Shiley proximal XLT in place, patient is able to phonate around his trach, no signs of infection, patient does have sputum from trach site and color is slightly darker yellow General: trachea midline Resp normal respiratory effort, no retractions, no use of accessory muscles and clear to auscultation bilaterally Resp Narrative: Diminished at bases bilaterally Auscultation: Negative for rales, rhonchi or wheezes Cardio regular rate, regular rhythm, S1 normal heart sound, S2 normal heart sound, no murmurs, no rub, no gallops and no clicks GI normal to inspection, nondistended, normoactive bowel sounds, soft to palpation and non-tender Extremity no clubbing, cyanosis or edema Extremity Narrative: Pedal pulses are 2+ Neuro oriented x3, moves all extremities and no focal motor deficits Neuro Narrative: Speech is normal with his trach capped/Passy-Gabi valve Speech: speech normal Psych affect normal Psych Narrative: Interacts appropriately, very pleasant Assessment & Plan Assessment/Plan (1) Respiratory failure: (2) Angioedema: (3) Pneumothorax on right: (4) Hypertension: QUALIFIERS: Hypertension type: unspecified Qualified Code(s): I10 - Essential (primary) hypertension (5) Leukocytosis: (6) Hyponatremia: PLAN: Plan Acute hypoxic and hypercapnic respiratory failure secondary to angioedema -Emergent cardiac done in the emergency department which since has been converted to tracheostomy by ENT on 01/14/2024 -Trach removal as an outpatient by ENT when appropriate -Patient tolerating regular diet without difficulty -Doing well on minimal oxygen remaining on trach mask at 28% -Nocturnal CPAP for ZACKARY -Steroids were discontinued by pulmonary/critical care medicine this morning -Avoid HAO inhibitors/ARB's -Continue Mucinex -Pulm/critical care medicine following-appreciate input Pneumothorax/pneumomediastinum -Chest tube had to be replaced on 01/19/2024 due to recurrence of pneumothorax after dislodgment of chest tube -Readjusted yesterday -Current chest x-ray with no pneumo and no airleak noted -Await general surgery input to see if we can place to waterseal and look at discontinuation of the chest tube -Management per general surgery Hypertension -Avoid HAO inhibitors/ARB -Blood pressure control is good on current regimen -Maxide was discontinued due to hyponatremia -Continue Norvasc -Continue carvedilol 12.5 mg p.o. twice daily -Continue hydralazine -Continue to monitor Leukocytosis -Trending up in the last couple days and steroids were started on the so I suspect this is not steroid-induced -Sputum cultures pending -UA is not consistent with infection -Chest x-ray without an infiltrate -MRSA PCR is negative -Continue Zosyn for now until cultures are finalized Hypokalemia -Resolved -Recheck in a.m. Hyponatremia -Remained stable however I would have expected it to go up with discontinuation of his hydrochlorothiazide -Overall is very mild with a current sodium of 131 but will continue to follow -Suspect related to thiazide diuretic -Discontinue HCTZ for now may consider restarting at lower dose as he was on 25 mg daily at admission however with Maxide he was on 50 mg daily which may have disrupted his electrolytes significantly -Repeat lab in a.m. -If it continues to decline we will have to workup further Hyperglycemia -A1c was 5.7 indicating some insulin resistance but not true diabetes Erectile dysfunction -Hold Cialis Morbid obesity with suspected sleep apnea -Continue nocturnal CPAP -Recommend outpatient pulmonary medicine follow-up for PSG evaluation DVT prophylaxis -Continue enoxaparin twice daily CODE STATUS -Full code Charges/Coding Visit Charges Inpatient E&M: 90699 Subs Hosp L2
--- NOTE | 2024-01-22 13:39 | PCM.PN.SRG ---
Subjective Subjective Patient denies any acute events overnight. He states that he has minimal soreness from his chest tube. Objective Data Objective Data Vital Signs: Vital Signs Temp Pulse Resp BP Pulse Ox O2 Del Method O2 Flow Rate 96.9 F L 87 20 H 132/77 H 96 Trach Collar 7 01/22/24 12:00 01/22/24 13:27 01/22/24 12:00 01/22/24 12:00 01/22/24 12:45 01/22/24 12:42 01/21/24 09:51 FiO2 28 01/22/24 12:42 Oxygen Flow Rate (L/min) 7 Oxygen Delivery Method Trach Collar Weight: 263 lb 7.238 oz Body Mass Index (BMI) 40.0 Intake & Output: Intake and Output for Last 24 Hours 01/20/24 01/21/24 01/22/24 23:59 23:59 23:59 Intake Total 630 / 630 1220 / 1320 320 / 320 Output Total 1385 / 1385 1535 / 1935 400 / 400 Balance -755 / -755 -315 / -615 -80 / -80 Medical Nutrition Assessment Dietitian: Malnutrition Criteria Met Start: 01/20/24 10:15 Freq: Status: Active Protocol: Document 01/21/24 11:32 RMA (Rec: 01/21/24 11:33 RMA [id number]) Nutrition Malnutrition Evidence of Malnutrition Exists Yes Malnutrition (severe): Acute Illness/Injury Evidenced By Suboptimal Energy Intake ( Severe),Weight Loss (Severe) Intake Problem Inadequate Oral Intake Etiology related to inability to consume sufficient energy Signs/Symptoms as evidenced by NPO status x 5 days Status Resolved Problem Clinical Problem Acute Disease or Injury Related Malnutrition Etiology severe, acute malnutrition related to inadequate energy intake Signs/Symptoms as evidenced by unintentional 14.6#/5.2% wt loss < 1 week, estimated PO intake meeting < 50% of estimated energy needs x 5 days Status Active Problem Recommendation Dietitian Recommendations/Changes Will continue liberalized regular diet with texture/ consistency as per [employer]. Will add ensure compact 3 times per day w/ meals for tolerance; adjust as indicated . Trend weight closely, weight loss since admit significant for malnutrition. Lab / Micro Data 01/22/24 03:35 01/22/24 03:35 Labs: Laboratory Results - last 24 hr 01/21/24 04:55: Diff Path Review Reviewed 01/22/24 03:35: WBC 15.4 H, RBC 4.03 L, Hgb 12.2 L, Hct 35.9 L, MCV 89.1, MCH 30.3, MCHC 34.0, RDW Std Deviation 43.9, RDW Coeff of Ya 13.4, Plt Count 233, MPV 11.1, Immature Gran % (Auto) 0.900, Neut % (Auto) 79.3 H, Lymph % (Auto) 10.0 L, [place] % (Auto) 8.8, Eos % (Auto) 0.8, Baso % (Auto) 0.2, Absolute Neuts (auto) 12.2 H, Absolute Lymphs (auto) 1.54, Nucleated RBC % 0, Sodium 131 L, Potassium 3.5, Chloride 98, Carbon Dioxide 25.0, Anion Gap 8, BUN 27 H, Creatinine 1.28, Estim Creat Clear Calc 80.01, Est GFR (MDRD) Af Amer 74, Est GFR (MDRD) Non-Af 61, BUN/Creatinine Ratio 21.1 H, Glucose 155 H, Calcium 8.6, Magnesium 2.0 Micro: Microbiology 01/21/24 08:20 Sputum, Expectorated/Coughed Gram Stain - Final 01/21/24 08:20 Sputum, Expectorated/Coughed Respiratory Culture - Preliminary 01/13/24 04:35 Sputum, Induced/Lukens Gram Stain - Final 01/13/24 04:35 Sputum, Induced/Lukens Respiratory Culture - Final Mixed normal respiratory madyson. No Streptococcus pneumoniae, beta-hemolytic Streptococcus or Staphylococcus aureus isolated. Radiography Diagnostic Testing: Radiology Impression Chest X-Ray 01/21/24 15:50 IMPRESSION: No definitive evidence for pneumothorax status post repositioning of right chest tube. Other findings as above. Electronically Signed: Abrahan Miller MD at 16:10 EDT , Chest X-Ray 01/22/24 06:26 IMPRESSION: Right chest tube in place with small pleural effusion but no appreciable pneumothorax. Bibasilar atelectatic changes. Electronically Signed: Mik Jasmine MD at 7:48 EDT , Rhythm Strip Rhythm Strip: Sinus Rhythm Rate: 88 Physical Exam Const oriented x3 and no apparent distress Resp normal respiratory effort Resp Narrative: Patient with less coughing today. Chest tube is to -20 cm suction and all connections appear intact. There is no visible airleak on the Pleur-evac. There is no crepitus of the chest wall. Assessment & Plan Assessment/Plan (1) Pneumothorax on right: PLAN: Patient is a 58-year-old male who is status post right thoracostomy tube placement for iatrogenic pneumothorax on the right likely secondary to barotrauma. Chest tube was repositioned at bedside yesterday and both post procedure chest x-ray as well as repeat chest x-ray this morning show absence of a pneumothorax. Once again, I do not see evidence of an air leak on chest tube Pleur-evac box. Thus patient is placed to waterseal effective immediately. Will plan to repeat his chest x-ray in a.m. If this again does not show evidence of a pneumothorax I will plan to pull his chest tube tomorrow under suction and obtain a post pull chest x-ray at 6 hours. Miguel Kurtz MD General Surgery Endocrine Surgery Pager: [facility] [address] [place] [address], [address] [place] [id number] Office: [phone] Charges/Coding Visit Charges Inpatient E&M: 04193 Subs Hosp L2
[2024-01-22] MEDS: LORazepam 1 MG Tablet PO (20:56)
[2024-01-23] VITALS (10 sets, daily range): BP systolic 132–156; BP diastolic 68–89; PULSE 88–94; RESP 17–26; TEMP 36.2–36.6; O2SAT 92–96; BMI 40.1
[2024-01-23] MEDS: oxyCODONE 5 MG Tablet PO ×3 (03:16→17:00)
[2024-01-23] MEDS: guaiFENesin 10 ML UDC (200MG/10ML) PO ×3 (03:16→16:53)
[2024-01-23 04:02] LABS: Absolute Lymphocyte Count 1.79 X10^3/uL (0.83-4.51); Absolute Neutrophil Count 12.1 X10^3/uL (2.0-7.7); Basophil# 0.03 X10^3/uL; Basophil% 0.2 % (0-1); Eosinophil# 0.13 X10^3/uL; Eosinophils% 0.9 % (0-5); Hematocrit 35.2 % (40-54); Lymphocyte # 1.79 X10^3/ul (0.83-4.51); Lymphocyte % 11.8 % (19-41); Mean Corp Hgb Conc 34.1 g/dL (32-36); Mean Corpuscular Hgb 30.2 pg (27.0-32.0); Mean Corpuscular Volume 88.7 fL (80-94); Mean Platelet Vol. 11.5 fl (6.2-12.0); Monocyte# 1.08 X10^3/uL; Monocyte% 7.1 % (0-10); NRBC Flagged by Analyzer 0 % (0-5); Neutrophil # 12.06 X10^3/uL (2.7-7.7); Neutrophil % 79.1 % (47-70); Platelet Count 290 K/mm3 (150-450); RBC Distribution Width CV 13.6 % (11.6-14.6); RBC Distribution Width SD 43.9 fl (35.1-43.9); Red Blood Count 3.97 M/mm3 (4.6-6.2); White Blood Count 15.2 K/mm3 (4.4-11.0)
[2024-01-23 04:13] LABS: Anion Gap 8 (5-15); BUN 27 mg/dL (7-18); BUN/Creat Ratio 21.6 RATIO (10-20); Calcium,Total 8.5 mg/dL (8.5-10.1); Chloride 98 mmol/L (98-107); Creatinine, Serum 1.25 mg/dL (0.70-1.30); EST Glomerular Filtration Rate 63 mL/min (>60); Est Glom Filt Rate - Afr Amer 76 mL/min (>60); Estimated Creatinine Clearance 81.93 ml/min; Glucose 180 mg/dL (74-106); Potassium 3.3 mmol/L (3.5-5.1); Sodium Level 132 mmol/L (136-145)
[2024-01-23] MEDS: Piperacil/Tazobactam 3.375 GM in 0.9% Normal Saline (50mL MB+) 50 ML IV ×2 (05:19→13:19)
[2024-01-23] MEDS: hydrALAZINE 50 MG Tablet PO ×2 (05:20→13:27)
--- NOTE | 2024-01-23 06:00 | RAD_ITS ---
EXAM: XR CHEST, 1 VIEW CLINICAL INDICATION: pneumothorax -- PORTABLE TECHNIQUE: Frontal view of the chest. COMPARISON: 6:31 AM January 22, 2024. FINDINGS: LUNGS AND PLEURAL SPACES: Unremarkable. No effusion. No definite residual pneumothorax. The right lung is better inflated. Tracheostomy tube appears adequately positioned. HEART: Unremarkable. Cardiac silhouette not enlarged. MEDIASTINUM: Central airways and mediastinal contour are unremarkable. BONES/JOINTS: Unremarkable. No acute fracture. SOFT TISSUES: Unremarkable. TUBES, LINES AND DEVICES: Stable position of right thoracostomy tube, tip over the right lung apex. RAD/Chest 1 View (Portable) IMPRESSION: 1. Mild improvement pulmonary inflation. 2. Small band of persistent residual discoid atelectasis in the right perihilar region. 3. No convincing significant residual pneumothorax. Electronically Signed: Kaur Cardoso MD at 5:37 EDT ,
[2024-01-23] MEDS: Potassium Chloride Oral Soln 20 MEQ/15 ML UDC 40 MEQ PO (06:49)
--- NOTE | 2024-01-23 07:46 | PN.CC_ITS ---
Assessment & Plan Assessment/Plan (1) Pneumothorax on right: (2) Angioedema: PLAN: Plan RECOMMENDATIONS: 1. Continue trach mask 2. Continue guaifenesin to help with secretions/pulmonary toileting 3. Reasonable to treat with 5 days of antibiotics once culture sensitivities available 4. PT/OT to work with the patient. 5. Discontinue chest tube per surgery timing 6. Decannulation timing per ENT 7. Hemodynamically stable for over 48 hours. Will sign off from a critical care perspective IMPRESSIONS: 1. Acute hypoxemic and hypercapnic respiratory failure The exact etiology for the patient's angioedema is not entirely clear. According to the patient's PCP, he was not prescribed an HAO inhibitor, but was rather on Cozaar. The patient's airway was compromised upon arrival to the emergency department. An emergent cricothyroidotomy was performed. Ultimately, the patient required placement of a small bore endotracheal tube through the cricothyroidotomy to achieve appropriate ventilatory support. The patient was evaluated by ENT and then taken for formal tracheostomy on January 13. The patient is doing well from a respiratory perspective. The patient will be continued on trach mask. Repeat culture following tracheostomy appears to be showing Moraxella. Secretions have improved with antibiotics. Likely narrow antibiotic spectrum once sensitivities are available. 5-day course of antibiotics likely appropriate. 2. Pneumothorax/pneumomediastinum Potentially related to barotrauma in the setting of the patient's airway compromise. The patient underwent tube thoracotomy with resolution of the pneumothorax. Patient has been on waterseal for 24 hours. Surgery is currently following. Defer to them on removal of chest tube. No leak noted. Possible removal later today. 3. Morbid obesity/history of hypertension new diagnosis diabetes mellitus Complicates care, management, recovery and prognosis. Continue supportive measures as noted above. PT/OT to work with the patient. Patient with elevated hemoglobin A1c, but blood sugars appear to be appropriate at this time. This note was generated with [employer] dictation software. It may contain incorrect words, spelling, and punctuation that were not noted in checking the note before signing. Subjective Subjective Patient did well overnight. No acute issues were reported. Patient was able to ambulate over 100 feet yesterday with therapy. Patient reports pain well-contro lled. No worsening shortness of breath despite being on waterseal for the last 24 hours. Patient continues to be able to cough up his own secretions. Objective Data Objective Data Vital Signs: Vital Signs Temp Pulse Resp BP Pulse Ox O2 Del Method O2 Flow Rate 36.2 C L 91 26 H 153/88 H 93 Trach Collar 7 01/23/24 05:00 01/23/24 05:20 01/23/24 05:00 01/23/24 05:00 01/23/24 05:00 01/23/24 05:00 01/21/24 09:51 FiO2 28 01/23/24 05:00 Oxygen Flow Rate (L/min) 7 Oxygen Delivery Method Trach Collar Weight: 119.6 kg Body Mass Index (BMI) 40.1 Intake & Output: Intake and Output for Last 24 Hours 01/21/24 01/22/24 01/23/24 23:59 23:59 23:59 Intake Total 1220 / 1320 370 / 370 350 / 350 Output Total 1535 / 1935 1650 / 1650 Balance -315 / -615 -1280 / -1280 350 / 350 Medical Nutrition Assessment Dietitian: Malnutrition Criteria Met Start: 01/20/24 10:1 5 Freq: Status: Active Protocol: Document 01/22/24 13:39 RMA (Rec: 01/22/24 13:39 RMA [id number]) Nutrition Malnutrition Evidence of Malnutrition Exists Yes Malnutrition (severe): Acute Illness/Injury Evidenced By Suboptimal Energy Intake ( Severe),Weight Loss (Severe) Intake Problem Inadequate Oral Intake Etiology related to inability to consume sufficient energy Signs/Symptoms as evidenced by NPO status x 5 days Status Resolved Problem Clinical Problem Acute Disease or Injury Related Malnutrition Etiology severe, acute malnutrition related to inadequate energy intake Signs/Symptoms as evidenced by unintentional 14.6#/5.2% wt loss < 1 week, estimated PO intake meeting < 50% of estimated energy needs x 5 days Status Active Problem Recommendation Dietitian Recommendations/Changes Will continue liberalized regular diet with texture/ consistency as per [employer] D[employer]ER. Will continue ensure compact 3 times per day w/ meals. Will try magic cup w/ lunch tray for tolerance. Trend weight closely, weight loss since admit significant for malnutrition. Adjust ONS as needed to optimize PO and prevent further unintentional weight loss during recovery. Lab / Micro Data Attestation: I reviewed the patient's lab results. 01/23/24 03:45 01/23/24 03:45 Labs: Laboratory Results - last 24 hr 01/23/24 03:45: WBC 15.2 H, RBC 3.97 L, Hgb 12.0 L, Hct 35.2 L, MCV 88.7, MCH 30.2, MCHC 34.1, RDW Std Deviation 43.9, RDW Coeff of Ya 13.6, Plt Count 290, MPV 11.5, Immature Gran % (Auto) 0.900, Neut % (Auto) 79.1 H, Lymph % (Auto) 11.8 L, Dickinson % (Auto) 7.1, Eos % (Auto) 0.9, Baso % (Auto) 0.2, Absolute Neuts (auto) 12.1 H, Absolute Lymphs (auto) 1.79, Nucleated RBC % 0, Sodium 132 L, Potassium 3.3 L, Chloride 98, Carbon Dioxide 26.0, Anion Gap 8, BUN 27 H, Creatinine 1.25, Estim Creat Clear Calc 81.93, Est GFR (MDRD) Af Amer 76, Est GFR (MDRD) Non-Af 63, BUN/Creatinine Ratio 21.6 H, Glucose 180 H, Calcium 8.5 Micro: Microbiology 01/21/24 08:20 Sputum, Expectorated/Coughed Gram Stain - Final 01/21/24 08:20 Sputum, Expectorated/Coughed Respiratory Culture - Preliminary 01/13/24 04:35 Sputum, Induced/Lukens Gram Stain - Final 01/13/24 04:35 Sputum, Induced/Lukens Respiratory Culture - Final Mixed normal respiratory madyson. No Streptococcus pneumoniae, beta-hemolytic Streptococcus or Staphylococcus aureus isolated. Radiography Diagnostic Testing: Radiology Impression Chest X-Ray 01/22/24 06:26 IMPRESSION: Right chest tube in place with small pleural effusion but no appreciable pneumothorax. Bibasilar atelectatic changes. Electronically Signed: Mik Jasmine MD at 7:48 EDT , Chest X-Ray 01/23/24 06:00 IMPRESSION: 1. Mild improvement pulmonary inflation. 2. Small band of persistent residual discoid atelectasis in the right perihilar region. 3. No convincing significant residual pneumothorax. Electronically Signed: Kaur Cardoso MD at 5:37 EDT , Rhythm Strip Rhythm Strip: Sinus Rhythm Rate: 91 Physical Exam Const alert, oriented x3 and no apparent distress Constitutional Narrative: Currently tolerating trach collar supplemental O2. Some vocalization with effort. General Appearance: cooperative HEENT normocephalic, head/scalp atraumatic and moist oral mucous membranes Eyes PERRL, conjunctivae normal and no scleral icterus Neck supple Neck Narrative: Stable appearing XLT tracheostomy tube in place. General: trachea midline Chest inspection of chest normal Resp normal respiratory effort and no use of accessory muscles Resp Narrative: No airleak noted in the Pleur-evac this morning. Morning x-ray with no significant pneumothorax on my evaluation Auscultation: diminished lung sounds; Negative for rales, rhonchi or wheezes Cardio regular rate, regular rhythm, S1 normal heart sound and S2 normal heart sound GI normal to inspection, nondistended, normoactive bowel sounds and soft to palpation Extremity no clubbing, cyanosis or edema Skin no rashes or lesions noted Neuro CN's II-XII intact bilaterally, moves all extremities and no focal motor deficits Neuro Narrative: Alert and appropriately interactive. Psych cooperative and affect normal Charges/Coding Visit Charges Inpatient E&M: 39354 Subs Hosp L2
[2024-01-23] MEDS: Enoxaparin 40 MG/0.4 ML Syringe SC (09:52)
[2024-01-23] MEDS: amLODIPine 10 MG Tablet PO (09:52)
[2024-01-23] MEDS: Carvedilol 12.5 MG Tablet PO ×2 (09:52→16:53)
--- NOTE | 2024-01-23 09:56 | CASEMGMT ---
Addendum entered by Ector Serna 01/23/24 10:08: RN CM to pt room at this time, pt updated with plan. Pt states that his SO will be coming in around 1100. This RN CM updates the pt RN that the pt SO will need to be taught how to care for the pt trach for home going needs. Pt RN and pt are agreeable to this plan. Original Note: Dr. Davis states that the plan is to DC the pt home today possibly. The plan is for the pt to have his Chest Tube taken out and DC home with the tracheostomy until the pt can follow up with the ENT MD next week. Per Dr. Davis, the ENT following this pt here is [place] of the Country. Dr. Davis signs [facility] for Trach supplies at this time. TC to [facility] and [facility] states that they will be able to deliver the supplies to pt bedside once they receive the script(s). Home Oxygen Qualification intervention added to work-list at this time. This RN CM will send O2 Rx and Trach Rx once the oxygen testing is completed. Will follow.
[2024-01-23] MEDS: Potassium Chloride Oral Soln 20 MEQ/15 ML UDC 60 MEQ PO (11:47)
--- NOTE | 2024-01-23 12:09 | PCM.PN.SRG ---
Subjective Subjective Patient was seen and examined during AM rounds. He denies any acute events overnight and nursing reported that there were tentative plans to discharge patient to home as long as his chest tube discontinuation proceeds uneventfully. Objective Data Objective Data Vital Signs: Vital Signs Temp Pulse Resp BP Pulse Ox O2 Del Method O2 Flow Rate 97.1 F L 94 18 141/89 H 92 Room Air 7 01/23/24 10:00 01/23/24 10:00 01/23/24 10:00 01/23/24 10:00 01/23/24 10:00 01/23/24 10:00 01/21/24 09:51 FiO2 21 01/23/24 09:51 Oxygen Flow Rate (L/min) 7 Oxygen Delivery Method Room Air Weight: 263 lb 10.766 oz Body Mass Index (BMI) 40.1 Intake & Output: Intake and Output for Last 24 Hours 01/21/24 01/22/24 01/23/24 23:59 23:59 23:59 Intake Total 1220 / 1320 370 / 370 400 / 400 Output Total 1535 / 1935 1650 / 1650 Balance -315 / -615 -1280 / -1280 400 / 400 Medical Nutrition Assessment Dietitian: Malnutrition Criteria Met Start: 01/20/24 10:15 Freq: Status: Active Protocol: Document 01/22/24 13:39 RMA (Rec: 01/22/24 13:39 RMA [id number]) Nutrition Malnutrition Evidence of Malnutrition Exists Yes Malnutrition (severe): Acute Illness/Injury Evidenced By Suboptimal Energy Intake ( Severe),Weight Loss (Severe) Intake Problem Inadequate Oral Intake Etiology related to inability to consume sufficient energy Signs/Symptoms as evidenced by NPO status x 5 days Status Resolved Problem Clinical Problem Acute Disease or Injury Related Malnutrition Etiology severe, acute malnutrition related to inadequate energy intake Signs/Symptoms as evidenced by unintentional 14.6#/5.2% wt loss < 1 week, estimated PO intake meeting < 50% of estimated energy needs x 5 days Status Active Problem Recommendation Dietitian Recommendations/Changes Will continue liberalized regular diet with texture/ consistency as per [employer] INST[employer]ER. Will continue ensure compact 3 times per day w/ meals. Will try magic cup w/ lunch tray for tolerance. Trend weight closely, weight loss since admit significant for malnutrition. Adjust ONS as needed to optimize PO and prevent further unintentional weight loss during recovery. Lab / Micro Data 01/23/24 03:45 01/23/24 03:45 Labs: Laboratory Results - last 24 hr 01/23/24 03:45: WBC 15.2 H, RBC 3.97 L, Hgb 12.0 L, Hct 35.2 L, MCV 88.7, MCH 30.2, MCHC 34.1, RDW Std Deviation 43.9, RDW Coeff of Ya 13.6, Plt Count 290, MPV 11.5, Immature Gran % (Auto) 0.900, Neut % (Auto) 79.1 H, Lymph % (Auto) 11.8 L, [place] % (Auto) 7.1, Eos % (Auto) 0.9, Baso % (Auto) 0.2, Absolute Neuts (auto) 12.1 H, Absolute Lymphs (auto) 1.79, Nucleated RBC % 0, Sodium 132 L, Potassium 3.3 L, Chloride 98, Carbon Dioxide 26.0, Anion Gap 8, BUN 27 H, Creatinine 1.25, Estim Creat Clear Calc 81.93, Est GFR (MDRD) Af Amer 76, Est GFR (MDRD) Non-Af 63, BUN/Creatinine Ratio 21.6 H, Glucose 180 H, Calcium 8.5 Micro: Microbiology 01/21/24 08:20 Sputum, Expectorated/Coughed Gram Stain - Final 01/21/24 08:20 Sputum, Expectorated/Coughed Respiratory Culture - Preliminary 01/13/24 04:35 Sputum, Induced/Lukens Gram Stain - Final 01/13/24 04:35 Sputum, Induced/Lukens Respiratory Culture - Final Mixed normal respiratory madyson. No Streptococcus pneumoniae, beta-hemolytic Streptococcus or Staphylococcus aureus isolated. Radiography Diagnostic Testing: Radiology Impression Chest X-Ray 01/23/24 06:00 IMPRESSION: 1. Mild improvement pulmonary inflation. 2. Small band of persistent residual discoid atelectasis in the right perihilar region. 3. No convincing significant residual pneumothorax. Electronically Signed: Kaur Cardoso MD at 5:37 EDT , Rhythm Strip Rhythm Strip: Sinus Rhythm Rate: 91 Physical Exam Const oriented x3 and no apparent distress Resp normal respiratory effort Resp Narrative: No airleak noted on Pleur-evac box. No crepitus in chest wall. Minimal drainage from chest tube is serosanguineous. Assessment & Plan Assessment/Plan (1) Pneumothorax on right: PLAN: Patient is a 58-year-old male who is status post right thoracostomy tube placement for iatrogenic pneumothorax on the right likely secondary to barotrauma. Chest tube was repositioned 2 days ago and repeat chest x-ray showed no evidence of pneumothorax. Thus he was placed to [facility] yesterday and today chest x-ray was repeated without any evidence of pneumothorax. Without any further reaccumulation of air, I am convinced that patient's lung has sealed and I proceeded with chest tube removal at bedside today. An inverted U stitch had been placed at the time of his tube repositioning and was used to close down the chest tube tract as the tube was withdrawn. This procedure proceeded uneventfully and patient denied any significant discomfort or respiratory distress. Post pull chest x-ray is ordered for 6 hours, but in the meantime nursing later shared that they had to replace outer dressing once on the account of some drainage. Should final chest x-ray be clear of pneumothorax would recommend patient discontinue chest tube site dressing in 48 hours and then also outpatient follow-up with me for chest tube site suture removal in approximately 7 days postdischarge. Miguel Kurtz MD General Surgery Endocrine Surgery Pager: [facility] [address] [place] [address], [address] [place] [address] Office: [phone] Charges/Coding Visit Charges Inpatient E&M: 82504 Subs Hosp L2
--- NOTE | 2024-01-23 12:41 | CASEMGMT ---
Addendum entered by Ector Serna 01/23/24 16:07: [facility] was in to deliver the trach supplies for the pt. [facility] member states that the pt will need a 50 PSI Compressor for humidified oxygen. This RN CM talked to Dr. Davis who signs Rx for this. New/ Updated Rx sent to [facility] via [facility] at this time. Script placed on pt chart. Addendum entered by Ector Serna 01/23/24 15:32: At this time, it is undetermined if the pt will be discharging today or tomorrow. Pt did well with therapy today and was able to maintain adequate oxygen saturation levels via RA. [facility] responds via [facility] stating they have accepted the referral and will be delivering the equipment today. Pt is scheduled for a Chest XR at 1700 s/p Chest Tube being taken out. PLAN: DC home with trach supplies via [facility] with the pt SO as the caregiver. Pt to f/u with ENT next week for Trach removal. Green sheet placed on pt chart in the case that pt qualifies for home oxygen and discharges tonight. Addendum entered by Ector Serna 01/23/24 13:54: TC to [facility] at this time (Jajeannane is off this week). Esau from [facility] answers and states that she does not have access to [facility]. Esau states that she is going to contact someone who does. This RN CM asked Esau is she would like me to Fax the scripts. Esau states yes and provided fax number. This RN CM faxed pt trach supplies script to [facility] at [phone] at this time. Addendum entered by Ector Serna 01/23/24 13:31: RN FRANTZ talked to Dr. Vann at this time. Dr. Vann states that the pt is apprehensive about going home today and is wanting to wait until tomorrow to DC Home. RN CM to pt room at this time. Pt RN at bedside. The pt states to this RN CM that he would rather DC tomorrow instead of today due to the pt tracheostomy. Pt continues to tolerate RA. PT has yet to see the pt today yet. [facility] has not responded to this RN CM referral at this time. Will follow. Original Note: The pt is currently tolerating room air. Dr. Davis states the plan is to see if the pt can maintain adequate O2 levels during PT session. Referral sent to [facility] at this time for trach supplies. This RN CM included the Trach Supplies script and the operative report. [facility] notified that the pt is currently on RA but will require further testing. Awaiting return response.
--- NOTE | 2024-01-23 15:38 | DS.PCM_ITS ---
Providers Date of Admission: 01/13/24 Date of Discharge: 01/23/24 Primary Care Physician: Dr. Zaki Noe MD Consultations 01/13/24 01:59 Consult: Supervisor [employer] / Pulmonary Medicine Routine Consulting Provider: Intensivists/Pulmonary Med Reason for Consult: angioedema EMERGENT Consult: Yes Notified: Yes Date Notified: 01/13/24 Time Notified: 01:59 Method of Notification: Text 01/13/24 04:22 Consult: ENT Urgent Consulting Provider: Prem Weems Reason for Consult: Cricothyrotomy revision. EMERGENT Consult: Yes Notified: Yes Date Notified: 01/13/24 Time Notified: 04:23 Method of Notification: ED Physician Initiated Method of Consult:: In-Person Reason For Visit: ANGIOEDEMA REQUIRING BEDSIDED CRICOTHYROTOMY ON Diagnosis Discharge Diagnosis (1) Pneumothorax on right: Status: Acute Code(s): J93.9 - Pneumothorax, unspecified (2) Angioedema: Status: Acute Code(s): T78.3XXA - Angioneurotic edema, initial encounter Medications at Discharge Home Medications sildenafil 50 mg tablet 50 mg PO DAILY PRN sexual activity 01/13/24 amlodipine 10 mg tablet 10 mg PO DAILY #30 tabs 01/23/24 amoxicillin 875 mg-potassium clavulanate 125 mg tablet 1 tab PO BID #10 tabs 01/23/24 carvedilol 12.5 mg tablet 12.5 mg PO BIDCM #60 tabs 01/23/24 hydralazine 50 mg tablet 50 mg PO TID #90 tabs 01/23/24 oxycodone 5 mg tablet 5 mg PO Q6H PRN PRN Pain Score 4-10 1 week #28 tabs 01/23/24 Hospital Course Operations - (Tracheostomy placement) Procedures Modified Barium Swallow and - (Multiple chest x-rays) Summary of Care Provided Hospital Course: Mr. Orozco is a 58-year-old white male who presented to the emergency department on 01/13/2024 due to tongue and lip swelling that started about an hour prior to presentation. It quickly worsened which caused him to have garbled speech and difficulty swallowing. He was noted to have an expiratory stridor and developed respiratory distress in the emergency department. Intubation was attempted but unsuccessful due to severe swelling of his submental and laryngeal regions in addition to the patient clenching his teeth. Cricothyrotomy was performed the e mergency department by the ER physician with placement of a 6.5 Scottish endotracheal tube after tracheostomy tube could not be passed. He had been on Cozaar at baseline and has morbid obesity. General surgery was in the emergency department and assisted with this emergent procedure. Postprocedure imaging showed subsequent right pneumothorax and pneumomediastinum. Chest tube was placed at that time. He was admitted to the ICU. ENT was consulted and he was taken to the OR on 01/14/2024 for transition to tracheostomy with Jeremiah flap. Shortly thereafter, he was able to be transition to a trach collar and was attempting to interact via verbal communication. He remained on steroids and swallow evaluation was performed with recommended general diet with direct supervision of staff and Passy-Weir valve in place during eating. By 01/18/2024 his chest tube was on waterseal with no obvious leak and he utilize CPAP at night. His chest tube became dislodged on 01/19/2024 and imaging showed re currence of his pneumothorax so chest tube had to be replaced on that day by general surgery. He initially had a leak which slowly resolved and was placed to waterseal again throughout the day on 01/22/2024 at which time he had no leak and no evidence of pneumothorax on follow-up chest x-ray. His chest tube was able to be removed in the late morning on 01/23/2024 and a follow-up chest x-ray done 6 hours later showed no recurrence of pneumothorax. He was instructed on management of the area where his chest tube was removed and has sutures in the place at this time. He is to follow-up with general surgery in the next 7 to 10 days to have those removed. He did develop a white count that slowly trended up from 01/18-01/20 and his sputum was quite copious at that time so we sent a sputum culture and placed him on Zosyn. Culture grew out Moraxella and we completed a total of 7 days of antibiotics by discharging him on Augmentin for another 5 days. With regards to his blood pressure he was completely taken off his hydrochlorothiazide and losartan and started on amlodipine 10 mg daily, ca rvedilol 12.5 mg p.o. twice daily and hydralazine 50 mg 3 times daily. He tolerated this well throughout his hospitalization and prescriptions for these were sent to his local pharmacy prior to discharge. He was instructed extensively and trach care and management along with changing his inner cannula and dressing around the trach site. Trach sutures were still in place and we have made follow-up appointment for him on January 26 with ENT to reevaluate for decannulation. Patient was able to be discharged home in stable condition on 01/23/2024. I have advised him to follow-up with his primary care physician within the next 1 to 2 weeks as well. Discharge diagnoses: Acute hypoxic and hypercapnic respiratory failure secondary to angioedema- resolved Pneumothorax-resolved Pneumomediastinum-resolved Moraxella pneumonia Hypertension Mild hyponatremia-improving Hyperglycemia ED Morbid obesity Suspected ZACKARY Physical Exam Const alert, oriented x3, no apparent distress, no limitations and well nourished; N egative for average body habitus or healthy appearing Constitutional Narrative: Morbidly obese, white male, sitting up in bed, patient appears comfortable and nontoxic, patient is watching television General Appearance: cooperative, comfortable, well kempt and well developed Orientation / Consciousness: awake, oriented to person, oriented to place and oriented to time Exam Limitations: no limitations Nutritional Appearance: morbidly obese HEENT normocephalic, head/scalp atraumatic, hearing grossly normal bilaterally and moist oral mucous membranes HEENT Narrative: Mallampati 3-4, no thrush Eyes PERRL, EOMs intact bilaterally and conjunctivae normal Eyes Narrative: No scleral icterus Neck no lymphadenopathy and supple Neck Narrative: Trachea midline with [address] in place, patient able to phonate around the trach without difficulty, no significant sputum from the trach site General: trachea midline Resp normal respiratory effort, no retractions, no use of accessory muscles and clear to auscultation bilaterally Resp Narrative: Diminished at bases bilaterally Auscultation: Negative for rales, rhonchi or wheezes Cardio regular rate, regular rhythm, S1 normal heart sound, S2 normal heart sound, no murmurs, no rub, no gallops and no clicks GI normal to inspection, nondistended, normoactive bowel sounds, soft to palpation and non-tender GI Narrative: Large protuberant abdomen Extremity no clubbing, cyanosis or edema Extremity Narrative: Pedal pulses are 2+, radial pulses are 2+ Skin no rashes or lesions noted, skin turgor normal and no jaundice Skin Narrative: Wound with dressing in place over right chest at location of previous chest tube Neuro oriented x3, CN's II-XII intact bilaterally, moves all extremities and no focal motor deficits Neuro Narrative: Speech is normal with his trach capped/Passy-Weir valve Psych affect normal Psych Narrative: Interacts appropriately, very pleasant Medical Records Data Medical Nutrition Assessment Dietitian: Malnutrition Criteria Met Start: 01/20/24 10:15 Freq: Status: Active Protocol: Document 01/22/24 13:39 RMA (Rec: 01/22/24 13:39 RMA [id number]) Nutrition Malnutrition Evidence of Malnutrition Exists Yes Malnutrition (severe): Acute Illness/Injury Evidenced By Suboptimal Energy Intake ( Severe),Weight Loss (Severe) Intake Problem Inadequate Oral Intake Etiology related to inability to consume sufficient energy Signs/Symptoms as evidenced by NPO status x 5 days Status Resolved Problem Clinical Problem Acute Disease or Injury Related Malnutrition Etiology severe, acute malnutrition related to inadequate energy intake Signs/Symptoms as evidenced by unintentional 14.6#/5.2% wt loss < 1 week, estimated PO intake meeting < 50% of estimated energy needs x 5 days Status Active Problem Recommendation Dietitian Recommendations/Changes Will continue liberalized regular diet with texture/ consistency as per SNAPPER ON. Will continue ensure compact 3 times per day w/ meals. Will try magic cup w/ lunch tray for tolerance. Trend weight closely, weight loss since admit significant for malnutrition. Adjust ONS as needed to optimize PO and prevent further unintentional weight loss during recovery. Weight / BMI Weight Weight: 119.6 kg Body Mass Index (BMI) 40.1 ABG / Lab / Microbiology Data 01/23/24 03:45 01/23/24 03:45 Laboratory: Laboratory Results - last 24 hr 01/23/24 03:45: WBC 15.2 H, RBC 3.97 L, Hgb 12.0 L, Hct 35.2 L, MCV 88.7, MCH 30.2, MCHC 34.1, RDW Std Deviation 43.9, RDW Coeff of Ya 13.6, Plt Count 290, MPV 11.5, Immature Gran % (Auto) 0.900, Neut % (Auto) 79.1 H, Lymph % (Auto) 11.8 L, Cobb % (Auto) 7.1, Eos % (Auto) 0.9, Baso % (Auto) 0.2, Absolute Neuts (auto) 12.1 H, Absolute Lymphs (auto) 1.79, Nucleated RBC % 0, Sodium 132 L, Potassium 3.3 L, Chloride 98, Carbon Dioxide 26.0, Anion Gap 8, BUN 27 H, Creatinine 1.25, Estim Creat Clear Calc 81.93, Est GFR (MDRD) Af Amer 76, Est GFR (MDRD) Non-Af 63, BUN/Creatinine Ratio 21.6 H, Glucose 180 H, Calcium 8.5 Microbiology: Microbiology 01/21/24 08:20 Sputum, Expectorated/Coughed Gram Stain - Final 01/21/24 08:20 Sputum, Expectorated/Coughed Respiratory Culture - Final Moraxella Catarrhalis 01/13/24 04:35 Sputum, Induced/Lukens Gram Stain - Final 01/13/24 04:35 Sputum, Induced/Lukens Respiratory Culture - Final Mixed normal respiratory madyson. No Streptococcus pneumoniae, beta-hemolytic Streptococcus or Staphylococcus aureus isolated. Radiography Diagnostic Testing: Radiology Impression Chest X-Ray 01/23/24 06:00 IMPRESSION: 1. Mild improvement pulmonary inflation. 2. Small band of persistent residual discoid atelectasis in the right perihilar region. 3. No convincing significant residual pneumothorax. Electronically Signed: Kaur Cardoso MD at 5:37 EDT , Meaningful Use Info Meaningful Use Diagnoses (Choose all that apply): None applicable Discharge Plan Admission Admit Date/Time: 01/13/24 00:41 Primary Reason for Your Visit: Angioedema Attending Provider: Vivian Vann Primary Care Provider: Zaki Noe Consulting Providers: Wang Diaz; Mik Garcia; Prem Weems Instructions Additional Instructions / Restrictions: 1. Please change dressing at previous location of chest tube as instructed by nursing 2. Please perform trach care as instructed by nursing and respiratory therapy 3. Please see ENT as noted below for decisions on removal of your trach 4. Do not take HAO inhibitor's or ARB's and placed this on your allergy list Discharge Orders/Prescriptions Prescriptions: New amlodipine 10 mg Tablet 10 mg PO DAILY Qty: 30 2RF carvedilol 12.5 mg Tablet 12.5 mg PO BIDCM Qty: 60 2RF hydralazine 50 mg Tablet 50 mg PO TID Qty: 90 2RF oxycodone 5 mg Tablet 5 mg PO Q6H PRN PRN (Reason: Pain Score 4-10) 7 Days Qty: 28 0RF amoxicillin-pot clavulanate 875-125 mg tablet 1 tab PO BID Qty: 10 0RF Continued sildenafil 50 mg tablet 50 mg PO DAILY PRN (Reason: sexual activity) Discontinued hydrochlorothiazide 25 mg tablet 25 mg PO DAILY losartan 50 mg tablet 50 mg PO DAILY Referrals / Follow Up: Rolan Barrett MD [Med Staff - Active Staff] - 01/27/24 1:45 pm Miguel Kurtz MD [Med Staff - Active Staff] - See Referral Note (Call for appointment to be seen in 7 to 10 days for suture removal from chest tube) Zaki Noe MD [Primary Care Provider] - Within 1 Week (Call to set up an appointment) Disposition Disposition (needs filled in before D/C Order can be placed): Home, Self Care Charges/Coding Visit Charges Inpatient E&M: 49183 Disch Hosp >30min
--- NOTE | 2024-01-23 16:55 | RAD_ITS ---
STUDY: X-RAY CHEST REASON FOR EXAM: Male, 58 years old. s/p CT pull TECHNIQUE: AP portable COMPARISON: January 23, 2024 5:50 AM FINDINGS: Mild subsegmental atelectasis in the right upper lobe and possible tiny pleural effusion Tracheostomy noted in the midline. No definitive evidence for pneumothorax status post chest tube removal. Normal size heart. Normal mediastinum and hortencia. Normal visualized pulmonary arteries. Tortuous mildly calcified aortic arch and descending thoracic aorta. Normal visualized thoracic spine. Normal visualized ribs, clavicles, and shoulders. There is no demonstrated abnormality of the visualized soft tissue structures of the upper abdomen. RAD/Chest 1 View (Portable) IMPRESSION: No definitive evidence for residual pneumothorax status post right chest tube placement. Mild residual subsegmental atelectasis right upper lobe and possible tiny effusion Electronically Signed: Abrahan Miller MD at 18:05 EDT ,
== END 2024-01-23 19:05 | disposition home or self-care (01) | DRG 4 ==
LOC: ED 01-13 00:41 → ICU 01-13 01:11
PROVIDERS: Family Medicine; Internal Medicine; Internal Medicine Critical Care Medicine; Internal Medicine Pulmonary Disease; Otolaryngology; Surgery; Admitting Provider Internal Medicine; Emergency Provider Emergency Medicine; PCP Family Medicine; Visit Provider Internal Medicine
PROC: 0B110F4 Bypass Trachea to Cutaneous with Tracheostomy Device, Open Approach (ICD-10-PCS; principal; 2024-01-14 07:15)
DX: T78.3XXA Angioneurotic edema, initial encounter (principal); J96.01 Acute respiratory failure with hypoxia; J15.8 Pneumonia due to other specified bacteria; J96.02 Acute respiratory failure with hypercapnia; J95.811 Postprocedural pneumothorax; E87.1 Hypo-osmolality and hyponatremia; Z68.41 Body mass index [BMI] 40.0-44.9, adult; J98.2 Interstitial emphysema; E11.65 Type 2 diabetes mellitus with hyperglycemia; E66.01 Morbid (severe) obesity due to excess calories; I10 Essential (primary) hypertension; G47.33 Obstructive sleep apnea (adult) (pediatric); E87.6 Hypokalemia; F41.9 Anxiety disorder, unspecified; T46.4X5A Adverse effect of angiotensin-converting-enzyme inhibitors, initial encounter; N52.9 Male erectile dysfunction, unspecified; R13.10 Dysphagia, unspecified; Z79.899 Other long term (current) drug therapy
CPT/HCPCS: 31500; 31720; 36600; 51702; 71045; 74230; 80048; 80053; 81001; 82550; 82803; 82962; 83036; 83735; 84100; 84443; 84478; 85025; 85610; 85652; 85730; 86140; 86160; 86850; 86900; 86901; 87070; 87077; 87205; 87641; 92526; 92610; 92611; 93005; 94002; 94003; 94660; 97110; 97162; 97163; 97167; 97530; 97535; 97802; 97803; 99252; 99285; J7030; J7050; A4216; G0463; J0295; J1940; J2405; J3490

== ENCOUNTER → 2024-04-29 | Outpatient (CLI) | payer OTHER, SELFPAY ==
[2024-04-29 15:38] LABS: Anion Gap 9 (5-15); BUN 15 mg/dL (7-18); Calcium,Total 9.3 mg/dL (8.5-10.1); Chloride 107 mmol/L (98-107); Cholesterol 149 mg/dL (200); Creatinine, Serum 1.07 mg/dL (0.70-1.30); EST Glomerular Filtration Rate 75 mL/min (>60); Est Glom Filt Rate - Afr Amer 91 mL/min (>60); Glucose 116 mg/dL (74-106); High Density Lipoprotein 40 mg/dL; Sodium Level 138 mmol/L (136-145); Triglycerides 261 mg/dL; Very Low Density Lipoprotein 52 mg/dL (5-40)
== END | disposition home or self-care (01) ==
LOC: MFPLAB 11:13
PROVIDERS: PCP Family Medicine; Visit Provider Family Medicine
DX: E78.5 Hyperlipidemia, unspecified (principal); I10 Essential (primary) hypertension
CPT/HCPCS: 36415; 80048; 80061

== ENCOUNTER 2024-05-16 19:23 | Emergency (ER) | payer OTHER, SELFPAY ==
[2024-05-16 19:23] VITALS: BP 180/98; PULSE 81; RESP 16; TEMP 36.6; O2SAT 98; BMI 42.5
--- NOTE | 2024-05-16 19:35 | EX.ED.DYSGE1 ---
HPI <JOY Peralta - Last Filed: 05/16/24 19:46> History of Present Illness Chief Complaint: Edema Narrative Narrative: 59-year-old male was eating sausages and bit the left side of his tongue around 5 PM and has pain and swelling. His thought his voice started to sound funny. He thinks the tongue is red from the bite but he is concerned because he had an episode of angioedema from losartan in December 2023 that required an emergency cricothyrotomy so he is just here to get evaluated. He has no difficulty swallowing or breathing. He has had no new medications recently. 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) CPAP (continuous positive airway pressure) dependence Diverticulosis Edon' lung Hypertension Non-smoker Respiratory failure Sleep apnea Tooth abscess Home Medications ?Medication ?Instructions ?Recorded ?Last Taken ?Type sildenafil 50 mg tablet 50 mg PO DAILY PRN sexual activity 01/13/24 Unknown History amlodipine 10 mg tablet 10 mg PO DAILY #30 tabs 01/23/24 Unknown Rx carvedilol 12.5 mg tablet 12.5 mg PO BIDCM #60 tabs 01/23/24 Unknown Rx hydralazine 50 mg tablet 50 mg PO TID #90 tabs 01/23/24 Unknown Rx Allergy/AdvReac Type Severity Reaction Status Date / Time HAO Inhibitors Allergy Severe Angioedema Verified 05/16/24 19:27 losartan Allergy Severe Angioedema Verified 05/16/24 19:27 Surgical History History of chest tube placement History of tracheostomy Social History household members: spouse Smoking Status: Never smoker ROS <JOY Peralta - Last Filed: 05/16/24 19:46> ROS ED ROS Narrative Constitutional: Negative for fever, chills, malaise. Respiratory: Negative for shortness of breath. EXAM <JOY Peralta Last Filed: 05/16/24 19:46> Physical Exam Narrative Exam Narrative: CONST: Patient sitting in no acute distress. EYES: Normal inspection. ENT: Left lateral tongue has an ulceration/bite marco with localized left-sided swelling, normal posterior oropharynx, no trismus, sublingual space is soft. No drooling or stridor, normal voice and no respiratory distress. NECK: Normal inspection. RESP: No respiratory distress, CTAB. CVS: Regular rate and rhythm, no murmur, no gallop. SKIN: Color normal, no rash, warm, dry, intact. EXTREMITIES: Normal appearance, no pedal edema. NEURO: Alert and answering questions appropriately. PSYCH: Normal affect. Const Vital Signs: 05/16/24 19:23 05/16/24 19:52 05/16/24 19:53 Temperature 97.8 F 97.7 F L Temperature Source Temporal Pulse Rate 81 85 Respiratory Rate 16 18 Respiratory Effort Normal Non-Labored Respiratory Pattern Normal Blood Pressure 180/98 H 145/90 H Blood Pressure Mean 125 108 Pulse Ox 98 97 Oxygen Delivery Method Room Air <Isai Rosario MD - Last Filed: 05/16/24 20:18> Physical Exam Const Vital Signs: 05/16/24 19:23 05/16/24 19:52 05/16/24 19:53 Temperature 97.8 F 97.7 F L Temperature Source Temporal Pulse Rate 81 85 Respiratory Rate 16 18 Respiratory Effort Normal Non-Labored Respiratory Pattern Normal Blood Pressure 180/98 H 145/90 H Blood Pressure Mean 125 108 Pulse Ox 98 97 Oxygen Delivery Method Room Air [facility] <JOY Peralta - Last Filed: 05/16/24 19:46> [facility] Narrative Medical decision making narrative: Patient's left lateral tongue is swollen after he bit it while eating. He otherwise appears well, has stable vital signs, has no signs of angioedema and a normal posterior oropharynx. He was reassured the swelling is from biting his tongue and he can use ice chips or cold foods to help decrease the swelling. He was discharged in stable condition. <Isai Rosario MD - Last Filed: 05/16/24 20:18> [facility] Narrative Medical decision making narrative: Patient's left lateral tongue is swollen after he bit it while eating. He otherwise appears well, has stable vital signs, has no signs of angioedema and a normal posterior oropharynx. He was reassured the swelling is from biting his tongue and he can use ice chips or cold foods to help decrease the swelling. He was discharged in stable condition. Dr. Rosario: I have personally performed a face to face assessment of the patient and have reviewed the INDIRA Note. I performed a substantive portion of the visit including all aspects of the following. My santiago findings include: History is patient bit left side of tongue while eating sausage a few hours ago. He had recent angioedema to losartan so was concerned about angioedema. Denies throat closing. No other symptoms. Exam is afebrile. Vital signs noted. Mild swelling left side of tongue with evidence of excoriation. Airway patent. No drooling or trismus. Regular rate and rhythm. Lungs clear to auscultation bilaterally. Abdomen soft nontender. Medical Decision Making: Reassurance. Patient had already applied ice to the area with popsicles. Return instructions reviewed. Disposition is discharged home in stable condition. Other additions or changes: [None] History & Record Review Discussion w/independent historian: Patient Discharge Plan Triage Chief Complaint: Edema ED Midlevel Provider: Karen Eldridge ED Provider: Isai Rosario Dx/Rx/DC Orders Clinical Impression: Open wound of tongue due to bite Prescriptions: No Action sildenafil 50 mg tablet 50 mg PO DAILY PRN (Reason: sexual activity) amlodipine 10 mg Tablet 10 mg PO DAILY Qty: 30 2RF carvedilol 12.5 mg Tablet 12.5 mg PO BIDCM Qty: 60 2RF hydralazine 50 mg Tablet 50 mg PO TID Qty: 90 2RF Primary Care Provider: Zaki Noe Referrals: Zaki Noe MD [Primary Care Provider] - Activity Restrictions/Additional Instructions: You can use ice chips or popsicles to help decrease the swelling. If symptoms worsen be reevaluated. Print Language: Portuguese Disposition Disposition: Home, Self Care Discharge Date/Time: 05/16/24 19:54
[2024-05-16 19:53] VITALS: BP 145/90; PULSE 85; RESP 18; TEMP 36.5; O2SAT 97
== END 2024-05-16 19:54 | disposition home or self-care (01) ==
PROVIDERS: Emergency Provider Emergency Medicine; PCP Family Medicine; Visit Provider Emergency Medicine
DX: S01.552A Open bite of oral cavity, initial encounter (principal); X58.XXXA Exposure to other specified factors, initial encounter; I10 Essential (primary) hypertension; G47.30 Sleep apnea, unspecified; Z79.899 Other long term (current) drug therapy
CPT/HCPCS: 99282

== ENCOUNTER → 2024-05-27 | Outpatient (CLI) | payer OTHER, SELFPAY ==
--- NOTE | 2024-05-27 16:00 | RAD_ITS ---
STUDY: X-RAY - LUMBAR SPINE REASON FOR EXAM: Male, 59 years old. SCIATICA TECHNIQUE: 5 view(s) of the lumbar spine were obtained. COMPARISON: None FINDINGS: Normal lumbar lordosis. Mild dextroscoliosis centered at L3/L4. 2 mm of anterolisthesis of L4 on L5. There is multilevel endplate spondylosis of the lumbar vertebrae. There is multi-level degenerative disc disease with multi-level disc space narrowing. There is multilevel facet hypertrophy. The soft tissue structures are unremarkable. RAD/L/S Spine Min 4 Views IMPRESSION: Mild dextroscoliosis with degenerative disc disease. MRI may be useful. Electronically Signed: Jason Messer MD at 9:35 EDT ,
== END | disposition home or self-care (01) ==
LOC: MTLAB 15:57
PROVIDERS: PCP Family Medicine; Referring Provider Family Medicine; Visit Provider Family Medicine
DX: M54.30 Sciatica, unspecified side (principal)
CPT/HCPCS: 72110

== ENCOUNTER → 2024-06-20 | Outpatient (CLI) | payer OTHER, SELFPAY ==
--- NOTE | 2024-06-20 09:12 | MRI_ITS ---
EXAM: MR LUMBAR SPINE WITHOUT INTRAVENOUS CONTRAST CLINICAL INDICATION: DEGENERATIVE DISC DISEASE TECHNIQUE: Multiplanar and multisequence MR images of the lumbar spine without intravenous contrast. COMPARISON: Lumbar spine radiographs, 05/27/2024 FINDINGS: VERTEBRAE: No significant abnormality. Vertebral body heights are preserved. Normal vertebral bodies and posterior elements. Normal alignment. No spondylolisthesis. There is preservation of the normal lumbar lordosis. SPINAL CORD: No significant abnormality. Normal position and signal intensity of the conus medullaris. SOFT TISSUES: No significant abnormality. DISCS/SPINAL CANAL/NEURAL FORAMINA: L1-L2: Mild bilateral facet arthrosis and very mild disc bulge. No disc herniation, spinal canal stenosis, or neural foraminal narrowing. L2-L3: Mild disc bulge and mild bilateral facet arthrosis. Disc height loss and disc desiccation. No significant spinal canal or neural foraminal stenosis. L3-L4: Moderate bilateral facet arthrosis and mild disc bulge. Mild bilateral neural foraminal narrowing. No significant spinal canal stenosis. L4-L5: Disc desiccation without significant disc height loss. Disc bulge and superimposed central disc herniation with moderate to severe bilateral facet arthrosis. Moderate spinal canal stenosis and moderate bilateral neural foraminal narrowing. Bilateral traversing L5 nerve root impingement. L5-S1: Disc height loss and disc desiccation. Disc bulge and moderate bilateral facet arthrosis. Superimposed right central disc herniation. Mild to moderate bilateral neural foraminal narrowing and mild spinal canal stenosis. MRI/Spine Lumbar (Routine) IMPRESSION: Multilevel degenerative changes. Mild to moderate multilevel spinal canal stenosis and variable degrees of neural foraminal narrowing. Bilateral L5 nerve root impingement. Electronically Signed: Yariel Ewing DO at 21:10 EDT ,
== END | disposition home or self-care (01) ==
LOC: MRI 08:31
PROVIDERS: PCP Family Medicine; Referring Provider Family Medicine; Visit Provider Family Medicine
DX: M51.36 Other intervertebral disc degeneration, lumbar region (principal)
CPT/HCPCS: 72148

== ENCOUNTER 2024-07-16 10:30 | Outpatient (RCR) | payer OTHER, SELFPAY ==
--- NOTE | 2024-06-12 12:01 | HP.PTEVAL ---
Patient's Visit Information Visit Information Visit Information: JONATHAN BARNETT is a 59 year old M referred to Physical Therapy by Dr. Zaki Noe MD with a diagnosis of SCIATICA. Date of Evaluation: 06/12/24 Physical Therapist: Angel Woodruff PT, Cert MDT, OCS Visit Plan Frequency: 2x /Week Duration: 4 Weeks Plan: PT INTERVENTIONS CHELSIE EX'S ,MANUAL THERAPY ,PROGRESS TO DLS ,POSTURAL EX'S ,POSTURE/BODY MECHANICS ,ACTIVITY MODIFICATION AND MODALITIES FOR PAIN Subjective Subjective: This 59 y/o male presents to physical therapy with lumbar pain with radicular symptoms. Patient was in Hospital at [facility] due to allergic reactions to blood pressure medication lazertin in January 11 . Patient had to be hospitalized in ICU 12 days, on tracheostomy and vent . Patient d/c to home but was weak and needed to use fww and cane. Patient return to normal activity ,fell unloading chickens tripped ~ 2 months. Then moving car pulled out with truck but had to push manually with some pain .Patient developed pain 2 weeks later[address] Patient seen DR rothman PT ,muscle relaxer. Patient had x-rays Mild dextroscoliosis centered at L3/L4. 2 mm of anterolisthesis of L4 on L5.There is multilevel endplate spondylosis of the lumbar vertebrae. There ismulti-level degenerative disc disease with multi-level disc space narrowing. There is multilevel facet hypertrophy.. Patient plans to get MRI . Patient pain ,located right glut radiates hamstring to calf. Aggravating factors ,bending,lifting ,sitting and standing. Worse in AM as day goes on better. Alleviating factors walking. Coughing/sneezing +. Bowel/bladder -.. Pain can affects sleeping. Occasional numbs in foot . 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 Pain Right Back: Pain Intensity (Out of 10): 0 Pain Intensity Range: 10 Right Buttocks: Pain Intensity (Out of 10): 5 Pain Intensity Range: 10 Right Lower Extremity: Pain Intensity (Out of 10): 5 Pain Intensity Range: 10 Objective Objective: POSTURE: mild forward posture GAIT: ambulates with reciprocal pattern SYMMETRIES': align PALPATION: unremarkable NEURO: occasional parestehesia/tingling foot ,reflexes 3/3 L3-4,L4-5,L5-.S1 FLEXABILITY: hamstrings mod right side + SLR LUMBAR ROM: flexion mod loss ,extension WFL , side glides min glides MMT: quads 4-/5 + ANR ,hamstrings 4/5 ,hip flexion 4/5 ,ankle 5/5 Special Tests L/S Slump test left side: Positive L/S Slump test right side: Positive L/S Right Straight Leg Raise: Positive Lumbar Standing: Flexion - Mechanical Response: No effect Lumbar Standing: Flexion - Symptoms During Testing: Increases Lumbar Standing: Flexion - Symptoms After Testing: Worse Lumbar Standing: Extension - Mechanical Response: No effect Lumbar Standing: Extension - Symptoms During Testing: Decreases Lumbar Standing: Extension - Symptoms After Testing: Better Lumbar Standing: Right Side Glides - Mechanical Response: No effect Lumbar Standing: Right Side [place] - Symptoms During Testing: No effect Lumbar Standing: Right Side [place] - Symptoms After Testing: No effect Lumbar Standing: Left Side [place] - Mechanical Response: No effect Lumbar Standing: Left Side [place] - Symptoms During Testing: No effect Lumbar Standing: Left Side [place] - Symptoms After Testing: No effect Lumbar Lying: Flexion - Mechanical Response: No effect Lumbar Lying: Flexion - Symptoms During Testing: No effect Lumbar Lying: Flexion - Symptoms After Testing: No effect Lumbar Lying: Extension - Mechanical Response: No effect Lumbar Lying: Extension - Symptoms During Testing: Decreases Lumbar Lying: Extension - Symptoms After Testing: Worse Balance/Special Test Scores Oswestry Low Back Score: 24 Goals Goal 1:: Patient to be I with HEP Goal Time Frame: 4-6 Weeks Goal 2:: Patient to demonstrate 50% improvement with decrease pain and improved function Goal Time Frame: 4-6 Weeks Goal 3:: Patient to improve lumbar ROM for function of recovery to put on shoes Goal Time Frame: 4-6 Weeks Goal 4:: Patient to improve back oswestry score by 5 points to improve function and QOL Goal Time Frame: 4-6 Weeks Goal 5:: Patient to improve posture/body mechanics 90% of the time Goal Time Frame: 4-6 Weeks Rehabilitation Potential Physical Therapy Diagnosis: This patient has lumbar radiculopathy with possible derranagement with disc with pain increases with positioning /motion otto reyna with Rehabilitation Potential: Good Anticipated Interventions Patient/Client Instruction: Educate patient on: Condition and Plan of Care For the Purpose of:: To decrease pain, To decrease swelling/inflammation, To improve muscle performance and motor function, To improve ability to perform ADL's, To increase tolerance to activity/condition/position, To improve ability of physical actions for home/community/work/leisure, To improve health of tissue, To decrease soft tissue restriction, To increase flexibility/ROM, To reduce risk of recurrence and To prevent re-injury Therapeutic Exercise to Include: Strength training, Body mechanics, Postural training, Flexibilty training, Dynamic Lumbar Stabilization and Chelsie Exercises For the Purpose of:: To decrease pain, To increase ROM, To improve muscle performance and motor function, To improve ability to perform ADL's, To increase tolerance to activity/condition/position, To improve ability of physical actions for home/community/work/leisure, To improve health of tissue, To decrease soft tissue restriction, To increase flexibility/ROM, To reduce risk of recurrence and To prevent re-injury Manual Therapy Techniques to Include: Mobilization For the Purpose of:: To decrease pain and To decrease swelling/inflammation TENS: Yes IF ES: Yes Cryotherapy (ice pack, ice massage): Yes Thermo therapy (hot pack): Yes Ultrasound (thermal/non thermal): Yes For the Purpose of:: To decrease pain, To increase ROM, To improve nutrient delivery to tissue, To increase oxygenation perfusion, To improve health of tissue and To decrease soft tissue restriction Text: Thank you for the opportunity to evaluate your patient. For Medicare and Medicare HMO plans, please review the plan of care and approve it. It will need to be FAXED BACK to us at [phone] for Medicare purposes. For Medicare only, by signing this I certify the plan of care. Please let me know if there are questions or concerns regarding this plan of care. Physician Signature: Date:
--- NOTE | 2024-07-16 11:02 | HP.PTDCSUM ---
Discharge Summary D/C summary: It has been my pleasure to treat JONATHAN BARNETT referred by Dr. Zaki Noe MD, with the diagnosis of SCIATICA for a total of 9 visit(s). Discharge Date: 07/16/24 Please see the following information for a summary of their discharge status. Subjective Subjective: Doing well Pain Right Back: Pain Intensity (Out of 10): 0 Right Buttocks: Pain Intensity (Out of 10): 0 Right Lower Extremity: Pain Intensity (Out of 10): 0 Overall Improvement % Improvement: 80 Objective Objective/Function: OSTURE: mild forward posture GAIT: ambulates with reciprocal pattern SYMMETRIES': align PALPATION: unremarkable NEURO: DENIES parestehesia/tingling foot ,reflexes 3/3 L3-4,L4-5,L5-.S1 FLEXABILITY: hamstrings mod right side + SLR LUMBAR ROM: flexion mod loss ,extension WFL , side glides min glides MMT: quads 4-/5 ,hamstrings 4/5 ,hip flexion 4/5 ,ankle 5/5 - SLR - ANR Goals Goal 1:: Patient to be I with HEP Goal Progress: Goal Met Goal 2:: Patient to demonstrate 50% improvement with decrease pain and improved function Goal Progress: Goal Met Goal 3:: Patient to improve lumbar ROM for function of recovery to put on shoes Goal Progress: Goal Met Goal 4:: Patient to improve back oswestry score by 5 points to improve function and QOL Goal Progress: Goal Met Goal 5:: Patient to improve posture/body mechanics 90% of the time Goal Progress: Goal Met Plan Plan: D/C D/C Information Discharge Comments: HEP d/c sentence: If there are questions or concerns regarding this patient's physical therapy, please feel free to call me at [phone]. Thank you for the referral of this patient. Sincerely, Angel Woodruff, PT, Cert MDT, OCS Balance/Gait/Functional tests Balance/Special Test Scores Oswestry Low Back Score: 4 Improvement % Improvement: 80
== END 2024-07-16 13:10 | disposition home or self-care (01) ==
LOC: PT 10:30
PROVIDERS: PCP Family Medicine; Referring Provider Family Medicine; Visit Provider Family Medicine
DX: M54.30 Sciatica, unspecified side (principal); R03.0 Elevated blood-pressure reading, without diagnosis of hypertension
CPT/HCPCS: 97014; 97110; 97162; 97530; G0283

== ENCOUNTER 2024-08-14 23:29 | Emergency (ER) | payer OTHER, SELFPAY ==
[2024-08-14 23:30] VITALS: BP 218/114; BP 233/118; PULSE 88; RESP 18; TEMP 36.6; O2SAT 98; BMI 44.0
--- NOTE | 2024-08-14 23:36 | EX.ED.DYSGE1 ---
HPI History of Present Illness Chief Complaint: Allergic Reaction Informant: patient and spouse/S.O. Narrative Narrative: 59-year-old male with about 1 hour of nonpainful swelling of his tongue. Denies any trouble breathing or swallowing right now. He states he thinks he bit his tongue mildly during dinner about 4 hours prior to the onset of this. He denies having any tongue pain. He had this in the past when he was on an HAO inhibitor and then he had it again when he was on an ARB. He required advanced airway management emergently at that time. He is on none of these medications now. Prior to this he took his nighttime medications which includes HCTZ he states he has been on that for about 7 years and never had a reaction to it. He denies any other known allergic reaction etiologies or foods. He denies any other symptoms such as chest tightness, edema, lightheadedness or syncope. 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) Home Medications ?Medication ?Instructions ?Recorded ?Last Taken ?Type sildenafil 50 mg tablet 50 mg PO DAILY PRN sexual activity 01/13/24 Unknown History hydralazine 50 mg tablet 50 mg PO TID #90 tabs 01/23/24 Unknown Rx epinephrine 0.3 mg/0.3 mL 0.3 mg (0.3 mL) IM Q10M PRN PRN 08/15/24 Unknown Rx injection, auto-injector anaphylaxis #2 ea prednisone 20 mg tablet 40 mg (2 x 20 mg) PO DAILY #6 08/15/24 Unknown Rx TABLETS Allergy/AdvReac Type Severity Reaction Status Date / Time HAO Inhibitors Allergy Severe Angioedema Verified 08/14/24 23:32 losartan Allergy Severe Angioedema Verified 08/14/24 23:32 Surgical History History of tracheostomy History of chest tube placement Social History household members: spouse Smoking Status: Never smoker ROS ROS ED Constitutional Constitutional ED: Denies chills or fever(s) Eyes Eyes: Denies change in vision or diplopia ENT ENT ED: Reports as per HPI and tongue swelling; Denies hoarseness, lip swelling, rhinorrhea, sore throat or throat swelling Cardiovascular Cardiovascular: Denies chest pain, lightheadedness, palpitations or syncope Respiratory/Chest Respiratory/Chest: Denies cough or dyspnea Gastrointestinal Gastrointestinal: Denies abdominal pain, diarrhea, nausea or vomiting Genitourinary Genitourinary ED: Denies dysuria or hematuria Musculoskeletal Musculoskeletal: Denies back pain or neck pain Integumentary Denies abscess or rash Neurologic Neurologic: Denies headache(s), paresthesias or weakness Psychiatric Psychiatric: Denies anxiety or suicidal thoughts EXAM Physical Exam Const Vital Signs: 08/14/24 23:30 08/14/24 23:30 08/15/24 00:16 Temperature 97.9 F Temperature Source Oral Pulse Rate 88 88 Respiratory Rate 18 16 Blood Pressure 218/114 H 233/118 H 198/111 H Blood Pressure Mean 148 156 140 Pulse Ox 98 98 Oxygen Delivery Method Room Air Room Air 08/15/24 02:53 Temperature 98.3 F Temperature Source Pulse Rate 88 Respiratory Rate 16 Blood Pressure 174/100 H Blood Pressure Mean 124 Pulse Ox 95 Oxygen Delivery Method Positive well nourished and well developed General Appearance ED: well developed and NAD HEENT Reports moist mucous membranes HEENT Narrative: Tongue is asymmetrically edematous on the left side. There is no sign of any trauma/injury. There is no dysphonia or stridor. Patient is lying in recumbent position and comfortable and in no respiratory distress. normocephalic and atraumatic Eyes PERRL and EOMs intact bilaterally Neck full ROM and supple Resp normal respiratory effort and clear to auscultation bilaterally Cardio regular rate, regular rhythm and no murmurs Rate: Negative for tachycardic Back/Spine General Back: other FROM Extremity normal to inspection General Extremety ED: Negative for edema, pulses abnormal or tenderness General Extremity: Negative for edema or pulses abnormal Neuro oriented x3, CN's II-XII intact bilaterally and no sensory deficits noted Sensorium / Orientation: awake and alert Motor Exam: strength 5/5 throughout Psych mental status grossly normal Skin no rashes or lesions noted and no wounds MDM MDM MDM Narrative Medical decision making narrative: Etiology of his angioedema is unclear. He is not progressing quickly at this time and although there is certainly concern for the possibility of progression, I do not think he needs to be emergently intubated looking at the degree of edema right now. As I discussed with him and spouse, were going to watch him closely and give him medications and see how he reacts for now which she is comfortable with. He was given IM epinephrine in addition to Benadryl, Solu-Medrol, and Pepcid all in the IV. 20-30 minutes afterwards, patient is having subjective and objective improvement. Will continue to observe. Checked on patient multiple other times, with continued improvement up until epinephrine wore off at about 1.5 hours. Subsequently he continued to improve, and at the 3-hour marco, had complete resolution of the edema. He feels comfortable going home. At this point I am comfortable allowing it. On putting him on a couple more days of steroids, prescribing him an EpiPen since he responded to it, and advising close outpatient follow-up. Of note his blood pressure is elevated. He is asymptomatic with it. I elected to observe it so as not to administer new medications that he may or may not react to. His pressure came down to the 170s. I advise staying on his current blood pressure medication and following up with his doctor in the office to have a recheck. Critical Care Time Critical Care Time: Yes Critical care time (excluding procedures): 30-74 minutes (34 min), Including time spent:, Discussing w/Patient &/or Family/Camera Tuning Engineer and Performing Direct Patient Care at Bedside Discharge Plan Triage Chief Complaint: Allergic Reaction ED Provider: Sage Medina Dx/Rx/DC Orders Clinical Impression: Angioedema of tongue, Accelerated hypertension Instructions: ED Angioedema Prescriptions: New prednisone 20 mg tablet 40 mg PO DAILY Qty: 6 0RF epinephrine 0.3 mg/0.3 mL auto-injector 0.3 mg IM Q10M PRN PRN (Reason: anaphylaxis) Qty: 2 0RF Rx Instructions: for 2 doses No Action sildenafil 50 mg tablet 50 mg PO DAILY PRN (Reason: sexual activity) hydralazine 50 mg Tablet 50 mg PO TID Qty: 90 2RF Primary Care Provider: Zaki Noe Referrals: Zaki Noe MD [Primary Care Provider] - As soon as possible Print Language: Greenlandic Disposition Disposition: Home, Self Care Discharge Date/Time: 08/15/24 02:54
[2024-08-14] MEDS: Epi Pen (EQUIV) 0.3 MG Syringe IM (23:40)
[2024-08-14] MEDS: MethylPREDNISolone 125 MG/2 ML Vial IV (23:40)
[2024-08-14] MEDS: DiphenhydrAMINE 50 MG/ML Syringe 25 MG IV (23:42)
[2024-08-14] MEDS: Famotidine 200 MG/20 ML MDV 20 MG in 0.9% Normal Saline (Pres. free 8 ML 300 MG IV (23:44)
[2024-08-15 00:16] VITALS: BP 198/111; PULSE 88; RESP 16; O2SAT 98
--- OUTSIDE RECORDS SUMMARY | 2024-08-15 00:46 | XMS RPT_ITS | CCD ---
Author Organization [facility] Care Team Providers Care Legal Examiner Name Role Phone Zaki Noe MD Primary Care Provider Medications Current Medications Medication Drug Class(es) Dates Sig (Normalized) Sig (Original) amoxicillin 875 mg oral tablet (1 source) Penicillin-class Antibacterial Start: 12-21-2023 End: 12-28-2023 take 1 tablet by mouth twice daily amoxicillin (AMOXIL) 875 mg tablet Indications: Dental infection Take 1 tablet by mouth two times a day for 7 days. 14 tablet 0 12/21/2023 12/28/2023 Active Comment on above: Take 1 tablet by margaux th two times a day for 7 days. Completed/Discontinued Medications Medication Drug Class(es) Dates Sig (Normalized) Sig (Original) hydroCHLOROthiazide 25 mg oral tablet (1 source) Thiazide Diuretic Start: 12-08-19 24 hydroCHLOROthiazide 25 mg tablet losartan potassium 50 mg oral tablet (1 source) Angiotensin 2 Receptor Anita Start: 12-08-19 24 losartan (COZAAR) 50 mg tablet sildenafil 50 mg oral tablet (1 source) Phosphodiesterase 5 Inhibitor Start: 11-08-19 24 sildenafil (VIAGRA) 50 mg tablet Problems Problem Classification Problem Date Documented Da te Episodic/Chronic Disorders of teeth and jaw (1 source) Infection of tooth; Translations: [Periapical abscess without sinus] 12-21-2023 Episodic Vital Signs Date Time Vital Sign Value Performing Clinician Faci lity 12-21-2023 11:22-0500 Body temperature 98.6 [degF] Rafaela Ortiz APRN.CONVERTER SKIMMER Work Phone: [facility] 12-21-2023 11:22-0500 Body weight 127.37 kg Rafaela Ortiz APRN.CONVERTER SKIMMER Work Phone: [facility] 12-21-2023 11:22-0500 Diastolic blood pressure 84 mm[Hg] Rafaela Ortiz APRN.CONVERTER SKIMMER Work Phone: [facility] 12-21-2023 11:22-0500 Heart rate 89 /min Rafaela Ortiz APRN.CONVERTER SKIMMER Work Phone: [facility] 12-21-2023 11:22-0500 Respiratory rate 16 /min Rafaela Ortiz APRN.CONVERTER SKIMMER Work Phone: [facility] 12-21-2023 11:22-0500 SaO2% (BldA) [Mass fraction] 96 % Rafaela Ortiz APRN.CONVERTER SKIMMER Work Phone: [facility] 12-21-2023 11:22-0500 Systolic blood pressure 136 mm[Hg] Rafaela Ortiz APRN.CONVERTER SKIMMER Work Phone: [facility] Encounters Encounter Date Encounter Type Care Provider Facility Start: 12-21-2023 End: 12-21-2023 Patient encounter procedure Rafaela Ortiz APRN.CONVERTER SKIMMER Work Phone: [facility] Comment on above: Dental infection (Pr imary Dx) Plan of Treatment Date Care Activity Detail Author Start: 10-28-2023 Depression Assessment Depression Ass essment [facility] Start: 08-26-2023 Urine microalbumin profile DTa P,Tdap,Td Vaccine (2 - Td or Tdap) [facility] Start: 06-28-2023 Covid-19 Vaccine ( season) Covid-19 Vaccine ( season) [facility] Start: 06-28-2023 Influenza vaccination Influenza Vacc ine (#1) [facility] Start: 2021 Prostate specific an tigen measurement Prostate Cancer Screening Discussion [facility] Start: 2016 Shingrix Vaccine (1 of 2) Jones grix Vaccine (1 of 2) [facility] Start: 2011 Diabetes Screening Diabetes Screenin g [facility] Start: 2011 Screening for malign ant neoplasm of colon [facility] Start: 2001 Lipid panel [facility] Start: 1984 Hepatitis C screening Hepatitis C Sc reenayana [facility] Start: 1984 HIV screening HIV Screening [facility] Start: 1966 Hepatitis B Vaccine (1 of 3 - 3-dose series) Hepatitis B Vaccine (1 of 3 - 3-dose series) [facility] Payers Date Payer Category Payer Unknown MMO MMO [employer] PPO [id number] 2021-Present [phone] [address] [place] [address] PPO [id number] Social History Date Type Detail Facility Start: 12-21-2023 Tobacco smoking stat [facility] Never smoked tobacco [facility] Start: 12-21-2023 Tobacco use and exposure Smoke less tobacco non-user [facility] Start: 12-21-2023 History of Social function [facility] Start: 12-21-2023 Tobacco use panel [facility] Start: 1965 Sex Assigned At Not on file C [facility] History of Present illness Narrative 12-21-2023 Rafaela Ortiz APRN.CONVERTER SKIMMER - 12/21/2023 11:36 AM EST Note Date & Type Note Facility 12-21-2023 History of Presen t illness Narrative Images from the original note were not included. Subjective She came in with complaints of dental pain on the left lower. Patient does have a chipped tooth in that area. Patient says it started yesterday. Patient says he has a significant lump there. Patient denies fever chills nausea vomiting. The history is provided by the patient. Dental Problem Review of Systems Constitutional: Negative. Skin: Negative. Objective Physical Exam Constitutional: Appearance: Normal appearance. HENT: Head: Comments: Leslie sized firm area located in the place marked above. Significant dental caries noted. Pulmonary: Effort: Pulmonary effort is normal. Neurological: Mental Status: He is alert. History reviewed. No pertinent past medical history. No past surgical history on file. ALLERGIES Patient has no known allergies. MEDICATIONS hydroCHLOROthiazide 25 mg tablet losartan (COZAAR) 50 mg tablet sildenafil (VIAGRA) 50 mg tablet amoxicillin (AMOXIL) 875 mg tablet Take 1 tablet by mouth two times a day for 7 days. No family history on file. Social History Tobacco Use Smoking status: Never Smokeless tobacco: Never ASSESSMENT/PLAN: 1. Dental infection - ICD9: 522.4, ICD10: K04.7 - AMOXICILLIN 875 MG TABLET Patient was educated about proper use of medication and supportive therapies. Patient was educated to follow-up with a dentist and he already has an appointment made for next week. Patient was educated about red flag symptoms to watch for and to go to the ER if any of these occur. Patient was okay with this care plan. Rafaela Ortiz APRN.CASTRO documented in this encounter [facility] Evaluation note Note Date & Type Note Facility Evaluation note Diagnosis Dental infection- Primary Acute apical periodontitis of pulpal origin documented in this encounter [facility] Additional Source Comments Source Comments (unrecognize d section and content) In the event this informatio n is protected by the Federal Confidentiality of Alcohol and Drug Abuse Patient Records regulations: The Federal rules restrict any use of the information to criminally investigate or prosecute any alcohol or drug abuse patient.[facility] Reason for Visit (unrecogniz ed section and content) Reason Comments Dental Problem Broken tooth x 1 mon th-pain and swelling started yesterday Care Teams (unrecognized sec tion and content) Legal Examiner Relationship Specialty Start Date End Date Zaki Noe MD [address] [place] [id number] PCP - General Family Medicine 12/21/23 FOR RECORDS PERTAINING TO PATIENTS WHO ARE OR HAVE BEEN ENROLLED IN A CHEMICAL DEPENDENCY/SUBSTANCEABUSE PROGRAM, SOME INFORMATION MAY BE OMITTED. This clinical summary was aggregated from multiple sources. Caution should be exercised in using it in the provision of clinical care. This summary normalizes information from multiple sources, and as a consequence, information in this document may materially change the coding, format and clinical context of patient data. In addition, data may be omitted in some cases. CLINICAL DECISIONS SHOULD BE BASED ON THE PRIMARY CLINICAL RECORDS. [employer] [facility]. provides no warranty or guarantee of the accuracy or completeness of information in this document.
[2024-08-15 02:53] VITALS: BP 174/100; PULSE 88; RESP 16; TEMP 36.8; O2SAT 95
== END 2024-08-15 02:54 | disposition home or self-care (01) ==
PROVIDERS: Emergency Provider Emergency Medicine; PCP Family Medicine; Visit Provider Emergency Medicine
DX: T78.3XXA Angioneurotic edema, initial encounter (principal); I10 Essential (primary) hypertension; Z79.899 Other long term (current) drug therapy
CPT/HCPCS: 96372; 96374; 96375; 99283; A4216; J3490

== ENCOUNTER → 2024-10-30 | Outpatient (CLI) | payer OTHER, SELFPAY ==
[2024-10-30 15:49] LABS: Anion Gap 9 (5-15); BUN 19 mg/dL (7-18); BUN/Creat Ratio 18.3 RATIO (10-20); Calcium,Total 9.4 mg/dL (8.5-10.1); Chloride 106 mmol/L (98-107); Cholesterol 196 mg/dL (200); Creatinine, Serum 1.04 mg/dL (0.70-1.30); EST Glomerular Filtration Rate 78 mL/min (>60); Est Glom Filt Rate - Afr Amer 94 mL/min (>60); Glucose 107 mg/dL (74-106); High Density Lipoprotein 43 mg/dL; Potassium 3.7 mmol/L (3.5-5.1); Sodium Level 137 mmol/L (136-145); Triglycerides 209 mg/dL; Very Low Density Lipoprotein 42 mg/dL (5-40)
[2024-11-03 10:07] LABS: Alternaria alternata <0.10 kU/L (Class 0); Aspergillus fumigatus <0.10 kU/L (Class 0); Bahia Grass 0.99 kU/L (Class II); Bermuda Grass 1.21 kU/L (Class II); Bluegrass, Kentucky 1.06 kU/L (Class II); Cat Hair/Dander, Standard <0.10 kU/L (Class 0); Cedar, Mountain 0.52 kU/L (Class I); Cladosporium herbarum <0.10 kU/L (Class 0); Cockroach, American 0.34 kU/L (Class I); D farinae Mite 0.13 kU/L (Class 0/I); D pteronyssinus <0.10 kU/L (Class 0); Dog Epithelia <0.10 kU/L (Class 0); Elm, American White 0.86 kU/L (Class II); Hazelnut Tree 0.37 kU/L (Class I); Johnson Grass 0.98 kU/L (Class II); Maple/Box Elder 0.76 kU/L (Class II); Mucor racemosus 0.21 kU/L (Class 0/I); Mulberry, White 0.41 kU/L (Class I); Nettle 0.55 kU/L (Class I); Penicillium chrysogen <0.10 kU/L (Class 0); Pigweed, Rough 0.66 kU/L (Class II); Plantain, English 0.79 kU/L (Class II); Stemphylium herbarum <0.10 kU/L (Class 0); Sweet Gum 0.78 kU/L (Class II); Sycamore, American 0.85 kU/L (Class II)
== END | disposition home or self-care (01) ==
LOC: MFPLAB 10:55
PROVIDERS: PCP Family Medicine; Referring Provider Family Medicine; Visit Provider Family Medicine
DX: T78.40XA Allergy, unspecified, initial encounter (principal); I10 Essential (primary) hypertension; X58.XXXA Exposure to other specified factors, initial encounter
CPT/HCPCS: 36415; 80048; 80061; 86003

== ENCOUNTER → 2025-01-21 | Outpatient (CLI) | payer OTHER, SELFPAY ==
[2025-01-21 11:31] LABS: Absolute Lymphocyte Count 1.44 X10^3/uL (0.83-4.51); Absolute Neutrophil Count 3.9 X10^3/uL (2.0-7.7); Basophil# 0.02 X10^3/uL; Basophil% 0.3 % (0-1); Eosinophils% 1.7 % (0-5); Hematocrit 40.6 % (40-54); Hemoglobin 13.7 g/dL (13.0-16.5); Lymphocyte # 1.44 X10^3/ul (0.83-4.51); Lymphocyte % 24.6 % (19-41); Mean Corp Hgb Conc 33.7 g/dL (32-36); Mean Corpuscular Hgb 29.7 pg (27.0-32.0); Mean Corpuscular Volume 87.9 fL (80-94); Mean Platelet Vol. 10.5 fl (6.2-12.0); Monocyte% 6.8 % (0-10); NRBC Flagged by Analyzer 0 % (0-5); Neutrophil # 3.88 X10^3/uL (2.7-7.7); Neutrophil % 66.3 % (47-70); Platelet Count 216 K/mm3 (150-450); RBC Distribution Width CV 13.7 % (11.6-14.6); RBC Distribution Width SD 44.2 fl (35.1-43.9); Red Blood Count 4.62 M/mm3 (4.6-6.2); White Blood Count 5.9 K/mm3 (4.4-11.0)
[2025-01-21 12:38] LABS: ALB/GLOB Ratio 1.2 RATIO (0.9-2.4); AST(SGOT) 20 U/L (<=37); Alanine Aminotransfer ALT/SGPT 31 U/L (<=46); Albumin, Serum 3.8 g/dL (3.5-5.0); Alkaline Phosphatase 80 U/L (40-129); Anion Gap 16 (5-15); BUN 17 mg/dL (4-19); BUN/Creat Ratio 17.8 RATIO (10-20); Calcium,Total 8.6 mg/dL (7.6-11.0); Carbon Dioxide 16.5 mmol/L (21.0-32.0); Chloride 105 mmol/L (98-108); Creatinine, Serum 0.98 mg/dL (0.70-1.20); EST Glomerular Filtration Rate 90 (>60); Globulin 3.3 g/dL (2.2-4.2); Glucose 84 mg/dL (70-99); Potassium 4.1 mmol/L (3.3-5.1); Protein, Total 7.2 g/dL (5.9-8.4); Sodium Level 138 mmol/L (133-145); Total Bilirubin 0.23 mg/dL (0.00-1.30)
== END | disposition home or self-care (01) ==
LOC: LAB 10:18
PROVIDERS: PCP Family Medicine; Referring Provider Specialist; Visit Provider Specialist
DX: T78.3XXA Angioneurotic edema, initial encounter (principal); J30.9 Allergic rhinitis, unspecified; R06.00 Dyspnea, unspecified; Z91.038 Other insect allergy status
CPT/HCPCS: 36415; 80053; 83520; 85025; 86160

== ENCOUNTER → 2025-02-09 | Outpatient (CLI) | payer OTHER, SELFPAY | END | disposition home or self-care (01) | LOC: LAB 10:53 | PROVIDERS: PCP Family Medicine; Referring Provider Surgery; Visit Provider Surgery | DX: Z01.812 Encounter for preprocedural laboratory examination (principal); K42.9 Umbilical hernia without obstruction or gangrene | CPT/HCPCS: 87081 ==

== ENCOUNTER → 2025-02-24 | Outpatient (CLI) | payer OTHER, SELFPAY ==
[2025-03-01 18:08] LABS: C1 EST Inhibitor, Functional >110 (.)
== END | disposition home or self-care (01) ==
PROVIDERS: PCP Family Medicine; Referring Provider Psychiatry & Neurology Neurology; Visit Provider Psychiatry & Neurology Neurology
DX: J30.9 Allergic rhinitis, unspecified (principal); R06.00 Dyspnea, unspecified; L50.1 Idiopathic urticaria; Z91.038 Other insect allergy status
CPT/HCPCS: 36415; 86161

== ENCOUNTER 2025-03-29 05:35 | Day surgery (SDC) | payer OTHER, SELFPAY ==
--- NOTE | 2025-03-15 13:13 | PAT.ANESEVAL ---
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 When Was Last Pacemaker Check QUESTION #4 FULL TEXT: You/Your Family Experience fever (hyperthermia) with Anesthesia Last Oral Intake Last Oral intake: Last Oral Intake NPO since Meds taken in AM with sips of water? Meds patient instructed to take am of surgery PONV PONV - set o type operator: PONV - set o type operator Female Yes 03/15/25 10:21 HX of Motion Sickness No 03/15/25 10:21 HX of N/V After Surgery No 03/15/25 10:21 Non-Smoker Yes 03/15/25 10:21 Duration of Surgery greater No 03/15/25 10:21 than 60 minutes Number of Risk Factors 2 03/15/25 10:21 PONV Score Moderate Risk 03/15/25 10:21 Height & Weight Height & Weight: Anesthesia: Height & Weight Height 5 ft 8 in 02/09/25 10:01 Respiratory Assessment Respiratory Assessment - set o type operator: Respiratory Tract Infection Hx - set o type operator Hx Respiratory Tract Infection No 03/15/25 10:21 STOP Sleep Apnea STOP Sleep Apnea - set o type operator: STOP Sleep Apnea - set o type operator Hx Hypertension Yes: CONTROLLED ON MED 03/15/25 10:21 Hx Sleep Apnea No 03/15/25 10:21 CPAP BIPAP Do you snore loudly (louder No 03/15/25 10:21 than talking or can be heard Do you often feel tired/ No 03/15/25 10:21 fatigued/ sleepy during daytime? Has anyone observed you stop No 03/15/25 10:21 breathing during sleep? STOP Results Negative 03/15/25 10:21 QUESTION #5 FULL TEXT : Do you snore loudly (louder than talking or can be heard through closed doors)? 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 Specify any problems Hx of Preganancy in last 3 N/A 03/15/25 10:21 Months Nurse Filling Out Transfusion VCHRISTIN 03/15/25 10:21 & Questions: Date: 03/15/25 03/15/25 10:21 Time: 10:22 03/15/25 10:21 Patient unable to answer at this time (ie. 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) Home Medications ?Medication ?Instructions ?Recorded ?Last Taken ?Type sildenafil 50 mg tablet 50 mg PO DAILY PRN sexual activity 01/13/24 Unknown History hydralazine 50 mg tablet 50 mg PO TID #90 tabs 01/23/24 Unknown Rx epinephrine 0.3 mg/0.3 mL 0.3 mg (0.3 mL) IM Q10M PRN PRN 08/15/24 Unknown Rx injection, auto-injector anaphylaxis #2 ea beet root 2 cap PO DAILY 02/09/25 Unknown History apple cider vinegar 300 mg tablet 300 mg PO BID 03/15/25 Unknown History cetirizine 10 mg tablet 10 mg PO QPM 03/15/25 Unknown History Allergy/AdvReac Type Severity Reaction Status Date / Time HAO Inhibitors Allergy Severe Angioedema Verified 03/15/25 10:09 bee venom protein (honey Allergy Severe SWELLING Verified 03/15/25 10:11 bee) (bee sting) losartan Allergy Severe Angioedema Verified 03/15/25 10:09 Surgical History History of tracheostomy History of chest tube placement Social History household members: spouse Smoking Status: Never smoker Audit: Pertinent Findings Pertinent Findings EKG Perinent findings: 01/12/2024. Sinus tachycardia [address] and T wave abnormality. Recommendation Anesthesia Recommendation Anesthesia recommendation: OPTIMIZED for anesthesia
--- NOTE | 2025-03-18 09:55 | EKG12_ITS ---
Test Reason : PREOP Blood Pressure : */* mmHG Vent. Rate : 83 BPM Atrial Rate : 83 BPM P-R Int : 162 ms QRS Dur : 82 ms QT Int : 370 ms P-R-T Axes : 42 6 37 degrees QTcB Int : 434 ms Normal sinus rhythm Minimal voltage criteria for LVH, may be normal variant Borderline ECG Confirmed by FITO WOODRUFF, ALOK ([id number]), editorial writer SARAH CARDENAS ([id number]) on 03/23/2025 6:49:11 AM Referred By: MAYRA Confirmed By: ALOK PAYTON MD
--- NOTE | 2025-03-18 13:05 | PAT.ANE_ITS ---
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 When Was Last Pacemaker Check QUESTION #4 FULL TEXT: You/Your Family Experience fever (hyperthermia) with Anesthesia Last Oral Intake Last Oral intake: Last Oral Intake NPO since Meds taken in AM with sips of water? Meds patient instructed to take am of surgery PONV PONV - metal milling machine operator: PONV - metal milling machine operator Female Yes 03/15/25 10:21 HX of Motion Sickness No 03/15/25 10:21 HX of N/V After Surgery No 03/15/25 10:21 Non-Smoker Yes 03/15/25 10:21 Duration of Surgery greater No 03/15/25 10:21 than 60 minutes Number of Risk Factors 2 03/15/25 10:21 PONV Score Moderate Risk 03/15/25 10:21 Height & Weight Height & Weight: Anesthesia: Height & Weight Height 5 ft 8 in 02/09/25 10:01 Respiratory Assessment Respiratory Assessment - metal milling machine operator: Respiratory Tract Infection Hx - metal milling machine operator Hx Respiratory Tract Infection No 03/15/25 10:21 STOP Sleep Apnea STOP Sleep Apnea - metal milling machine operator: STOP Sleep Apnea - metal milling machine operator Hx Hypertension Yes: CONTROLLED ON MED 03/15/25 10:21 Hx Sleep Apnea No 03/15/25 10:21 CPAP BIPAP Do you snore loudly (louder No 03/15/25 10:21 than talking or can be heard Do you often feel tired/ No 03/15/25 10:21 fatigued/ sleepy during daytime? Has anyone observed you stop No 03/15/25 10:21 breathing during sleep? STOP Results Negative 03/15/25 10:21 QUESTION #5 FULL TEXT : Do you snore loudly (louder than talking or can be heard through closed doors)? 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 Specify any problems Hx of Preganancy in last 3 N/A 03/15/25 10:21 Months Nurse Filling Out Transfusion VCHRISTIN 03/15/25 10:21 & Questions: Date: 03/15/25 03/15/25 10:21 Time: 10:22 03/15/25 10:21 Patient unable to answer at this time (ie. 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) Home Medications ?Medication ?Instructions ?Recorded ?Last Taken ?Type sildenafil 50 mg tablet 50 mg PO DAILY PRN sexual ac tivity 01/13/24 Unknown History hydralazine 50 mg tablet 50 mg PO TID #90 tabs Unknown Rx epinephrine 0.3 mg/0.3 mL 0.3 mg (0.3 mL) IM Q10M PRN PRN 08/15/24 Unknown Rx injection, auto-injector anaphylaxis #2 ea beet root 2 cap PO DAILY 02/09/25 Unkn own History apple cider vinegar 300 mg tablet 300 mg PO BID Unknown History cetirizine 10 mg tablet 10 mg PO QPM 03/15/25 Unknow n History Allergy/AdvReac Type Severity Reaction Status Date / Time HAO Inhibitors Allergy Severe Angioedema Verified 03/15/25 10:09 bee venom protein (honey Allergy Severe SWELLING Verified 03/15/25 10:11 bee) (bee sting) losartan Allergy Severe Angioedema Verified 03/15/25 10:09 Surgical History History of tracheostomy History of chest tube placement Social History household members: spouse Smoking Status: Never smoker Audit: Pertinent Findings HISTORY of Pertinent Findings History of Pertinent Findings: EKG Pertinent Findings EKG Perinent findings 01/12/2024. Sinus 03/15/25 13:13 tachycardia [address] and T wave abnormality. Pertinent Findings EKG Perinent findings: 01/12/2024. Sinus tachycardia [address] and T wave abnormality. Recommendation Anesthesia Recommendation Anesthesia recommendation: OPTIMIZED for anesthesia
[2025-03-29] VITALS (14 sets, daily range): BP systolic 150–178; BP diastolic 87–107; PULSE 75–90; RESP 14–18; TEMP 36.4–37.6; O2SAT 90–97; BMI 40.5
--- NOTE | 2025-03-29 06:31 | PCM.PRE.AN2 ---
ASA Classification* ASA Classification ASA Classification: 3 (Uncontrolled HTN. Received 50 hydralazine and 2 mg versed in preop. Hx of angioedema 2/2 to losartan requiring a trach. Please keep MAPS > 90 for this case given uncontrolled HTN) Assessment & Plan Anesthesia* Anesthesia Assessment Anesthesia Assessment: Discussed sedation and/or anesthesia options, risks, benefits, and alternatives with patient/parents/legal guardian/POA. Questions invited. The patient/parents/legal guardian/POA seems to understand and agrees to proceed with anesthesia plan. Reviewed the physical assessment, medical history, allergy history and patient home medications list prior to surgery/procedure/anesthetic and documented any changes. Performed airway and anesthesia risk assessments. Anesthesia Type Anesthesia Type: General History Source History Obtained from:: Patient and Chart Anesthesia Focused Assessment* Temperature: 99.6 F Pulse Rate: 75 Blood Pressure: 169/89 Respiratory Rate: 18 Pulse Ox: 97 Airway Assessment Mouth opens: >3 cm Mallampati Score: II Teeth Condition: Intact Neck Range of motion (ROM): Full ROM Focused Labs Anesthesia Preop lab: CBC WBC 5.9 K/mm3 (4.4-11.0) 01/21/25 10:01/21/25 RBC 4.62 M/mm3 (4.6-6.2) 01/21/25 10:01/21/25 Hgb 13.7 g/dL (13.0-16.5) 01/21/25 10:01/21/25 Hct 40.6 % (40-54) 01/21/25 10:01/21/25 Plt Count 216 K/mm3 (150-450) 01/21/25 10:01/21/25 CHEMISTRY Potassium 4.1 mmol/L (3.3-5.1) 01/21/25 10:01/21/25 Sodium 138 mmol/L (133-145) 01/21/25 10:01/21/25 Magnesium 2.0 mg/dL (1.6-2.6) 01/22/24 03:35 01/22/24 Phosphorus 2.5 mg/dL (2.5-4.9) 01/16/24 03:13 01/16/24 BUN 17 mg/dL (4-19) 01/21/25 10:25 01/21/25 Creatinine 0.98 mg/dL (0.70-1.20) 01/21/25 10:25 01/21/25 Glucose 84 mg/dL (70-99) 01/21/25 10:25 01/21/25 POC Glucose 182 mg/dL (74-106) H 01/12/24 23:29 01/12/24 TSH 2.99 uIU/mL (0.358-3.74) 01/13/24 03:55 01/13/24 COAG PT 13.0 SECONDS (11.7-14.9) 01/12/24 23:55 01/12/24 Pre-Assessment Diagnosis/Proposed Procedure Planned Operative Procedure(s): Lap Robotic Umb/Ventral Hernia Anesthesia History 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 When Was Last Pacemaker Check QUESTION #4 FULL TEXT: You/Your Family Experience fever (hyperthermia) with Anesthesia Last Oral Intake Last Oral intake: Last Oral Intake NPO since Meds taken in AM with sips of water? Meds patient instructed to take am of surgery PONV PONV - restoration ecologist: PONV - restoration ecologist Female Yes 03/15/25 10:21 HX of Motion Sickness No 03/15/25 10:21 HX of N/V After Surgery No 03/15/25 10:21 Non-Smoker Yes 03/15/25 10:21 Duration of Surgery greater No 03/15/25 10:21 than 60 minutes Number of Risk Factors 2 03/15/25 10:21 PONV Score Moderate Risk 03/15/25 10:21 Height & Weight Height & Weight: Anesthesia: Height & Weight Height 5 ft 8 in 02/09/25 10:01 Respiratory Assessment Respiratory Assessment - restoration ecologist: Respiratory Tract Infection Hx - restoration ecologist Hx Respiratory Tract Infection No 03/15/25 10:21 STOP Sleep Apnea STOP Sleep Apnea - restoration ecologist: STOP Sleep Apnea - restoration ecologist Hx Hypertension Yes: CONTROLLED ON MED 03/15/25 10:21 Hx Sleep Apnea No 03/15/25 10:21 CPAP BIPAP Do you snore loudly (louder No 03/15/25 10:21 than talking or can be heard Do you often feel tired/ No 03/15/25 10:21 fatigued/ sleepy during daytime? Has anyone observed you stop No 03/15/25 10:21 breathing during sleep? STOP Results Negative 03/15/25 10:21 QUESTION #5 FULL TEXT : Do you snore loudly (louder than talking or can be heard through closed doors)? 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 Specify any problems Hx of Preganancy in last 3 N/A 03/15/25 10:21 Months Nurse Filling Out Transfusion VCHRISTIN 03/15/25 10:21 & Questions: Date: 03/15/25 03/15/25 10:21 Time: 10:22 03/15/25 10:21 Patient unable to answer at this time (ie. confused, unrespo /Reproduction History /Reproductive History - restoration ecologist: /Reproductive Hx- restoration ecologist Hx Now No 03/15/25 10:21 Gestational Age (in weeks): EDC: Hx Hx Para Hx Section SAB No 03/15/25 10:21 Active Medications Active Medications: Current Medications Generic Name Dose Route Start Last Admin Trade Name Freq PRN Reason Stop Dose Admin Cefazolin Sodium 3 gm/ Sodium 115 mls @ 150 mls/hr 03/29/25 07:30 Chloride IV 03/29/25 08:15 INTRAOP ONE Lactated Ringer's 1,000 mls @ 15 mls/hr 03/29/25 06:15 [facility] Medical History (Updated 03/15/25 @ 10:21 by Jenny Field) Back pain History of diverticulitis History of stress test Respiratory failure Tooth abscess Diverticulosis [place]' lung Non-smoker CPAP (continuous positive airway pressure) dependence Sleep apnea Hypertension 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) Home Medications ?Medication ?Instructions ?Recorded ?Last Taken ?Type sildenafil 50 mg tablet 50 mg PO DAILY PRN sexual activity 01/13/24 03/28/25 20:00 History hydralazine 50 mg tablet 50 mg PO TID #90 tabs 01/23/24 03/28/25 22:30 Rx epinephrine 0.3 mg/0.3 mL 0.3 mg (0.3 mL) IM Q10M PRN PRN 08/15/24 Unknown Rx injection, auto-injector anaphylaxis #2 ea beet root 2 cap PO DAILY 02/09/25 Unknown History apple cider vinegar 300 mg tablet 300 mg PO BID 03/15/25 Unknown History cetirizine 10 mg tablet 10 mg PO QPM 03/15/25 03/28/25 20:00 History Allergy/AdvReac Type Severity Reaction Status Date / Time HAO Inhibitors Allergy Severe Angioedema Verified 03/29/25 06:51 bee venom protein (honey Allergy Severe SWELLING Verified 03/29/25 06:51 bee) (bee sting) losartan Allergy Severe Angioedema Verified 03/29/25 06:51 Surgical History History of tracheostomy History of chest tube placement Social History household members: spouse Smoking Status: Never smoker Review of Systems (Anesthesia) ROS Narrative System reviewed and no additional complaints, except as documented. Physical Exam Const alert, oriented x3 and average body habitus Resp normal respiratory effort, normal air movement and clear to auscultation bilaterally Cardio regular rate, regular rhythm, no murmurs and diaphoretic
[2025-03-29] MEDS: Lactated Ringers 1,000 ML 15 ML IV (06:45)
[2025-03-29] MEDS: hydrALAZINE 50 MG Tablet PO (07:00)
--- NOTE | 2025-03-29 07:04 | PCM.HP.BLA ---
History and Physical Date of Admission: 03/29/25 OFFICE VISIT Date of Service: 02/09/25 MR#: [id number] Acct: [id number] Name: MIGUEL OROZCO Rep #: [id number] : 1965 Provider: Dr. Miguel Kurtz MD Age/Sex: 59/M Location: [facility] Status: Signed Intake Vital Signs 08/14/2423:30 02/09/2510:01 Height 5 ft 8 in 5 ft 8 in Weight: 265 lb BMI 40.3 BP 169/93 H Blood Pressure Location Rt brachial Position Sitting Respiration 17 Pulse 75 Pulse Source Monitor Pulse Oximetry (%) 97 Oxygen Delivery Method room air Intake Visit Reasons: UMBILICAL HERNIA Chief Complaint: umbilical hernia Is patient in pain?: No Allergies HAO Inhibitors Allergy (Severe, Verified 02/09/25 10:02) Angioedemalosartan Allergy (Severe, Verified 02/09/25 10:02) Angioedema Medications ?Medication ?Instructions ?Recorded ?Confirmed ?Type sildenafil 50 mg tablet 50 mg PO DAILY PRN sexual activity 01/13/24 02/09/25 History hydralazine 50 mg tablet 50 mg PO TID #90 tabs 01/23/24 02/09/25 Rx epinephrine 0.3 mg/0.3 mL 0.3 mg (0.3 mL) IM Q10M PRN PRN 08/15/24 02/09/25 Rx injection, auto-injector anaphylaxis #2 ea beet root PO 02/09/25 02/09/25 History PFSH Medical History Respiratory failure Tooth abscess Diverticulosis [place]' lung Non-smoker CPAP (continuous positive airway pressure) dependence Sleep apnea Hypertension 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 He is referred from Dr. Noe but is known to me from a prior inpatient admission related to angioedema and need for an emergent tracheostomy as well as tube thoracostomy which took place on 01/13/2024. This hernia finding was first noticed by patient approximately 1-1/2 to 2 years ago. Patient is not able to recall how this occurred, but suspects that it was related to lifting more than he ought to have lifted. He describes some discomfort from the hernia generally a couple times a day when he must push back on the hernia contents to reduce them to be more comfortable level. He states that they have never become stuck out so much that they were not reducible. He also denies being able to attribute any bowel habit changes to his hernia. He confirms this is the first hernia is ever had in this location or otherwise. Mr. Orozco states that he experienced some initial weight gain after his hospitalization last spring and reached a maximum weight of 290 pounds but through sticking to the carnivore diet he has dropped to 260 pounds. Mr. Orozco shares that he was recently evaluated for but had normal fasting blood sugar. Patient denies any history of cutaneous infections?specifically staph infections. Pertinent surgical history includes: No abdominal surgeries ROS General General: No weight change, appetite, fatigue, colon cancer, breast cancer or weakness HEENT HEENT: No difficulty swallowing, eye injury, eye surgery, swollen glands or hoarseness Endo Endocrine: No thyroid disease, diabetes mellitus, thyroid cancer, Hair loss, heat intolerance or cold intolerance Skin Skin: No rash or changing moles Musc Musculoskeletal: Yes back problems; No arthritis, rheumatoid arthritis, gout or joint pain Cardio Cardiovascular: Yes high blood pressure; No murmur, pacemaker, heart disease, atrial fibrillation, heart attack, heart stent, palpitations, shortness of breath with exertion or chest pain Psych Psychiatric: No depression, anxiety or hearing voices Resp Respiratory: No shortness of breath, Yes sleep apnea, No cough, No COPD, No asthma, No emphysema and No wheezing Gastro Gastrointestinal: Yes abdominal pain, No nausea or vomiting, No diarrhea, No constipation, No blood in stool, No acid reflux, No hemorrhoids, No ulcers, No gallbladder problem and No black,tarry stools Gustavo Hematologic: No blood thinners, No blood disorders, No bleeding, No anemia and No blood clots Neuro Neurologic: No system reviewed and no additional complaints, except as documented, No as per HPI, No abnormal gait, No abnormal hearing, No abnormal movements, No abnormal speech, No behavioral changes, No burning sensations, No confusion, No convulsions, No disequilibrium, No dizziness, No localized weakness, No frequent falls, No headache(s), No lack of coordination, No loss of vision, No memory loss, No numbness, No other visual disturbances, No radicular pain, No restless legs, No sensory deficit, No syncope, No tingling, No tremor(s), No weakness and No other Exam Const General: cooperative, comfortable and no acute distress Resp Effort & Inspection: normal respiratory effort GI Other: Obese, readily apparent moderately large umbilical hernia. Hernia contains incarcerated fat that is only partially reducible. He denies significant tenderness with palpation. Otherwise there are no scars or other areas of concern for hernia. Patient does display evidence of diastases recti. The abdomen is nontender with palpation x 4 quadrants. Assessment and Plan Assessment and Plan (1) Umbilical hernia: Status: Chronic Qualifiers: Obstruction and gangrene presence: without obstruction or gangrene Qualified Code(s): K42.9 - Umbilical hernia without obstruction or gangrene Comment: Patient is 59-year-old male known to me for a history of angioedema and acute respiratory failure status post trach and chest tube who now presents for surgical consultation related to a progressively symptomatic umbilical hernia. On exam hernia is incarcerated with fat but it appears to come down to a fascial defect of approximately 3 cm. Given patient's symptoms I do believe it is time to consider surgical repair and given the size hernia repair requires inclusion of mesh. With patient's habitus and active lifestyle I find in his best interest to adhere closely to the general recommendations for a 4 to 5 cm overlap of this mesh. This is best going to be achieved using a minimally invasive approach. Therefore I recommend a robot-assisted minimally invasive approach to this hernia closure. The operation was described in detail to patient including the expected duration, expected recovery, and the activity restrictions that would be imposed as part of that recovery. Mr. 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 Plan: ? Plan for outpatient robot-assisted umbilical hernia repair with mesh placement in early March ? Obtain MRSA swab of the nares today and determine need for eradication protocol to minimize risk of translocation I have examined the patient the following changes are noted: Patient presents today for planned robot-assisted umbilical hernia repair with mesh, however, he forgot to take his antihypertensive this morning and is consequently significantly hypertensive. We are awaiting interval dose from pharmacy to see if this rectify his issue that we are able to proceed. He otherwise states that he is in his usual state of health, presently asymptomatic from his hypertension, and his abdominal exam is benign. Consents were confirmed and operative/postoperative activity expectations were reviewed. Will await the results of his medication administration.
[2025-03-29] MEDS: Cefazolin 3 GM in 0.9% Normal Saline (100mL Bag) 100 ML IV (08:30)
[2025-03-29] MEDS: BUPIVACAINE LIPOSOME/PF 20 ML VIAL OPERA.SITE (09:10)
[2025-03-29] MEDS: Bupivacaine 0.25% 30 ML Vial ×2 (09:10)
[2025-03-29] MEDS: 0.9% Normal Saline (Pres. free 10 ML Vial (09:10)
--- NOTE | 2025-03-29 11:21 | OP.PCM_ITS ---
Procedures Digestive 40xxx-49xxx: 12329 RPR AA HRN 1ST < [address] [facility] Operative Report (Standard) Operative Information Date of Procedure: 03/29/25 Pre-Operative Diagnosis: Umbilical hernia Post-Operative Diagnosis: Same Surgery/Procedure Performed: Transabdominal preperitoneal robot-assisted umbilical hernia repair with mesh instructor correspondence school: Yes Photo Specialist: Svetlana Garcia Tasks completed by presser first: Opening & closing and Other (Material insertion and retrieval) Additional physiotherapy assistant?: Yes Additional Machine Operator General #2: Nyasia Gamboa Tasks completed by physiotherapy assistant #2: Other (Material insertion and retrieval) Type of Anesthesia: General/Supplemental RN Documented Start/Stop Times: Operation Date: 03/29/25 07:30 Case Time Into Pre-Op 03/29/25 05:59 Anesthesia Start 03/29/25 08:21 Into Room 03/29/25 08:21 Procedure Start 03/29/25 08:53 Procedure End 03/29/25 11:30 Anesthesia End 03/29/25 11:35 Out of Room 03/29/25 11:35 Into Recovery 03/29/25 11:37 Into Phase II Recovery 03/29/25 12:19 Out of Recovery 03/29/25 12:19 Out of Phase II 03/29/25 13:01 Procedure Start Time: 08:53 Procedure Stop Time: 11:30 Select all DRAINS/GRAFTS/IMPLANTS that apply: Implanted device (ProGrip mesh) Implanted device details: Lot [id number], reference LPG [id number], expiration 05/27/2027 Estimated Blood Loss: 10 Specimen collected: No Description of surgery: After appropriate identification in the preoperative holding area and obtaining a satisfactory starting blood pressure, the patient was brought to the operating room suite where the was positioned supine the operating table. Preoperative antibiotics were administered. Patient was then induced with a general anesthetic. Patient's abdomen was prepped and draped in the usual sterile fashion. A formal timeout followed to confirm patient and procedure. Procedure was begun with a Veress entry at Nuno's point. Once the set point pressure of 15 mmHg was reached, this Veress needle was exchanged for an optical trocar and an optical entry was made in this location. Laparoscopic investigation revealed no inadvertent injury to the viscera below. A transversus abdominis plane block was created with a mixture of Exparel, Marcaine, injectable saline under laparoscopic vision. Two additional 8 mm robotic trocars were placed along the abdominal wall laterally taking care to avoid the bony prominences of the costal margin and the ASIS. The robot was then brought in and docked in standard fashion. Robotically a peritoneal flap was raised approximately 2 cm medial from my trocars and carried this away towards the contralateral abdominal wall. Great care was taken to lower the peritoneum off of the posterior rectus sheath and avoid any rents in the peritoneal flap. Perforating vessels were sealed with bipolar energy to maintain hemostasis as this flap dissection proceeded. I then addressed the hernia directly by opening the scar tissue about the hernia sac and carefully applying manual traction downward until the hernia was fully reduced. In doing so I delivered a moderate amount of preperitoneal fat from the rather small fascial defect. The flap was then further dissected laterally until it appeared we had adequate width. The hernia defect, which measured 1.5 cm in width, was closed with a #1 stratafix suture by running the fascial defect closed and then running the suture back upon itself. Next a 10 x 12 cm ProGrip mesh was introduced into the peritoneum and was pressed into place so there was even overlap about the defect closure. A 3-0 Vicryl suture was then used to loosely tacked the mesh in 4 point against the abdominal wall. A soft case count was then performed to verify that there were no sutures underneath the peritoneal flap. Lastly the peritoneum was closed with 2x3-0 Vicryl V-Loc sutures in a bidirectional fashion overlapping in the middle. Several small peritoneal rents were inadvertently created during the flap dissection and I set about closing these openings with a 3-0 Vicryl suture. However, the flap was both too attenuated and the mobility to limited for this to be successful so I switched to use of an additional 3-0 V-Loc suture and used the patient's hernia sac to close this defect nicely. [place], a ruler, and inserted Ray-Cody were all remov ed under laparoscopic visualization and case counts were confirmed. The robot was then undocked and the trocars were removed. Additional local anesthetic was instilled and the port sites were closed with interrupted 4-0 Monocryl in subcuticular fashion. Steri-Strips and OpSite dressings were applied. Patient was transferred to PACU for ongoing care. Surgical Findings: ? 1.5 cm fascial defect with fat incarcerated umbilical hernia ? Attenuated peritoneal layer superiorly along peritoneal flap Complications Complications: No Admit VTE Documentation VTE Mechan Device Prophylaxis: SCD's
--- NOTE | 2025-03-29 11:25 | EX.PCM.DISCH ---
Discharge Instructions Diet Discharge Diet: No restrictions Activity Discharge Activity: May Not Drive (While taking narcotic pain medication) and May Shower May shower in (days): 2 Ice area for (Minutes): 20 Lifting Restrictions: No lifting greater than 10 pounds for the next 5 weeks Dressing / Incision Call your doctor if your incision/area has: Continuous Slow Oozing, Increased Pain/ Swelling, Increased Redness, Foul Smelling Discharge and Swelling at the incision site Call your doctor if you observe: Fever of 101 or Higher, Inability to urinate and Inability to have a bowel movement Change Dressing in: 2 days (Please leave Steri-Strips intact until they fall off spontaneously or are taken off at your follow-up visit) Remove Dressing in: 2 days Cleanse incision/area with: Soap & Water and Keep Dressing Clean & Dry Follow Up Care Please Follow Up With: Miguel Kurtz MD When: 1 week postop Test Results: Test results from this visit will be discussed in further detail at your follow-up appointment, if applicable. Discharge Plan Admission Primary Reason for Your Visit: Umbilical hernia repair Attending Provider: Miguel Kurtz Primary Care Provider: Zaki Noe Instructions Print Language: Icelandic Discharge Orders/Prescriptions Prescriptions: New oxycodone 5 mg tablet 5 mg PO Q6H PRN (Reason: pain) 3 Days Qty: 10 0RF Continued beet root capsule 2 cap PO DAILY cetirizine 10 mg tablet 10 mg PO QPM apple cider vinegar 300 mg tablet 300 mg PO BID sildenafil 50 mg tablet 50 mg PO DAILY PRN (Reason: sexual activity) hydralazine 50 mg Tablet 50 mg PO TID Qty: 90 2RF epinephrine 0.3 mg/0.3 mL auto-injector 0.3 mg IM Q10M PRN PRN (Reason: anaphylaxis) Qty: 2 0RF Rx Instructions: for 2 doses Referrals / Follow Up: Zaki Noe MD [Primary Care Provider] - Disposition Disposition (needs filled in before D/C Order can be placed): Home, Self Care
--- NOTE | 2025-03-29 11:45 | PCM.POST.ANE ---
Anesthesia: Postop Eval I Current Vital Signs Temperature: 98.1 F Pulse Rate: 84 Blood Pressure: 162/102 Respiratory Rate: 16 Pulse Ox: 97 Oxygen Delivery Method: Non-Rebreather Oxygen Flow Rate (L/min): 6 Assessment Airway patent: Yes Spontaneous unlabored respirations: Yes Mental status: Awake and Calm nausea: No Vomiting: No Anesthesia Complication: No Fluid Hydration Crystalloid volume administer (ml): 1,800 Total IV fluid infused: 1,800 Progress Note Anesthesia document: Postop Eval 1 completed: Yes
[2025-03-29] MEDS: oxyCODONE 5 MG Tablet PO (12:49)
--- NOTE | 2025-03-29 12:55 | POSTOPAN2_ITS ---
Anesthesia Postop Eval I Sum Postop Eval Completion status Anesthesia document: Postop Eval 1 completed: Yes Anesthesia Postop Eval I Summary Anesthesia Postop Eval I Summary: Anesthesia Postop Eval I: Assessment Summary Airway patent Yes 03/29/25 11:46 PEANUT [email or web address].SHOF Spontaneous unlabored Yes 03/29/25 11:46 PEANUT ROASTER.SHOF respirations Mental status Awake,Calm 03/29/25 11:46 PEANUT [email or web address].SHOF nausea No 03/29/25 11:46 PEANUT ROASTER.SHOF Vomiting No 03/29/25 11:46 PEANUT [email or web address].SHOF Anesthesia Postop Eval I: Fluid Summary Crystalloid volume administer 1,800 03/29/25 11:46 PEANUT [email or web address].SHOF (ml) Colloids volume administered ( ml) Blood Product volume administered (ml) Total IV fluid infused 1,800 03/29/25 11:46 PEANUT [email or web address].SHOF Anesthesia Postop Eval I: Summary Notes Anesthesia Complication No 03/29/25 11:46 PEANUT [email or web address].SHOF Anesthesia Complication Comment: Post-operative progress note Anesthesia: Postop Eval II Evaluation Mental status: Awake Pain Level: 0 nausea: No Vomiting: No Complications Anesthesia Complication: No
--- NOTE | 2025-03-29 12:55 | PCM.POSTANE2 ---
Anesthesia Postop Eval I Sum Postop Eval Completion status Anesthesia document: Postop Eval 1 completed: Yes Anesthesia Postop Eval I Summary Anesthesia Postop Eval I Summary: Anesthesia Postop Eval I: Assessment Summary Airway patent Yes 03/29/25 11:46 PIT FURNACE [email or web address].[email or web address] Spontaneous unlabored Yes 03/29/25 11:46 PIT F[employer]NACE OPERATOR.SHOF respirations Mental status Awake,Calm 03/29/25 11:46 PIT FURNACE OPERATOR.SHOF nausea No 03/29/25 11:46 PIT FURNACE OPERATOR.SHOF Vomiting No 03/29/25 11:46 PIT FURNACE OPERATOR.SHOF Anesthesia Postop Eval I: Fluid Summary Crystalloid volume administer 1,800 03/29/25 11:46 PIT FURNACE OPERATOR.SHOF (ml) Colloids volume administered ( ml) Blood Product volume administered (ml) Total IV fluid infused 1,800 03/29/25 11:46 PIT FURNACE OPERATOR.SHOF Anesthesia Postop Eval I: Summary Notes Anesthesia Complication No 03/29/25 11:46 PIT FURNACE OPERATOR.SHOF Anesthesia Complication Comment: Post-operative progress note Anesthesia: Postop Eval II Evaluation Mental status: Awake Pain Level: 0 nausea: No Vomiting: No Complications Anesthesia Complication: No
== END 2025-03-29 13:03 | disposition home or self-care (01) ==
LOC: SDC 05:35 → AC 05:36
PROVIDERS: PCP Family Medicine; Referring Provider Surgery; Visit Provider Surgery
PROC: (CPT 49591; principal; 2025-03-29 07:10)
DX: K42.9 Umbilical hernia without obstruction or gangrene (principal); I10 Essential (primary) hypertension; Z79.899 Other long term (current) drug therapy
CPT/HCPCS: 49591; S2900; 00750; 93005; C1781; J0666; J2405